=== PATIENT | male | born 1990 | race Caucasian/White ===

== ENCOUNTER 2021-11-02 11:14 | Emergency (ER) | payer OTHER, SELFPAY ==
[2021-11-02 11:35] VITALS: BP 130/80; PULSE 70; O2SAT 98; BMI 27.8
[2021-11-02 11:46] VITALS: BP 134/63; PULSE 75; RESP 16; TEMP 36.4; O2SAT 97
--- NOTE | 2021-11-02 12:32 | ED_ITS ---
HPI - General Adult General Chief complaint: ETOH/Substance Use Stated complaint: EXT NUMB/TINGLY ,NAUSEA/VOMITING X'S DAYS Time Seen by Provider: 11/02/21 11:48 Source: patient Mode of arrival: EMS Limitations: no limitations History of Present Illness HPI narrative: kicked out of program - was tapered off of 150mg methadone using heroin still supposed to be on doxycycline for R arm cellulitis here requesting methadone dose and detox placement, he is homeless complaint: withdrawal from opiates Onset (ago): day(s) (few) Severity: moderate Quality: other (feels tingly at times and has mild nausea and body aches) Pain Consistency: constant Relieving factors: none Exacerbating factors: none Associated symptoms: loss of appetite and malaise Treatments prior to arrival: none Related Data Home Medications Medication Instructions Recorded Confirmed methadone 10 mg/mL oral concentrate 20 mg PO DAILY 11/02/21 11/02/21 Previous Rx's Medication Instructions Recorded doxycycline hyclate 100 mg capsule 100 mg PO BID 7 Days #14 cap 11/02/21 Allergies Allergy/AdvReac Type Severity Reaction Status Date / Time risperidone Allergy Severe Angioedema Verified 11/02/21 11:59 Review of Systems Review of Systems: Constitutional : No Weight loss, No Fever, No Chills, pos Fatigue, No Malaise ENT/Mouth : No sore throat, No Rhinorrhea Eyes: No Eye Pain, No Swelling, No Redness Cardiovascular : No Chest Pain, No SOB, No Dyspnea on Exertion, No Orthopnea, No Edema, No Palpitations Respiratory : No Cough, No Sputum, No Wheezing Gastrointestinal : pos Nausea, No Vomiting, No Diarrhea, No Constipation, No abdominal Pain, No Hematochezia, No Melena Genitourinary : No Dysuria, No Urinary Frequency, No Hematuria, Musculoskeletal : No joint pain, pos Myalgias, No Joint Swelling Skin : No Skin Lesions, pos rash Neuro : No Weakness, No Numbness, No Dizziness, No Headache Psych : No Anxiety/Panic, No Depression Heme/Lymph: No Bruising, No Bleeding,No Lymphadenopathy Endocrine : No Polyuria, No Polydipsia All other systems reviewed and are negative PMFSH Past Medical History Attestation statement: The following information was validated with the patient. Medical History Active substance abuse Cellulitis Social History Social History (Updated 11/02/21 @ 12:36 by Neda Monahan DO) Patient Tobacco Use Status: Current everyday Tobacco user Substance Use Type: Crack/Cocaine, IV Drugs and Marijuana Advance Directives: No Advance Directives Information Provided: No Physical Exam ED Vital Signs: Vital Signs - 24 hr 11/02/21 11:46 Temperature 97.6 F Pulse Rate 75 Respiratory Rate 16 Blood Pressure 134/63 Pulse Oximetry 97 BMI result Body Mass Index 27.8 Appearance: Alert. Oriented X3. No acute distress. Eyes: Pupils equal, round and reactive to light. ENT: Pharynx normal. Neck: Normal inspection. Neck supple. CVS: Normal heart rate and rhythm. Pulses normal. Respiratory: No respiratory distress. Breath sounds normal. Abdomen: Soft and nontender. Skin: Skin warm and dry. Normal skin color. Normal skin turgor. R AC area mild cellulitis no fluctuance or abscess noted Extremities: No lower extremity edema. No calf ttp Neuro: Oriented X 3. No motor deficit. No sensory deficit. Course Course Course Narrative: mild elevation in LFTs - can follow up as outpatient Physician observation started at 315pm. Patient placed in physician observation because the patient needed more CARE team to aid in finding detox center. At the time observation was started the patient's vitals were stable, patient is alert and oriented , Neuro: nonfocal, CV RRR, Lungs clear Medical Decision Making MDM Narrative Medical decision making narrative: 31 yo male hx of substance abuse looking for detox in mild withdrawal will obtain basic labs and start back on his doxy as well as initial methadone dose - recovery coaches involved. anticipate DC to detox. Lab Data Result diagrams: 11/02/21 12:52 11/02/21 12:52 Labs: Lab Results 11/02/21 11/02/21 11/02/21 Range/Units 12:45 12:52 12:52 WBC 10.2 (4.8-10.8) X10*3/uL RBC 4.53 L (4.60-5.80) X10*6/uL Hgb 13.5 L (14.0-18.0) g/dl Hct 39.3 L (42.0-52.0) % MCV 86.8 (80.0-98.0) fL MCH 29.8 (27.0-33.0) pg MCHC 34.4 (31.0-36.0) g/dl RDW 13.0 (11.0-16.0) % Plt Count 291 (160-400) X10*3/uL MPV 10.0 (9.4-12.4) fL Immature Gran % (Auto) 0.2 (0.0-0.4) % Neut % (Auto) 81.5 H (45-73) % Lymph % (Auto) 11.7 L (20-40) % [place] % (Auto) 6.2 (2-11) % Eos % (Auto) 0.1 (0-4) % Baso % (Auto) 0.3 (0-2) % Lymph # (Auto) 1.2 (1.2-4.9) X10*3/uL [place] # (Auto) 0.6 (0.1-1.2) X10*3/uL Eos # (Auto) 0.0 (0.0-0.4) X10*3/uL Baso # (Auto) 0.0 (0.0-0.2) X10*3/uL Abs Immat Gran (auto) 0.02 (0.00-0.03) X10*3/uL Absolute Neuts (auto) 8.3 (2.0-8.3) x10*3/uL Absolute Nucleated RBC 0.000 (0.0-0.012) X10*3/uL Nucleated RBC % (auto) 0.0 (0.0-0.2) /100WBC Sodium 137 (135-145) mmol/L Potassium 3.7 (3.3-5.1) mmol/L Chloride 99 (96-108) mmol/L Carbon Dioxide 28 (22-29) mmol/L Anion Gap 14 (12-20) BUN 11 (9-16) mg/dL Creatinine 0.80 (0.5-1.4) mg/dL Estim Creat Clear Calc 127.3 Estimated GFR > 60 Random Glucose 142 H (60-115) mg/dL Calcium 10.1 (8.4-10.2) mg/dL Magnesium 2.2 (1.6-2.6) mg/dL Total Bilirubin 1.0 (0.0-1.0) mg/dL Direct Bilirubin 0.4 (0.0-0.5) mg/dL AST 148 H (5-37) U/L ALT 52 H (0-40) U/L Alkaline Phosphatase 86 (39-117) U/L Total Protein 7.5 (6.5-8.0) g/dL Albumin 4.4 (3.5-5.0) g/dL COVID-19 ([facility]ORITA) Negative (Negative) COVID-19 Clin Com See Note Discharge Plan Discharge Clinical Impression: Elevated liver enzymes, Active substance abuse, Cellulitis Patient Disposition: Still a Patient Instructions: Cellulitis (ED), Polysubstance Abuse (ED) Additional Instructions: return to ED for any worsening symptoms or concerns very mild elevation in liver enzymes should follow up for repeat testing and hepatitis screening COVID negative Prescriptions: New doxycycline hyclate 100 mg capsule 100 mg PO BID 7 Days Qty: 14 0RF No Action methadone 10 mg/mL Concentrate 20 mg PO DAILY 0RF
[2021-11-02] MEDS: Ondansetron ODT 4 MG TAB.RAPDIS TRANSLINGU (12:33)
[2021-11-02 12:58] LABS: MANUAL DIFF FLAG NO
[2021-11-02 13:00] LABS: Basophils Percent Auto 0.3 % (0-2); Eosinophils Percent Auto 0.1 % (0-4); Hematocrit 39.3 % (42.0-52.0); Hemoglobin 13.5 g/dl (14.0-18.0); Imm Gran Abs Auto 0.02 X10*3/uL (0.00-0.03); Imm Gran Pct Auto 0.2 % (0.0-0.4); Lymphocytes Absolute Auto 1.2 X10*3/uL (1.2-4.9); Lymphocytes Percent Auto 11.7 % (20-40); Mean Corpuscular HGB Conc 34.4 g/dl (31.0-36.0); Mean Corpuscular Hemoglobin 29.8 pg (27.0-33.0); Mean Corpuscular Volume 86.8 fL (80.0-98.0); Monocytes Absolute Auto 0.6 X10*3/uL (0.1-1.2); Monocytes Percent Auto 6.2 % (2-11); Neutrophils Absolute Auto 8.3 x10*3/uL (2.0-8.3); Neutrophils Percent Auto 81.5 % (45-73); Platelet Count 291 X10*3/uL (160-400); Red Blood Count 4.53 X10*6/uL (4.60-5.80); White Blood Count 10.2 X10*3/uL (4.8-10.8)
--- NOTE | 2021-11-02 13:15 | PC.NURSE ---
called [facility] to confirm pt methadone dose, pt [facility] clinic is [facility]. message left with [facility] d/t no answer on phone. will attempt to call and obtain last dose again
[2021-11-02 13:18] LABS: COVID-19 Test Negative (Negative)
[2021-11-02 13:20] LABS: Alanine Aminotransferase 52 U/L (0-40); Albumin Level 4.4 g/dL (3.5-5.0); Alkaline Phosphatase 86 U/L (39-117); Anion Gap 14 (12-20); Aspartate Amino Transferase 148 U/L (5-37); Bilirubin Direct 0.4 mg/dL (0.0-0.5); Blood Urea Nitrogen 11 mg/dL (9-16); Calcium 10.1 mg/dL (8.4-10.2); Carbon Dioxide 28 mmol/L (22-29); Chloride 99 mmol/L (96-108); Creatinine Clr Calc Pharmacy 127.3; Estimated Glomerular Filt Rate > 60; Glucose Random 142 mg/dL (60-115); Magnesium 2.2 mg/dL (1.6-2.6); Potassium 3.7 mmol/L (3.3-5.1); Sodium 137 mmol/L (135-145); Total Protein 7.5 g/dL (6.5-8.0)
--- NOTE | 2021-11-02 13:49 | PC.NURSE ---
pt information release filled out and signed, faxed to [facility] attn: devin
[2021-11-02] MEDS: methADONE HCl 20 MG/2 ML ORAL.CONC 30 MG PO (14:46)
[2021-11-02 15:31] VITALS: BP 128/65; PULSE 69; RESP 16; TEMP 36.9; O2SAT 98
== END 2021-11-02 18:05 | disposition other institution (70) ==
PROVIDERS: Emergency Provider Emergency Medicine
DX: F10.19 Alcohol abuse with unspecified alcohol-induced disorder (principal); R94.5 Abnormal results of liver function studies; Y90.9 Presence of alcohol in blood, level not specified; Z20.822 Contact with and (suspected) exposure to COVID-19; Z79.899 Other long term (current) drug therapy
CPT/HCPCS: 80048; 80076; 83735; 85025; 87635; 99282; 99285

== ENCOUNTER 2021-11-09 14:12 | Emergency (ER) | payer OTHER, SELFPAY ==
--- NOTE | 2021-11-09 15:09 | MHC.RECOVRN ---
T/w received a call from Sheryl Phillip regarding pt. Pt recently dc from [facility] and has not received methadone dose x 2 days. Pt is currently engaged with [facility] in [place], receiving 25 mg daily. Pt unable to get to [facility] due to bus schedules. Pt requesting dose at [facility]. Pt plans to present to [facility] tomorrow and/or return to inpatient [facility]. Pt plans to continue working with Sheryl Phillip and will follow up accordingly. Discussed with care technician as well as Sandra Quezada APRN.
[2021-11-09 15:22] VITALS: BP 127/84; PULSE 101; RESP 18; TEMP 36.3; O2SAT 96; BMI 29.1
--- NOTE | 2021-11-09 16:00 | ED_ITS ---
HPI - General Adult General Chief complaint: General Medical Stated complaint: needs methadone Time Seen by Provider: 11/09/21 15:37 Source: patient Mode of arrival: ambulatory Limitations: no limitations History of Present Illness HPI narrative: 31-year-old male with a longstanding history of opiate use disorder here with reports of seeking a medication dose of methadone. Patient tells me that he was discharged from [facility] on November 07 after being there for 5 days for detox. Due to transportation issues he was unable to get dose yesterday. He is here seeking his dose of 25 mg of methadone. He does have his letter with his last dose. He has no complaints. He is being followed by [facility]. Related Data Home Medications Medication Instructions Recorded Confirmed methadone 10 mg/mL oral concentrate 20 mg PO DAILY 11/02/21 11/02/21 Previous Rx's Medication Instructions Recorded doxycycline hyclate 100 mg capsule 100 mg PO BID 7 Days #14 cap 11/02/21 Allergies Allergy/AdvReac Type Severity Reaction Status Date / Time risperidone Allergy Severe Angioedema Verified 11/09/21 15:22 Review of Systems Review of Systems: Yes all other systems are reviewed and are negative Constitutional: Constitutional: Reports no additional constitutional complaints, Denies body ache(s), Denies chills, Denies fever(s), Denies headache(s) and Denies weakness Eyes: Eyes: Reports no additional eye complaints and Denies change in vision ENT: Reports system reviewed and no additional complaints, except as documented, Denies dizziness, Denies headache(s), Denies nasal congestion, Denies nasal discharge and Denies neck pain Cardiovascular: Cardiovascular: Reports no additional cardiovascular complaints, Denies chest pain, Denies leg edema and Denies dyspnea Respiratory: Respiratory: Reports no additional respiratory complaints, Denies cough and Denies dyspnea Gastrointestinal: Gastrointestinal: Reports no additional gastrointestinal complaints, Denies abdominal pain, Denies diarrhea, Denies nausea and Denies vomiting Genitourinary: Genitourinary: Denies urinary incontinence Musculoskeletal: Musculoskeletal: Reports no additional musculoskeletal complaints, Denies back pain, Denies arthralgias, Denies joint swelling, Denies neck pain, Denies numbness and Denies tingling Integumentary/Breasts: Skin/Breast: Reports system reviewed and no additional complaints, except as docu and Denies rash Neurologic: Reports system reviewed and no additional complaints, except as documented, Denies dizziness, Denies headache(s), Denies numbness, Denies tingling and Denies weakness PMFSH Past Medical History Attestation statement: The following information was validated with the patient. Source: old records reviewed and nursing notes reviewed Medical History Active substance abuse Cellulitis Social History Social History Patient Tobacco Use Status: Current everyday Tobacco user Substance Use Type: Crack/Cocaine, IV Drugs and Marijuana Advance Directives: No Advance Directives Information Provided: No Physical Exam ED Vital Signs: Vital Signs - 24 hr 11/09/21 15:22 Temperature 97.3 F Pulse Rate 101 H Respiratory Rate 18 Blood Pressure 127/84 Pulse Oximetry 96 BMI result Body Mass Index 29.1 Const General: cooperative and alert Orientation/consciousness: patient oriented x3 HENMT Head: Yes normal to inspection Eyes General: appearance normal, both eyes and all related structures Neck Neck: Yes normal visual inspection Chest Chest palpation & inspection: normal inspection of the chest Resp Effort & Inspection: normal respiratory effort Neuro General: patient oriented x3 and moves all extremities Course Course Course Narrative: Here seeking methadone dose. Has letter dose. Given dose 25mg PO. Liv recovery nurse involved. Medical Decision Making Medical Records Medical records reviewed: Yes I reviewed the patient's medical records. Lab Data Lab results reviewed: Yes I reviewed the patient's lab results. Discharge Plan Discharge Clinical Impression: Medication refill Patient Disposition: Home, Self-Care Instructions: Medicine Refill (ED) Additional Instructions: You received a 1 time dose of methadone 25 mg today Follow-up with [facility] Prescriptions: No Action doxycycline hyclate 100 mg capsule 100 mg PO BID 7 Days Qty: 14 0RF methadone 10 mg/mL Concentrate 20 mg PO DAILY 0RF Referrals: Physician,Unknown J [Primary Care Provider] - Interventions: ED Discharge Assessment Last Done: 11/09/21 16:09 Discharge Date/Time: 11/09/21 16:18
[2021-11-09] MEDS: methADONE HCl 20 MG/2 ML ORAL.CONC 25 MG PO (16:02)
== END 2021-11-09 16:18 | disposition home or self-care (01) ==
LOC: HO.ED 16:16
PROVIDERS: Emergency Provider Emergency Medicine
DX: F11.20 Opioid dependence, uncomplicated (principal); Z76.0 Encounter for issue of repeat prescription
CPT/HCPCS: 99283

== ENCOUNTER 2021-11-09 16:42 | Inpatient (IN) | payer OTHER, SELFPAY ==
--- NOTE | 2021-11-09 17:07 | ED.PSYCH ---
HPI - Psych General Chief Complaint: Psychiatric Symptoms Stated Complaint: crisis Time Seen by Provider: 11/09/21 16:51 Source: patient Mode of arrival: ambulatory Limitations: no limitations History of Present Illness HPI Narrative: 31-year-old male with a history of opiate use disorder who was just seen here 45 minutes ago and dose with his methadone returns for crisis. Patient tells me he has underlying history of bipolar and schizoaffective disorder. He has Seroquel p.r.n. which he takes. He tells me that he suffers from manic episodes and when he has manic episodes he feels like he is at risk of harm for himself. Patient denies any suicidal ideations. No homicidal ideations. Patient tells me if he doesnt sleep he gets visual hallucinations but normally not a problem if he sleeping well. Patient has been in dual diagnosis programs. He does not currently have any therapist or psychiatrist. He is using heroin multiple bags daily and injects it. He also uses cocaine sometimes. No additional substance use. Patient is on methadone 25 mg and received his dose 1 hour ago. Related Data Home Medications Medication Instructions Recorded Confirmed methadone 10 mg/mL oral concentrate 20 mg PO DAILY 11/02/21 11/02/21 gabapentin 300 mg capsule 1 cap PO TID 11/09/21 11/09/21 Allergies Allergy/AdvReac Type Severity Reaction Status Date / Time risperidone Allergy Severe Angioedema Verified 11/09/21 15:22 Review of Systems Review of Systems: Yes all other systems are reviewed and are negative Constitutional: Constitutional: Reports no additional constitutional complaints, Denies body ache(s), Denies chills, Denies fever(s), Denies headache(s) and Denies weakness Eyes: Eyes: Reports no additional eye complaints and Denies change in vision ENT: Reports system reviewed and no additional complaints, except as documented, Denies dizziness, Denies headache(s), Denies nasal congestion, Denies nasal discharge and Denies neck pain Cardiovascular: Cardiovascular: Reports no additional cardiovascular complaints, Denies chest pain, Denies leg edema and Denies dyspnea Respiratory: Respiratory: Reports no additional respiratory complaints, Denies cough and Denies dyspnea Gastrointestinal: Gastrointestinal: Reports no additional gastrointestinal complaints, Denies abdominal pain, Denies diarrhea, Denies nausea and Denies vomiting Genitourinary: Genitourinary: Denies urinary incontinence Musculoskeletal: Musculoskeletal: Reports no additional musculoskeletal complaints, Denies back pain, Denies arthralgias, Denies joint swelling, Denies neck pain, Denies numbness and Denies tingling Integumentary/Breasts: Skin/Breast: Reports system reviewed and no additional complaints, except as docu and Denies rash Neurologic: Reports system reviewed and no additional complaints, except as documented, Denies Abnormal speech present, Denies dizziness, Denies headache(s), Denies numbness, Denies tingling and Denies weakness Psychiatric: Psychiatric: Reports anxiety, Reports depression, Reports visual hallucinations, Denies homicidal ideation and Denies suicidal ideation Comments: +manic feeling PMFSH Past Medical History Attestation statement: The following information was validated with the patient. Source: old records reviewed and nursing notes reviewed Medical History Active substance abuse Cellulitis Social History Social History Patient Tobacco Use Status: Current everyday Tobacco user Substance Use Type: Crack/Cocaine, IV Drugs and Marijuana Advance Directives: No Advance Directives Information Provided: No Physical Exam Vital Signs: Vital Signs: Last Vital Signs Temp 99.1 F 11/09/21 17:52 Pulse 82 11/09/21 17:52 Resp 20 11/09/21 17:52 BP 132/78 11/09/21 17:52 Pulse Ox 97 11/09/21 17:52 BMI result Body Mass Index 29.3 Const: General: cooperative, healthy appearing, comfortable and no acute distress Orientation/consciousness: patient oriented x3 Limitations: no limitations HEENT: Head: Yes normal to inspection Ears: hearing grossly normal bilaterally General nose exam: Normal external nose present Face and sinus: Yes normal facial exam Mouth: Normal oral and palatal mucosa present Throat: Yes posterior oropharynx normal Eyes: General: appearance normal, both eyes and all related structures Pupils: Equal, round and reactive pupils present Neck: Neck: Yes normal visual inspection Chest: Chest palpation & inspection: normal inspection of the chest Resp: Effort & Inspection: normal respiratory effort Auscultation: clear to auscultation bilaterally Cardio: Rate: regular rate Rhythm: regular rhythm Peripheral pulses: Peripheral pulses 2+ throughout GI: Inspection: Yes normal to inspection Palpation (GI): Soft to palpation and nontender Auscultation: normal bowel sounds Back/Spine/Pelvis: Thoracic/Lumbar Spine: thoracic and lumbar spine normal to inspection Skin: General skin exam: no rashes or lesions noted Neuro: General: patient oriented x3, no focal motor deficits and normal sensation to monofilament Cranial nerves: Yes CN's II-XII intact bilaterally and Yes Equal, round and reactive pupils present Cognition (Neuro): normal cognition Speech: No Abnormal speech present Gait exam (Neuro): Normal gait present Motor exam (neuro): 5/5 motor strength present throughout Extrem: General: Yes normal to inspection Course Course Course Narrative: 31 yo male here with feeling manic with increasing episodes of ofelia. When he feels manic he feels like he might hurt himself. Will check [facility], covid screen. Reevaluation(s) Reevaluation #1: Sign out to night team pending above Time: 21:00 MDM - Psych Medical Records Attestation: I reviewed the patient's medical records. Lab Data Attestation: I reviewed the patient's lab results. Labs: Lab Results 11/09/21 11/09/21 Range/Units 18:48 18:51 Urine Opiates Screen POSITIVE H (Not Detect) Urine Fentanyl Screen POSITIVE H (Not Detect) Ur Barbiturates Screen Not Detected (Not Detect) Ur Phencyclidine Scrn Not Detected (Not Detect) Ur Amphetamines Screen Not Detected (Not Detect) U Benzodiazepines Scrn Not Detected (Not Detect) Urine Cocaine Screen POSITIVE H (Not Detect) U Marijuana (THC) Screen Not Detected (Not Detect) COVID-19 ([facility]) Negative (Negative) COVID-19 Clin Com See Note Discharge Plan Discharge Clinical Impression: Depression Patient Disposition: Still a Patient Prescriptions: No Action methadone 10 mg/mL Concentrate 20 mg PO DAILY 0RF gabapentin 300 mg capsule 1 cap PO TID 0RF
[2021-11-09 17:38] VITALS: RESP 16; BMI 29.3
[2021-11-09 17:52] VITALS: BP 132/78; PULSE 82; RESP 20; TEMP 37.3; O2SAT 97
[2021-11-09 19:16] LABS: COVID-19 Test Negative (Negative)
[2021-11-09 19:22] LABS: Amphetamine Screen Urine Not Detected (Not Detect); Barbiturates, Urine Not Detected (Not Detect); Benzodiazepines Screen Urine Not Detected (Not Detect); Cannabinoid Screen Urine Not Detected (Not Detect); Cocaine Screen Urine POSITIVE (Not Detect); Fentanyl, urine POSITIVE (Not Detect); Opiate Screen Urine POSITIVE (Not Detect); Phencyclidine Screen Urine Not Detected (Not Detect)
[2021-11-09] MEDS: Gabapentin 300 MG CAPSULE PO (21:17)
[2021-11-09 22:02] LABS: MANUAL DIFF FLAG NO
[2021-11-09 22:05] LABS: Basophils Absolute Auto 0.1 X10*3/uL (0.0-0.2); Basophils Percent Auto 0.6 % (0-2); Eosinophils Absolute Auto 0.2 X10*3/uL (0.0-0.4); Eosinophils Percent Auto 1.9 % (0-4); Hematocrit 41.4 % (42.0-52.0); Hemoglobin 13.8 g/dl (14.0-18.0); Imm Gran Abs Auto 0.05 X10*3/uL (0.00-0.03); Imm Gran Pct Auto 0.6 % (0.0-0.4); Lymphocytes Percent Auto 38.1 % (20-40); Mean Corpuscular HGB Conc 33.3 g/dl (31.0-36.0); Mean Corpuscular Hemoglobin 29.7 pg (27.0-33.0); Mean Corpuscular Volume 89.2 fL (80.0-98.0); Mean Platelet Volume 10.7 fL (9.4-12.4); Monocytes Absolute Auto 0.7 X10*3/uL (0.1-1.2); Monocytes Percent Auto 8.8 % (2-11); Neutrophils Absolute Auto 3.9 x10*3/uL (2.0-8.3); Platelet Count 330 X10*3/uL (160-400); Red Blood Count 4.64 X10*6/uL (4.60-5.80); Red Cell Distribution Width 12.7 % (11.0-16.0); White Blood Count 7.9 X10*3/uL (4.8-10.8)
[2021-11-09 22:38] LABS: Alanine Aminotransferase 29 U/L (0-40); Albumin Level 4.2 g/dL (3.5-5.0); Alkaline Phosphatase 75 U/L (39-117); Anion Gap 17 (12-20); Aspartate Amino Transferase 66 U/L (5-37); Bilirubin Direct 0.2 mg/dL (0.0-0.5); Bilirubin Total 0.4 mg/dL (0.0-1.0); Blood Urea Nitrogen 11 mg/dL (9-16); Calcium 9.7 mg/dL (8.4-10.2); Carbon Dioxide 22 mmol/L (22-29); Chloride 105 mmol/L (96-108); Creatinine Clr Calc Pharmacy 119.8; Estimated Glomerular Filt Rate > 60; Glucose Random 107 mg/dL (60-115); Potassium 5.1 mmol/L (3.3-5.1); Sodium 139 mmol/L (135-145); Total Protein 7.6 g/dL (6.5-8.0)
[2021-11-09] MEDS: traZODone HCL 50 MG TABLET PO (23:15)
[2021-11-09] MEDS: QUEtiapine Fumarate 50 MG TABLET PO (23:16)
--- NOTE | 2021-11-10 | ECG_ITS ---
Test Reason : psych Blood Pressure : / mmHG Vent. Rate : 060 BPM Atrial Rate : 060 BPM P-R Int : 148 ms QRS Dur : 090 ms QT Int : 430 ms P-R-T Axes : 043 -12 037 degrees QTc Int : 430 ms Normal sinus rhythm Normal ECG No previous ECGs available Referred By: Maria Isabel Richardson Electronically Signed By:Alberto Berry
[2021-11-10 02:06] VITALS: BP 133/83; PULSE 69; RESP 16; TEMP 37.1; O2SAT 99
--- NOTE | 2021-11-10 06:54 | PC.NURSE ---
Patient slept through the night, no distress observed/reported, medication compliant, behavior non concerning, disposition per [facility] is voluntary inpatient bed search, vss, will continue to monitor.
--- NOTE | 2021-11-10 07:35 | PC.NURSE ---
patient appears to remain asleep respirations are even and unlabored patient appears in no distress
[2021-11-10] MEDS: Multivitamin TABLET 1 TAB PO (09:56)
[2021-11-10] MEDS: Ferrous Sulfate 324 MG TABLET.DR PO (09:56)
[2021-11-10] MEDS: Gabapentin 300 MG CAPSULE PO ×2 (09:56→20:37)
[2021-11-10] MEDS: methADONE HCl 20 MG/2 ML ORAL.CONC 25 MG PO (09:56)
[2021-11-10 12:53] VITALS: BP 125/72; PULSE 61; TEMP 36.8; O2SAT 100
--- NOTE | 2021-11-10 13:06 | PC.NURSE ---
Dheeraj RN report on M3- plan for him to go upstairs at 1600
[2021-11-10 15:57] VITALS: BP 141/84; PULSE 64; RESP 16; TEMP 36.6; O2SAT 100
--- NOTE | 2021-11-10 17:19 | PC.ADMIT ---
Patient arrived at M3 from [facility] ED at 15:50. Patient signed a conditional voluntary. Patient is alert and oriented x4. Pleasant and cooperative upon admission. Patient presented to the ED with increased paranoia, Auditory hallucinations, and poor sleep/appetite. Per patient ?I was recently homeless, and then I relapsed. I had 4 months clean?. Patient reported that he was tapering off methadone when he relapsed. Patient reported that he ?Bought $1000 worth of cocaine and heroin. I did share some with friends but I used a few hundred dollars worth. I have been using 20/30 bags of heroin daily and like a couple of grams of coke?. Patient currently takes 25 mg of methadone daily. Patient reported that ?subconsciously I think I was hoping I did overdose?. Patient currently denies SI/HI/AH/VH. Patient reported that when he does experience AH the voices are ?mundane commentary?. Patient declined to elaborate further. Patient reported that he currently does not have a psychiatrist or therapist but is wanting to get set up with some. Reported that Haldol and Thorazine have not been helpful in the past for treatment. Reported that he utilizes seroquel prn at bedtime and that ?Ativan has been helpful?. Patient stated ?But I don?t want any of those antipsychotics type drugs?.? Patient contracts for safety. 15 minute safety checks initiated.?
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
[2021-11-10] MEDS: QUEtiapine Fumarate 50 MG TABLET PO (20:37)
[2021-11-11 08:17] LABS: Estimated Average Glucose 100 mg/dL; Hemoglobin A1c % 5.1 %
[2021-11-11 08:31] LABS: Alanine Aminotransferase 20 U/L (0-40); Albumin Level 3.6 g/dL (3.5-5.0); Alkaline Phosphatase 64 U/L (39-117); Anion Gap 10 (12-20); Aspartate Amino Transferase 23 U/L (5-37); Bilirubin Total 0.4 mg/dL (0.0-1.0); Blood Urea Nitrogen 8 mg/dL (9-16); Calcium 9.7 mg/dL (8.4-10.2); Carbon Dioxide 26 mmol/L (22-29); Chloride 107 mmol/L (96-108); Cholesterol 118 mg/dL; Estimated Glomerular Filt Rate > 60; Glucose Fasting 87 mg/dL (60-99); HDL Cholesterol 42 mg/dL; LDL Cholesterol Calculated 61 mg/dl; Potassium 4.1 mmol/L (3.3-5.1); Sodium 139 mmol/L (135-145); Total Protein 6.4 g/dL (6.5-8.0); Triglycerides 78 mg/dL
[2021-11-11 08:40] LABS: Thyroid Stimulating Hormone 0.31 uIU/mL (0.32-4.0)
[2021-11-11 09:00] VITALS: BP 125/62; PULSE 62; RESP 18; TEMP 36.6; O2SAT 99
[2021-11-11] MEDS: Gabapentin 300 MG CAPSULE PO ×3 (09:35→22:26)
[2021-11-11] MEDS: Multivitamin TABLET 1 TAB PO (09:35)
[2021-11-11] MEDS: methADONE HCl 20 MG/2 ML ORAL.CONC 25 MG PO (09:35)
[2021-11-11] MEDS: Ondansetron ODT 4 MG TAB.RAPDIS TRANSLINGU (10:26)
--- NOTE | 2021-11-11 11:21 | P.PNPSI_ITS ---
Subjective Subjective Date of Service: 11/11/21 Reason For Visit: SI Subjective Notes: Conditional Voluntary Interim History: The nursing staff reported that the patient was admitted yesterday for increased paranoia and auditory hallucinations in the context of a relapse after tapering of methadone. On interview, the patient reported that he is still having withdrawal symptoms of opioids, he needed some Zofran for nausea but now he is feeling slightly better. He reported chronic auditory hallucinations but he does not want to take any antipsychotics. He looks alert and oriented and able to recognize internal stimuli. We discussed the possibility of starting Suboxone but I recommended to wait a few days until his withdrawal symptoms are much better since now he is feeling very weak. Mental Status Exam Mental Status Exam Patient Appearance: Appropriate Patient Orientation: Person and Situation Level of Consciousness: Awake Patient Behavior: Cooperative Mood Description: Withdrawn Affect Description: Constricted Patient Cognition Impaired: No Ability to Follow Directions: Good Speech Pattern: Clear Hallucinations: Auditory Delusions: Not Present Thought Process: Linear Thought Content: positive for Circumstantial Judgement: Fair Diagnostics Vital Signs (24Hr): Vital Signs - 24 hr 11/10/21 12:53 11/10/21 15:57 Temperature 98.3 F 97.9 F Pulse Rate 61 64 Respiratory Rate 16 Blood Pressure 125/72 141/84 H Pulse Oximetry 100 100 BMI result Body Mass Index 29.3 Labs Results: 11/09/21 21:55 11/11/21 07:40 Labs: Laboratory Results - last 48 hr 11/09/21 11/09/21 11/09/21 18:48 18:51 21:55 WBC 7.9 RBC 4.64 Hgb 13.8 L Hct 41.4 L MCV 89.2 MCH 29.7 MCHC 33.3 RDW 12.7 Plt Count 330 MPV 10.7 Immature Gran % (Auto) 0.6 H Neut % (Auto) 50.0 Lymph % (Auto) 38.1 [place] % (Auto) 8.8 Eos % (Auto) 1.9 Baso % (Auto) 0.6 Lymph # (Auto) 3.0 [place] # (Auto) 0.7 Eos # (Auto) 0.2 Baso # (Auto) 0.1 Abs Immat Gran (auto) 0.05 H Absolute Neuts (auto) 3.9 Absolute Nucleated RBC 0.000 Nucleated RBC % (auto) 0.0 Sodium Potassium Chloride Carbon Dioxide Anion Gap BUN Creatinine Estim Creat Clear Calc Estimated GFR Random Glucose Fasting Glucose Estimat Average Glucose Hemoglobin A1c % Calcium Total Bilirubin Direct Bilirubin AST ALT Alkaline Phosphatase Total Protein Albumin Triglycerides Cholesterol LDL Cholesterol, Calc HDL Cholesterol TSH Urine Opiates Screen POSITIVE H Urine Fentanyl Screen POSITIVE H Ur Barbiturates Screen Not Detected Ur Phencyclidine Scrn Not Detected Ur Amphetamines Screen Not Detected U Benzodiazepines Scrn Not Detected Urine Cocaine Screen POSITIVE H U Marijuana (THC) Screen Not Detected COVID-19 (DORITA) Negative COVID-19 Clin Com See Note 11/09/21 11/11/21 11/11/21 21:55 07:40 07:40 WBC RBC Hgb Hct MCV MCH MCHC RDW Plt Count MPV Immature Gran % (Auto) Neut % (Auto) Lymph % (Auto) [place] % (Auto) Eos % (Auto) Baso % (Auto) Lymph # (Auto) [place] # (Auto) Eos # (Auto) Baso # (Auto) Abs Immat Gran (auto) Absolute Neuts (auto) Absolute Nucleated RBC Nucleated RBC % (auto) Sodium 139 139 Potassium 5.1 D 4.1 Chloride 105 107 Carbon Dioxide 22 26 Anion Gap 17 10 L BUN 11 8 L Creatinine 0.87 0.75 Estim Creat Clear Calc 119.8 139.0 Estimated GFR > 60 > 60 Random Glucose 107 Fasting Glucose 87 Estimat Average Glucose 100 Hemoglobin A1c % 5.1 Calcium 9.7 9.7 Total Bilirubin 0.4 0.4 Direct Bilirubin 0.2 AST 66 H 23 D ALT 29 20 Alkaline Phosphatase 75 64 Total Protein 7.6 6.4 L Albumin 4.2 3.6 Triglycerides 78 Cholesterol 118 LDL Cholesterol, Calc 61 HDL Cholesterol 42 TSH 0.31 L Urine Opiates Screen Urine Fentanyl Screen Ur Barbiturates Screen Ur Phencyclidine Scrn Ur Amphetamines Screen U Benzodiazepines Scrn Urine Cocaine Screen U Marijuana (THC) Screen COVID-19 ([facility]ORITA) COVID-19 Clin Com Medications Medications Current Medications Acetaminophen (Acetaminophen 325 Mg Tablet) 650 mg PO Q6H PRN PRN Reason: Headache/Pain Mild Scale (1-3) Al Hydroxide/Mg Hydroxide (Magnesium Hydrox/Alum Hydrox 30 Ml Oral.Susp) 30 ml PO Q6H PRN PRN Reason: Heartburn/Nausea Clonidine HCl (Clonidine Hcl 0.2 Mg Tablet) 0.2 mg PO TID PRN; Protocol PRN Reason: Anxiety Ferrous Sulfate (Ferrous Sulfate 324 Mg Tablet.) 324 mg PO MoWeFr [facility] Last Admin: 11/10/21 09:56 Dose: 324 mg Documented by: Gabapentin (Gabapentin 300 Mg Capsule) 300 mg PO TID [facility] Last Admin: 11/11/21 09:35 Dose: 300 mg Documented by: Hydroxyzine HCl (Hydroxyzine Hcl 25 Mg Tablet) 25 mg PO BID PRN PRN Reason: Anxiety Magnesium Hydroxide (Milk Of Magnesia 30 Ml Oral.Susp) 30 ml PO DAILY PRN PRN Reason: Constipation Methadone HCl (Methadone Hcl 20 Mg/2 Ml Oral.Conc) 25 mg PO DAILY [facility] Last Admin: 11/11/21 09:35 Dose: 25 mg Documented by: Multivitamins/Vitamin C (Multivitamin Tablet) 1 tab PO DAILY [facility] Last Admin: 11/11/21 09:35 Dose: 1 tab Documented by: Quetiapine Fumarate (Quetiapine Fumarate 25 Mg Tablet) 25 mg PO DAILY PRN PRN Reason: Anxiety Quetiapine Fumarate (Quetiapine Fumarate 50 Mg Tablet) 50 mg PO BEDTIME [facility] Last Admin: 11/10/21 20:37 Dose: 50 mg Documented by: Senna (Sennosides 8.6 Mg Tablet) 8.6 - 17.2 mg PO BEDTIME PRN PRN Reason: Constipation Trazodone HCl (Trazodone Hcl 50 Mg Tablet) 50 - 100 mg PO BEDTIME PRN PRN Reason: Insomnia Last Admin: 11/09/21 23:15 Dose: 100 mg Documented by: Allergies Allergies Allergy/AdvReac Type Severity Reaction Status Date / Time risperidone Allergy Severe Angioedema Verified 11/09/21 15:22 Assessment & Plan Assessment & Plan (1) Bipolar II disorder: Status: Acute Code(s): F31.81 - Bipolar II disorder (2) Opioid use disorder: Status: Acute Code(s): F11.90 - Opioid use, unspecified, uncomplicated (3) Cocaine use disorder: Status: Acute Code(s): F14.10 - Cocaine abuse, uncomplicated (4) Methamphetamine abuse in remission: Status: Acute Code(s): F15.11 - Other stimulant abuse, in remission Plan Mahin is a 31yo male diagnosed with bipolar disorder II DO, BRANDON (heroin, meth, cocaine). Hx of multiple IPLOC, mostly in his 20s; remote hx of SA; no current providers. Hx of presenting to crisis with depression. Hx of psychosis in the context of methamphetamine use. No imminent safety concerns. Plan: Place addiction consult. No med changes, pt's meds restarted in ED. Q15 min safety checks, CV Monitor response to medications. Monitor for safety in the milieu. Discharge on stabilization. Patient seen. Chart reviewed. Discussed with team. Obtain collateral contact info?as needed I spent ___20___ minutes with the patient and/or on the patient floor today, greater than?50% of which was spent counseling/coordinating care. Reason for contiued inpatient stay Substantial Risk for: inability to function, rapid decompensation and med/psych decompensation
[2021-11-11] MEDS: methADONE HCl 20 MG/2 ML ORAL.CONC 5 MG PO (14:17)
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
--- NOTE | 2021-11-11 16:18 | MHC.RECOVSUP ---
Recovery Support note: This lead technical writer met with patient to discuss medications for opioid use disorder and recovery supports. Patient reports he is still undecided but that he is leaning towards choosing Suboxone. Patient expresses interest in being referred to [facility]/ sober living arrangements. This lead technical writer explained that he will be able to work with a professor of social work on discharge planning and referrals to these facilities. Patient acknowledged. Patient reports withdrawal symptoms including sweats, chills and aches. Patient is open to meeting with a assistant women's tennis coach while inpatient. Discussed case with Jennie GILL.
[2021-11-11] MEDS: cloNIDine HCL 0.2 MG TABLET PO (19:14)
[2021-11-11] MEDS: hydrOXYzine HCL 25 MG TABLET PO (19:14)
[2021-11-11 19:26] VITALS: BP 149/82; PULSE 74; RESP 18; TEMP 36.3; O2SAT 99
[2021-11-11] MEDS: QUEtiapine Fumarate 50 MG TABLET PO (22:26)
[2021-11-12 06:00] VITALS: BP 122/60; PULSE 76; RESP 16; TEMP 36.4; O2SAT 100
[2021-11-12] MEDS: Gabapentin 300 MG CAPSULE PO ×3 (08:51→22:22)
[2021-11-12] MEDS: methADONE HCl 20 MG/2 ML ORAL.CONC 30 MG PO (08:51)
[2021-11-12] MEDS: Multivitamin TABLET 1 TAB PO (08:51)
[2021-11-12] MEDS: hydrOXYzine HCL 25 MG TABLET PO (09:05)
[2021-11-12] MEDS: Ondansetron ODT 4 MG TAB.RAPDIS TRANSLINGU (09:35)
--- NOTE | 2021-11-12 14:29 | P.PNPSI_ITS ---
Subjective Subjective Date of Service: 11/12/21 Reason For Visit: SI Subjective Notes: Conditional Voluntary Interim History: The nursing staff reported the patient has 4 so from the morning due to nausea. He slept poorly but apparently he was seen by the staff snoring at night. On interview the patient reports that he is still going to withdrawal. No exacerba tion of hallucinations. Mental Status Exam Mental Status Exam Patient Appearance: Well Grooomed Patient Orientation: Person and Situation Level of Consciousness: Awake Patient Behavior: Cooperative Mood Description: Withdrawn Affect Description: Constricted Patient Cognition Impaired: No Ability to Follow Directions: Good Speech Pattern: Clear Hallucinations: Auditory Delusions: Not Present Thought Process: Linear Thought Content: positive for [place] and positive for Poverty of Content Judgement: Fair Diagnostics Vital Signs (24Hr): Vital Signs - 24 hr 11/11/21 19:26 11/12/21 06:00 Temperature 97.4 F 97.6 F Pulse Rate 74 76 Respiratory Rate 18 16 Blood Pressure 149/82 H 122/60 Pulse Oximetry 99 100 BMI result Body Mass Index 29.3 Labs Results: 11/09/21 21:55 11/11/21 07:40 Labs: Laboratory Results - last 48 hr 11/11/21 11/11/21 07:40 07:40 Sodium 139 Potassium 4.1 Chloride 107 Carbon Dioxide 26 Anion Gap 10 L BUN 8 L Creatinine 0.75 Estim Creat Clear Calc 139.0 Estimated GFR > 60 Fasting Glucose 87 Estimat Average Glucose 100 Hemoglobin A1c % 5.1 Calcium 9.7 Total Bilirubin 0.4 AST 23 D ALT 20 Alkaline Phosphatase 64 Total Protein 6.4 L Albumin 3.6 Triglycerides 78 Cholesterol 118 LDL Cholesterol, Calc 61 HDL Cholesterol 42 TSH 0.31 L Medications Medications Current Medications Acetaminophen (Acetaminophen 325 Mg Tablet) 650 mg PO Q6H PRN PRN Reason: Headache/Pain Mild Scale (1-3) Al Hydroxide/Mg Hydroxide (Magnesium Hydrox/Alum Hydrox 30 Ml Oral.Susp) 30 ml PO Q6H PRN PRN Reason: Heartburn/Nausea Clonidine HCl (Clonidine Hcl 0.2 Mg Tablet) 0.2 mg PO TID PRN; Protocol PRN Reason: Anxiety Last Admin: 11/11/21 19:14 Dose: 0.2 mg Documented by: Ferrous Sulfate (Ferrous Sulfate 324 Mg Tablet.) [facility] Last Admin: 11/10/21 09:56 Dose: 324 mg Documented by: Gabapentin (Gabapentin 300 Mg Capsule) 300 mg PO TID [facility] Last Admin: 11/12/21 08:51 Dose: 300 mg Documented by: Hydroxyzine HCl (Hydroxyzine Hcl 25 Mg Tablet) 25 mg PO BID PRN PRN Reason: Anxiety Last Admin: 11/12/21 09:05 Dose: 25 mg Documented by: Magnesium Hydroxide (Milk Of Magnesia 30 Ml Oral.Susp) 30 ml PO DAILY PRN PRN Reason: Constipation Methadone HCl (Methadone Hcl 20 Mg/2 Ml Oral.Conc) 30 mg PO DAILY [facility] Last Admin: 11/12/21 08:51 Dose: 30 mg Documented by: Multivitamins/Vitamin C (Multivitamin Tablet) 1 tab PO DAILY [facility] Last Admin: 11/12/21 08:51 Dose: 1 tab Documented by: Quetiapine Fumarate (Quetiapine Fumarate 25 Mg Tablet) 25 mg PO DAILY PRN PRN Reason: Anxiety Quetiapine Fumarate (Quetiapine Fumarate 50 Mg Tablet) 50 mg PO BEDTIME [facility] Last Admin: 11/11/21 22:26 Dose: 50 mg Documented by: Senna (Sennosides 8.6 Mg Tablet) 8.6 - 17.2 mg PO BEDTIME PRN PRN Reason: Constipation Trazodone HCl (Trazodone Hcl 50 Mg Tablet) 50 - 100 mg PO BEDTIME PRN PRN Reason: Insomnia Last Admin: 11/09/21 23:15 Dose: 100 mg Documented by: Allergies Allergies Allergy/AdvReac Type Severity Reaction Status Date / Time risperidone Allergy Severe Angioedema Verified 11/09/21 15:22 Assessment & Plan Assessment & Plan (1) Opioid use disorder: Status: Acute Code(s): F11.90 - Opioid use, unspecified, uncomplicated Assessment and Plan: Discussed process of microinduction of suboxone with patient. Discussed risks/benefits of suboxone vs methadone, including adverse effects, both serious and common. Patient asked appropriate questions, which were answered to his satisfaction. He was mostly concerned regarding a chance of precipitated withdrawal, as well as adequate withdrawal and cravings management. Process was explained in detail. He reports he had been sober for 4 years at one time. He says he has struggled with substance use disorder, and has received methadone for a time. He was recently weaned down off of it, and experienced a relapse as a result. He says that this relapse was approximately 2 weeks, and he was using 2 bundles of heroin/fentanyl mixed with cocaine, daily. He has had suboxone in the past. He says he cannot tolerate the naloxone, as it causes him to experience headaches. He states that if he switches, he would need subutex (buprenorphine) rather than suboxone. Later in the conversation, he stated that he had abused the subutex in the past, and had injected it via IV route. He expressed concern for his own sobriety, and states that he thinks he should go to sober house when discharged. We discussed accountability of a methadone clinic, as it requires daily check-in with the clinic and staff. He says that this has helped him in the past. He said he would be open to a CSS referral if available. He is experiencing some continued opioid withdrawals today, after having received the 25mg. Agreeable to an additional 5mg methadone today, with 30mg daily start tomorrow am. He is agreeable to meeting with addiction clinician today. Plan Patient currently being treated inpatient for bipolar disorder with amisha SANDERS. He is also receiving methadone for opioid use disorder. He has met with myself, as well as addiction team clinician. He is asking specificially for buprenorphine, which he has abused in the past. He was indecisive during encounter, and also stated that he believes he needs [facility] treatment, possibly CSS/TSS. RECOMMENDATIONS: Would hold off on any switch to suboxone. Once is he mentally stabilized, and is no longer in withdrawals, could explore topic with him again. He is requesting referral to substance use residential treatment once discharged from unit. I spoke directly with provider Dr. Lorenzo Boston while on unit. I spent __20____ minutes with the patient and/or on the patient floor today, greater than?50% of which was spent counseling/coordinating care. Reason for contiued inpatient stay Substantial Risk for: inability to function, rapid decompensation and med/psych decompensation
[2021-11-12 18:00] VITALS: BP 147/80; PULSE 61; RESP 16; TEMP 36.7; O2SAT 100
[2021-11-12] MEDS: QUEtiapine Fumarate 50 MG TABLET PO (22:22)
[2021-11-12] MEDS: polyethylene glycoL 3350 17 GM POWD.PACK PO (22:41)
[2021-11-13 06:00] VITALS: BP 134/91; PULSE 56; RESP 16; TEMP 36.7; O2SAT 99
[2021-11-13] MEDS: Multivitamin TABLET 1 TAB PO (09:39)
[2021-11-13] MEDS: cloNIDine HCL 0.2 MG TABLET PO (09:39)
[2021-11-13] MEDS: Gabapentin 300 MG CAPSULE PO ×3 (09:40→22:11)
[2021-11-13] MEDS: methADONE HCl 20 MG/2 ML ORAL.CONC 30 MG PO (09:40)
[2021-11-13] MEDS: Ferrous Sulfate 324 MG TABLET.DR PO (10:07)
--- NOTE | 2021-11-13 11:54 | P.PNPSI_ITS ---
Subjective Subjective Date of Service: 11/13/21 Reason For Visit: SI Subjective Notes: Conditional Voluntary Interim History: Nursing staff reported the patient was in bed most of the time he took all his medications. It has been cleared the patient has been more nauseous in the morning. On interview the patient denies active hallucinations or suicidal ideation but he feels very nauseous. Mental Status Exam Mental Status Exam Patient Appearance: Well Grooomed Patient Orientation: Person and Situation Level of Consciousness: Awake Patient Behavior: Cooperative Mood Description: Withdrawn Affect Description: Constricted Patient Cognition Impaired: No Ability to Follow Directions: Good Speech Pattern: Clear Memory Description: Intact Hallucinations: Auditory Delusions: Not Present Thought Process: Linear Thought Content: positive for [place] Judgement: Fair Diagnostics Vital Signs (24Hr): Vital Signs - 24 hr 11/12/21 18:00 11/13/21 06:00 Temperature 98.1 F 98.1 F Pulse Rate 61 56 Respiratory Rate 16 16 Blood Pressure 147/80 H 134/91 H Pulse Oximetry 100 99 BMI result Body Mass Index 29.3 Labs Results: 11/09/21 21:55 11/11/21 07:40 Medications Medications Current Medications Acetaminophen (Acetaminophen 325 Mg Tablet) 650 mg PO Q6H PRN PRN Reason: Headache/Pain Mild Scale (1-3) Al Hydroxide/Mg Hydroxide (Magnesium Hydrox/Alum Hydrox 30 Ml Oral.Susp) 30 ml PO Q6H PRN PRN Reason: Heartburn/Nausea Clonidine HCl (Clonidine Hcl 0.2 Mg Tablet) 0.2 mg PO TID PRN; Protocol PRN Reason: Anxiety Last Admin: 11/13/21 09:39 Dose: 0.2 mg Documented by: Ferrous Sulfate (Ferrous Sulfate 324 Mg Tablet.) 324 mg PO MoWeFr [facility] Last Admin: 11/13/21 10:07 Dose: 324 mg Documented by: Gabapentin (Gabapentin 300 Mg Capsule) 300 mg PO TID [facility] Last Admin: 11/13/21 09:40 Dose: 300 mg Documented by: Hydroxyzine HCl (Hydroxyzine Hcl 25 Mg Tablet) 25 mg PO BID PRN PRN Reason: Anxiety Last Admin: 11/12/21 09:05 Dose: 25 mg Documented by: Magnesium Hydroxide (Milk Of Magnesia 30 Ml Oral.Susp) 30 ml PO DAILY PRN PRN Reason: Constipation Methadone HCl (Methadone Hcl 20 Mg/2 Ml Oral.Conc) 30 mg PO DAILY [facility] Last Admin: 11/13/21 09:40 Dose: 30 mg Documented by: Multivitamins/Vitamin C (Multivitamin Tablet) 1 tab PO DAILY [facility] Last Admin: 11/13/21 09:39 Dose: 1 tab Documented by: Polyethylene Glycol (Polyethylene Glycol 3350 17 Gm Powd.Pack) 17 gm PO DAILY PRN PRN Reason: Constipation Last Admin: 11/12/21 22:41 Dose: 17 gm Documented by: Quetiapine Fumarate (Quetiapine Fumarate 25 Mg Tablet) 25 mg PO DAILY PRN PRN Reason: Anxiety Quetiapine Fumarate (Quetiapine Fumarate 50 Mg Tablet) 50 mg PO BEDTIME [facility] Last Admin: 11/12/21 22:22 Dose: 50 mg Documented by: Senna (Sennosides 8.6 Mg Tablet) 8.6 - 17.2 mg PO BEDTIME PRN PRN Reason: Constipation Trazodone HCl (Trazodone Hcl 50 Mg Tablet) 50 - 100 mg PO BEDTIME PRN PRN Reason: Insomnia Last Admin: 11/09/21 23:15 Dose: 100 mg Documented by: Allergies Allergies Allergy/AdvReac Type Severity Reaction Status Date / Time risperidone Allergy Severe Angioedema Verified 11/09/21 15:22 Assessment & Plan Assessment & Plan (1) Opioid use disorder: Status: Acute Code(s): F11.90 - Opioid use, unspecified, uncomplicated Assessment and Plan: Discussed process of microinduction of suboxone with patient. Discussed risks/benefits of suboxone vs methadone, including adverse effects, both serious and common. Patient asked appropriate questions, which were answered to his satisfaction. He was mostly concerned regarding a chance of precipitated withdrawal, as well as adequate withdrawal and cravings management. Process was explained in detail. He reports he had been sober for 4 years at one time. He says he has struggled with substance use disorder, and has received methadone for a time. He was recently weaned down off of it, and experienced a relapse as a result. He says that this relapse was approximately 2 weeks, and he was using 2 bundles of heroin/fentanyl mixed with cocaine, daily. He has had suboxone in the past. He says he cannot tolerate the naloxone, as it causes him to experience headaches. He states that if he switches, he would need subutex (buprenorphine) rather than suboxone. Later in the conversation, he stated that he had abused the subutex in the past, and had injected it via IV route. He expressed concern for his own sobriety, and states that he thinks he should go to sober house when discharged. We discussed accountability of a methadone clinic, as it requires daily check-in with the clinic and staff. He says that this has helped him in the past. He said he would be open to a [facility] referral if available. He is experiencing some continued opioid withdrawals today, after having received the 25mg. Agreeable to an additional 5mg methadone today, with 30mg daily start tomorrow am. He is agreeable to meeting with addiction clinician today. Plan Patient currently being treated inpatient for bipolar disorder with amisha [facility]. He is also receiving methadone for opioid use disorder. He has met with myself, as well as addiction team clinician. He is asking specificially for buprenorphine, which he has abused in the past. He was indecisive during encounter, and also stated that he believes he needs [facility] treatment, possibly [facility]. RECOMMENDATIONS: Would hold off on any switch to suboxone. Once is he mentally stabilized, and is no longer in withdrawals, could explore topic with him again. He is requesting referral to substance use residential treatment once discharged from unit. I spoke directly with provider Dr. Lorenzo Boston while on unit. I spent __20____ minutes with the patient and/or on the patient floor today, greater than?50% of which was spent counseling/coordinating care. Reason for contiued inpatient stay Substantial Risk for: inability to function, rapid decompensation and med/psych decompensation
--- NOTE | 2021-11-13 15:39 | MHC.RECOVSUP ---
Recovery Support note: This inspector automatic typewriter followed up with patient to provide recovery support. Patient reports he is experiencing nausea related to withdrawal in the morning and that this is impacting his sleep. Patient continues to report interest in transitioning to Suboxone or Subutex. Education provided regarding this transition. Discussed substance use history with patient and current recovery supports. Recovery Support Team will follow up with patient tomorrow.
[2021-11-13] MEDS: polyethylene glycoL 3350 17 GM POWD.PACK PO (15:54)
[2021-11-13] MEDS: Ondansetron ODT 4 MG TAB.RAPDIS TRANSLINGU (18:24)
[2021-11-13] MEDS: hydrOXYzine HCL 25 MG TABLET PO (18:24)
[2021-11-13 20:04] VITALS: BP 116/71; PULSE 67; RESP 16; TEMP 36.7; O2SAT 95
[2021-11-13] MEDS: QUEtiapine Fumarate 50 MG TABLET PO (22:11)
[2021-11-14 08:47] VITALS: BP 125/60; PULSE 56; RESP 17; TEMP 36.4; O2SAT 100
[2021-11-14] MEDS: Gabapentin 300 MG CAPSULE PO ×3 (08:49→21:52)
[2021-11-14] MEDS: Ondansetron ODT 4 MG TAB.RAPDIS TRANSLINGU ×3 (08:49→20:35)
[2021-11-14] MEDS: methADONE HCl 20 MG/2 ML ORAL.CONC 30 MG PO (08:49)
[2021-11-14 09:18] LABS: Folate 11.2 ng/mL (> or = 4.0); Vitamin B12 922 pg/mL (200-900)
--- NOTE | 2021-11-14 12:39 | P.PNADD_ITS ---
Subjective Subjective Date of Service: 11/14/21 Reason For Visit: SI Interim History: Patient seen in follow up Would like to proceed with transition to buprenorphine. Prefers bupe mono pro duct due to headaches with ?naloxone. Discussed low dosing bupe while still taking methadone. Patient with some anxiety around this as he has experienced precipitated withdrawal once before and concerned this may occur. This engineering writer assured patient that transition would be monitored and with very s mall small doses and increases. Patient vrbalized understanding and agreeable to plan. Reports that he is still experiencing some withdrawal sx including nausea (zofran helpful), body aches and anxiety. Discussed using PRN medications to assist with these sx. reviewed plan for continuation of treatment following hospital discharge--patient hopes to be discharged to [facility] or other substance use [facility] facility. reporting he had a bed at a place [facility], however he has not spoken to facility in several weeks. Encouraged patient to call different facilities during this admission. Review of Systems Constitutional: Reports as per HPI Mental Status Exam Mental Status Exam Patient Appearance: Appropriate Patient Behavior: Appropriate and Cooperative Affect Description: Nervous Thought Process: Goal Oriented Thought Content: positive for Goal Oriented Judgement: Fair Diagnostics Vital Signs (24Hr): Vital Signs - 24 hr 11/13/21 20:04 11/14/21 08:47 Temperature 98.1 F 97.6 F Pulse Rate 67 56 Respiratory Rate 16 17 Blood Pressure 116/71 125/60 Pulse Oximetry 95 100 BMI result Body Mass Index 29.3 Labs Results: 11/09/21 21:55 11/11/21 07:40 Labs: Laboratory Results - last 48 hr 11/11/21 07:40 Vitamin B12 922 H Folate 11.2 Medications Medications Current Medications Acetaminophen (Acetaminophen 325 Mg Tablet) 650 mg PO Q6H PRN PRN Reason: Headache/Pain Mild Scale (1-3) Al Hydroxide/Mg Hydroxide (Magnesium Hydrox/Alum Hydrox 30 Ml Oral.Susp) 30 ml PO Q6H PRN PRN Reason: Heartburn/Nausea Buprenorphine/Naloxone (Buprenorphine/Naloxone 2/0.5mg Film) 0.25 film SUBLINGUAL BID@0800,1600 [facility] Stop: 11/15/21 16:01 Buprenorphine/Naloxone (Buprenorphine/Naloxone 2/0.5mg Film) 0.5 film SUBLINGUAL BID@0800,1600 [facility] Stop: 11/16/21 16:01 Buprenorphine/Naloxone (Buprenorphine/Naloxone 2/0.5mg Film) 1 film SUBLINGUAL BID@0800,1600 [facility] Stop: 11/17/21 16:01 Buprenorphine/Naloxone (Buprenorphine/Naloxone 4/1 Mg Film) 1 film SUBLINGUAL BID@0800,1600 [facility] Clonidine HCl (Clonidine Hcl 0.2 Mg Tablet) 0.2 mg PO TID PRN; Protocol PRN Reason: Anxiety Last Admin: 11/13/21 09:39 Dose: 0.2 mg Documented by: Ferrous Sulfate (Ferrous Sulfate 324 Mg Tablet.Dr) 324 mg PO MoWeFr [facility] Last Admin: 11/13/21 10:07 Dose: 324 mg Documented by: Gabapentin (Gabapentin 300 Mg Capsule) 300 mg PO TID [facility] Last Admin: 11/14/21 08:49 Dose: 300 mg Documented by: Hydroxyzine HCl (Hydroxyzine Hcl 25 Mg Tablet) 25 mg PO BID PRN PRN Reason: Anxiety Last Admin: 11/13/21 18:24 Dose: 25 mg Documented by: Magnesium Hydroxide (Milk Of Magnesia 30 Ml Oral.Susp) 30 ml PO DAILY PRN PRN Reason: Constipation Methadone HCl (Methadone Hcl 20 Mg/2 Ml Oral.Conc) 30 mg PO DAILY [facility] Last Admin: 11/14/21 08:49 Dose: 30 mg Documented by: Multivitamins/Vitamin C (Multivitamin Tablet) 1 tab PO DAILY [facility] Last Admin: 11/14/21 08:52 Dose: Not Given Documented by: Ondansetron HCl (Ondansetron Odt 4 Mg Tab.Rapdis) 4 mg TRANSLINGU Q6H PRN PRN Reason: Nausea Last Admin: 11/14/21 08:49 Dose: 4 mg Documented by: Polyethylene Glycol (Polyethylene Glycol 3350 17 Gm Powd.Pack) 17 gm PO DAILY PRN PRN Reason: Constipation Last Admin: 11/13/21 15:54 Dose: 17 gm Documented by: Quetiapine Fumarate (Quetiapine Fumarate 25 Mg Tablet) 25 mg PO DAILY PRN PRN Reason: Anxiety Quetiapine Fumarate (Quetiapine Fumarate 50 Mg Tablet) 50 mg PO BEDTIME [facility] Last Admin: 11/13/21 22:11 Dose: 50 mg Documented by: Senna (Sennosides 8.6 Mg Tablet) 8.6 - 17.2 mg PO BEDTIME PRN PRN Reason: Constipation Trazodone HCl (Trazodone Hcl 50 Mg Tablet) 50 - 100 mg PO BEDTIME PRN PRN Reason: Insomnia Last Admin: 11/09/21 23:15 Dose: 100 mg Documented by: Allergies Allergies Allergy/AdvReac Type Severity Reaction Status Date / Time risperidone Allergy Severe Angioedema Verified 11/09/21 15:22 Assessment & Plan Assessment & Plan (1) Opioid use disorder: Status: Acute Code(s): F11.90 - Opioid use, unspecified, uncomplicated Assessment and Plan: * start buprenorphine transition with the following plan: * 11/14: 0.5mg Suboxone X1 * 11/15: 0.5mg suxone X2 doses * 11/16: 1mg X2 doses * 11/17: 2mg X2 doses * 11/18: 4mg X2 doses ----LAST DOSE OF METHADONE * 11/19: 4mg X 3 doses Please give suboxone at 8am and methadone at least one hour later. Do not ad tour manager at the same time. I spent __25____ minutes with the patient and/or on the patient floor today, greater than?50% of which was spent counseling/coordinating care.
--- NOTE | 2021-11-14 13:43 | P.PNPSI_ITS ---
Subjective Subjective Date of Service: 11/14/21 Reason For Visit: SI Subjective Notes: Conditional Voluntary Interim History: Pt reports feeling better in terms of his mood. He reports feeling less anxious, less depressed. He denies SI/HI. No VH/AH. He reports part of the problem is that he did not sleep prior to coming to the hospital and this usually increases his paranoia and AH. He reports he was hearing multiple voices but not any more. He reports he has tried multiple antipsychotics, thinks seroquel is the best. He reports needing testosteron, prescribed by PCP. He reports hx of possible narcolepsy but has not followed up with neurology. Medication Compliance: Yes Side effects from medications: No Review of Systems Review of Systems Reports opioid withdrawal sx as listed below. Yes all other systems are reviewed and are negative Constitutional: Reports as per HPI, Reports no additional constitutional complaints, Reports body ache(s), Reports chills, Reports fatigue, Denies fever(s), Denies headache(s), Reports malaise and Denies weakness Eyes: Reports no additional eye complaints and Denies change in vision Reports system reviewed and no additional complaints, except as documented, Denies dizziness, Denies headache(s), Denies nasal congestion, Denies nasal discharge and Denies neck pain Cardiovascular: Reports no additional cardiovascular complaints, Denies chest pain, Denies leg edema and Denies dyspnea Respiratory: Reports no additional respiratory complaints, Denies cough and Denies dyspnea Gastrointestinal: Reports no additional gastrointestinal complaints, Denies abdominal pain, Denies diarrhea, Reports nausea and Denies vomiting Genitourinary: Denies urinary incontinence Musculoskeletal: Reports no additional musculoskeletal complaints, Denies back pain, Denies arthralgias, Denies joint swelling, Denies neck pain, Denies numbness and Denies tingling Skin/Breast: Reports system reviewed and no additional complaints, except as docu and Denies rash Reports system reviewed and no additional complaints, except as documented, Denies Abnormal speech present, Denies dizziness, Denies headache(s), Denies numbness, Denies tingling and Denies weakness Psychiatric: Reports anxiety, Reports depression, Reports visual hallucinations, Denies homicidal ideation and Denies suicidal ideation Endocrine: Reports fatigue Mental Status Exam Mental Status Exam Narrative: Appearance: casually groomed, fair hygiene in NAD Behavior: cooperative psychomotor: no agitation or retardation noted Speech: clear, normal rate/rhythm/volume, spontaneous Thought process: linear Thought content: no signs of psychosis, wanting help Mood: better Affect: congruent SI:none HI:none VH/AH:none Delusions:none Insight/judgment:fair x 2. Memory/cog: alert, oriented x 3. grossly intact to conversational testing. Diagnostics Vital Signs (24Hr): Vital Signs - 24 hr 11/13/21 20:04 11/14/21 08:47 Temperature 98.1 F 97.6 F Pulse Rate 67 56 Respiratory Rate 16 17 Blood Pressure 116/71 125/60 Pulse Oximetry 95 100 BMI result Body Mass Index 29.3 Labs Results: 11/09/21 21:55 11/11/21 07:40 Labs: Laboratory Results - last 48 hr 11/11/21 07:40 Vitamin B12 922 H Folate 11.2 Medications Medications Current Medications Acetaminophen (Acetaminophen 325 Mg Tablet) 650 mg PO Q6H PRN PRN Reason: Headache/Pain Mild Scale (1-3) Al Hydroxide/Mg Hydroxide (Magnesium Hydrox/Alum Hydrox 30 Ml Oral.Susp) 30 ml PO Q6H PRN PRN Reason: Heartburn/Nausea Buprenorphine/Naloxone (Buprenorphine/Naloxone 2/0.5mg Film) 0.25 film SUBLINGUAL BID@0800,1600 [facility] Stop: 11/15/21 16:01 Buprenorphine/Naloxone (Buprenorphine/Naloxone 2/0.5mg Film) 0.5 film SUBLINGUAL BID@0800,1600 [facility] Stop: 11/16/21 16:01 Buprenorphine/Naloxone (Buprenorphine/Naloxone 2/0.5mg Film) 1 film SUBLINGUAL BID@0800,1600 [facility] Stop: 11/17/21 16:01 Buprenorphine/Naloxone (Buprenorphine/Naloxone 4/1 Mg Film) 1 film SUBLINGUAL BID@0800,1600 [facility] Clonidine HCl (Clonidine Hcl 0.2 Mg Tablet) 0.2 mg PO TID PRN; Protocol PRN Reason: Anxiety Last Admin: 11/14/21 14:27 Dose: 0.2 mg Documented by: Ferrous Sulfate (Ferrous Sulfate 324 Mg Tablet.) 324 mg PO MoWeFr [facility] Last Admin: 11/13/21 10:07 Dose: 324 mg Documented by: Gabapentin (Gabapentin 300 Mg Capsule) 300 mg PO TID [facility] Last Admin: 11/14/21 14:27 Dose: 300 mg Documented by: Hydroxyzine HCl (Hydroxyzine Hcl 25 Mg Tablet) 25 mg PO BID PRN PRN Reason: Anxiety Last Admin: 11/14/21 14:27 Dose: 25 mg Documented by: Magnesium Hydroxide (Milk Of Magnesia 30 Ml Oral.Susp) 30 ml PO DAILY PRN PRN Reason: Constipation Methadone HCl (Methadone Hcl 20 Mg/2 Ml Oral.Conc) 30 mg PO DAILY [facility] Last Admin: 11/14/21 08:49 Dose: 30 mg Documented by: Multivitamins/Vitamin C (Multivitamin Tablet) 1 tab PO DAILY [facility] Last Admin: 11/14/21 08:52 Dose: Not Given Documented by: Ondansetron HCl (Ondansetron Odt 4 Mg Tab.Rapdis) 4 mg TRANSLINGU Q6H PRN PRN Reason: Nausea Last Admin: 11/14/21 15:09 Dose: 4 mg Documented by: Polyethylene Glycol (Polyethylene Glycol 3350 17 Gm Powd.Pack) 17 gm PO DAILY PRN PRN Reason: Constipation Last Admin: 11/13/21 15:54 Dose: 17 gm Documented by: Quetiapine Fumarate (Quetiapine Fumarate 25 Mg Tablet) 25 mg PO DAILY PRN PRN Reason: Anxiety Quetiapine Fumarate (Quetiapine Fumarate 50 Mg Tablet) 50 mg PO BEDTIME [facility] Last Admin: 11/13/21 22:11 Dose: 50 mg Documented by: Senna (Sennosides 8.6 Mg Tablet) 8.6 - 17.2 mg PO BEDTIME PRN PRN Reason: Constipation Trazodone HCl (Trazodone Hcl 50 Mg Tablet) 50 - 100 mg PO BEDTIME PRN PRN Reason: Insomnia Last Admin: 11/09/21 23:15 Dose: 100 mg Documented by: Allergies Allergies Allergy/AdvReac Type Severity Reaction Status Date / Time risperidone Allergy Severe Angioedema Verified 11/09/21 15:22 Assessment & Plan Assessment & Plan (1) Bipolar II disorder: Status: Acute Code(s): F31.81 - Bipolar II disorder (2) Opioid use disorder: Status: Acute Code(s): F11.90 - Opioid use, unspecified, uncomplicated Assessment and Plan: * start buprenorphine transition with the following plan: * 11/14: 0.5mg Suboxone X1 * 11/15: 0.5mg suxone X2 doses * 6/2: 1mg X2 doses * 6/3: 2mg X2 doses * 6/4: 4mg X2 doses ----LAST DOSE OF METHADONE * 6/5: 4mg X 3 doses Please give suboxone at 8am and methadone at least one hour later. Do not administer at the same time. (3) Cocaine use disorder: Status: Acute Code(s): F14.10 - Cocaine abuse, uncomplicated (4) Methamphetamine abuse in remission: Status: Acute Code(s): F15.11 - Other stimulant abuse, in remission Plan 1. continue current medications- seroquel and gabapentin. I spent __25____ minutes with the patient and/or on the patient floor today, greater than?50% of which was spent counseling/coordinating care. Reason for contiued inpatient stay Substantial Risk for: harm to self
[2021-11-14] MEDS: cloNIDine HCL 0.2 MG TABLET PO (14:27)
[2021-11-14] MEDS: Buprenorphine/Naloxone 2/0.5mg FILM 0.25 FILM SUBLINGUAL (14:27)
[2021-11-14] MEDS: hydrOXYzine HCL 25 MG TABLET PO (14:27)
--- NOTE | 2021-11-14 19:05 | MHC.RECOVSUP ---
? Reason for consult Recovery Support o Current location: 322_2 o Identified substance use concern: Heroin - Support ? Intervention: o Community resources provided o Harm reduction discussion ? Plan: <del>o</del> <del>Referral</del> <del>to</del> <del>[facility]</del> <del>o</del> <del>Bed</del> <del>search</del> <del>in</del> <del>progress</del> <del>to</del> <del>o</del> <del>Follow</del> <del>up</del> <del>tomorrow</del> <del>o</del> <del>Patient</del> <del>awaiting</del> <del>crisis</del> <del>evaluation</del> o Patient to follow up with [facility] after discharge ? Additional information: Met with Patient and we talked recovery & MAT.. we talk about Harm reduction and [facility] [place].. Patient stated that he wants to go away to a half-way Program.. I informed the care team of patients Request..
[2021-11-14] MEDS: Acetaminophen 325 MG TABLET 650 MG PO (20:35)
[2021-11-14] MEDS: polyethylene glycoL 3350 17 GM POWD.PACK PO (20:35)
[2021-11-14 20:39] VITALS: BP 124/65; PULSE 62; RESP 18; TEMP 36.3; O2SAT 99
[2021-11-14] MEDS: QUEtiapine Fumarate 50 MG TABLET PO (21:52)
[2021-11-15] MEDS: Buprenorphine/Naloxone 2/0.5mg FILM 0.25 FILM SUBLINGUAL ×2 (07:38→20:09)
[2021-11-15] MEDS: Ondansetron ODT 4 MG TAB.RAPDIS TRANSLINGU ×3 (08:07→19:22)
[2021-11-15 08:20] VITALS: BP 97/46; PULSE 50; RESP 16; TEMP 36.6; O2SAT 100
--- NOTE | 2021-11-15 09:13 | HO.PSYCHPN ---
Subjective Subjective Date of Service: 11/15/21 Reason For Visit: SI Subjective Notes: Conditional Voluntary and 3 Day Interim History: Pt reports feeling more nauseous today- after micro dosing. Pt denies SI/HI. He reports less depressed mood. He wants to continue switch from methadone and suboxone. BP low, given po fluids with good effect. No dizziness. Pt more visible later in the day. No behavioral concerns and wants to go tomorrow. Medication Compliance: Yes Side effects from medications: No Attending Groups: No Review of Systems Review of Systems Reports opioid withdrawal sx as listed below. Yes all other systems are reviewed and are negative Constitutional: Reports as per HPI, Reports no additional constitutional complaints, Reports body ache(s), Reports chills, Reports fatigue, Denies fever(s), Denies headache(s), Reports malaise and Denies weakness Eyes: Reports no additional eye complaints and Denies change in vision Reports system reviewed and no additional complaints, except as documented, Denies dizziness, Denies headache(s), Denies nasal congestion, Denies nasal discharge and Denies neck pain Cardiovascular: Reports no additional cardiovascular complaints, Denies chest pain, Denies leg edema and Denies dyspnea Respiratory: Reports no additional respiratory complaints, Denies cough and Denies dyspnea Gastrointestinal: Reports no additional gastrointestinal complaints, Denies abdominal pain, Denies diarrhea, Reports nausea and Denies vomiting Genitourinary: Denies urinary incontinence Musculoskeletal: Reports no additional musculoskeletal complaints, Denies back pain, Denies arthralgias, Denies joint swelling, Denies neck pain, Denies numbness and Denies tingling Skin/Breast: Reports system reviewed and no additional complaints, except as docu and Denies rash Reports system reviewed and no additional complaints, except as documented, Denies Abnormal speech present, Denies dizziness, Denies headache(s), Denies numbness, Denies tingling and Denies weakness Psychiatric: Reports anxiety, Reports depression, Reports visual hallucinations, Denies homicidal ideation and Denies suicidal ideation Endocrine: Reports fatigue Mental Status Exam Mental Status Exam Narrative: Appearance: casually groomed, fair hygiene in NAD Behavior: cooperative psychomotor: no agitation or retardation noted Speech: clear, normal rate/rhythm/volume, spontaneous Thought process: linear Thought content: no signs of psychosis, wanting help Mood: better Affect: congruent SI:none HI:none VH/AH:none Delusions:none Insight/judgment:fair x 2. Memory/cog: alert, oriented x 3. grossly intact to conversational testing. Diagnostics Vital Signs (24Hr): Vital Signs - 24 hr 11/15/21 10:15 11/15/21 11:30 11/15/21 19:24 Temperature Pulse Rate 56 62 63 Respiratory Rate 16 Blood Pressure 89/50 L 138/79 154/87 H Pulse Oximetry 99 99 99 11/15/21 20:22 11/16/21 08:15 Temperature 98.9 F 97.3 F Pulse Rate 70 64 Respiratory Rate 18 17 Blood Pressure 147/89 H 138/64 Pulse Oximetry 100 BMI result Body Mass Index 29.3 Labs Results: 11/09/21 21:55 11/11/21 07:40 Labs: Laboratory Results - last 48 hr 11/11/21 11/15/21 07:40 09:40 Iron 83 TIBC 314 % Saturation 26 Unsat Iron Binding 231 Vitamin B12 922 H Folate 11.2 TSH 1.33 Medications Medications Current Medications Acetaminophen (Acetaminophen 325 Mg Tablet) 650 mg PO Q6H PRN PRN Reason: Headache/Pain Mild Scale (1-3) Last Admin: 11/14/21 20:35 Dose: 650 mg Documented by: Al Hydroxide/Mg Hydroxide (Magnesium Hydrox/Alum Hydrox 30 Ml Oral.Susp) 30 ml PO Q6H PRN PRN Reason: Heartburn/Nausea Buprenorphine/Naloxone (Buprenorphine/Naloxone 2/0.5mg Film) 0.5 film SUBLINGUAL BID@0800,1600 [facility] Stop: 11/16/21 16:01 Last Admin: 11/16/21 08:18 Dose: 0.5 film Documented by: Buprenorphine/Naloxone (Buprenorphine/Naloxone 2/0.5mg Film) 1 film SUBLINGUAL BID@0800,1600 [facility] Stop: 11/17/21 16:01 Buprenorphine/Naloxone (Buprenorphine/Naloxone 4/1 Mg Film) 1 film SUBLINGUAL BID@0800,1600 [facility] Clonidine HCl (Clonidine Hcl 0.2 Mg Tablet) 0.2 mg PO TID PRN; Protocol PRN Reason: Anxiety Last Admin: 11/15/21 19:22 Dose: 0.2 mg Documented by: Ferrous Sulfate (Ferrous Sulfate 324 Mg Tablet.) 324 mg PO MoWeCounts include 234 beds at the [facility] Last Admin: 11/15/21 11:53 Dose: 324 mg Documented by: Gabapentin (Gabapentin 300 Mg Capsule) 300 mg PO TID [facility] Last Admin: 11/15/21 20:09 Dose: 300 mg Documented by: Hydroxyzine HCl (Hydroxyzine Hcl 25 Mg Tablet) 25 mg PO BID PRN PRN Reason: Anxiety Last Admin: 11/15/21 17:40 Dose: 25 mg Documented by: Magnesium Hydroxide (Milk Of Magnesia 30 Ml Oral.Susp) 30 ml PO DAILY PRN PRN Reason: Constipation Methadone HCl (Methadone Hcl 20 Mg/2 Ml Oral.Conc) 30 mg PO DAILY [facility] Last Admin: 11/15/21 11:47 Dose: 30 mg Documented by: Multivitamins/Vitamin C (Multivitamin Tablet) 1 tab PO DAILY [facility] Last Admin: 11/15/21 11:48 Dose: 1 tab Documented by: Ondansetron HCl (Ondansetron Odt 4 Mg Tab.Rapdis) 4 mg TRANSLINGU Q6H PRN PRN Reason: Nausea Last Admin: 11/16/21 08:19 Dose: 4 mg Documented by: Polyethylene Glycol (Polyethylene Glycol 3350 17 Gm Powd.Pack) 17 gm PO DAILY PRN PRN Reason: Constipation Last Admin: 11/14/21 20:35 Dose: 17 gm Documented by: Quetiapine Fumarate (Quetiapine Fumarate 25 Mg Tablet) 25 mg PO DAILY PRN PRN Reason: Anxiety Quetiapine Fumarate (Quetiapine Fumarate 50 Mg Tablet) 50 mg PO BEDTIME [facility] Last Admin: 11/15/21 20:09 Dose: 50 mg Documented by: Senna (Sennosides 8.6 Mg Tablet) 8.6 - 17.2 mg PO BEDTIME PRN PRN Reason: Constipation Trazodone HCl (Trazodone Hcl 50 Mg Tablet) 50 - 100 mg PO BEDTIME PRN PRN Reason: Insomnia Last Admin: 11/09/21 23:15 Dose: 100 mg Documented by: Allergies Allergies Allergy/AdvReac Type Severity Reaction Status Date / Time risperidone Allergy Severe Angioedema Verified 11/09/21 15:22 Assessment & Plan Assessment & Plan (1) Bipolar II disorder: Status: Acute Code(s): F31.81 - Bipolar II disorder (2) Opioid use disorder: Status: Acute Code(s): F11.90 - Opioid use, unspecified, uncomplicated Assessment and Plan: start buprenorphine transition with the following plan: 11/14: 0.5mg Suboxone X1 11/15: 0.5mg suxone X2 doses 11/16: 1mg X2 doses 11/17: 2mg X2 doses 11/18: 4mg X2 doses ----LAST DOSE OF METHADONE 11/19: 4mg X 3 doses Please give suboxone at 8am and methadone at least one hour later. Do not administer at the same time. (3) Cocaine use disorder: Status: Acute Code(s): F14.10 - Cocaine abuse, uncomplicated (4) Methamphetamine abuse in remission: Status: Acute Code(s): F15.11 - Other stimulant abuse, in remission Plan 1. continue current medications- seroquel and gabapentin. I spent minutes with the patient and/or on the patient floor today, greater than?50% of which was spent counseling/coordinating care. Reason for contiued inpatient stay Substantial Risk for: stable for discharge
[2021-11-15 10:15] VITALS: BP 89/50; PULSE 56; RESP 16; O2SAT 99
[2021-11-15 10:43] LABS: Iron 83 mcg/dL (45-160); Percent Iron Saturation 26 % (15-50); Total Iron Binding Capacity 314 mcg/dL (228-428); Unsaturated Iron Binding 231 ug/dL
[2021-11-15 11:10] LABS: TSH reflex Free T4 1.33 uIU/mL (0.32-4.0)
[2021-11-15 11:30] VITALS: BP 138/79; PULSE 62; O2SAT 99
[2021-11-15] MEDS: methADONE HCl 20 MG/2 ML ORAL.CONC 30 MG PO (11:47)
[2021-11-15] MEDS: Multivitamin TABLET 1 TAB PO (11:48)
[2021-11-15] MEDS: Gabapentin 300 MG CAPSULE PO ×3 (11:49→20:09)
[2021-11-15] MEDS: Ferrous Sulfate 324 MG TABLET.DR PO (11:53)
--- NOTE | 2021-11-15 14:28 | MHC.RECOVRN ---
Met with pt in 322 to follow up regarding Suboxone initiation/microdosing induction. Pt laying in bed, awake, alert, engaged in conversation. Pt reports overall the first two doses of Suboxone have been successful and states It's not as bad as I thought it was going to be. Pt does report nausea and hot flashes. Reports Zofran helps and is able to eat. Regarding aftercare planning, pt will reach out to [facility] today and continue to think about other options. Pt has a house in [place] that pt reports needs to be sold so is unsure if a program is ideal at this time. Pt encouraged to think about [facility] and put in referrals as the wait lists can be long, pt agrees this would be beneficial and will speak with SW. Discussed with Sandra Quezada APRN.
[2021-11-15] MEDS: hydrOXYzine HCL 25 MG TABLET PO (17:40)
[2021-11-15] MEDS: cloNIDine HCL 0.2 MG TABLET PO (19:22)
[2021-11-15 19:24] VITALS: BP 154/87; PULSE 63; O2SAT 99
[2021-11-15] MEDS: QUEtiapine Fumarate 50 MG TABLET PO (20:09)
[2021-11-15 20:22] VITALS: BP 147/89; PULSE 70; RESP 18; TEMP 37.2
[2021-11-16 08:15] VITALS: BP 138/64; PULSE 64; RESP 17; TEMP 36.3; O2SAT 100
[2021-11-16] MEDS: Buprenorphine/Naloxone 2/0.5mg FILM 0.5 FILM SUBLINGUAL (08:18)
[2021-11-16] MEDS: Ondansetron ODT 4 MG TAB.RAPDIS TRANSLINGU (08:19)
[2021-11-16] MEDS: Multivitamin TABLET 1 TAB PO (09:16)
[2021-11-16] MEDS: Gabapentin 300 MG CAPSULE PO (09:16)
[2021-11-16] MEDS: methADONE HCl 20 MG/2 ML ORAL.CONC 30 MG PO (09:16)
--- NOTE | 2021-11-16 09:48 | PM.PSYDC ---
DS: Providers Provider Date of Service: 11/16/21 Date of admission: 11/10/21 14:25 Primary care physician: Unknown Physician Consults: 11/10/21 20:32 Addiction Medicine Routine Consulting Provider: Popeye Welch Reason for consultation: wants to switch to Suboxone DS: Diagnosis Discharge Diagnosis (1) Bipolar II disorder: Status: Acute (2) Opioid use disorder: Status: Acute (3) Cocaine use disorder: Status: Acute (4) Methamphetamine abuse in remission: Status: Acute DS: Medications Discharge Medications Home Medications: Home Medications Medication Instructions Recorded Confirmed ferrous sulfate 325 mg (65 mg 325 mg PO MOWEFR 11/09/21 11/09/21 iron) tablet gabapentin 300 mg capsule 1 cap PO TID 11/09/21 11/09/21 multivitamin-ferrous 1 tab PO DAILY 11/09/21 11/09/21 fumarate-folic acid 18 mg-400 mcg tablet sennosides 8.6 mg tablet (senna) 17.2 - 34.4 mg PO BEDTIME PRN 11/09/21 11/09/21 Previous Rx's Medication Instructions Recorded methadone 10 mg/mL oral 30 mg (3 mL) PO DAILY #0 ml 11/16/21 concentrate (Methadose) ondansetron 4 mg disintegrating 4 mg TRANSLINGUAL Q6H PRN #30 tab 11/16/21 tablet quetiapine 25 mg tablet 25 mg PO DAILY PRN #30 tab 11/16/21 quetiapine 50 mg tablet 50 mg PO BEDTIME #30 tab 11/16/21 trazodone 50 mg tablet 50 - 100 mg PO BEDTIME PRN #30 tab 11/16/21 Mental Status Exam Mental Status Exam Narrative: Appearance: casually groomed, fair hygiene in NAD Behavior: cooperative psychomotor: no agitation or retardation noted Speech: clear, normal rate/rhythm/volume, spontaneous Thought process: linear Thought content: no signs of psychosis, wanting help Mood: better Affect: congruent SI:none HI:none VH/AH:none Delusions:none Insight/judgment:fair x 2. Memory/cog: alert, oriented x 3. grossly intact to conversational testing. Data Data Completed and Pending Completed studies during hospitalization [Text1]: 11/09/21 11/09/21 11/09/21 18:48 18:51 21:55 WBC 7.9 RBC 4.64 Hgb 13.8 L Hct 41.4 L MCV 89.2 MCH 29.7 MCHC 33.3 RDW 12.7 Plt Count 330 MPV 10.7 Immature Gran % (Auto) 0.6 H Neut % (Auto) 50.0 Lymph % (Auto) 38.1 [place] % (Auto) 8.8 Eos % (Auto) 1.9 Baso % (Auto) 0.6 Lymph # (Auto) 3.0 [place] # (Auto) 0.7 Eos # (Auto) 0.2 Baso # (Auto) 0.1 Abs Immat Gran (auto) 0.05 H Absolute Neuts (auto) 3.9 Absolute Nucleated RBC 0.000 Nucleated RBC % (auto) 0.0 Sodium Potassium Chloride Carbon Dioxide Anion Gap BUN Creatinine Estim Creat Clear Calc Estimated GFR Random Glucose Fasting Glucose Estimat Average Glucose Hemoglobin A1c % Calcium Iron TIBC % Saturation Unsat Iron Binding Total Bilirubin Direct Bilirubin AST ALT Alkaline Phosphatase Total Protein Albumin Triglycerides Cholesterol LDL Cholesterol, Calc HDL Cholesterol Vitamin B12 Methylmalonic Acid Folate TSH Urine Opiates Screen POSITIVE H Urine Fentanyl Screen POSITIVE H Ur Barbiturates Screen Not Detected Ur Phencyclidine Scrn Not Detected Ur Amphetamines Screen Not Detected U Benzodiazepines Scrn Not Detected Urine Cocaine Screen POSITIVE H U Marijuana (THC) Screen Not Detected COVID-19 ([facility]ORITA) Negative COVID-19 Clin Com See Note 11/09/21 11/11/21 11/11/21 21:55 07:40 07:40 WBC RBC Hgb Hct MCV MCH MCHC RDW Plt Count MPV Immature Gran % (Auto) Neut % (Auto) Lymph % (Auto) [place] % (Auto) Eos % (Auto) Baso % (Auto) Lymph # (Auto) [place] # (Auto) Eos # (Auto) Baso # (Auto) Abs Immat Gran (auto) Absolute Neuts (auto) Absolute Nucleated RBC Nucleated RBC % (auto) Sodium 139 139 Potassium 5.1 D 4.1 Chloride 105 107 Carbon Dioxide 22 26 Anion Gap 17 10 L BUN 11 8 L Creatinine 0.87 0.75 Estim Creat Clear Calc 119.8 139.0 Estimated GFR > 60 > 60 Random Glucose 107 Fasting Glucose 87 Estimat Average Glucose 100 Hemoglobin A1c % 5.1 Calcium 9.7 9.7 Iron TIBC % Saturation Unsat Iron Binding Total Bilirubin 0.4 0.4 Direct Bilirubin 0.2 AST 66 H 23 D ALT 29 20 Alkaline Phosphatase 75 64 Total Protein 7.6 6.4 L Albumin 4.2 3.6 Triglycerides 78 Cholesterol 118 LDL Cholesterol, Calc 61 HDL Cholesterol 42 Vitamin B12 Methylmalonic Acid Folate TSH 0.31 L Urine Opiates Screen Urine Fentanyl Screen Ur Barbiturates Screen Ur Phencyclidine Scrn Ur Amphetamines Screen U Benzodiazepines Scrn Urine Cocaine Screen U Marijuana (THC) Screen COVID-19 ([facility]) COVID-19 Clin Com 11/11/21 11/15/21 11/15/21 07:40 09:40 09:40 WBC RBC Hgb Hct MCV MCH MCHC RDW Plt Count MPV Immature Gran % (Auto) Neut % (Auto) Lymph % (Auto) [place] % (Auto) Eos % (Auto) Baso % (Auto) Lymph # (Auto) [place] # (Auto) Eos # (Auto) Baso # (Auto) Abs Immat Gran (auto) Absolute Neuts (auto) Absolute Nucleated RBC Nucleated RBC % (auto) Sodium Potassium Chloride Carbon Dioxide Anion Gap BUN Creatinine Estim Creat Clear Calc Estimated GFR Random Glucose Fasting Glucose Estimat Average Glucose Hemoglobin A1c % Calcium Iron 83 TIBC 314 % Saturation 26 Unsat Iron Binding 231 Total Bilirubin Direct Bilirubin AST ALT Alkaline Phosphatase Total Protein Albumin Triglycerides Cholesterol LDL Cholesterol, Calc HDL Cholesterol Vitamin B12 922 H Methylmalonic Acid Pending Folate 11.2 TSH 1.33 Urine Opiates Screen Urine Fentanyl Screen Ur Barbiturates Screen Ur Phencyclidine Scrn Ur Amphetamines Screen U Benzodiazepines Scrn Urine Cocaine Screen U Marijuana (THC) Screen COVID-19 ([facility]) COVID-19 Clin Com DS: Summary Hospital Course Hospital Course: Mahin is a 31 y.o. Male who carries a dx of Bipolar II DO and moderate opioid use disorder. Pt is on methadone, clinic is in [place]. Recently discharged from [facility] for detox, was at [facility] in 07/2021. He presented to [facility] on 11/09/21 requesting methadone dose and reporting thoughts of self harm but denies SI. He requested inpatient level of care, stating he feels manic, anxious, AH, and paranoid. Per EBONY stevens, He is reported to be going in and out of treatment with no real discharge support.? I evaluated the pt this evening and upon interview he is found in bed, ready to fall asleep, did not want to engage in prolonged interview. Pt reports he doesnt want med changes. He does want to speak with insurance account specialist about possibly switching to suboxone. Denies SI/SIB/HI. Feels safe. Denies voices. Mood is ?okay,? just tired.? Past Psychiatric History: -Pt does not currently have any therapist or psychiatrist. ? -Reports multiple inpatient admissions. Pt reports admissions at [facility], [facility], and [facility].? -Typically presents to crisis with depression, paranoia and AH's. -Past meds: [place] spaced out with all antipsychotics. Has been on Olanzapine, Seroquel caused increased appetite, Geodon, Vraylar), Lamictal (breathing issues, worsening asthma), Cayce (ineffective), Trileptal, Luvox for skin-picking and OCD (helpful), Prazosin (heart palpitations and hypotension at 2mg), Gabapentin (helpful), Vyvanse (agitated), Modafinil (effective for sleep issues), Risperidone (tongue swelled) Medical Evaluation Reviewed: Yes HOSPITAL COURSE On the unit, Mr. Constantino was admitted on a CV and placed on 15 minutes checks for safety. Pt reported multiple medications trials in past and did not want any further medication changes. He agreed to take gabapentin and seroquel. He asked to be switched from methadone to suboxone. He agreed to continue this switch outpatient through [facility] clinic. He declined referrals for residential substance use treatment programs. He denied suicidal or homicidal ideation. He was given narcan on discharge. There were no incidences of disruptive behaviors nor use of restraints. He signed a 3 day notice and discharge day it as there were no evidence of imminent safety concerns in terms of suicidal or homicidal ideation nor pt appeared gravely disable. Status at Discharge Cognitive/behavioral status at discharge: Pt with bright, non labile affect. No SI/HI. No signs of psychosis. No aggression towards self or others. Harm reduction discused and given narcan at time of discharge. Functional status at discharge: independent ambulation Overall status at discharge: patient is progressing back to baseline Time Spent with Patient Time attestation: Total time spent providing and/or coordinating discharge services: Time spent: Greater than 30 minutes Discharge Plan Discharge Patient Disposition: Home, Self-Care Discharge Diagnosis: Bipolar 2 Disorder Opioid USe Disorder Referrals: POPEYE WELCH APRN [Other] - 11/16/21 1:15 pm Chad Saldivar [Other] - 1 Week (Pt needs to call them to schedule follow up appt ) Discharge Medications: Discontinued methadone 10 mg/mL Concentrate 25 mg PO DAILY trazodone 50 mg Tablet 50 - 100 mg PO BEDTIME PRN (Reason: Insomnia) clonidine HCl 0.2 mg Tablet 0.2 mg PO TID PRN (Reason: Anxiety) quetiapine 50 mg Tablet 50 mg PO BEDTIME quetiapine 25 mg Tablet 25 mg PO DAILY PRN (Reason: Anxiety) hydroxyzine pamoate 25 mg capsule 1 cap PO BID PRN (Reason: anxiety) No Action gabapentin 300 mg capsule 1 cap PO TID testosterone cypionate [Depo-Testosterone] 200 mg/mL oil 200 mg IM QMONTH Qty: 1 0RF clonidine HCl 0.1 mg Tablet 0.1 mg PO TID PRN (Reason: agit/anx) Qty: 14 0RF Protocol: Hold for SBP< HOLD for SBP < : 90 trazodone 50 mg Tablet 50 mg PO BEDTIME PRN (Reason: Insomnia) Qty: 30 0RF polyethylene glycol 3350 17 gram Powder In Packet 17 g PO BID PRN (Reason: constipation) Qty: 14 0RF hydroxyzine HCl 50 mg Tablet 50 mg PO TID PRN (Reason: Anxiety/Restlessness) Qty: 60 0RF baclofen 10 mg Tablet 10 mg PO TID PRN (Reason: muscle aches) Qty: 14 0RF omeprazole 20 mg Capsule,Delayed Release(Dr/Ec) 20 mg PO DAILY@0630 Qty: 30 0RF methadone [Methadose] 10 mg/mL Concentrate 45 mg PO DAILY Qty: 0 0RF Rx Instructions: Partial Fill upon patient request. albuterol sulfate [Ventolin HFA] 90 mcg/actuation Hfa Aerosol Inhaler 2 puff inhalation Q4H PRN (Reason: SOB/wheezing) Qty: 6.7 0RF Discharge Orders: Discharge Order (Routine); Ordered 11/16/21 Ordered By: Yulia Wakefield Diet: regular diet Activity on Discharge: As tolerated Stand Alone Forms: Patient Portal Discharge page, Community Support Care Plan Goals: 1. Maintain mood 2. No SI/HI. 3. Harm reduction- narcan given on discharge Health Concerns: Follow up with PCP Plan of Treatment: 1. Take medications as prescribed 2. Go to nearest ED or call 911 in event of emergency Assessment: Pt with brighter, non labile mood. No SI/HI. No VH/AH. No signs of aggression towards self or others. Discharge Date/Time: 11/16/21 13:39
[2021-11-16] MEDS: Naloxone HCl Nasal TAKE HOME 4 MG SPRAY NOSTRILALT (12:14)
[2021-11-16] MEDS: polyethylene glycoL 3350 17 GM POWD.PACK PO (12:24)
[2021-11-20 17:42] LABS: Methylmalonic Acid 100 nmol/L (87-318)
--- NOTE | 2021-12-04 10:34 | PM.PSYDC ---
DS: Providers Provider Date of Service: 12/04/21 Date of admission: 11/10/21 14:25 Primary care physician: Unknown Physician Consults: 11/10/21 20:32 Addiction Medicine Routine Consulting Provider: Popeye Welch Reason for consultation: wants to switch to Suboxone DS: Diagnosis Discharge Diagnosis (1) Bipolar II disorder: Status: Acute (2) Opioid use disorder: Status: Acute (3) Cocaine use disorder: Status: Acute (4) Methamphetamine abuse in remission: Status: Acute DS: Medications Discharge Medications Home Medications: Home Medications Medication Instructions Recorded Confirmed gabapentin 300 mg capsule 1 cap PO TID 11/21/21 11/21/21 Previous Rx's Medication Instructions Recorded testosterone cypionate 200 mg/mL 200 mg IM QMONTH #1 mL 11/28/21 intramuscular oil (Depo-Testosterone) albuterol sulfate 90 mcg/actuation 2 puff inhalation Q4H PRN 12/04/21 aerosol inhaler (Ventolin HFA) SOB/wheezing #6.7 grams baclofen 10 mg tablet 10 mg PO TID PRN muscle aches #14 12/04/21 tabs clonidine HCl 0.1 mg tablet 0.1 mg PO TID PRN agit/anx #14 tabs 12/04/21 hydroxyzine HCl 50 mg tablet 50 mg PO TID PRN 12/04/21 Anxiety/Restlessness #60 tabs methadone 10 mg/mL oral 45 mg (4.5 mL) PO DAILY #0 mL 12/04/21 concentrate (Methadose) omeprazole 20 mg capsule,delayed 20 mg PO DAILY@0630 #30 caps 12/04/21 release polyethylene glycol 3350 17 gram 17 g PO BID PRN constipation #14 ea 12/04/21 oral powder packet trazodone 50 mg tablet 50 mg PO BEDTIME PRN Insomnia #30 12/04/21 tabs Mental Status Exam Mental Status Exam Narrative: Appearance: casually groomed, fair hygiene in NAD Behavior: cooperative psychomotor: no agitation or retardation noted Speech: clear, normal rate/rhythm/volume, spontaneous Thought process: linear Thought content: no signs of psychosis, wanting help Mood: better Affect: brighter, non labile SI:none HI:none VH/AH:none Delusions:none Insight/judgment:fair x 2. Memory/cog: alert, oriented x 3. grossly intact to conversational testing. DS: Summary Hospital Course Hospital Course: Subjective Notes: [place] Warning and Conditional Voluntary Narrative: Mr. Constantino is a 31 year-old male with hx of opioid use disorder, MDD with psychosis who was recently discharged from on 11/17/2021 after evaluation and treatment of depression, SI in context of ongoing substance use. In the ED, his utox was positive for fentanyl, opioids and cocaine. On the unit, pt reports after being discharge from , he went to [facility] appointment to continue switch from methadone to suboxone. He reports right after he received SSI money and relapsed. He reports buying heroin, fentanyl and cocaine. He endorses feeling tired, depressed, hopeless. He reports hearing voices- this is constant according to pt who describes hearing female and male voices. He denies CAH, states is like a running commentary. He reports he is used to the voices at this point. He currently denies suicidal ideation but reports he feels hopeless about his recovery. He states he is interested in going to [facility] this time. Past Psychiatric History: -Pt does not currently have any therapist or psychiatrist. ? -Reports multiple inpatient admissions. Pt reports admissions at [facility], and [facility].? -Typically presents to crisis with depression, paranoia and AH's. -Past meds: [place] spaced out with all antipsychotics. Has been on Olanzapine, Seroquel caused increased appetite, Geodon, Vraylar), Lamictal (breathing issues, worsening asthma), [place] (ineffective), Trileptal, Luvox for skin-picking and OCD (helpful), Prazosin (heart palpitations and hypotension at 2mg), Gabapentin (helpful), Vyvanse (agitated), Modafinil (effective for sleep issues), Risperidone (tongue swelled) Medical Evaluation Reviewed: Yes Past Psychiatric History: -Pt does not currently have any therapist or psychiatrist. ? -Reports multiple inpatient admissions. Pt reports admissions at [facility], and [facility].? -Typically presents to crisis with depression, paranoia and AH's. -Past meds: [place] spaced out with all antipsychotics. Has been on Olanzapine, Seroquel caused increased appetite, Geodon, Vraylar), Lamictal (breathing issues, worsening asthma), [place] (ineffective), Trileptal, Luvox for skin-picking and OCD (helpful), Prazosin (heart palpitations and hypotension at 2mg), Gabapentin (helpful), Vyvanse (agitated), Modafinil (effective for sleep issues), Risperidone (tongue swelled) Medical Evaluation Reviewed: Yes HOSPITAL COURSE On the unit, Mr. Constantino was admitted on a CV and placed on 15 minutes checks for safety. Pt reported after discharge from this unit, he quickly relapsed on heroin, fentanyl and cocaine. He admits it was the first of the month and he received his SSI check. He endorsed depressed mood. He denied SI/HI. He reported wanting to go to [facility] program. After discussing risks, benefits and alternative treatment options, pt reports he wanted to try fluvox for depression but this medication in combination with methadone was very sedating for him. He finally reported that he would just stay on seroquel and gabapentin. He was increasingly more visible on the unit and attended some groups. There were no incidences of disruptive behaviors nor use of restraints. Pt discharge to [facility]. He was given narcan on discharge. Status at Discharge Cognitive/behavioral status at discharge: Pt with bright, non labile affect. No SI/HI. No overt signs of psychosis. Future oriented in that he is looking forward to continue recovery and psychiatric treatment. No aggression towards self or others. Narcan given on discharge. Functional status at discharge: independent ambulation Overall status at discharge: patient is progressing back to baseline Time Spent with Patient Time attestation: Total time spent providing and/or coordinating discharge services: Time spent: Greater than 30 minutes Discharge Plan Discharge Patient Disposition: Home, Self-Care Discharge Diagnosis: Bipolar 2 Disorder Opioid USe Disorder Referrals: POPEYE WELCH APRN [Other] - 11/16/21 1:15 pm Chad Saldivar [Other] - 1 Week (Pt needs to call them to schedule follow up appt ) Discharge Medications: Discontinued methadone 10 mg/mL Concentrate 25 mg PO DAILY trazodone 50 mg Tablet 50 - 100 mg PO BEDTIME PRN (Reason: Insomnia) clonidine HCl 0.2 mg Tablet 0.2 mg PO TID PRN (Reason: Anxiety) quetiapine 50 mg Tablet 50 mg PO BEDTIME quetiapine 25 mg Tablet 25 mg PO DAILY PRN (Reason: Anxiety) hydroxyzine pamoate 25 mg capsule 1 cap PO BID PRN (Reason: anxiety) No Action gabapentin 300 mg capsule 1 cap PO TID testosterone cypionate [Depo-Testosterone] 200 mg/mL oil 200 mg IM QMONTH Qty: 1 0RF clonidine HCl 0.1 mg Tablet 0.1 mg PO TID PRN (Reason: agit/anx) Qty: 14 0RF Protocol: Hold for SBP< HOLD for SBP < : 90 trazodone 50 mg Tablet 50 mg PO BEDTIME PRN (Reason: Insomnia) Qty: 30 0RF polyethylene glycol 3350 17 gram Powder In Packet 17 g PO BID PRN (Reason: constipation) Qty: 14 0RF hydroxyzine HCl 50 mg Tablet 50 mg PO TID PRN (Reason: Anxiety/Restlessness) Qty: 60 0RF baclofen 10 mg Tablet 10 mg PO TID PRN (Reason: muscle aches) Qty: 14 0RF omeprazole 20 mg Capsule,Delayed Release(Dr/Ec) 20 mg PO DAILY@0630 Qty: 30 0RF methadone [Methadose] 10 mg/mL Concentrate 45 mg PO DAILY Qty: 0 0RF Rx Instructions: Partial Fill upon patient request. albuterol sulfate [Ventolin HFA] 90 mcg/actuation Hfa Aerosol Inhaler 2 puff inhalation Q4H PRN (Reason: SOB/wheezing) Qty: 6.7 0RF Discharge Orders: Discharge Order (Routine); Ordered 11/16/21 Ordered By: Yulia Wakefield Diet: regular diet Activity on Discharge: As tolerated Stand Alone Forms: Patient Portal Discharge page, Community Support Care Plan Goals: 1. Maintain mood 2. No SI/HI. 3. Harm reduction- narcan given on discharge Health Concerns: Follow up with PCP Plan of Treatment: 1. Take medications as prescribed 2. Go to nearest ED or call 911 in event of emergency Assessment: Pt with brighter, non labile mood. No SI/HI. No VH/AH. No signs of aggression towards self or others. Discharge Date/Time: 11/16/21 13:39
== END 2021-11-16 13:39 | disposition home or self-care (01) | DRG 885 ==
LOC: HO.ED 11-10 13:41 → HO.PADLT16 11-10 14:45
PROVIDERS: Nurse Practitioner Family; Physician Assistant Medical; Admitting Provider Psychiatry & Neurology Psychiatry; Emergency Provider Emergency Medicine; Visit Provider Social Worker
DX: F31.81 Bipolar II disorder (principal); F11.20 Opioid dependence, uncomplicated; Z59.02 Unsheltered homelessness; Z20.822 Contact with and (suspected) exposure to COVID-19; F14.10 Cocaine abuse, uncomplicated; Z88.8 Allergy status to other drugs, medicaments and biological substances; Z79.899 Other long term (current) drug therapy
CPT/HCPCS: 36415; 80048; 80053; 80061; 80076; 80307; 82607; 82746; 83036; 83540; 83921; 84443; 85025; 87635; 93005; 99285

== ENCOUNTER → 2021-11-16 13:27 | Outpatient (BNVA) | payer OTHER, SELFPAY | PROVIDERS: Visit Provider Nurse Practitioner Psychiatric/Mental Health | DX: F11.20 Opioid dependence, uncomplicated (principal) | CPT/HCPCS: 99212 ==

== ENCOUNTER 2021-11-20 19:18 | Inpatient (IN) | payer OTHER, MEDICAID, SELFPAY ==
--- NOTE | ~2021-11-20 | CT_ITS ---
EXAMINATION: CT CHEST WITHOUT CONTRAST CLINICAL INFORMATION: Aspiration. COMPARISON: None TECHNIQUE: Multidetector volumetric CT imaging of the chest was done. Axial MIP volume rendering provided. Sagittal and coronal reformatted images were obtained. This CT examination was performed using dose optimization techniques as appropriate, variously including the following: *Automated exposure control *Adjustment of mA and/or kV according to patient size (this includes techniques or standardized protocols for targeted exams where dose is matched to indication/reason for exam; i.e. extremities or head) *Use of iterative reconstruction technique DLP: 168 mGy-cm FINDINGS: SQUARE DANCE CALLER: Unremarkable. LUNGS: There is minimal scarring or subsegmental atelectasis in the posterior left upper lobe adjacent to the pleural fissure (axial image 161, series 7). There is minimal scarring or subsegmental atelectasis in the right lower lobe and the lateral costophrenic sulcus. The lungs are otherwise clear. No evidence of aspiration pneumonia is seen. No endobronchial or endotracheal lesion. MEDIASTINUM: The mediastinum is normal. PLEURA: There is no pleural effusion. No pleural mass or thickening. AXILLAE: No lymphadenopathy. UPPER ABDOMEN: Unremarkable. OSSEOUS STRUCTURES: Unremarkable. CT/CT chest wo con IMPRESSION: No evidence of aspiration pneumonia. Mild scarring or subsegmental atelectasis in the left upper and right lower lobes. Fleischner guidelines were followed.
--- NOTE | 2021-11-20 19:31 | PC.NURSE ---
Patient called 3 times with no response
[2021-11-20 19:39] VITALS: BP 112/82; PULSE 92; RESP 15; TEMP 36.3; O2SAT 97
[2021-11-20 19:56] LABS: MANUAL DIFF FLAG NO
[2021-11-20 20:00] LABS: Basophils Percent Auto 0.4 % (0-2); Eosinophils Absolute Auto 0.1 X10*3/uL (0.0-0.4); Hematocrit 39.5 % (42.0-52.0); Hemoglobin 12.9 g/dl (14.0-18.0); Imm Gran Abs Auto 0.02 X10*3/uL (0.00-0.03); Imm Gran Pct Auto 0.3 % (0.0-0.4); Lymphocytes Absolute Auto 1.7 X10*3/uL (1.2-4.9); Lymphocytes Percent Auto 21.6 % (20-40); Mean Corpuscular HGB Conc 32.7 g/dl (31.0-36.0); Mean Corpuscular Volume 88.8 fL (80.0-98.0); Mean Platelet Volume 10.4 fL (9.4-12.4); Monocytes Absolute Auto 0.7 X10*3/uL (0.1-1.2); Monocytes Percent Auto 8.6 % (2-11); Neutrophils Absolute Auto 5.4 x10*3/uL (2.0-8.3); Neutrophils Percent Auto 68.1 % (45-73); Platelet Count 231 X10*3/uL (160-400); Red Blood Count 4.45 X10*6/uL (4.60-5.80); Red Cell Distribution Width 12.1 % (11.0-16.0)
[2021-11-20 20:12] LABS: Ethanol < 10 mg/dL
[2021-11-20 20:19] LABS: Alanine Aminotransferase 74 U/L (0-40); Albumin Level 4.4 g/dL (3.5-5.0); Alkaline Phosphatase 77 U/L (39-117); Anion Gap 15 (12-20); Aspartate Amino Transferase 177 U/L (5-37); Bilirubin Total 0.7 mg/dL (0.0-1.0); Blood Urea Nitrogen 7 mg/dL (9-16); Calcium 9.4 mg/dL (8.4-10.2); Carbon Dioxide 29 mmol/L (22-29); Chloride 101 mmol/L (96-108); Creatinine Clr Calc Pharmacy 128.9; Estimated Glomerular Filt Rate > 60; Glucose Random 105 mg/dL (60-115); Potassium 3.7 mmol/L (3.3-5.1); Sodium 141 mmol/L (135-145); Total Protein 7.4 g/dL (6.5-8.0)
[2021-11-20 21:23] LABS: COVID-19 Test Negative (Negative); IDNOW Serial# 9DB6401D
--- NOTE | 2021-11-20 21:53 | ED_ITS ---
HPI - Psych General Chief Complaint: Psychiatric Symptoms <JAG Nichols Last Filed: 11/21/21 01:39> Stated Complaint: Crisis <JAG Nichols Last Filed: 11/21/21 01:39> Time Seen by Provider: 11/21/21 08:58 <JAG Nichols Last Filed: 11/21/21 01:39> Source: patient <JAG Nichols Last Filed: 11/21/21 01:39> Mode of arrival: ambulatory <JAG Nichols Last Filed: 11/21/21 01:39> Limitations: no limitations <JAG Nichols Last Filed: 11/21/21 01:39> History of Present Illness HPI Narrative: 31 yold male presents to the ED for suicidal iddeaations. Patient has pmh of schizophrenia and not complaint with his meds. patient plan is to commit suicidal by overdose. patient has no physical complaints. <JAG Nichols Last Filed: 11/21/21 01:39> Related Data Home Medications: Home Medications Medication Instructions Recorded Confirmed gabapentin 300 mg capsule 1 cap PO TID 11/21/21 11/21/21 Previous Rx's Medication Instructions Recorded buprenorphine 4 mg-naloxone 1 mg 1 film SUBLINGUAL BID #16 ea 11/16/21 sublingual film (Suboxone) methadone 10 mg/mL oral 30 mg (3 mL) PO DAILY #0 ml 11/16/21 concentrate (Methadose) <JAG Nichols Last Filed: 11/21/21 01:39> Allergies/Adverse Reactions: Allergies Allergy/AdvReac Type Severity Reaction Status Date / Time risperidone Allergy Severe Angioedema Verified 11/09/21 15:22 <JAG Nihcols Last Filed: 11/21/21 01:39> Review of Systems Review of Systems: suicide <JAG Nichols Last Filed: 11/21/21 01:39> Yes all other systems are reviewed and are negative <JAG Nichols Last Filed: 11/21/21 01:39> PMFSH Past Medical History Medical History: Medical History Active substance abuse Cellulitis <JAG Nichols Last Filed: 11/21/21 01:39> Social History Social History: Social History Household Members: None Housing: Homeless Do you presently have visiting nurse or other home services: No Patient Tobacco Use Status: Never used Tobacco Substance Use Type: Crack/Cocaine, Heroin, IV Drugs, Marijuana and Opiates Advance Directives: No service: No Sexual orientation: Straight/Heterosexual <JAG Nichols Last Filed: 11/21/21 01:39> Physical Exam Vital Signs: Vital Signs: Last Vital Signs Temp 97.9 F 11/21/21 08:13 Pulse 79 11/21/21 08:13 Resp 15 11/21/21 08:13 BP 134/67 11/21/21 08:13 Pulse Ox 100 11/21/21 08:13 BMI result Body Mass Index 30.0 <JAG Nichols Last Filed: 11/21/21 01:39> Vital Signs: Last Vital Signs Temp 97.9 F 11/21/21 08:13 Pulse 79 11/21/21 08:13 Resp 15 11/21/21 08:13 BP 134/67 11/21/21 08:13 Pulse Ox 100 11/21/21 08:13 BMI result Body Mass Index 30.0 <JAG Humphries Last Filed: 11/21/21 09:22> Const: General: cooperative, healthy appearing, comfortable, no acute distress, well developed, alert, awake and Physically active <JAG Nichols Last Filed: 11/21/21 01:39> Orientation/consciousness: patient oriented x3 <JAG Nichols Last Filed: 11/21/21 01:39> HEENT: Head: Yes normal to inspection, Yes No palpable skull fracture present, Yes normocephalic, Yes atraumatic and No abrasion <JAG Nichols Last Filed: 11/21/21 01:39> Eyes: General: appearance normal, both eyes and all related structures <JAG Nichols Last Filed: 11/21/21 01:39> Neck: Neck: Yes normal visual inspection, Yes full ROM, Yes no lymphadenopathy, Yes no meningeal signs, Yes trachea midline, Yes supple, No anterior neck swelling and No tender <JAG Nichols Ganesh Last Filed: 11/21/21 01:39> Chest: Chest palpation & inspection: normal inspection of the chest and normal palpation of entire chest wall <JAG Nichols Ganesh Last Filed: 11/21/21 01:39> Resp: Effort & Inspection: normal respiratory effort and able to speak in complete sentences <JAG Nichols Ganesh Last Filed: 11/21/21 01:39> Auscultation: clear to auscultation bilaterally <JAG Nichols Last Filed: 11/21/21 01:39> Cardio: Jugular venous distension: no JVD <JAG Nichols Last Filed: 11/21/21 01:39> Heart sounds: S1 normal heart sound present and S2 normal heart sound present <JAG Nichols Ganesh Filed: 11/21/21 01:39> GI: Inspection: Yes normal to inspection and No abdominal wall ecchymosis <JAG Nichols Last Filed: 11/21/21 01:39> Palpation (GI): Soft to palpation, not firm, nontender, no guarding and not rigid <Arturo Dex, PA Last Filed: 11/21/21 01:39> : General: No CVA tenderness and Yes no CVA tenderness <Arturo Dex, PA Filed: 11/21/21 01:39> Back/Spine/Pelvis: Back: no CVA tenderness, No CVA tenderness and No back tenderness <JAG Nichols Last Filed: 11/21/21 01:39> Skin: General skin exam: no rashes or lesions noted and elasticity normal <Arturo Dex, PA Ganesh Last Filed: 11/21/21 01:39> Neuro: General: patient oriented x3, gait normal, no meningeal signs and CN's II-XI intact bilaterally <JAG Nichols Ganesh Last Filed: 11/21/21 01:39> Cranial nerves: Yes CN's II-XII intact bilaterally <JAG Nichols Last Filed: 11/21/21 01:39> Extrem: General: Yes normal to inspection and Yes full ROM <JAG Nichols Ganesh Last Filed: 11/21/21 01:39> Psych: Appearance: grossly normal, well kempt and not disheveled <JAG Nichols Last Filed: 11/21/21 01:39> Course Course Course Narrative: Labs ordered a crisis consult placed for <JAG Nichols Last Filed: 11/21/21 01:39> Reevaluation(s) Reevaluation #1: Labs are at baseline. Patient waiting for crisis in the morning. <JAG Nichols Last Filed: 11/21/21 01:39> Time: 01:37 <JAG Nichols Last Filed: 11/21/21 01:39> Reevaluation #2: Addendum: 11/21/21 09:22---physician observation continued. Vital signs stable, labs reviewed, patient currently sleeping with unlabored respirations. Pending evaluation by N <JAG Humphries Last Filed: 11/21/21 09:22> Time: 09:21 <JAG Humphries Last Filed: 11/21/21 09:22> MDM - Psych MDM Narrative Medical decision making narrative: Depression <JAG Nichols Last Filed: 11/21/21 01:39> Lab Data Result diagrams: : 11/20/21 19:49 11/20/21 19:49 <JAG Nichols Last Filed: 11/21/21 01:39> Labs: Lab Results 11/20/21 11/20/21 11/20/21 Range/Units 19:49 19:49 19:49 WBC 8.0 (4.8-10.8) X10*3/uL RBC 4.45 L (4.60-5.80) X10*6/uL Hgb 12.9 L (14.0-18.0) g/dl Hct 39.5 L (42.0-52.0) % MCV 88.8 (80.0-98.0) fL MCH 29.0 (27.0-33.0) pg MCHC 32.7 (31.0-36.0) g/dl RDW 12.1 (11.0-16.0) % Plt Count 231 D (160-400) X10*3/uL MPV 10.4 (9.4-12.4) fL Immature Gran % (Auto) 0.3 (0.0-0.4) % Neut % (Auto) 68.1 (45-73) % Lymph % (Auto) 21.6 (20-40) % [place] % (Auto) 8.6 (2-11) % Eos % (Auto) 1.0 (0-4) % Baso % (Auto) 0.4 (0-2) % Lymph # (Auto) 1.7 (1.2-4.9) X10*3/uL [place] # (Auto) 0.7 (0.1-1.2) X10*3/uL Eos # (Auto) 0.1 (0.0-0.4) X10*3/uL Baso # (Auto) 0.0 (0.0-0.2) X10*3/uL Abs Immat Gran (auto) 0.02 (0.00-0.03) X10*3/uL Absolute Neuts (auto) 5.4 (2.0-8.3) x10*3/uL Absolute Nucleated RBC 0.000 (0.0-0.012) X10*3/uL Nucleated RBC % (auto) 0.0 (0.0-0.2) /100WBC Sodium 141 (135-145) mmol/L Potassium 3.7 (3.3-5.1) mmol/L Chloride 101 (96-108) mmol/L Carbon Dioxide 29 (22-29) mmol/L Anion Gap 15 (12-20) BUN 7 L (9-16) mg/dL Creatinine 0.79 (0.5-1.4) mg/dL Estim Creat Clear Calc 128.9 Estimated GFR > 60 Random Glucose 105 (60-115) mg/dL Calcium 9.4 (8.4-10.2) mg/dL Total Bilirubin 0.7 (0.0-1.0) mg/dL AST 177 H (5-37) U/L ALT 74 H (0-40) U/L Alkaline Phosphatase 77 D (39-117) U/L Total Protein 7.4 (6.5-8.0) g/dL Albumin 4.4 D (3.5-5.0) g/dL Urine Color Urine Appearance Urine pH (5.0-8.0) Ur Specific [place] (1.005-1.025) Urine Protein (NEG-TRACE) MG/DL Urine Glucose (UA) (NEG) MG/DL Urine Ketones (NEG) MG/DL Urine Blood (NEG) Urine Nitrite (NEG) Ur Leukocyte Esterase (NEG) Urine Opiates Screen (Not Detect) Urine Fentanyl Screen (Not Detect) Ur Barbiturates Screen (Not Detect) Ur Phencyclidine Scrn (Not Detect) Ur Amphetamines Screen (Not Detect) U Benzodiazepines Scrn (Not Detect) Urine Cocaine Screen (Not Detect) U Marijuana (THC) Screen (Not Detect) Ethyl Alcohol < 10 mg/dL COVID-19 (DORITA) (Negative) COVID-19 Clin Com 11/20/21 11/21/21 11/21/21 Range/Units 20:57 06:35 06:35 WBC (4.8-10.8) X10*3/uL RBC (4.60-5.80) X10*6/uL Hgb (14.0-18.0) g/dl Hct (42.0-52.0) % MCV (80.0-98.0) fL MCH (27.0-33.0) pg MCHC (31.0-36.0) g/dl RDW (11.0-16.0) % Plt Count (160-400) X10*3/uL MPV (9.4-12.4) fL Immature Gran % (Auto) (0.0-0.4) % Neut % (Auto) (45-73) % Lymph % (Auto) (20-40) % [place] % (Auto) (2-11) % Eos % (Auto) (0-4) % Baso % (Auto) (0-2) % Lymph # (Auto) (1.2-4.9) X10*3/uL [place] # (Auto) (0.1-1.2) X10*3/uL Eos # (Auto) (0.0-0.4) X10*3/uL Baso # (Auto) (0.0-0.2) X10*3/uL Abs Immat Gran (auto) (0.00-0.03) X10*3/uL Absolute Neuts (auto) (2.0-8.3) x10*3/uL Absolute Nucleated RBC (0.0-0.012) X10*3/uL Nucleated RBC % (auto) (0.0-0.2) /100WBC Sodium (135-145) mmol/L Potassium (3.3-5.1) mmol/L Chloride (96-108) mmol/L Carbon Dioxide (22-29) mmol/L Anion Gap (12-20) BUN (9-16) mg/dL Creatinine (0.5-1.4) mg/dL Estim Creat Clear Calc Estimated GFR Random Glucose (60-115) mg/dL Calcium (8.4-10.2) mg/dL Total Bilirubin (0.0-1.0) mg/dL AST (5-37) U/L ALT (0-40) U/L Alkaline Phosphatase (39-117) U/L Total Protein (6.5-8.0) g/dL Albumin (3.5-5.0) g/dL Urine Color YELLOW Urine Appearance HAZY Urine pH 6.0 (5.0-8.0) Ur Specific [place] 1.025 (1.005-1.025) Urine Protein TRACE (NEG-TRACE) MG/DL Urine Glucose (UA) NEG (NEG) MG/DL Urine Ketones NEG (NEG) MG/DL Urine Blood NEG (NEG) Urine Nitrite NEG (NEG) Ur Leukocyte Esterase NEG (NEG) Urine Opiates Screen POSITIVE H (Not Detect) Urine Fentanyl Screen POSITIVE H (Not Detect) Ur Barbiturates Screen Not Detected (Not Detect) Ur Phencyclidine Scrn Not Detected (Not Detect) Ur Amphetamines Screen Not Detected (Not Detect) U Benzodiazepines Scrn Not Detected (Not Detect) Urine Cocaine Screen POSITIVE H (Not Detect) U Marijuana (THC) Screen Not Detected (Not Detect) Ethyl Alcohol mg/dL COVID-19 (DORITA) Negative (Negative) COVID-19 Clin Com See Note <JAG Nichols - Last Filed: 11/21/21 01:39> Lab Results 11/20/21 11/20/21 11/20/21 Range/Units 19:49 19:49 19:49 WBC 8.0 (4.8-10.8) X10*3/uL RBC 4.45 L (4.60-5.80) X10*6/uL Hgb 12.9 L (14.0-18.0) g/dl Hct 39.5 L (42.0-52.0) % MCV 88.8 (80.0-98.0) fL MCH 29.0 (27.0-33.0) pg MCHC 32.7 (31.0-36.0) g/dl RDW 12.1 (11.0-16.0) % Plt Count 231 D (160-400) X10*3/uL MPV 10.4 (9.4-12.4) fL Immature Gran % (Auto) 0.3 (0.0-0.4) % Neut % (Auto) 68.1 (45-73) % Lymph % (Auto) 21.6 (20-40) % [place] % (Auto) 8.6 (2-11) % Eos % (Auto) 1.0 (0-4) % Baso % (Auto) 0.4 (0-2) % Lymph # (Auto) 1.7 (1.2-4.9) X10*3/uL [place] # (Auto) 0.7 (0.1-1.2) X10*3/uL Eos # (Auto) 0.1 (0.0-0.4) X10*3/uL Baso # (Auto) 0.0 (0.0-0.2) X10*3/uL Abs Immat Gran (auto) 0.02 (0.00-0.03) X10*3/uL Absolute Neuts (auto) 5.4 (2.0-8.3) x10*3/uL Absolute Nucleated RBC 0.000 (0.0-0.012) X10*3/uL Nucleated RBC % (auto) 0.0 (0.0-0.2) /100WBC Sodium 141 (135-145) mmol/L Potassium 3.7 (3.3-5.1) mmol/L Chloride 101 (96-108) mmol/L Carbon Dioxide 29 (22-29) mmol/L Anion Gap 15 (12-20) BUN 7 L (9-16) mg/dL Creatinine 0.79 (0.5-1.4) mg/dL Estim Creat Clear Calc 128.9 Estimated GFR > 60 Random Glucose 105 (60-115) mg/dL Calcium 9.4 (8.4-10.2) mg/dL Total Bilirubin 0.7 (0.0-1.0) mg/dL AST 177 H (5-37) U/L ALT 74 H (0-40) U/L Alkaline Phosphatase 77 D (39-117) U/L Total Protein 7.4 (6.5-8.0) g/dL Albumin 4.4 D (3.5-5.0) g/dL Urine Color Urine Appearance Urine pH (5.0-8.0) Ur Specific [place] (1.005-1.025) Urine Protein (NEG-TRACE) MG/DL Urine Glucose (UA) (NEG) MG/DL Urine Ketones (NEG) MG/DL Urine Blood (NEG) Urine Nitrite (NEG) Ur Leukocyte Esterase (NEG) Urine Opiates Screen (Not Detect) Urine Fentanyl Screen (Not Detect) Ur Barbiturates Screen (Not Detect) Ur Phencyclidine Scrn (Not Detect) Ur Amphetamines Screen (Not Detect) U Benzodiazepines Scrn (Not Detect) Urine Cocaine Screen (Not Detect) U Marijuana (THC) Screen (Not Detect) Ethyl Alcohol < 10 mg/dL COVID-19 (DORITA) (Negative) COVID-19 Clin Com 11/20/21 11/21/21 11/21/21 Range/Units 20:57 06:35 06:35 WBC (4.8-10.8) X10*3/uL RBC (4.60-5.80) X10*6/uL Hgb (14.0-18.0) g/dl Hct (42.0-52.0) % MCV (80.0-98.0) fL MCH (27.0-33.0) pg MCHC (31.0-36.0) g/dl RDW (11.0-16.0) % Plt Count (160-400) X10*3/uL MPV (9.4-12.4) fL Immature Gran % (Auto) (0.0-0.4) % Neut % (Auto) (45-73) % Lymph % (Auto) (20-40) % [place] % (Auto) (2-11) % Eos % (Auto) (0-4) % Baso % (Auto) (0-2) % Lymph # (Auto) (1.2-4.9) X10*3/uL [place] # (Auto) (0.1-1.2) X10*3/uL Eos # (Auto) (0.0-0.4) X10*3/uL Baso # (Auto) (0.0-0.2) X10*3/uL Abs Immat Gran (auto) (0.00-0.03) X10*3/uL Absolute Neuts (auto) (2.0-8.3) x10*3/uL Absolute Nucleated RBC (0.0-0.012) X10*3/uL Nucleated RBC % (auto) (0.0-0.2) /100WBC Sodium (135-145) mmol/L Potassium (3.3-5.1) mmol/L Chloride (96-108) mmol/L Carbon Dioxide (22-29) mmol/L Anion Gap (12-20) BUN (9-16) mg/dL Creatinine (0.5-1.4) mg/dL Estim Creat Clear Calc Estimated GFR Random Glucose (60-115) mg/dL Calcium (8.4-10.2) mg/dL Total Bilirubin (0.0-1.0) mg/dL AST (5-37) U/L ALT (0-40) U/L Alkaline Phosphatase (39-117) U/L Total Protein (6.5-8.0) g/dL Albumin (3.5-5.0) g/dL Urine Color YELLOW Urine Appearance HAZY Urine pH 6.0 (5.0-8.0) Ur Specific [place] 1.025 (1.005-1.025) Urine Protein TRACE (NEG-TRACE) MG/DL Urine Glucose (UA) NEG (NEG) MG/DL Urine Ketones NEG (NEG) MG/DL Urine Blood NEG (NEG) Urine Nitrite NEG (NEG) Ur Leukocyte Esterase NEG (NEG) Urine Opiates Screen POSITIVE H (Not Detect) Urine Fentanyl Screen POSITIVE H (Not Detect) Ur Barbiturates Screen Not Detected (Not Detect) Ur Phencyclidine Scrn Not Detected (Not Detect) Ur Amphetamines Screen Not Detected (Not Detect) U Benzodiazepines Scrn Not Detected (Not Detect) Urine Cocaine Screen POSITIVE H (Not Detect) U Marijuana (THC) Screen Not Detected (Not Detect) Ethyl Alcohol mg/dL COVID-19 (DORITA) Negative (Negative) COVID-19 Clin Com See Note <JAG Humphries - Last Filed: 11/21/21 09:22> Discharge Plan Discharge Clinical Impression: Depression <JAG Nichols - Last Filed: 11/21/21 01:39> Patient Disposition: Still a Patient <JAG Nichols - Last Filed: 11/21/21 01:39> Instructions: Depression (DC) <JAG Nichols - Last Filed: 11/21/21 01:39> Prescriptions: No Action methadone [Methadose] 10 mg/mL Concentrate 30 mg PO DAILY Qty: 0 0RF gabapentin 300 mg capsule 1 cap PO TID 0RF buprenorphine-naloxone [Suboxone] 4-1 mg film 1 film sublingual BID Qty: 16 0RF <JAG Nichols - Last Filed: 11/21/21 01:39>
--- NOTE | 2021-11-21 | ECG_ITS ---
Test Reason : medical clearance Blood Pressure : / mmHG Vent. Rate : 059 BPM Atrial Rate : 059 BPM P-R Int : 160 ms QRS Dur : 092 ms QT Int : 462 ms P-R-T Axes : 070 018 028 degrees QTc Int : 457 ms Sinus bradycardia with sinus arrhythmia Otherwise normal ECG When compared with ECG of 10-NOV-2021 13:09, No significant change was found Referred By: Constanza Robledo Electronically Signed By:CANDY JAFFE
[2021-11-21 06:43] LABS: Appearance Urine HAZY; Color Urine YELLOW; Glucose Urine UA NEG (NEG); Leukocyte Esterase Urine NEG (NEG); Nitrite Urine NEG (NEG); Specific Gravity - Urine 1.025 (1.005-1.025); Urine Blood NEG (NEG); Urine Ketones NEG (NEG); Urine Protein TRACE MG/DL (NEG-TRACE)
--- NOTE | 2021-11-21 06:50 | PC.NURSE ---
Patient slept through the night, no distress observed/reported, [facility] referral completed/confirmed/pending ETA, care team consult ordered to follow-up on methadone dose, vss, behavior appropriate and non concerning, VSS, will continue to monitor.
[2021-11-21 06:55] LABS: Amphetamine Screen Urine Not Detected (Not Detect); Barbiturates, Urine Not Detected (Not Detect); Benzodiazepines Screen Urine Not Detected (Not Detect); Cannabinoid Screen Urine Not Detected (Not Detect); Cocaine Screen Urine POSITIVE (Not Detect); Fentanyl, urine POSITIVE (Not Detect); Opiate Screen Urine POSITIVE (Not Detect); Phencyclidine Screen Urine Not Detected (Not Detect)
--- NOTE | 2021-11-21 08:07 | PC.NURSE ---
patient appears to remain asleep at present respirations are even and unlabored patient appears in no distress
[2021-11-21 08:13] VITALS: BP 134/67; PULSE 79; RESP 15; TEMP 36.6; O2SAT 100
--- NOTE | 2021-11-21 10:51 | MHC.RECOVRN ---
Met with pt in [facility] after consult placed to CARE Team regarding MOUD. Pt familiar with t/w from previous admission. Pt had recently been transitioning from methadone to Suboxone, however, pt reports desire to stabilize on methadone at this time. Pt is currently experiencing withdrawal symptoms including body aches and nausea. Discussed with pts RN as well as provider. Plan for 20 mg methadone to be ordered.
[2021-11-21] MEDS: Gabapentin 300 MG CAPSULE PO ×2 (11:03→14:01)
[2021-11-21] MEDS: methADONE HCl 20 MG/2 ML ORAL.CONC PO (11:41)
[2021-11-21] MEDS: hydrOXYzine HCL 25 MG TABLET PO (16:24)
--- NOTE | 2021-11-21 21:45 | MHC.CARE ---
Pt has been preaccepted to [facility] adult psychiatric unit for admission on 11/22. Case number for insurance is [id number]. Please reach out to Leila from [facility] on the last covered day for review [phone].
[2021-11-22 02:06] VITALS: BP 140/99; PULSE 63; RESP 16; TEMP 36.4; O2SAT 100
[2021-11-22] MEDS: cloNIDine HCL 0.1 MG TABLET PO ×2 (03:28→16:04)
--- NOTE | 2021-11-22 03:29 | PC.NURSE ---
Patient reported withdrawing from opiates not consistent with clinical presentation/provider notified/ordered Clonidine 0.1 mg/administered/pending effect, will continue to monitor.
--- NOTE | 2021-11-22 06:53 | PC.NURSE ---
Patient slept through the night, no distress observed/reported, medication compliant, disposition per Care Team is section 12 inpatient bed search, VSS, behavior appropriate and non concerning, contracted for the safety, exhibited med seeking behavior, pre-accepted to [facility]. will continue to monitor.
--- NOTE | 2021-11-22 07:32 | PC.NURSE ---
patient appears to remain asleep at present respirations are even and unlabored patient appears in no distress
--- NOTE | 2021-11-22 09:03 | PC.NURSE ---
client expresses displeasure because todays dose is not present explained to client because hes not a regular clinic participant, dose isnt currently ordered.
--- NOTE | 2021-11-22 09:33 | MHC.RECOVRN ---
Met with pt in [facility] to follow up regarding methadone titration and withdrawal symptoms. Pt would like to continue with methadone titration, reports nausea, anxiety, body aches. As far as aftercare, pt states I'm going to go wherever they tell me. Pt plans to continue with treatment and to be connected to OTP. Pt has been to [facility] in [place] in the past, they have a copy of ID. Pt does not have ID with him. Discussed with ED provider, RN, as well as Sandra Quezada APRN. T/w available if needed.
[2021-11-22] MEDS: Ondansetron ODT 4 MG TAB.RAPDIS TRANSLINGU ×2 (09:40→16:04)
[2021-11-22] MEDS: methADONE HCl 20 MG/2 ML ORAL.CONC 30 MG PO (09:40)
[2021-11-22] MEDS: Gabapentin 300 MG CAPSULE PO ×3 (09:40→21:46)
[2021-11-22] MEDS: hydrOXYzine HCL 50 MG TABLET PO ×2 (09:40→16:04)
[2021-11-22 10:26] LABS: COVID-19 Test Negative (Negative)
[2021-11-22 15:46] VITALS: BP 134/63; PULSE 66; RESP 17; TEMP 36.4; O2SAT 95
--- NOTE | 2021-11-22 16:42 | PC.ADMIT ---
Patient arrived to [facility] from [facility] ED POD at 15:35. Patient has a legal status of a CV. 15 minute safety checks were initiated. Patient is alert and oriented x4. Toxicology was positive for opiates, fentanyl, and cocaine. Patient comes to the unit after an attempted suicide. ?I left here when I shouldn't have. I should have continued on to further treatment. Within one day of leaving here I started using again. Someone walked up to me on the street and gave me 3 free bags of heroin. From there I was just using Heroin and cocaine. I was experiencing periods of dissociation. People told me I was talking and holding full conversations but nobody was there?. Patient reported using 60 bags of heroin to complete suicide. Reported ?I don't feel great about living, but I am trying to get a hold of my situation?. Last use was on Saturday11/19/2021. Currently patient reports that he has been experiencing intermittent dry heaving and nausea. MD spencer was notified of this. Patient reported that goal for discharge is to get Stabilized on methadone and psych meds. Then I want to go to like [facility] . Superficial scratches to BUE. No signs or symptoms of infection. Patient reports It is from scratching like an OCD thing .?Patient reported I have asthma and use a red pro air inhaler. I use it a few times a week . .VSS upon admission. Patient reports I had sepsis once and they said it caused damage to my heart and a murmur . Patient denies any acute complaints, and no acute deficits were noted or reported. Appetite and sleep have been disrupted because I have been using . Reported that Clonidine and Seroquel have been helpful in the past. Reported a history of AH to which Seroquel helps with. Patient currently denies SI/HI/AH/VH. Patient contracts for safety.
[2021-11-22 20:00] VITALS: BP 118/56; PULSE 54; TEMP 36.3; O2SAT 98
[2021-11-22] MEDS: QUEtiapine Fumarate 50 MG TABLET PO (21:47)
[2021-11-23 08:15] VITALS: BP 116/72; PULSE 67; RESP 17; TEMP 36.6; O2SAT 98
[2021-11-23] MEDS: Gabapentin 300 MG CAPSULE PO ×3 (08:18→20:50)
[2021-11-23] MEDS: Ondansetron ODT 4 MG TAB.RAPDIS TRANSLINGU ×2 (08:18→20:50)
[2021-11-23] MEDS: methADONE HCl 20 MG/2 ML ORAL.CONC 30 MG PO (08:18)
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
[2021-11-23] MEDS: methADONE HCl 20 MG/2 ML ORAL.CONC 5 MG PO (14:10)
[2021-11-23 18:45] VITALS: BMI 29.6
[2021-11-23 20:36] VITALS: BP 128/70; PULSE 63; RESP 14; TEMP 36.2; O2SAT 99
[2021-11-23] MEDS: cloNIDine HCL 0.1 MG TABLET PO (20:50)
[2021-11-23] MEDS: QUEtiapine Fumarate 50 MG TABLET PO (20:51)
[2021-11-23] MEDS: traZODone HCL 50 MG TABLET PO (23:28)
[2021-11-24 08:05] LABS: HBS Num1 17.76 mIU/mL (0-7.99); HBc Num1 0.08 S/CO (0.00-0.79); HBsAGNum1 0.19 S/CO (0.00-0.99); Hepatitis A Antibody IgM 0.17 Index (0-0.79); Hepatitis B Core Antibody Nonreactive (Nonreactive); Hepatitis B Surface Antigen Negative (Negative); ~Hepatitis A Antibody IgM Nonreactive (Nonreactive); ~Hepatitis B Surface Antibody REACTIVE (Nonreactive); ~Hepatitis C Antibody Nonreactive (Nonreactive)
[2021-11-24] MEDS: Gabapentin 300 MG CAPSULE PO ×3 (08:13→22:00)
[2021-11-24] MEDS: methADONE HCl 20 MG/2 ML ORAL.CONC 40 MG PO (08:13)
[2021-11-24 08:16] VITALS: BP 115/56; PULSE 60; RESP 16; TEMP 36.6; O2SAT 98
--- NOTE | 2021-11-24 08:27 | P.PNPSI_ITS ---
Subjective Subjective Date of Service: 11/24/21 Reason For Visit: SI/Substance use Subjective Notes: Conditional Voluntary Interim History: Pt endorses feeling depressed, hopeless, tired of relapsing. He reports passive SI but denies any plan or intent to hurt himself. He wants to continue methadone. He also expressed motivation to go to [facility]. Pt reports opioid withdrawal symptoms including muscle aches and GI- cramps. Mostly in bed, more visible later during the day. Medication Compliance: Yes Side effects from medications: No Attending Groups: No Review of Systems Acute medical concerns: No Review of Systems Review of Systems suicide Yes all other systems are reviewed and are negative Constitutional: Reports as per HPI Mental Status Exam Mental Status Exam Narrative: Appearance: casually groomed, fair hygiene in NAD Behavior: cooperative psychomotor: no agitation or retardation noted Speech: clear, normal rate/rhythm/volume, spontaneous Thought process: linear Thought content: no signs of psychosis, wanting help Mood: depressed Affect: blunted SI:passive HI:none VH/AH:none Delusions:none Insight/judgment:fair x 2. Memory/cog: alert, oriented x 3. grossly intact to conversational testing. Diagnostics Vital Signs (24Hr): Vital Signs - 24 hr 11/24/21 21:30 Temperature 98.5 F Pulse Rate 69 Respiratory Rate 16 Blood Pressure 135/77 Pulse Oximetry 99 Oxygen Delivery Method Room Air BMI result Body Mass Index 29.6 Labs Results: 11/20/21 19:49 11/20/21 19:49 Labs: Laboratory Results - last 48 hr 11/23/21 13:51 Hepatitis A IgM Ab Nonreactive Hep Bs Antigen Negative Hep Bs Antibody REACTIVE Hep B Core Total Ab Nonreactive Hepatitis C Ab (EIA) Nonreactive Medications Medications Current Medications Acetaminophen (Acetaminophen 325 Mg Tablet) 650 mg PO Q6H PRN PRN Reason: Headache/Pain Mild Scale (1-3) Al Hydroxide/Mg Hydroxide (Magnesium Hydrox/Alum Hydrox 30 Ml Oral.Susp) 30 ml PO Q6H PRN PRN Reason: Heartburn/Nausea Clonidine HCl (Clonidine Hcl 0.1 Mg Tablet) 0.1 mg PO TID PRN; Protocol PRN Reason: agit/anx Last Admin: 11/24/21 19:24 Dose: 0.1 mg Fluvoxamine Maleate (Fluvoxamine Maleate 50 Mg Tablet) 50 mg PO BEDTIME [facility] Last Admin: 11/24/21 22:16 Dose: 50 mg Gabapentin (Gabapentin 300 Mg Capsule) 300 mg PO TID [place] Last Admin: 11/24/21 22:00 Dose: 300 mg Hydroxyzine HCl (Hydroxyzine Hcl 50 Mg Tablet) 50 mg PO TID PRN PRN Reason: anxiety/restlessness Last Admin: 11/22/21 16:04 Dose: 50 mg Hydroxyzine HCl (Hydroxyzine Hcl 25 Mg Tablet) 25 mg PO BEDTIME PRN PRN Reason: Anxiety Magnesium Hydroxide (Milk Of Magnesia 30 Ml Oral.Susp) 30 ml PO DAILY PRN PRN Reason: Constipation Methadone HCl (Methadone Hcl 20 Mg/2 Ml Oral.Conc) 45 mg PO DAILY [place] Nicotine Polacrilex (Nicotine Polacrilex 2 Mg Gum) 4 mg BUCCAL Q2H PRN PRN Reason: Nicotine Cravings Ondansetron HCl (Ondansetron Odt 4 Mg Tab.Rapdis) 4 mg TRANSLINGU Q6H PRN PRN Reason: Nausea Last Admin: 11/24/21 19:24 Dose: 4 mg Quetiapine Fumarate (Quetiapine Fumarate 50 Mg Tablet) 50 mg PO Q4H PRN PRN Reason: AH Last Admin: 11/22/21 21:47 Dose: 50 mg Quetiapine Fumarate (Quetiapine Fumarate 50 Mg Tablet) 50 mg PO BEDTIME [place] Last Admin: 11/24/21 22:00 Dose: 50 mg Trazodone HCl (Trazodone Hcl 50 Mg Tablet) 50 mg PO BEDTIME PRN PRN Reason: Insomnia Last Admin: 11/23/21 23:28 Dose: 50 mg Allergies Allergies Allergy/AdvReac Type Severity Reaction Status Date / Time risperidone Allergy Severe Angioedema Verified 11/09/21 15:22 Assessment & Plan Assessment & Plan (1) Bipolar II disorder: Status: Acute Code(s): F31.81 - Bipolar II disorder (2) Opioid use disorder: Status: Acute Code(s): F11.90 - Opioid use, unspecified, uncomplicated Assessment and Plan: * one time 5mg dose methadone with dose increase to 40mg daily on Saturday (11/24) * reassess and continue to increase dose as tolerated by patient * discussed case with RSRN (3) Cocaine use disorder: Status: Acute Code(s): F14.10 - Cocaine abuse, uncomplicated (4) Methamphetamine abuse in remission: Status: Acute Code(s): F15.11 - Other stimulant abuse, in remission Plan Ms. Constantino is a 31 year-old male hx of opioid, cocaine, methamphetamine. Recently d/c from [facility], relapsed same day. Admitted for depression, SI, wanting substance use treatment. PLAN 1. Admit M3, CV, 15 minutes checks. 2. Continue current medications- started luvox as pt reported helpful in past for depression/anxiety. 3. obtain collateral information 4. aftercare planning. I spent __25____ minutes with the patient and/or on the patient floor today, greater than?50% of which was spent counseling/coordinating care. Reason for contiued inpatient stay Substantial Risk for: harm to self
--- NOTE | 2021-11-24 13:33 | MHC.RECOVRN ---
Met with pt in 306 to follow up regarding methadone titration. Pt laying in bed, awake, alert, does not appear in any distress. Pt has empty food tray, trash, and wrappers scattered over entire area. Pt states I sleep during the day because I'm up all night withdrawing. Pt reports inability to sleep, nausea, and restlessness are main symptoms. Pt appears mildly diaphoretic. Pt would like to continue increasing methadone dose. Discussed with Sandra Quezada APRN.
--- NOTE | 2021-11-24 15:33 | HO.ADDICTPRO ---
Subjective Subjective Date of Service: 11/23/21 Reason For Visit: SI/Substance use Interim History: Consult requested as patient expressing desire to stay on methadone and have dose titrated. Patient known to this adjusto writer operator via addiction consult about a week ago. At that time had been in the middle of transitioning from methadone to buprenorphine. Per patient he had a recurrence day of discharge from hospital and now wishes to remain on methadone and titrate to therapeutic dose. When seen by this adjusto writer operator patient was laying in bed, reporting nausea, restlessness, body aches. He had received 20mg day one in ED and 30mg day in interview with minimal effect. Review of Systems Constitutional: Reports as per HPI Mental Status Exam Mental Status Exam Patient Appearance: Perspiring Patient Orientation: Person, Place, Time and Situation Level of Consciousness: Awake and Appropriate Judgement: Fair Diagnostics Vital Signs (24Hr): Vital Signs - 24 hr 11/23/21 20:36 11/24/21 08:16 Temperature 97.1 F 98 F Pulse Rate 63 60 Respiratory Rate 14 16 Blood Pressure 128/70 115/56 L Pulse Oximetry 99 98 Oxygen Delivery Method Room Air Room Air BMI result Body Mass Index 29.6 Labs Results: 11/20/21 19:49 11/20/21 19:49 Labs: Laboratory Results - last 48 hr 11/23/21 13:51 Hepatitis A IgM Ab Nonreactive Hep Bs Antigen Negative Hep Bs Antibody REACTIVE Hep B Core Total Ab Nonreactive Hepatitis C Ab (EIA) Nonreactive Medications Medications Current Medications Acetaminophen (Acetaminophen 325 Mg Tablet) 650 mg PO Q6H PRN PRN Reason: Headache/Pain Mild Scale (1-3) Al Hydroxide/Mg Hydroxide (Magnesium Hydrox/Alum Hydrox 30 Ml Oral.Susp) 30 ml PO Q6H PRN PRN Reason: Heartburn/Nausea Clonidine HCl (Clonidine Hcl 0.1 Mg Tablet) 0.1 mg PO TID PRN; Protocol PRN Reason: agit/anx Last Admin: 11/23/21 20:50 Dose: 0.1 mg Fluvoxamine Maleate (Fluvoxamine Maleate 50 Mg Tablet) 50 mg PO BEDTIME [place] Last Admin: 11/23/21 22:03 Dose: Not Given Gabapentin (Gabapentin 300 Mg Capsule) 300 mg PO TID [place] Last Admin: 11/24/21 14:30 Dose: 300 mg Hydroxyzine HCl (Hydroxyzine Hcl 50 Mg Tablet) 50 mg PO TID PRN PRN Reason: anxiety/restlessness Last Admin: 11/22/21 16:04 Dose: 50 mg Hydroxyzine HCl (Hydroxyzine Hcl 25 Mg Tablet) 25 mg PO BEDTIME PRN PRN Reason: Anxiety Magnesium Hydroxide (Milk Of Magnesia 30 Ml Oral.Susp) 30 ml PO DAILY PRN PRN Reason: Constipation Methadone HCl (Methadone Hcl 20 Mg/2 Ml Oral.Conc) 45 mg PO DAILY [place] Nicotine Polacrilex (Nicotine Polacrilex 2 Mg Gum) 4 mg BUCCAL Q2H PRN PRN Reason: Nicotine Cravings Ondansetron HCl (Ondansetron Odt 4 Mg Tab.Rapdis) 4 mg TRANSLINGU Q6H PRN PRN Reason: Nausea Last Admin: 11/23/21 20:50 Dose: 4 mg Quetiapine Fumarate (Quetiapine Fumarate 50 Mg Tablet) 50 mg PO Q4H PRN PRN Reason: AH Last Admin: 11/22/21 21:47 Dose: 50 mg Quetiapine Fumarate (Quetiapine Fumarate 50 Mg Tablet) 50 mg PO BEDTIME [place] Last Admin: 11/23/21 20:51 Dose: 50 mg Trazodone HCl (Trazodone Hcl 50 Mg Tablet) 50 mg PO BEDTIME PRN PRN Reason: Insomnia Last Admin: 11/23/21 23:28 Dose: 50 mg Allergies Allergies Allergy/AdvReac Type Severity Reaction Status Date / Time risperidone Allergy Severe Angioedema Verified 11/09/21 15:22 Assessment & Plan Assessment & Plan (1) Opioid use disorder: Status: Acute Code(s): F11.90 - Opioid use, unspecified, uncomplicated Assessment and Plan: one time 5mg dose methadone with dose increase to 40mg daily on Saturday (11/24) reassess and continue to increase dose as tolerated by patient discussed case with RSRN I spent __25____ minutes with the patient and/or on the patient floor today, greater than?50% of which was spent counseling/coordinating care.
[2021-11-24] MEDS: Ondansetron ODT 4 MG TAB.RAPDIS TRANSLINGU (19:24)
[2021-11-24] MEDS: cloNIDine HCL 0.1 MG TABLET PO (19:24)
[2021-11-24 21:30] VITALS: BP 135/77; PULSE 69; RESP 16; TEMP 36.9; O2SAT 99
[2021-11-24] MEDS: QUEtiapine Fumarate 50 MG TABLET PO (22:00)
[2021-11-24] MEDS: fluvoxaMINE Maleate 50 MG TABLET PO (22:16)
--- NOTE | 2021-11-25 08:29 | HO.PSYCHPN ---
Subjective Subjective Date of Service: 11/25/21 Reason For Visit: SI/Substance use Subjective Notes: Conditional Voluntary Interim History: Pt continues to endorse depressed mood. He denies SI/HI. He reports feeling physically tired, less withdrawal symptoms but complaint of muscleaches. He reports sleep is fair due to residual withdrawal symptoms. He reports chronic AH of running commentary. He continues to report motivation to go to [facility] program. Medication Compliance: Yes Side effects from medications: No Review of Systems Review of Systems suicide Yes all other systems are reviewed and are negative Constitutional: Reports as per HPI Mental Status Exam Mental Status Exam Narrative: Appearance: casually groomed, fair hygiene in NAD Behavior: cooperative psychomotor: no agitation or retardation noted Speech: clear, normal rate/rhythm/volume, spontaneous Thought process: linear Thought content: no signs of psychosis, wanting help Mood: depressed Affect: blunted SI:passive HI:none VH/AH:none Delusions:none Insight/judgment:fair x 2. Memory/cog: alert, oriented x 3. grossly intact to conversational testing. Diagnostics Vital Signs (24Hr): Vital Signs - 24 hr 11/25/21 08:45 11/25/21 16:50 11/25/21 21:58 Temperature 97.6 F 97.3 F Pulse Rate 60 61 63 Respiratory Rate 18 20 18 Blood Pressure 126/77 129/66 129/82 Pulse Oximetry 100 98 98 Oxygen Delivery Method Room Air Room Air Room Air BMI result Body Mass Index 29.6 Labs Results: 11/20/21 19:49 11/20/21 19:49 Medications Medications Current Medications Acetaminophen (Acetaminophen 325 Mg Tablet) 650 mg PO Q6H PRN PRN Reason: Headache/Pain Mild Scale (1-3) Al Hydroxide/Mg Hydroxide (Magnesium Hydrox/Alum Hydrox 30 Ml Oral.Susp) 30 ml PO Q6H PRN PRN Reason: Heartburn/Nausea Clonidine HCl (Clonidine Hcl 0.1 Mg Tablet) 0.1 mg PO TID PRN; Protocol PRN Reason: agit/anx Last Admin: 11/25/21 22:49 Dose: 0.1 mg Fluvoxamine Maleate (Fluvoxamine Maleate 50 Mg Tablet) 50 mg PO BEDTIME [facility] Last Admin: 11/25/21 22:05 Dose: 50 mg Gabapentin (Gabapentin 300 Mg Capsule) 300 mg PO TID [facility] Last Admin: 11/25/21 22:05 Dose: 300 mg Hydroxyzine HCl (Hydroxyzine Hcl 50 Mg Tablet) 50 mg PO TID PRN PRN Reason: anxiety/restlessness Last Admin: 11/22/21 16:04 Dose: 50 mg Hydroxyzine HCl (Hydroxyzine Hcl 25 Mg Tablet) 25 mg PO BEDTIME PRN PRN Reason: Anxiety Magnesium Hydroxide (Milk Of Magnesia 30 Ml Oral.Susp) 30 ml PO DAILY PRN PRN Reason: Constipation Methadone HCl (Methadone Hcl 20 Mg/2 Ml Oral.Conc) 45 mg PO DAILY [place] Last Admin: 11/25/21 08:52 Dose: 45 mg Nicotine Polacrilex (Nicotine Polacrilex 2 Mg Gum) 4 mg BUCCAL Q2H PRN PRN Reason: Nicotine Cravings Ondansetron HCl (Ondansetron Odt 4 Mg Tab.Rapdis) 4 mg TRANSLINGU Q6H PRN PRN Reason: Nausea Last Admin: 11/25/21 16:53 Dose: 4 mg Quetiapine Fumarate (Quetiapine Fumarate 50 Mg Tablet) 50 mg PO Q4H PRN PRN Reason: AH Last Admin: 11/22/21 21:47 Dose: 50 mg Quetiapine Fumarate (Quetiapine Fumarate 25 Mg Tablet) 25 mg PO BEDTIME [place] Last Admin: 11/25/21 22:49 Dose: 25 mg Trazodone HCl (Trazodone Hcl 50 Mg Tablet) 50 mg PO BEDTIME PRN PRN Reason: Insomnia Last Admin: 11/23/21 23:28 Dose: 50 mg Allergies Allergies Allergy/AdvReac Type Severity Reaction Status Date / Time risperidone Allergy Severe Angioedema Verified 11/09/21 15:22 Assessment & Plan Assessment & Plan (1) Bipolar II disorder: Status: Acute Code(s): F31.81 - Bipolar II disorder (2) Opioid use disorder: Status: Acute Code(s): F11.90 - Opioid use, unspecified, uncomplicated Assessment and Plan: one time 5mg dose methadone with dose increase to 40mg daily on Saturday (11/24) reassess and continue to increase dose as tolerated by patient discussed case with RSRN (3) Cocaine use disorder: Status: Acute Code(s): F14.10 - Cocaine abuse, uncomplicated (4) Methamphetamine abuse in remission: Status: Acute Code(s): F15.11 - Other stimulant abuse, in remission Plan Ms. Constantino is a 31 year-old male hx of opioid, cocaine, methamphetamine. Recently d/c from [facility], relapsed same day. Admitted for depression, SI, wanting substance use treatment. PLAN 1. Admit [facility], CV, 15 minutes checks. 2. Continue current medications- started luvox as pt reported helpful in past for depression/anxiety. 3. obtain collateral information 4. aftercare planning. 11/25 continue current medications. I spent minutes with the patient and/or on the patient floor today, greater than?50% of which was spent counseling/coordinating care. Reason for contiued inpatient stay Substantial Risk for: harm to self
[2021-11-25 08:45] VITALS: BP 126/77; PULSE 60; RESP 18; TEMP 36.4; O2SAT 100
[2021-11-25] MEDS: methADONE HCl 20 MG/2 ML ORAL.CONC 45 MG PO (08:52)
[2021-11-25] MEDS: Gabapentin 300 MG CAPSULE PO ×3 (08:54→22:05)
[2021-11-25] MEDS: Ondansetron ODT 4 MG TAB.RAPDIS TRANSLINGU ×2 (08:56→16:53)
[2021-11-25 16:50] VITALS: BP 129/66; PULSE 61; RESP 20; O2SAT 98
[2021-11-25] MEDS: cloNIDine HCL 0.1 MG TABLET PO ×2 (16:53→22:49)
[2021-11-25 21:58] VITALS: BP 129/82; PULSE 63; RESP 18; TEMP 36.3; O2SAT 98
[2021-11-25] MEDS: fluvoxaMINE Maleate 50 MG TABLET PO (22:05)
[2021-11-25] MEDS: Baclofen 10 MG TABLET PO (22:49)
[2021-11-25] MEDS: QUEtiapine Fumarate 25 MG TABLET PO (22:49)
[2021-11-26 09:15] VITALS: BP 122/78; PULSE 66; RESP 18; TEMP 36.7; O2SAT 98
[2021-11-26] MEDS: Ondansetron ODT 4 MG TAB.RAPDIS TRANSLINGU ×2 (09:25→21:41)
[2021-11-26] MEDS: methADONE HCl 20 MG/2 ML ORAL.CONC 45 MG PO (09:26)
[2021-11-26] MEDS: Gabapentin 300 MG CAPSULE PO ×3 (09:26→21:23)
--- NOTE | 2021-11-26 10:32 | HO.PSYCHPN ---
Subjective Subjective Date of Service: 11/26/21 Reason For Visit: SI/Substance use Subjective Notes: Conditional Voluntary Interim History: Pt reports difficulty sleeping due to withdrawal symptoms. He denies SI/HI. He reports feeling slightly more optimisitc less depressed. Mostly in bed. encouraged to go to groups. No behavioral concerns. Medication Compliance: Yes Side effects from medications: No Attending Groups: No Review of Systems Review of Systems suicide Yes all other systems are reviewed and are negative Constitutional: Reports as per HPI and Reports no additional constitutional complaints Mental Status Exam Mental Status Exam Narrative: Appearance: casually groomed, fair hygiene in NAD Behavior: cooperative psychomotor: no agitation or retardation noted Speech: clear, normal rate/rhythm/volume, spontaneous Thought process: linear Thought content: no signs of psychosis, wanting help Mood: depressed Affect: blunted SI:passive HI:none VH/AH:none Delusions:none Insight/judgment:fair x 2. Memory/cog: alert, oriented x 3. grossly intact to conversational testing. Patient Appearance: Appropriate Patient Orientation: Person, Place, Time and Situation Level of Consciousness: Awake and Alert Patient Behavior: Appropriate and Talkative Diagnostics Vital Signs (24Hr): Vital Signs - 24 hr 11/26/21 09:15 11/26/21 15:15 11/26/21 20:15 Temperature 98.1 F 97.8 F Pulse Rate 66 72 69 Respiratory Rate 18 18 18 Blood Pressure 122/78 132/72 134/69 Pulse Oximetry 98 97 97 Oxygen Delivery Method Room Air Room Air Room Air BMI result Body Mass Index 29.6 Labs Results: 11/20/21 19:49 11/20/21 19:49 Medications Medications Current Medications Acetaminophen (Acetaminophen 325 Mg Tablet) 650 mg PO Q6H PRN PRN Reason: Headache/Pain Mild Scale (1-3) Al Hydroxide/Mg Hydroxide (Magnesium Hydrox/Alum Hydrox 30 Ml Oral.Susp) 30 ml PO Q6H PRN PRN Reason: Heartburn/Nausea Albuterol Sulfate (Albuterol Sulfate 90 Mcg 8 Gm Inhaler) 2 puff INHALE Q4H PRN PRN Reason: SOB/wheezing Last Admin: 11/26/21 15:27 Dose: 2 puff Baclofen (Baclofen 10 Mg Tablet) 10 mg PO TID PRN PRN Reason: muscle aches Last Admin: 11/26/21 15:28 Dose: 10 mg Clonidine HCl (Clonidine Hcl 0.1 Mg Tablet) 0.1 mg PO TID PRN; Protocol PRN Reason: agit/anx Last Admin: 11/26/21 21:22 Dose: 0.1 mg Fluvoxamine Maleate (Fluvoxamine Maleate 50 Mg Tablet) 50 mg PO BEDTIME [facility] Last Admin: 11/26/21 21:22 Dose: 50 mg Gabapentin (Gabapentin 300 Mg Capsule) 300 mg PO TID [facility] Last Admin: 11/26/21 21:23 Dose: 300 mg Hydroxyzine HCl (Hydroxyzine Hcl 50 Mg Tablet) 50 mg PO TID PRN PRN Reason: anxiety/restlessness Last Admin: 11/26/21 20:22 Dose: 50 mg Hydroxyzine HCl (Hydroxyzine Hcl 25 Mg Tablet) 25 mg PO BEDTIME PRN PRN Reason: Anxiety Magnesium Hydroxide (Milk Of Magnesia 30 Ml Oral.Susp) 30 ml PO DAILY PRN PRN Reason: Constipation Methadone HCl (Methadone Hcl 20 Mg/2 Ml Oral.Conc) 50 mg PO DAILY [facility] Nicotine Polacrilex (Nicotine Polacrilex 2 Mg Gum) 4 mg BUCCAL Q2H PRN PRN Reason: Nicotine Cravings Ondansetron HCl (Ondansetron Odt 4 Mg Tab.Rapdis) 4 mg TRANSLINGU Q6H PRN PRN Reason: Nausea Last Admin: 11/26/21 21:41 Dose: 4 mg Polyethylene Glycol (Polyethylene Glycol 3350 17 Gm Powd.Pack) 17 gm PO BID [facility] Last Admin: 11/26/21 21:37 Dose: 17 gm Quetiapine Fumarate (Quetiapine Fumarate 50 Mg Tablet) 50 mg PO Q4H PRN PRN Reason: AH Last Admin: 11/22/21 21:47 Dose: 50 mg Quetiapine Fumarate (Quetiapine Fumarate 25 Mg Tablet) 25 mg PO BEDTIME [facility] Last Admin: 11/26/21 21:22 Dose: 25 mg Trazodone HCl (Trazodone Hcl 50 Mg Tablet) 50 mg PO BEDTIME PRN PRN Reason: Insomnia Last Admin: 11/23/21 23:28 Dose: 50 mg Allergies Allergies Allergy/AdvReac Type Severity Reaction Status Date / Time risperidone Allergy Severe Angioedema Verified 11/09/21 15:22 Assessment & Plan Assessment & Plan (1) Bipolar II disorder: Status: Acute Code(s): F31.81 - Bipolar II disorder (2) Opioid use disorder: Status: Acute Code(s): F11.90 - Opioid use, unspecified, uncomplicated Assessment and Plan: increase methadone to 50mg QD 11/27 Plan 11/26 continue current medications, he asks for lower dose of seroquel 25mg po qhs. I spent ___25___ minutes with the patient and/or on the patient floor today, greater than?50% of which was spent counseling/coordinating care. Reason for contiued inpatient stay Substantial Risk for: harm to self
[2021-11-26] MEDS: hydrOXYzine HCL 50 MG TABLET PO ×2 (12:04→20:22)
[2021-11-26 15:15] VITALS: BP 132/72; PULSE 72; RESP 18; O2SAT 97
[2021-11-26] MEDS: Albuterol Sulfate 90 MCG 8 GM INHALER 2 PUFF INHALE (15:27)
[2021-11-26] MEDS: cloNIDine HCL 0.1 MG TABLET PO ×2 (15:28→21:22)
[2021-11-26] MEDS: Baclofen 10 MG TABLET PO (15:28)
--- NOTE | 2021-11-26 17:29 | P.PNADD_ITS ---
Subjective Subjective Date of Service: 11/26/21 Reason For Visit: SI/Substance use Interim History: Patient seen in follow up Laying in bed, reporting that he is having difficultly sleeping at night (due to chill, restlessness) and sleeping during the day following methadone dosing. Encouraged patient to get out of bed during the day as tolerated to normalize sleep schedule. Requesting one more dose increase (currently at 45mg QD) Review of Systems Constitutional: Reports as per HPI and Reports no additional constitutional complaints Mental Status Exam Mental Status Exam Patient Appearance: Appropriate Level of Consciousness: Awake and Alert Patient Behavior: Appropriate and Talkative Diagnostics Vital Signs (24Hr): Vital Signs - 24 hr 11/25/21 21:58 11/26/21 09:15 11/26/21 15:15 Temperature 97.3 F 98.1 F Pulse Rate 63 66 72 Respiratory Rate 18 18 18 Blood Pressure 129/82 122/78 132/72 Pulse Oximetry 98 98 97 Oxygen Delivery Method Room Air Room Air Room Air BMI result Body Mass Index 29.6 Labs Results: 11/20/21 19:49 11/20/21 19:49 Medications Medications Current Medications Acetaminophen (Acetaminophen 325 Mg Tablet) 650 mg PO Q6H PRN PRN Reason: Headache/Pain Mild Scale (1-3) Al Hydroxide/Mg Hydroxide (Magnesium Hydrox/Alum Hydrox 30 Ml Oral.Susp) 30 ml PO Q6H PRN PRN Reason: Heartburn/Nausea Albuterol Sulfate (Albuterol Sulfate 90 Mcg 8 Gm Inhaler) 2 puff INHALE Q4H PRN PRN Reason: SOB/wheezing Last Admin: 11/26/21 15:27 Dose: 2 puff Baclofen (Baclofen 10 Mg Tablet) 10 mg PO TID PRN PRN Reason: muscle aches Last Admin: 11/26/21 15:28 Dose: 10 mg Clonidine HCl (Clonidine Hcl 0.1 Mg Tablet) 0.1 mg PO TID PRN; Protocol PRN Reason: agit/anx Last Admin: 11/26/21 15:28 Dose: 0.1 mg Fluvoxamine Maleate (Fluvoxamine Maleate 50 Mg Tablet) 50 mg PO BEDTIME [facility] Last Admin: 11/25/21 22:05 Dose: 50 mg Gabapentin (Gabapentin 300 Mg Capsule) 300 mg PO TID [facility] Last Admin: 11/26/21 15:27 Dose: 300 mg Hydroxyzine HCl (Hydroxyzine Hcl 50 Mg Tablet) 50 mg PO TID PRN PRN Reason: anxiety/restlessness Last Admin: 11/26/21 12:04 Dose: 50 mg Hydroxyzine HCl (Hydroxyzine Hcl 25 Mg Tablet) 25 mg PO BEDTIME PRN PRN Reason: Anxiety Magnesium Hydroxide (Milk Of Magnesia 30 Ml Oral.Susp) 30 ml PO DAILY PRN PRN Reason: Constipation Methadone HCl (Methadone Hcl 20 Mg/2 Ml Oral.Conc) 50 mg PO DAILY [facility] Nicotine Polacrilex (Nicotine Polacrilex 2 Mg Gum) 4 mg BUCCAL Q2H PRN PRN Reason: Nicotine Cravings Ondansetron HCl (Ondansetron Odt 4 Mg Tab.Rapdis) 4 mg TRANSLINGU Q6H PRN PRN Reason: Nausea Last Admin: 11/26/21 09:25 Dose: 4 mg Quetiapine Fumarate (Quetiapine Fumarate 50 Mg Tablet) 50 mg PO Q4H PRN PRN Reason: AH Last Admin: 11/22/21 21:47 Dose: 50 mg Quetiapine Fumarate (Quetiapine Fumarate 25 Mg Tablet) 25 mg PO BEDTIME [facility] Last Admin: 11/25/21 22:49 Dose: 25 mg Trazodone HCl (Trazodone Hcl 50 Mg Tablet) 50 mg PO BEDTIME PRN PRN Reason: Insomnia Last Admin: 11/23/21 23:28 Dose: 50 mg Allergies Allergies Allergy/AdvReac Type Severity Reaction Status Date / Time risperidone Allergy Severe Angioedema Verified 11/09/21 15:22 Assessment & Plan Assessment & Plan (1) Opioid use disorder: Status: Acute Code(s): F11.90 - Opioid use, unspecified, uncomplicated Assessment and Plan: * increase methadone to 50mg QD 11/27 I spent ___15___ minutes with the patient and/or on the patient floor today, greater than?50% of which was spent counseling/coordinating care.
[2021-11-26 20:15] VITALS: BP 134/69; PULSE 69; RESP 18; TEMP 36.6; O2SAT 97
[2021-11-26] MEDS: fluvoxaMINE Maleate 50 MG TABLET PO (21:22)
[2021-11-26] MEDS: QUEtiapine Fumarate 25 MG TABLET PO (21:22)
[2021-11-26] MEDS: polyethylene glycoL 3350 17 GM POWD.PACK PO (21:37)
[2021-11-27] MEDS: Ondansetron ODT 4 MG TAB.RAPDIS TRANSLINGU ×2 (06:40→21:43)
[2021-11-27] MEDS: polyethylene glycoL 3350 17 GM POWD.PACK PO ×2 (08:35→21:55)
[2021-11-27] MEDS: Gabapentin 300 MG CAPSULE PO ×3 (08:38→21:43)
[2021-11-27] MEDS: Albuterol Sulfate 90 MCG 8 GM INHALER 2 PUFF INHALE (08:38)
[2021-11-27] MEDS: methADONE HCl 20 MG/2 ML ORAL.CONC 50 MG PO (08:39)
[2021-11-27 08:42] VITALS: BP 110/68; PULSE 65; RESP 17; TEMP 36.6; O2SAT 98
--- NOTE | 2021-11-27 11:39 | MHC.RECOVRN ---
Met with pt in 306 to check in regarding methadone dose, along with RSRN Em. Pt in bed, awake and alert. Pt sits up upon approach. Pt received 50 mg this morning. Pt states I think I'm going to be good at this dose. Pt does not appear to be in withdrawal at this time. Pts room is much more clean, trash and food has been removed. Em educated pt regarding other recovery supports including [facility], pt interested. Em to f/u with written material. Pt denies questions or concerns for Recovery Team at this time.
--- NOTE | 2021-11-27 14:21 | P.PNPSI_ITS ---
Subjective Subjective Date of Service: 11/27/21 Reason For Visit: SI/Substance use Subjective Notes: Conditional Voluntary Interim History: Pt reports feeling more hopeful, but worried that if he does not go to [facility] he will quickly relapsed. He reports fair sleep. He reports feeling groggy, started new dose of methadone 50mg po daily. He reports less opioid withdrawal symptoms. chronic AH. No SI/HI. Medication Compliance: Yes Side effects from medications: No Review of Systems Review of Systems suicide Yes all other systems are reviewed and are negative Constitutional: Reports as per HPI and Reports no additional constitutional complaints Mental Status Exam Mental Status Exam Narrative: Appearance: casually groomed, fair hygiene in NAD Behavior: cooperative psychomotor: no agitation or retardation noted Speech: clear, normal rate/rhythm/volume, spontaneous Thought process: linear Thought content: no signs of psychosis, wanting help Mood: depressed Affect: blunted SI:passive HI:none VH/AH:none Delusions:none Insight/judgment:fair x 2. Memory/cog: alert, oriented x 3. grossly intact to conversational testing. Patient Appearance: Appropriate Patient Orientation: Person, Place, Time and Situation Level of Consciousness: Awake and Alert Patient Behavior: Appropriate and Talkative Diagnostics Vital Signs (24Hr): Vital Signs - 24 hr 11/26/21 20:15 11/27/21 08:42 Temperature 97.8 F 97.8 F Pulse Rate 69 65 Respiratory Rate 18 17 Blood Pressure 134/69 110/68 Pulse Oximetry 97 98 Oxygen Delivery Method Room Air Room Air BMI result Body Mass Index 29.6 Labs Results: 11/20/21 19:49 11/20/21 19:49 Medications Medications Current Medications Acetaminophen (Acetaminophen 325 Mg Tablet) 650 mg PO Q6H PRN PRN Reason: Headache/Pain Mild Scale (1-3) Al Hydroxide/Mg Hydroxide (Magnesium Hydrox/Alum Hydrox 30 Ml Oral.Susp) 30 ml PO Q6H PRN PRN Reason: Heartburn/Nausea Albuterol Sulfate (Albuterol Sulfate 90 Mcg 8 Gm Inhaler) 2 puff INHALE Q4H PRN PRN Reason: SOB/wheezing Last Admin: 11/27/21 08:38 Dose: 2 puff Baclofen (Baclofen 10 Mg Tablet) 10 mg PO TID PRN PRN Reason: muscle aches Last Admin: 11/27/21 14:25 Dose: 10 mg Clonidine HCl (Clonidine Hcl 0.1 Mg Tablet) 0.1 mg PO TID PRN; Protocol PRN Reason: agit/anx Last Admin: 11/26/21 21:22 Dose: 0.1 mg Fluvoxamine Maleate (Fluvoxamine Maleate 50 Mg Tablet) 50 mg PO BEDTIME [facility] Last Admin: 11/26/21 21:22 Dose: 50 mg Gabapentin (Gabapentin 300 Mg Capsule) 300 mg PO TID [facility] Last Admin: 11/27/21 14:25 Dose: 300 mg Hydroxyzine HCl (Hydroxyzine Hcl 50 Mg Tablet) 50 mg PO TID PRN PRN Reason: anxiety/restlessness Last Admin: 11/27/21 14:25 Dose: 50 mg Hydroxyzine HCl (Hydroxyzine Hcl 25 Mg Tablet) 25 mg PO BEDTIME PRN PRN Reason: Anxiety Magnesium Hydroxide (Milk Of Magnesia 30 Ml Oral.Susp) 30 ml PO DAILY PRN PRN Reason: Constipation Methadone HCl (Methadone Hcl 20 Mg/2 Ml Oral.Conc) 50 mg PO DAILY [facility] Last Admin: 11/27/21 08:39 Dose: 50 mg Nicotine Polacrilex (Nicotine Polacrilex 2 Mg Gum) 4 mg BUCCAL Q2H PRN PRN Reason: Nicotine Cravings Ondansetron HCl (Ondansetron Odt 4 Mg Tab.Rapdis) 4 mg TRANSLINGU Q6H PRN PRN Reason: Nausea Last Admin: 11/27/21 06:40 Dose: 4 mg Polyethylene Glycol (Polyethylene Glycol 3350 17 Gm Powd.Pack) 17 gm PO BID [facility] Last Admin: 11/27/21 08:35 Dose: 17 gm Quetiapine Fumarate (Quetiapine Fumarate 50 Mg Tablet) 50 mg PO Q4H PRN PRN Reason: AH Last Admin: 11/22/21 21:47 Dose: 50 mg Quetiapine Fumarate (Quetiapine Fumarate 25 Mg Tablet) 25 mg PO BEDTIME [facility] Last Admin: 11/26/21 21:22 Dose: 25 mg Trazodone HCl (Trazodone Hcl 50 Mg Tablet) 50 mg PO BEDTIME PRN PRN Reason: Insomnia Last Admin: 11/23/21 23:28 Dose: 50 mg Allergies Allergies Allergy/AdvReac Type Severity Reaction Status Date / Time risperidone Allergy Severe Angioedema Verified 11/09/21 15:22 Assessment & Plan Assessment & Plan (1) Bipolar II disorder: Status: Acute Code(s): F31.81 - Bipolar II disorder (2) Opioid use disorder: Status: Acute Code(s): F11.90 - Opioid use, unspecified, uncomplicated Assessment and Plan: * increase methadone to 50mg QD 11/27 Plan 11/26 continue current medications, he asks for lower dose of seroquel 25mg po qhs. I spent _25 minutes with the patient and/or on the patient floor today, greater than?50% of which was spent counseling/coordinating care. Reason for contiued inpatient stay Substantial Risk for: harm to self
[2021-11-27] MEDS: Baclofen 10 MG TABLET PO ×2 (14:25→22:32)
[2021-11-27] MEDS: hydrOXYzine HCL 50 MG TABLET PO ×2 (14:25→21:44)
[2021-11-27 21:30] VITALS: BP 142/91; PULSE 70; RESP 18; TEMP 36.4; O2SAT 98
[2021-11-27] MEDS: QUEtiapine Fumarate 25 MG TABLET PO (21:43)
[2021-11-27] MEDS: fluvoxaMINE Maleate 50 MG TABLET 75 MG PO (21:44)
[2021-11-27] MEDS: Magnesium Hydrox/Alum Hydrox 30 ML ORAL.SUSP PO (21:55)
[2021-11-27] MEDS: cloNIDine HCL 0.1 MG TABLET PO (23:11)
[2021-11-28 09:00] VITALS: BP 117/56; PULSE 60; RESP 18; TEMP 36.3; O2SAT 96
[2021-11-28] MEDS: methADONE HCl 20 MG/2 ML ORAL.CONC 50 MG PO (09:44)
[2021-11-28] MEDS: Gabapentin 300 MG CAPSULE PO ×3 (09:44→22:46)
[2021-11-28] MEDS: Baclofen 10 MG TABLET PO ×2 (09:47→22:46)
[2021-11-28] MEDS: Ondansetron ODT 4 MG TAB.RAPDIS TRANSLINGU ×2 (09:47→17:18)
--- NOTE | 2021-11-28 15:50 | HO.PSYCHPN ---
Subjective Subjective Date of Service: 11/28/21 Reason For Visit: SI/Substance use Subjective Notes: Conditional Voluntary Interim History: Pt reports feeling very tired, denies withdrawal symptoms but wondering if fluvox making him more sedated. It is possible that fluvox is increasing levels of methadone- explained this to pt. We can decide tomorrow to lower fluvox or switch to different antidepressant. He denies SI/HI. chronic AH- he does not want to take higher doses of seroquel or switch antipsychotics. mostly in bed today. Medication Compliance: Yes Side effects from medications: No Attending Groups: No Review of Systems Review of Systems suicide Yes all other systems are reviewed and are negative Constitutional: Reports as per HPI and Reports no additional constitutional complaints Mental Status Exam Mental Status Exam Narrative: Appearance: casually groomed, fair hygiene in NAD Behavior: cooperative psychomotor: no agitation or retardation noted Speech: clear, normal rate/rhythm/volume, spontaneous Thought process: linear Thought content: no signs of psychosis, wanting help Mood: depressed Affect: blunted SI:passive HI:none VH/AH:none Delusions:none Insight/judgment:fair x 2. Memory/cog: alert, oriented x 3. grossly intact to conversational testing. Patient Appearance: Appropriate Patient Orientation: Person, Place, Time and Situation Level of Consciousness: Awake and Alert Patient Behavior: Appropriate and Talkative Diagnostics Vital Signs (24Hr): Vital Signs - 24 hr 11/27/21 21:30 11/28/21 09:00 Temperature 97.6 F 97.4 F Pulse Rate 70 60 Respiratory Rate 18 18 Blood Pressure 142/91 H 117/56 L Pulse Oximetry 98 96 Oxygen Delivery Method Room Air Room Air BMI result Body Mass Index 29.6 Labs Results: 11/20/21 19:49 11/20/21 19:49 Medications Medications Current Medications Acetaminophen (Acetaminophen 325 Mg Tablet) 650 mg PO Q6H PRN PRN Reason: Headache/Pain Mild Scale (1-3) Al Hydroxide/Mg Hydroxide (Magnesium Hydrox/Alum Hydrox 30 Ml Oral.Susp) 30 ml PO Q6H PRN PRN Reason: Heartburn/Nausea Last Admin: 11/27/21 21:55 Dose: 30 ml Albuterol Sulfate (Albuterol Sulfate 90 Mcg 8 Gm Inhaler) 2 puff INHALE Q4H PRN PRN Reason: SOB/wheezing Last Admin: 11/27/21 08:38 Dose: 2 puff Baclofen (Baclofen 10 Mg Tablet) 10 mg PO TID PRN PRN Reason: muscle aches Last Admin: 11/28/21 09:47 Dose: 10 mg Clonidine HCl (Clonidine Hcl 0.1 Mg Tablet) 0.1 mg PO TID PRN; Protocol PRN Reason: agit/anx Last Admin: 11/27/21 23:11 Dose: 0.1 mg Fluvoxamine Maleate (Fluvoxamine Maleate 50 Mg Tablet) 75 mg PO BEDTIME [facility] Last Admin: 11/27/21 21:44 Dose: 75 mg Gabapentin (Gabapentin 300 Mg Capsule) 300 mg PO TID [facility] Last Admin: 11/28/21 15:23 Dose: 300 mg Hydroxyzine HCl (Hydroxyzine Hcl 50 Mg Tablet) 50 mg PO TID PRN PRN Reason: anxiety/restlessness Last Admin: 11/27/21 21:44 Dose: 50 mg Hydroxyzine HCl (Hydroxyzine Hcl 25 Mg Tablet) 25 mg PO BEDTIME PRN PRN Reason: Anxiety Magnesium Hydroxide (Milk Of Magnesia 30 Ml Oral.Susp) 30 ml PO DAILY PRN PRN Reason: Constipation Methadone HCl (Methadone Hcl 20 Mg/2 Ml Oral.Conc) 50 mg PO DAILY [facility] Last Admin: 11/28/21 09:44 Dose: 50 mg Nicotine Polacrilex (Nicotine Polacrilex 2 Mg Gum) 4 mg BUCCAL Q2H PRN PRN Reason: Nicotine Cravings Ondansetron HCl (Ondansetron Odt 4 Mg Tab.Rapdis) 4 mg TRANSLINGU Q6H PRN PRN Reason: Nausea Last Admin: 11/28/21 09:47 Dose: 4 mg Polyethylene Glycol (Polyethylene Glycol 3350 17 Gm Powd.Pack) 17 gm PO BID [facility] Last Admin: 11/28/21 09:46 Dose: Not Given Quetiapine Fumarate (Quetiapine Fumarate 50 Mg Tablet) 50 mg PO Q4H PRN PRN Reason: AH Last Admin: 11/22/21 21:47 Dose: 50 mg Quetiapine Fumarate (Quetiapine Fumarate 25 Mg Tablet) 25 mg PO BEDTIME [facility] Last Admin: 11/27/21 21:43 Dose: 25 mg Trazodone HCl (Trazodone Hcl 50 Mg Tablet) 50 mg PO BEDTIME PRN PRN Reason: Insomnia Last Admin: 11/23/21 23:28 Dose: 50 mg Allergies Allergies Allergy/AdvReac Type Severity Reaction Status Date / Time risperidone Allergy Severe Angioedema Verified 11/09/21 15:22 Assessment & Plan Assessment & Plan (1) Bipolar II disorder: Status: Acute Code(s): F31.81 - Bipolar II disorder (2) Opioid use disorder: Status: Acute Code(s): F11.90 - Opioid use, unspecified, uncomplicated Assessment and Plan: increase methadone to 50mg QD 11/27 Plan 11/26 continue current medications, he asks for lower dose of seroquel 25mg po qhs. 11/27 increase fluvos to 75mg po qhs. 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 Reason for contiued inpatient stay Substantial Risk for: harm to self
[2021-11-28] MEDS: cloNIDine HCL 0.1 MG TABLET PO (17:18)
[2021-11-28] MEDS: hydrOXYzine HCL 50 MG TABLET PO (22:46)
[2021-11-28] MEDS: QUEtiapine Fumarate 25 MG TABLET PO (22:46)
[2021-11-28] MEDS: polyethylene glycoL 3350 17 GM POWD.PACK PO (22:48)
--- NOTE | 2021-11-29 | ECG_ITS ---
Test Reason : pt reporting chest pain Blood Pressure : / mmHG Vent. Rate : 061 BPM Atrial Rate : 061 BPM P-R Int : 170 ms QRS Dur : 098 ms QT Int : 428 ms P-R-T Axes : 063 041 038 degrees QTc Int : 430 ms Normal sinus rhythm Normal ECG When compared with ECG of 21-NOV-2021 13:06, No significant change was found Referred By: Marisela Cortés Electronically Signed By:Alberto Berry
[2021-11-29 08:30] VITALS: BP 114/58; PULSE 58; RESP 16; TEMP 36.1; O2SAT 97
[2021-11-29] MEDS: Gabapentin 300 MG CAPSULE PO ×3 (08:53→22:15)
[2021-11-29] MEDS: methADONE HCl 20 MG/2 ML ORAL.CONC 50 MG PO (08:53)
[2021-11-29] MEDS: Baclofen 10 MG TABLET PO (08:58)
[2021-11-29] MEDS: Ondansetron ODT 4 MG TAB.RAPDIS TRANSLINGU (08:58)
--- NOTE | 2021-11-29 13:19 | P.PNPSI_ITS ---
Subjective Subjective Date of Service: 11/29/21 Reason For Visit: SI/Substance use Subjective Notes: Conditional Voluntary Interim History: Pt reports sleeping better last night. He continues to endorse feeling tired. We discussed holding fluvox for now due to excessive sedation. He reports mood is fair, more hopeful, not suicidal but still depressed. Pt mostly in bed. Encouraged to attend groups. No behavioral concerns. Medication Compliance: Yes Side effects from medications: No Review of Systems Review of Systems suicide Yes all other systems are reviewed and are negative Constitutional: Reports as per HPI and Reports no additional constitutional complaints Mental Status Exam Mental Status Exam Narrative: Appearance: casually groomed, fair hygiene in NAD Behavior: cooperative psychomotor: no agitation or retardation noted Speech: clear, normal rate/rhythm/volume, spontaneous Thought process: linear Thought content: no signs of psychosis, wanting help Mood: tired Affect: blunted SI:none HI:none VH/AH:none Delusions:none Insight/judgment:fair x 2. Memory/cog: alert, oriented x 3. grossly intact to conversational testing. Patient Appearance: Appropriate Patient Orientation: Person, Place, Time and Situation Level of Consciousness: Awake and Alert Patient Behavior: Appropriate and Talkative Diagnostics Vital Signs (24Hr): Vital Signs - 24 hr 11/29/21 08:30 Temperature 97.0 F Pulse Rate 58 Respiratory Rate 16 Blood Pressure 114/58 L Pulse Oximetry 97 Oxygen Delivery Method Room Air BMI result Body Mass Index 29.6 Labs Results: 11/20/21 19:49 11/20/21 19:49 Medications Medications Current Medications Acetaminophen (Acetaminophen 325 Mg Tablet) 650 mg PO Q6H PRN PRN Reason: Headache/Pain Mild Scale (1-3) Al Hydroxide/Mg Hydroxide (Magnesium Hydrox/Alum Hydrox 30 Ml Oral.Susp) 30 ml PO Q6H PRN PRN Reason: Heartburn/Nausea Last Admin: 11/27/21 21:55 Dose: 30 ml Albuterol Sulfate (Albuterol Sulfate 90 Mcg 8 Gm Inhaler) 2 puff INHALE Q4H PRN PRN Reason: SOB/wheezing Last Admin: 11/27/21 08:38 Dose: 2 puff Baclofen (Baclofen 10 Mg Tablet) 10 mg PO TID PRN PRN Reason: muscle aches Last Admin: 11/29/21 08:58 Dose: 10 mg Clonidine HCl (Clonidine Hcl 0.1 Mg Tablet) 0.1 mg PO TID PRN; Protocol PRN Reason: agit/anx Last Admin: 11/28/21 17:18 Dose: 0.1 mg Gabapentin (Gabapentin 300 Mg Capsule) 300 mg PO TID [facility] Last Admin: 11/29/21 08:53 Dose: 300 mg Hydroxyzine HCl (Hydroxyzine Hcl 50 Mg Tablet) 50 mg PO TID PRN PRN Reason: anxiety/restlessness Last Admin: 11/28/21 22:46 Dose: 50 mg Hydroxyzine HCl (Hydroxyzine Hcl 25 Mg Tablet) 25 mg PO BEDTIME PRN PRN Reason: Anxiety Magnesium Hydroxide (Milk Of Magnesia 30 Ml Oral.Susp) 30 ml PO DAILY PRN PRN Reason: Constipation Methadone HCl (Methadone Hcl 20 Mg/2 Ml Oral.Conc) 50 mg PO DAILY [facility] Last Admin: 11/29/21 08:53 Dose: 50 mg Nicotine Polacrilex (Nicotine Polacrilex 2 Mg Gum) 4 mg BUCCAL Q2H PRN PRN Reason: Nicotine Cravings Non-Formulary Medication (Patient Own Medication) 200 each IM DAILY ONE Stop: 11/29/21 13:11 Ondansetron HCl (Ondansetron Odt 4 Mg Tab.Rapdis) 4 mg TRANSLINGU Q6H PRN PRN Reason: Nausea Last Admin: 11/29/21 08:58 Dose: 4 mg Polyethylene Glycol (Polyethylene Glycol 3350 17 Gm Powd.Pack) 17 gm PO BID [facility] Last Admin: 11/29/21 08:53 Dose: Not Given Quetiapine Fumarate (Quetiapine Fumarate 50 Mg Tablet) 50 mg PO Q4H PRN PRN Reason: AH Last Admin: 11/22/21 21:47 Dose: 50 mg Quetiapine Fumarate (Quetiapine Fumarate 25 Mg Tablet) 25 mg PO BEDTIME [facility] Last Admin: 11/28/21 22:46 Dose: 25 mg Trazodone HCl (Trazodone Hcl 50 Mg Tablet) 50 mg PO BEDTIME PRN PRN Reason: Insomnia Last Admin: 11/23/21 23:28 Dose: 50 mg Allergies Allergies Allergy/AdvReac Type Severity Reaction Status Date / Time risperidone Allergy Severe Angioedema Verified 11/09/21 15:22 Assessment & Plan Assessment & Plan (1) Bipolar II disorder: Status: Acute Code(s): F31.81 - Bipolar II disorder (2) Opioid use disorder: Status: Acute Code(s): F11.90 - Opioid use, unspecified, uncomplicated Assessment and Plan: * increase methadone to 50mg QD 11/27 Plan 11/26 continue current medications, he asks for lower dose of seroquel 25mg po qhs. 11/27 increase fluvos to 75mg po qhs. 11/28 continue current plan- held fluvox due to excessive sedation 11/29- continue current plan I spent ___25___ minutes with the patient and/or on the patient floor today, greater than?50% of which was spent counseling/coordinating care. Reason for contiued inpatient stay Substantial Risk for: harm to self
[2021-11-29] MEDS: hydrOXYzine HCL 50 MG TABLET PO (15:29)
[2021-11-29] MEDS: diphenhydrAMINE HCL 25 MG TABLET 50 MG PO (17:05)
[2021-11-29 18:00] VITALS: BP 117/66; PULSE 66; RESP 16; TEMP 36.3; O2SAT 95
--- NOTE | 2021-11-29 18:38 | PC.NURSE ---
Patient c/o CP, reports number 6-8. VSS 127/68, 65, 97RA. No reported radiation, no diaphoresis. Following VS stated it must be a pulled muscle, requested and rcvd clonidine for c/o anxiety. Raul Gupta APRN notified.
[2021-11-29] MEDS: cloNIDine HCL 0.1 MG TABLET PO (18:40)
[2021-11-29] MEDS: Albuterol Sulfate 90 MCG 8 GM INHALER 2 PUFF INHALE (22:14)
[2021-11-29] MEDS: polyethylene glycoL 3350 17 GM POWD.PACK PO (22:14)
[2021-11-29] MEDS: QUEtiapine Fumarate 25 MG TABLET PO (22:15)
[2021-11-30] MEDS: Ondansetron ODT 4 MG TAB.RAPDIS TRANSLINGU ×3 (00:35→23:22)
[2021-11-30] MEDS: Magnesium Hydrox/Alum Hydrox 30 ML ORAL.SUSP PO ×2 (00:45→08:57)
[2021-11-30 08:30] VITALS: BP 136/63; PULSE 72; RESP 16; TEMP 36.6; O2SAT 96
[2021-11-30] MEDS: Gabapentin 300 MG CAPSULE PO ×3 (08:46→23:22)
[2021-11-30] MEDS: methADONE HCl 20 MG/2 ML ORAL.CONC 50 MG PO (08:49)
--- NOTE | 2021-11-30 15:58 | P.PNPSI_ITS ---
Subjective Subjective Date of Service: 11/30/21 Reason For Visit: SI/Substance use Subjective Notes: Conditional Voluntary Interim History: Pt reports feeling tired, still, not withdrawing, physically not well. He reports last night almost choking with acid reflux. Abefrile, o2sat >97. Pt reports fair apetite. He denies SI/HI. Hoping to feel better physically, but continues to report motivation to continue substance use treatment at residential facility. Medication Compliance: Yes Side effects from medications: No Attending Groups: Intermittent Review of Systems Review of Systems suicide Yes all other systems are reviewed and are negative Constitutional: Reports as per HPI and Reports no additional constitutional complaints Mental Status Exam Mental Status Exam Narrative: Appearance: casually groomed, fair hygiene in NAD Behavior: cooperative psychomotor: no agitation or retardation noted Speech: clear, normal rate/rhythm/volume, spontaneous Thought process: linear Thought content: no signs of psychosis, wanting help Mood: tired Affect: blunted SI:none HI:none VH/AH:none Delusions:none Insight/judgment:fair x 2. Memory/cog: alert, oriented x 3. grossly intact to conversational testing. Patient Appearance: Appropriate Patient Orientation: Person, Place, Time and Situation Level of Consciousness: Awake and Alert Patient Behavior: Appropriate and Talkative Diagnostics Vital Signs (24Hr): Vital Signs - 24 hr 11/29/21 18:00 11/30/21 08:30 Temperature 97.3 F 97.9 F Pulse Rate 66 72 Respiratory Rate 16 16 Blood Pressure 117/66 136/63 Pulse Oximetry 95 96 Oxygen Delivery Method Room Air Room Air BMI result Body Mass Index 29.6 Labs Results: 11/20/21 19:49 11/20/21 19:49 Labs: Laboratory Results - last 48 hr 11/29/21 19:12 Total Creatine Kinase 106 Medications Medications Current Medications Acetaminophen (Acetaminophen 325 Mg Tablet) 650 mg PO Q6H PRN PRN Reason: Headache/Pain Mild Scale (1-3) Al Hydroxide/Mg Hydroxide (Magnesium Hydrox/Alum Hydrox 30 Ml Oral.Susp) 30 ml PO Q6H PRN PRN Reason: Heartburn/Nausea Last Admin: 11/30/21 08:57 Dose: 30 ml Albuterol Sulfate (Albuterol Sulfate 90 Mcg 8 Gm Inhaler) 2 puff INHALE Q4H PRN PRN Reason: SOB/wheezing Last Admin: 11/29/21 22:14 Dose: 2 puff Baclofen (Baclofen 10 Mg Tablet) 10 mg PO TID PRN PRN Reason: muscle aches Last Admin: 11/29/21 08:58 Dose: 10 mg Clonidine HCl (Clonidine Hcl 0.1 Mg Tablet) 0.1 mg PO TID PRN; Protocol PRN Reason: agit/anx Last Admin: 11/29/21 18:40 Dose: 0.1 mg Gabapentin (Gabapentin 300 Mg Capsule) 300 mg PO TID [facility] Last Admin: 11/30/21 14:57 Dose: 300 mg Hydroxyzine HCl (Hydroxyzine Hcl 50 Mg Tablet) 50 mg PO TID PRN PRN Reason: anxiety/restlessness Last Admin: 11/29/21 15:29 Dose: 50 mg Hydroxyzine HCl (Hydroxyzine Hcl 25 Mg Tablet) 25 mg PO BEDTIME PRN PRN Reason: Anxiety Magnesium Hydroxide (Milk Of Magnesia 30 Ml Oral.Susp) 30 ml PO DAILY PRN PRN Reason: Constipation Methadone HCl (Methadone Hcl 20 Mg/2 Ml Oral.Conc) 50 mg PO DAILY [facility] Last Admin: 11/30/21 08:49 Dose: 50 mg Nicotine Polacrilex (Nicotine Polacrilex 2 Mg Gum) 4 mg BUCCAL Q2H PRN PRN Reason: Nicotine Cravings Ondansetron HCl (Ondansetron Odt 4 Mg Tab.Rapdis) 4 mg TRANSLINGU Q6H PRN PRN Reason: Nausea Last Admin: 11/30/21 08:57 Dose: 4 mg Polyethylene Glycol (Polyethylene Glycol 3350 17 Gm Powd.Pack) 17 gm PO BID [facility] Last Admin: 11/30/21 08:50 Dose: Not Given Quetiapine Fumarate (Quetiapine Fumarate 50 Mg Tablet) 50 mg PO Q4H PRN PRN Reason: AH Last Admin: 11/22/21 21:47 Dose: 50 mg Quetiapine Fumarate (Quetiapine Fumarate 25 Mg Tablet) 25 mg PO BEDTIME [facility] Last Admin: 11/29/21 22:15 Dose: 25 mg Trazodone HCl (Trazodone Hcl 50 Mg Tablet) 50 mg PO BEDTIME PRN PRN Reason: Insomnia Last Admin: 11/23/21 23:28 Dose: 50 mg Allergies Allergies Allergy/AdvReac Type Severity Reaction Status Date / Time risperidone Allergy Severe Angioedema Verified 11/09/21 15:22 Assessment & Plan Assessment & Plan (1) Bipolar II disorder: Status: Acute Code(s): F31.81 - Bipolar II disorder (2) Opioid use disorder: Status: Acute Code(s): F11.90 - Opioid use, unspecified, uncomplicated Assessment and Plan: * increase methadone to 50mg QD 11/27 Plan 11/26 continue current medications, he asks for lower dose of seroquel 25mg po qhs. 11/27 increase fluvos to 75mg po qhs. 11/28 continue current plan- held fluvox due to excessive sedation 11/29- continue current plan 11/30 continue current plan I spent __25____ minutes with the patient and/or on the patient floor today, greater than?50% of which was spent counseling/coordinating care. Reason for contiued inpatient stay Substantial Risk for: harm to self
[2021-11-30 16:16] LABS: MANUAL DIFF FLAG NO
[2021-11-30 16:19] LABS: Basophils Percent Auto 0.5 % (0-2); Eosinophils Absolute Auto 0.2 X10*3/uL (0.0-0.4); Eosinophils Percent Auto 3.3 % (0-4); Hematocrit 39.8 % (42.0-52.0); Hemoglobin 12.7 g/dl (14.0-18.0); Imm Gran Abs Auto 0.11 X10*3/uL (0.00-0.03); Imm Gran Pct Auto 1.8 % (0.0-0.4); Lymphocytes Percent Auto 32.8 % (20-40); Mean Corpuscular HGB Conc 31.9 g/dl (31.0-36.0); Mean Corpuscular Hemoglobin 28.9 pg (27.0-33.0); Mean Corpuscular Volume 90.5 fL (80.0-98.0); Mean Platelet Volume 9.8 fL (9.4-12.4); Monocytes Absolute Auto 0.6 X10*3/uL (0.1-1.2); Monocytes Percent Auto 10.1 % (2-11); Neutrophils Absolute Auto 3.1 x10*3/uL (2.0-8.3); Neutrophils Percent Auto 51.5 % (45-73); Platelet Count 237 X10*3/uL (160-400); Red Cell Distribution Width 12.5 % (11.0-16.0)
[2021-11-30 16:38] LABS: Alanine Aminotransferase 86 U/L (0-40); Albumin Level 3.8 g/dL (3.5-5.0); Alkaline Phosphatase 75 U/L (39-117); Anion Gap 11 (12-20); Aspartate Amino Transferase 47 U/L (5-37); Bilirubin Total 0.2 mg/dL (0.0-1.0); Blood Urea Nitrogen 8 mg/dL (9-16); Calcium 9.7 mg/dL (8.4-10.2); Carbon Dioxide 29 mmol/L (22-29); Chloride 101 mmol/L (96-108); Creatinine Clr Calc Pharmacy 126.4; Estimated Glomerular Filt Rate > 60; Glucose Random 103 mg/dL (60-115); Potassium 4.3 mmol/L (3.3-5.1); Sodium 137 mmol/L (135-145); Total Protein 6.7 g/dL (6.5-8.0)
[2021-11-30] MEDS: Acetaminophen 325 MG TABLET 650 MG PO (23:22)
[2021-11-30] MEDS: polyethylene glycoL 3350 17 GM POWD.PACK PO (23:24)
[2021-12-01 09:25] VITALS: BP 137/88; PULSE 73; RESP 17; TEMP 36.6; O2SAT 98
[2021-12-01] MEDS: Magnesium Hydrox/Alum Hydrox 30 ML ORAL.SUSP PO (09:26)
[2021-12-01] MEDS: Gabapentin 300 MG CAPSULE PO ×3 (09:26→21:38)
[2021-12-01] MEDS: Ondansetron ODT 4 MG TAB.RAPDIS TRANSLINGU ×2 (09:26→17:04)
[2021-12-01] MEDS: methADONE HCl 20 MG/2 ML ORAL.CONC 50 MG PO (09:27)
[2021-12-01] MEDS: cloNIDine HCL 0.1 MG TABLET PO (09:32)
[2021-12-01] MEDS: diphenhydrAMINE HCL 25 MG TABLET PO (14:24)
--- NOTE | 2021-12-01 17:24 | HO.PSYCHPN ---
Subjective Subjective Date of Service: 12/01/21 Reason For Visit: SI/Substance use Interim History: Patient seen and discussed with team. Pt refused seroquel, says it made him sedated. Asked for Benadryl due to itching and is requesting Doxycycline, due to skin picking as prophylaxsis due to hx of cellulitis. C/o of Reflux. Pt complaining of nausea. Patient evaluated today and upon interview he requests for his methadone dose to be decreased by 5 mg. Discussed results of chest CT, need for PCP, hx of asthma. Has albuterol ordered. Denies cough, sometimes has chest pain in L side, denies SOB. Has hx of sleep study but not diagnosed with sleep apnea. Feels better off luvox. Wants seroquel as a PRN due to sedation and increased appetite. In the milieu, patient is safe, has multiple somatic bx. Denies SI/SIB/HI upon inquiry. Denies irritability or assaultive ideation. Says he feels safe. Medication Compliance: Yes Side effects from medications: No Attending Groups: Yes Review of Systems Acute medical concerns: No Medical Review of Systems: unchanged Mental Status Exam Mental Status Exam Narrative: A&O. Overweight, has skin excoriation on face. Good eye contact, attentive. No Tics or Tremors. No abnormal involuntary movements. Calm, cooperative, engaged. Non-pressured speech, spontaneous with regular rate and rhythm, normal volume and prosody. No prolonged speech latency or dysarthria. Mood is ?better,? affect is blunted. Denies SI/SIB/HI upon inquiry. Denies A/VH or delusional thought content. Thoughts are coherent, organized. No known cognitive or memory impairment. Insight/ Judgment fair and adequate. Diagnostics Vital Signs (24Hr): Vital Signs - 24 hr 12/01/21 09:25 Temperature 97.9 F Pulse Rate 73 Respiratory Rate 17 Blood Pressure 137/88 Pulse Oximetry 98 Oxygen Delivery Method Room Air BMI result Body Mass Index 29.6 Labs Results: 11/30/21 16:10 11/30/21 16:10 Labs: Laboratory Results - last 48 hr 11/29/21 11/30/21 11/30/21 19:12 16:10 16:10 WBC 6.0 RBC 4.40 L Hgb 12.7 L Hct 39.8 L MCV 90.5 MCH 28.9 MCHC 31.9 RDW 12.5 Plt Count 237 MPV 9.8 Immature Gran % (Auto) 1.8 H Neut % (Auto) 51.5 Lymph % (Auto) 32.8 [place] % (Auto) 10.1 Eos % (Auto) 3.3 Baso % (Auto) 0.5 Lymph # (Auto) 2.0 [place] # (Auto) 0.6 Eos # (Auto) 0.2 Baso # (Auto) 0.0 Abs Immat Gran (auto) 0.11 H Absolute Neuts (auto) 3.1 Absolute Nucleated RBC 0.000 Nucleated RBC % (auto) 0.0 Sodium 137 Potassium 4.3 Chloride 101 Carbon Dioxide 29 Anion Gap 11 L BUN 8 L Creatinine 0.80 Estim Creat Clear Calc 126.4 Estimated GFR > 60 Random Glucose 103 Calcium 9.7 Total Bilirubin 0.2 AST 47 H D ALT 86 H Alkaline Phosphatase 75 Total Creatine Kinase 106 Total Protein 6.7 Albumin 3.8 Medications Medications Current Medications Acetaminophen (Acetaminophen 325 Mg Tablet) 650 mg PO Q6H PRN PRN Reason: Headache/Pain Mild Scale (1-3) Last Admin: 11/30/21 23:22 Dose: 650 mg Al Hydroxide/Mg Hydroxide (Magnesium Hydrox/Alum Hydrox 30 Ml Oral.Susp) 30 ml PO Q6H PRN PRN Reason: Heartburn/Nausea Last Admin: 12/01/21 09:26 Dose: 30 ml Albuterol Sulfate (Albuterol Sulfate 90 Mcg 8 Gm Inhaler) 2 puff INHALE Q4H PRN PRN Reason: SOB/wheezing Last Admin: 11/29/21 22:14 Dose: 2 puff Baclofen (Baclofen 10 Mg Tablet) 10 mg PO TID PRN PRN Reason: muscle aches Last Admin: 11/29/21 08:58 Dose: 10 mg Clonidine HCl (Clonidine Hcl 0.1 Mg Tablet) 0.1 mg PO TID PRN; Protocol PRN Reason: agit/anx Last Admin: 12/01/21 09:32 Dose: 0.1 mg Diphenhydramine HCl (Diphenhydramine Hcl 25 Mg Tablet) 25 mg PO Q4H PRN PRN Reason: Itching Last Admin: 12/01/21 14:24 Dose: 25 mg Gabapentin (Gabapentin 300 Mg Capsule) 300 mg PO TID [place] Last Admin: 12/01/21 14:24 Dose: 300 mg Hydroxyzine HCl (Hydroxyzine Hcl 50 Mg Tablet) 50 mg PO TID PRN PRN Reason: anxiety/restlessness Last Admin: 11/29/21 15:29 Dose: 50 mg Hydroxyzine HCl (Hydroxyzine Hcl 25 Mg Tablet) 25 mg PO BEDTIME PRN PRN Reason: Anxiety Magnesium Hydroxide (Milk Of Magnesia 30 Ml Oral.Susp) 30 ml PO DAILY PRN PRN Reason: Constipation Methadone HCl (Methadone Hcl 20 Mg/2 Ml Oral.Conc) 50 mg PO DAILY [facility] Last Admin: 12/01/21 09:27 Dose: 50 mg Nicotine Polacrilex (Nicotine Polacrilex 2 Mg Gum) 4 mg BUCCAL Q2H PRN PRN Reason: Nicotine Cravings Ondansetron HCl (Ondansetron Odt 4 Mg Tab.Rapdis) 4 mg TRANSLINGU Q6H PRN PRN Reason: Nausea Last Admin: 12/01/21 17:04 Dose: 4 mg Polyethylene Glycol (Polyethylene Glycol 3350 17 Gm Powd.Pack) 17 gm PO BID [facility] Last Admin: 12/01/21 09:20 Dose: Not Given Quetiapine Fumarate (Quetiapine Fumarate 50 Mg Tablet) 50 mg PO Q4H PRN PRN Reason: AH Last Admin: 11/22/21 21:47 Dose: 50 mg Quetiapine Fumarate (Quetiapine Fumarate 25 Mg Tablet) 25 mg PO BEDTIME [facility] Last Admin: 11/30/21 23:25 Dose: Not Given Trazodone HCl (Trazodone Hcl 50 Mg Tablet) 50 mg PO BEDTIME PRN PRN Reason: Insomnia Last Admin: 11/23/21 23:28 Dose: 50 mg Allergies Allergies Allergy/AdvReac Type Severity Reaction Status Date / Time risperidone Allergy Severe Angioedema Verified 11/09/21 15:22 Assessment & Plan Assessment & Plan (1) Bipolar II disorder: Status: Acute Code(s): F31.81 - Bipolar II disorder (2) Opioid use disorder: Status: Acute Code(s): F11.90 - Opioid use, unspecified, uncomplicated Assessment and Plan: increase methadone to 50mg QD 11/27 Plan 11/26 continue current medications, he asks for lower dose of seroquel 25mg po qhs. 11/27 increase fluvos to 75mg po qhs. 11/28 continue current plan- held fluvox due to excessive sedation 11/29- continue current plan 11/30 continue current plan 12/01 pt requests seroquel to be PRN, methadone to decrease to 45 mg, doxycyline, omeprazole. I spent minutes with the patient and/or on the patient floor today, greater than?50% of which was spent counseling/coordinating care. Patient educated on: medication risk/benefits Reason for contiued inpatient stay Substantial Risk for: med/psych decompensation
[2021-12-01] MEDS: Albuterol Sulfate 90 MCG 8 GM INHALER 2 PUFF INHALE (18:23)
[2021-12-01] MEDS: Acetaminophen 325 MG TABLET 650 MG PO (19:36)
[2021-12-01 21:03] VITALS: BP 123/64; PULSE 78; TEMP 36.4; O2SAT 97
[2021-12-01] MEDS: polyethylene glycoL 3350 17 GM POWD.PACK PO (21:38)
[2021-12-01] MEDS: Baclofen 10 MG TABLET PO (21:38)
[2021-12-02 06:00] VITALS: BP 133/63; PULSE 66; RESP 18; TEMP 36.2; O2SAT 98
[2021-12-02] MEDS: Omeprazole 20 MG CAPSULE.DR PO (06:04)
[2021-12-02] MEDS: cloNIDine HCL 0.1 MG TABLET PO ×2 (08:30→21:04)
[2021-12-02] MEDS: Ondansetron ODT 4 MG TAB.RAPDIS TRANSLINGU ×2 (08:30→18:10)
[2021-12-02] MEDS: Gabapentin 300 MG CAPSULE PO ×3 (08:30→21:04)
[2021-12-02] MEDS: methADONE HCl 20 MG/2 ML ORAL.CONC 45 MG PO (08:30)
[2021-12-02] MEDS: Albuterol Sulfate 90 MCG 8 GM INHALER 2 PUFF INHALE (10:13)
--- NOTE | 2021-12-02 16:24 | HO.PSYCHPN ---
Subjective Subjective Date of Service: 12/02/21 Reason For Visit: SI/Substance use Subjective Notes: Conditional Voluntary Interim History: Reports things are going well today. [place] positive that he has been accepted to [facility]. Reports that 1st 2 weeks he will not have to pay any rent and feels blessed by this. Will also have his own space in single room. Really hopeful that this will help him maintain sobriety and eventual long-term goal of transitioning from methadone to Suboxone and then some okay monthly injection. Also has a job through [employer] that he was due to start and will reach out to them and perhaps change locations as current location may not be the best for his sobriety. Reports mood stable. Sleep Broken last night in the context of roommate snoring, otherwise energy and appetite okay. No SI. No psychosis. also mentions needing to change his methadone clinic to be [facility] as closer to sober living Medication Compliance: Yes Side effects from medications: No Attending Groups: Yes Review of Systems Acute medical concerns: No Review of Systems Review of Systems unremarkable Mental Status Exam Mental Status Exam Narrative: pleasant and engaged. Organized. Euthymic. No SI. No HI. No agitation. No psychosis. Insight and judgment fair Diagnostics Vital Signs (24Hr): Vital Signs - 24 hr 12/01/21 21:03 12/02/21 06:00 Temperature 97.6 F 97.2 F Pulse Rate 78 66 Respiratory Rate 18 Blood Pressure 123/64 133/63 Pulse Oximetry 97 98 Oxygen Delivery Method Room Air Room Air BMI result Body Mass Index 29.6 Labs Results: 11/30/21 16:10 11/30/21 16:10 Labs: Laboratory Results - last 48 hr 11/30/21 16:10 Sodium 137 Potassium 4.3 Chloride 101 Carbon Dioxide 29 Anion Gap 11 L BUN 8 L Creatinine 0.80 Estim Creat Clear Calc 126.4 Estimated GFR > 60 Random Glucose 103 Calcium 9.7 Total Bilirubin 0.2 AST 47 H D ALT 86 H Alkaline Phosphatase 75 Total Protein 6.7 Albumin 3.8 Imaging Radiology Impressions: ITS Impressions Chest CT 11/30/21 17:08 IMPRESSION: No evidence of aspiration pneumonia. Mild scarring or subsegmental atelectasis in the left upper and right lower lobes. Fleischner guidelines were followed. Medications Medications Current Medications Acetaminophen (Acetaminophen 325 Mg Tablet) 650 mg PO Q6H PRN PRN Reason: Headache/Pain Mild Scale (1-3) Last Admin: 12/01/21 19:36 Dose: 650 mg Al Hydroxide/Mg Hydroxide (Magnesium Hydrox/Alum Hydrox 30 Ml Oral.Susp) 30 ml PO Q6H PRN PRN Reason: Heartburn/Nausea Last Admin: 12/01/21 09:26 Dose: 30 ml Albuterol Sulfate (Albuterol Sulfate 90 Mcg 8 Gm Inhaler) 2 puff INHALE Q4H PRN PRN Reason: SOB/wheezing Last Admin: 12/02/21 10:13 Dose: 2 puff Baclofen (Baclofen 10 Mg Tablet) 10 mg PO TID PRN PRN Reason: muscle aches Last Admin: 12/01/21 21:38 Dose: 10 mg Clonidine HCl (Clonidine Hcl 0.1 Mg Tablet) 0.1 mg PO TID PRN; Protocol PRN Reason: agit/anx Last Admin: 12/02/21 08:30 Dose: 0.1 mg Diphenhydramine HCl (Diphenhydramine Hcl 25 Mg Tablet) 25 mg PO Q4H PRN PRN Reason: Itching Last Admin: 12/01/21 14:24 Dose: 25 mg Doxycycline Hyclate (Doxycycline Hyclate 100 Mg Tablet) 100 mg PO Q12H [facility] Stop: 12/05/21 19:59 Last Admin: 12/02/21 08:30 Dose: 100 mg Gabapentin (Gabapentin 300 Mg Capsule) 300 mg PO TID [place] Last Admin: 12/02/21 15:57 Dose: 300 mg Hydroxyzine HCl (Hydroxyzine Hcl 50 Mg Tablet) 50 mg PO TID PRN PRN Reason: anxiety/restlessness Last Admin: 11/29/21 15:29 Dose: 50 mg Hydroxyzine HCl (Hydroxyzine Hcl 25 Mg Tablet) 25 mg PO BEDTIME PRN PRN Reason: Anxiety Magnesium Hydroxide (Milk Of Magnesia 30 Ml Oral.Susp) 30 ml PO DAILY PRN PRN Reason: Constipation Methadone HCl (Methadone Hcl 20 Mg/2 Ml Oral.Conc) 45 mg PO DAILY [place] Last Admin: 12/02/21 08:30 Dose: 45 mg Nicotine Polacrilex (Nicotine Polacrilex 2 Mg Gum) 4 mg BUCCAL Q2H PRN PRN Reason: Nicotine Cravings Omeprazole (Omeprazole 20 Mg Capsule.Dr) 20 mg PO DAILY@0630 [facility] Last Admin: 12/02/21 06:04 Dose: 20 mg Ondansetron HCl (Ondansetron Odt 4 Mg Tab.Rapdis) 4 mg TRANSLINGU Q6H PRN PRN Reason: Nausea Last Admin: 12/02/21 08:30 Dose: 4 mg Polyethylene Glycol (Polyethylene Glycol 3350 17 Gm Powd.Pack) 17 gm PO BID [facility] Last Admin: 12/02/21 10:07 Dose: Not Given Quetiapine Fumarate (Quetiapine Fumarate 50 Mg Tablet) 50 mg PO Q4H PRN PRN Reason: AH Last Admin: 11/22/21 21:47 Dose: 50 mg Quetiapine Fumarate (Quetiapine Fumarate 25 Mg Tablet) 25 mg PO BEDTIME PRN PRN Reason: sleep, anxiety Trazodone HCl (Trazodone Hcl 50 Mg Tablet) 50 mg PO BEDTIME PRN PRN Reason: Insomnia Last Admin: 11/23/21 23:28 Dose: 50 mg Allergies Allergies Allergy/AdvReac Type Severity Reaction Status Date / Time risperidone Allergy Severe Angioedema Verified 11/09/21 15:22 Assessment & Plan Assessment & Plan (1) Bipolar II disorder: Status: Acute Code(s): F31.81 - Bipolar II disorder (2) Opioid use disorder: Status: Acute Code(s): F11.90 - Opioid use, unspecified, uncomplicated Assessment and Plan: increase methadone to 50mg QD 11/27 Plan 11/26 continue current medications, he asks for lower dose of seroquel 25mg po qhs. 11/27 increase fluvos to 75mg po qhs. 11/28 continue current plan- held fluvox due to excessive sedation 11/29- continue current plan 11/30 continue current plan 12/01 pt requests seroquel to be PRN, methadone to decrease to 45 mg, doxycyline, omeprazole. 12/02/2021: No changes to current regimen. Hopeful for discharge on Saturday. Will need assistance changing methadone clinic given location of sober living I spent minutes with the patient and/or on the patient floor today, greater than?50% of which was spent counseling/coordinating care. Reason for contiued inpatient stay Substantial Risk for: rapid decompensation
[2021-12-02 20:57] VITALS: BP 134/67; PULSE 80; TEMP 36.7; O2SAT 98
[2021-12-02] MEDS: polyethylene glycoL 3350 17 GM POWD.PACK PO (21:03)
[2021-12-02] MEDS: hydrOXYzine HCL 25 MG TABLET PO (21:04)
[2021-12-02] MEDS: Baclofen 10 MG TABLET PO (21:04)
[2021-12-02] MEDS: traZODone HCL 50 MG TABLET PO (22:21)
[2021-12-03] MEDS: Omeprazole 20 MG CAPSULE.DR PO (06:10)
[2021-12-03 09:15] VITALS: BP 129/66; PULSE 75; RESP 18; TEMP 36.6; O2SAT 97
[2021-12-03] MEDS: Gabapentin 300 MG CAPSULE PO ×3 (09:15→22:07)
[2021-12-03] MEDS: methADONE HCl 20 MG/2 ML ORAL.CONC 45 MG PO (09:22)
[2021-12-03] MEDS: Ondansetron ODT 4 MG TAB.RAPDIS TRANSLINGU ×2 (09:34→17:55)
[2021-12-03] MEDS: cloNIDine HCL 0.1 MG TABLET PO ×2 (09:34→22:10)
[2021-12-03] MEDS: Acetaminophen 325 MG TABLET 650 MG PO (10:10)
[2021-12-03] MEDS: Baclofen 10 MG TABLET PO ×2 (10:11→22:06)
--- NOTE | 2021-12-03 11:11 | HO.PSYCHPN ---
Subjective Subjective Date of Service: 12/03/21 Reason For Visit: SI/Substance use Interim History: Patient seen and discussed with team. Plan for discharging to [facility] in [place] on Saturday. Patient evaluated today and upon interview and upon inquiry he reports he has noticed less nausea on omperazole. Feels really excited about [facility]. Says his sleep has been poor due to roommates but overall trazodone helps him sleep for a few hours, groggy in the morning. Says he feels better about his meds. No questions or concerns. In the milieu, patient is safe and appropriate in behavior. Denies SI/SIB/HI upon inquiry. Denies irritability or assaultive ideation. Says he feels safe. Medication Compliance: Yes Side effects from medications: No Attending Groups: Yes Review of Systems Acute medical concerns: No Medical Review of Systems: unchanged Mental Status Exam Mental Status Exam Narrative: A&O. Overweight, has skin excoriation, casual attire, okay hygiene. Good eye contact, attentive. No Tics or Tremors. No abnormal involuntary movements. Calm, cooperative, engaged. Non-pressured speech, spontaneous with regular rate and rhythm, normal volume and prosody. No prolonged speech latency or dysarthria. Mood is ?better,? affect is euthymic. Denies SI/SIB/HI upon inquiry. Denies A/VH or delusional thought content. Thoughts are coherent, organized. No known cognitive or memory impairment. Insight/ Judgment fair and adequate. Diagnostics Vital Signs (24Hr): Vital Signs - 24 hr 12/02/21 20:57 Temperature 98.1 F Pulse Rate 80 Blood Pressure 134/67 Pulse Oximetry 98 Oxygen Delivery Method Room Air BMI result Body Mass Index 29.6 Labs Results: 11/30/21 16:10 11/30/21 16:10 Imaging Radiology Impressions: ITS Impressions Chest CT 11/30/21 17:08 IMPRESSION: No evidence of aspiration pneumonia. Mild scarring or subsegmental atelectasis in the left upper and right lower lobes. Fleischner guidelines were followed. Medications Medications Current Medications Acetaminophen (Acetaminophen 325 Mg Tablet) 650 mg PO Q6H PRN PRN Reason: Headache/Pain Mild Scale (1-3) Last Admin: 12/03/21 10:10 Dose: 650 mg Al Hydroxide/Mg Hydroxide (Magnesium Hydrox/Alum Hydrox 30 Ml Oral.Susp) 30 ml PO Q6H PRN PRN Reason: Heartburn/Nausea Last Admin: 12/01/21 09:26 Dose: 30 ml Albuterol Sulfate (Albuterol Sulfate 90 Mcg 8 Gm Inhaler) 2 puff INHALE Q4H PRN PRN Reason: SOB/wheezing Last Admin: 12/02/21 10:13 Dose: 2 puff Baclofen (Baclofen 10 Mg Tablet) 10 mg PO TID PRN PRN Reason: muscle aches Last Admin: 12/03/21 10:11 Dose: 10 mg Clonidine HCl (Clonidine Hcl 0.1 Mg Tablet) 0.1 mg PO TID PRN; Protocol PRN Reason: agit/anx Last Admin: 12/03/21 09:34 Dose: 0.1 mg Diphenhydramine HCl (Diphenhydramine Hcl 25 Mg Tablet) 25 mg PO Q4H PRN PRN Reason: Itching Last Admin: 12/01/21 14:24 Dose: 25 mg Doxycycline Hyclate (Doxycycline Hyclate 100 Mg Tablet) 100 mg PO Q12H COUNTS INCLUDE 234 BEDS AT THE [facility] Stop: 12/05/21 19:59 Last Admin: 12/03/21 09:15 Dose: 100 mg Gabapentin (Gabapentin 300 Mg Capsule) 300 mg PO TID COUNTS INCLUDE 234 BEDS AT THE [facility] Last Admin: 12/03/21 09:15 Dose: 300 mg Hydroxyzine HCl (Hydroxyzine Hcl 50 Mg Tablet) 50 mg PO TID PRN PRN Reason: anxiety/restlessness Last Admin: 11/29/21 15:29 Dose: 50 mg Hydroxyzine HCl (Hydroxyzine Hcl 25 Mg Tablet) 25 mg PO BEDTIME PRN PRN Reason: Anxiety Last Admin: 12/02/21 21:04 Dose: 25 mg Magnesium Hydroxide (Milk Of Magnesia 30 Ml Oral.Susp) 30 ml PO DAILY PRN PRN Reason: Constipation Methadone HCl (Methadone Hcl 20 Mg/2 Ml Oral.Conc) 45 mg PO DAILY COUNTS INCLUDE 234 BEDS AT [facility] Last Admin: 12/03/21 09:22 Dose: 45 mg Nicotine Polacrilex (Nicotine Polacrilex 2 Mg Gum) 4 mg BUCCAL Q2H PRN PRN Reason: Nicotine Cravings Omeprazole (Omeprazole 20 Mg Capsule.Dr) 20 mg PO DAILY@0630 COUNTS INCLUDE 234 BEDS AT THE [facility] Last Admin: 12/03/21 06:10 Dose: 20 mg Ondansetron HCl (Ondansetron Odt 4 Mg Tab.Rapdis) 4 mg TRANSLINGU Q6H PRN PRN Reason: Nausea Last Admin: 12/03/21 09:34 Dose: 4 mg Polyethylene Glycol (Polyethylene Glycol 3350 17 Gm Powd.Pack) 17 gm PO BID [place] Last Admin: 12/03/21 09:26 Dose: Not Given Quetiapine Fumarate (Quetiapine Fumarate 50 Mg Tablet) 50 mg PO Q4H PRN PRN Reason: AH Last Admin: 11/22/21 21:47 Dose: 50 mg Quetiapine Fumarate (Quetiapine Fumarate 25 Mg Tablet) 25 mg PO BEDTIME PRN PRN Reason: sleep, anxiety Trazodone HCl (Trazodone Hcl 50 Mg Tablet) 50 mg PO BEDTIME PRN PRN Reason: Insomnia Last Admin: 12/02/21 22:21 Dose: 50 mg Allergies Allergies Allergy/AdvReac Type Severity Reaction Status Date / Time risperidone Allergy Severe Angioedema Verified 11/09/21 15:22 Assessment & Plan Assessment & Plan (1) Bipolar II disorder: Status: Acute Code(s): F31.81 - Bipolar II disorder (2) Opioid use disorder: Status: Acute Code(s): F11.90 - Opioid use, unspecified, uncomplicated Assessment and Plan: increase methadone to 50mg QD 11/27 Plan 11/26 continue current medications, he asks for lower dose of seroquel 25mg po qhs. 11/27 increase fluvos to 75mg po qhs. 11/28 continue current plan- held fluvox due to excessive sedation 11/29- continue current plan 11/30 continue current plan 12/01 pt requests seroquel to be PRN, methadone to decrease to 45 mg, doxycyline, omeprazole. 12/02/2021: No changes to current regimen. Hopeful for discharge on Saturday. Will need assistance changing methadone clinic given location of sober living 12/13: no med changes, reports positive benefit on med regimen I spent minutes with the patient and/or on the patient floor today, greater than?50% of which was spent counseling/coordinating care. Patient educated on: medication risk/benefits Reason for contiued inpatient stay Substantial Risk for: med/psych decompensation
[2021-12-03] MEDS: Magnesium Hydrox/Alum Hydrox 30 ML ORAL.SUSP PO (17:55)
[2021-12-03] MEDS: polyethylene glycoL 3350 17 GM POWD.PACK PO (22:06)
[2021-12-03 22:12] VITALS: BP 127/62; PULSE 91; RESP 18; TEMP 36.9; O2SAT 95
[2021-12-03] MEDS: traZODone HCL 50 MG TABLET PO (23:23)
[2021-12-04] MEDS: Omeprazole 20 MG CAPSULE.DR PO (06:50)
[2021-12-04] MEDS: Albuterol Sulfate 90 MCG 8 GM INHALER 2 PUFF INHALE (06:51)
[2021-12-04] MEDS: hydrOXYzine HCL 50 MG TABLET PO (07:00)
[2021-12-04 08:10] VITALS: BP 116/62; PULSE 73; RESP 20; TEMP 36.9; O2SAT 100
[2021-12-04] MEDS: methADONE HCl 20 MG/2 ML ORAL.CONC 45 MG PO (08:47)
[2021-12-04] MEDS: Gabapentin 300 MG CAPSULE PO (08:48)
[2021-12-04] MEDS: Ondansetron ODT 4 MG TAB.RAPDIS TRANSLINGU (08:49)
--- NOTE | 2021-12-04 10:34 | PM.PSYDC ---
DS: Providers Provider Date of Service: 12/04/21 Date of admission: 11/10/21 14:25 Primary care physician: Unknown Physician Consults: 11/10/21 20:32 Addiction Medicine Routine Consulting Provider: Sandra Quezada Reason for consultation: wants to switch to Suboxone DS: Diagnosis Discharge Diagnosis (1) Bipolar II disorder: Status: Acute (2) Opioid use disorder: Status: Acute (3) Cocaine use disorder: Status: Acute (4) Methamphetamine abuse in remission: Status: Acute DS: Medications Discharge Medications Home Medications: Home Medications Medication Instructions Recorded Confirmed gabapentin 300 mg capsule 1 cap PO TID 11/21/21 11/21/21 Previous Rx's Medication Instructions Recorded testosterone cypionate 200 mg/mL 200 mg IM QMONTH #1 mL 11/28/21 intramuscular oil (Depo-Testosterone) albuterol sulfate 90 mcg/actuation 2 puff inhalation Q4H PRN 12/04/21 aerosol inhaler (Ventolin HFA) SOB/wheezing #6.7 grams baclofen 10 mg tablet 10 mg PO TID PRN muscle aches #14 12/04/21 tabs clonidine HCl 0.1 mg tablet 0.1 mg PO TID PRN agit/anx #14 tabs 12/04/21 hydroxyzine HCl 50 mg tablet 50 mg PO TID PRN 12/04/21 Anxiety/Restlessness #60 tabs methadone 10 mg/mL oral 45 mg (4.5 mL) PO DAILY #0 mL 12/04/21 concentrate (Methadose) omeprazole 20 mg capsule,delayed 20 mg PO DAILY@0630 #30 caps 12/04/21 release polyethylene glycol 3350 17 gram 17 g PO BID PRN constipation #14 ea 12/04/21 oral powder packet trazodone 50 mg tablet 50 mg PO BEDTIME PRN Insomnia #30 12/04/21 tabs Mental Status Exam Mental Status Exam Narrative: Appearance: casually groomed, fair hygiene in NAD Behavior: cooperative psychomotor: no agitation or retardation noted Speech: clear, normal rate/rhythm/volume, spontaneous Thought process: linear Thought content: no signs of psychosis, wanting help Mood: better Affect: brighter, non labile SI:none HI:none VH/AH:none Delusions:none Insight/judgment:fair x 2. Memory/cog: alert, oriented x 3. grossly intact to conversational testing. DS: Summary Hospital Course Hospital Course: Mr. Constantino is a 31 year-old male with hx of opioid use disorder, MDD with psychosis who was recently discharged from on 11/17/2021 after evaluation and treatment of depression, SI in context of ongoing substance use. In the ED, his utox was positive for fentanyl, opioids and cocaine. On the unit, pt reports after being discharge from , he went to [facility] appointment to continue switch from methadone to suboxone. He reports right after he received SSI money and relapsed. He reports buying heroin, fentanyl and cocaine. He endorses feeling tired, depressed, hopeless. He reports hearing voices- this is constant according to pt who describes hearing female and male voices. He denies CAH, states is like a running commentary. He reports he is used to the voices at this point. He currently denies suicidal ideation but reports he feels hopeless about his recovery. He states he is interested in going to [facility] this time. Past Psychiatric History: -Pt does not currently have any therapist or psychiatrist. ? -Reports multiple inpatient admissions. Pt reports admissions at [facility], [facility], and [facility].? -Typically presents to crisis with depression, paranoia and AH's. -Past meds: [place] spaced out with all antipsychotics. Has been on Olanzapine, Seroquel caused increased appetite, Geodon, Vraylar), Lamictal (breathing issues, worsening asthma), [place] (ineffective), Trileptal, Luvox for skin-picking and OCD (helpful), Prazosin (heart palpitations and hypotension at 2mg), Gabapentin (helpful), Vyvanse (agitated), Modafinil (effective for sleep issues), Risperidone (tongue swelled) Medical Evaluation Reviewed: Yes HOSPITAL COURSE On the unit, pt denied suicidal ideation. He reports auditory hallucinations, mostly mumbles. He reported he would continue OP substance use treatment. He was maintained on medications prescribed in community. There were no incidences of disruptive behaviors nor need for restraints. Status at Discharge Cognitive/behavioral status at discharge: Pt with bright, non labile affect. No SI/HI. No overt signs of psychosis. Future oriented in that he is looking forward to continue recovery and psychiatric treatment. No aggression towards self or others. Narcan given on discharge. Functional status at discharge: independent ambulation Overall status at discharge: patient is progressing back to baseline Time Spent with Patient Time attestation: Total time spent providing and/or coordinating discharge services: Time spent: Greater than 30 minutes Discharge Plan Discharge Anticipated Discharge Date/Time: 12/04/21 08:29 Patient Disposition: Home Health Service Discharge Diagnosis: Bipolar Disorder type 2 Opioid Use Disorder Cocaine USe Disorder Referrals: Chad Saldivar [Other] - 1 Week (Please call for appointment. Clinic closed on day of discharge.) Therapy/Psychiatry [Other] (Voicemail left for intake department requesting therapy and psychiatry appointments. Left your contact information and they should follow up by phone. Call within 2-3 days if you do not hear back) Methadone maintenance [Other] (You can try guest dosing at [facility] tomorrow morning, bring a copy of your last dose letter and ask if they can pull up your ID from [facility]'s system. If you are unable to dose there, come to [facility] ED ([address] [place] [address]) to get an emergency dose. You will need to contact [facility] tomorrow when they are open to request a permanent transfer to the [facility]) Discharge Medications: Discontinued methadone [Methadose] 10 mg/mL Concentrate 30 mg PO DAILY Qty: 0 0RF testosterone cypionate 200 mg/mL Oil 200 mg IM Q4W buprenorphine-naloxone [Suboxone] 4-1 mg film 1 film sublingual BID Qty: 16 0RF No Action ferrous sulfate 325 mg (65 mg iron) tablet 1 tab PO 3XW methadone 10 mg/mL Concentrate 62 mg PO DAILY Discharge Orders: Discharge Order (Routine); Ordered 12/04/21 Ordered By: Yulia Wakefield Activity on Discharge: As tolerated Stand Alone Forms: Patient Portal Discharge page, Community Support Care Plan Goals: 1. Maintain mood No SI/HI Harm reduction- narcan given on discharge Health Concerns: Follow up with PCP Plan of Treatment: 1. Take medications as prescribed 2. Go to nearest ED in event of emergency Assessment: Pt with bright, non labile affect. No SI/HI. No Signs of aggression towards self or others. Harm reduction- narcan given on discharge. Patient Instructions: Depression (DC) Discharge Date/Time: 12/04/21 12:36
[2021-12-04] MEDS: Naloxone HCl Nasal TAKE HOME 4 MG SPRAY NOSTRILALT (12:52)
--- NOTE | 2021-12-04 13:25 | PC.NURSE ---
Patient alert, oriented x3, anxious for discharge, denies SI,HI, denies AH/VH- reports he is looking forward to leaving, states that he has a job he will be starting, and that he feels good about the future at this time. Patient verbalized understanding of discharge plans, patient stated he had one question about a prescription- provider notified, patient states that he will follow up if he has any other concerns about the prescription, but did not want to delay discharge.
== END 2021-12-04 12:36 | disposition home health service (06) | DRG 885 ==
LOC: HO.ED 11-21 01:38 → HO.PADLT16 11-22 12:01
PROVIDERS: Clinical Nurse Specialist Psychiatric/Mental Health, Adult; Nurse Practitioner Family; Physician Assistant; Admitting Provider Psychiatry & Neurology Psychiatry; Emergency Provider Internal Medicine; Visit Provider Social Worker
DX: F31.81 Bipolar II disorder (principal); R45.851 Suicidal ideations; F11.20 Opioid dependence, uncomplicated; F14.10 Cocaine abuse, uncomplicated; F84.0 Autistic disorder; Z20.822 Contact with and (suspected) exposure to COVID-19; Z59.02 Unsheltered homelessness; Z88.8 Allergy status to other drugs, medicaments and biological substances; Z79.899 Other long term (current) drug therapy
CPT/HCPCS: 36415; 71250; 80053; 80307; 81003; 82077; 82550; 85025; 86704; 86706; 86709; 86803; 87340; 87635; 93005; 99285; Q0163

== ENCOUNTER 2021-12-05 06:38 | Emergency (ER) | payer OTHER, SELFPAY ==
[2021-12-05 06:48] VITALS: BP 125/72; PULSE 94; RESP 18; TEMP 37.2; O2SAT 98; BMI 31.1
--- NOTE | 2021-12-05 07:12 | ED.GENADULT ---
HPI - General Adult General Chief complaint: General Medical Stated complaint: Med Refill Time Seen by Provider: 12/05/21 06:51 Source: patient and old records reviewed Mode of arrival: ambulatory Limitations: no limitations History of Present Illness HPI narrative: plans to go to clinic in [place] but is established in [place] it is too far away complaint: methadone dosing Onset (ago): day(s) (this AM) Severity: mild Relieving factors: none Exacerbating factors: none Associated symptoms: denies other symptoms Treatments prior to arrival: none Related Data Home Medications Medication Instructions Recorded Confirmed gabapentin 300 mg capsule 1 cap PO TID 11/21/21 11/21/21 Previous Rx's Medication Instructions Recorded testosterone cypionate 200 mg/mL 200 mg IM QMONTH #1 mL 11/28/21 intramuscular oil (Depo-Testosterone) albuterol sulfate 90 mcg/actuation 2 puff inhalation Q4H PRN 12/04/21 aerosol inhaler (Ventolin HFA) SOB/wheezing #6.7 grams baclofen 10 mg tablet 10 mg PO TID PRN muscle aches #14 12/04/21 tabs clonidine HCl 0.1 mg tablet 0.1 mg PO TID PRN agit/anx #14 tabs 12/04/21 hydroxyzine HCl 50 mg tablet 50 mg PO TID PRN 12/04/21 Anxiety/Restlessness #60 tabs methadone 10 mg/mL oral 45 mg (4.5 mL) PO DAILY #0 mL 12/04/21 concentrate (Methadose) omeprazole 20 mg capsule,delayed 20 mg PO DAILY@0630 #30 caps 12/04/21 release polyethylene glycol 3350 17 gram 17 g PO BID PRN constipation #14 ea 12/04/21 oral powder packet trazodone 50 mg tablet 50 mg PO BEDTIME PRN Insomnia #30 12/04/21 tabs Allergies Allergy/AdvReac Type Severity Reaction Status Date / Time risperidone Allergy Severe Angioedema Verified 11/09/21 15:22 Review of Systems Review of Systems: Constitutional : No Fever, No Chills, Cardiovascular : No Chest Pain, No SOB Respiratory : No Dyspnea Gastrointestinal : No abdominal pain Musculoskeletal : No Joint Swelling Skin : No rash, no skin laceration Neuro : No Weakness, No Numbness Psych : No SI/HI PMFSH Past Medical History Attestation statement: The following information was validated with the patient. Medical History Active substance abuse Cellulitis Social History Social History Household Members: None and Other Household Members Other:: Homeless Housing: Other Housing Other:: Homeless Do you presently have visiting nurse or other home services: No Patient Tobacco Use Status: Never used Tobacco Substance Use Type: Crack/Cocaine, Heroin and Opiates Advance Directives: No service: No Sexual orientation: Straight/Heterosexual Physical Exam ED Vital Signs: Vital Signs - 24 hr 12/05/21 06:48 Temperature 99.0 F Pulse Rate 94 Respiratory Rate 18 Blood Pressure 125/72 Pulse Oximetry 98 Oxygen Delivery Method Room Air BMI result Body Mass Index 31.1 Appearance: Alert. Oriented X3. No acute distress. Eyes: Pupils equal, round and reactive to light. ENT: Pharynx normal. Neck: Normal inspection. Neck supple. CVS: Normal heart rate and rhythm. Pulses normal. Respiratory: No respiratory distress. Abdomen: Soft and nontender. Skin: Skin warm and dry. Extremities: No lower extremity edema. Neuro: Oriented X 3. No motor deficit. No sensory deficit. Medical Decision Making MDM Narrative Medical decision making narrative: 31 yo male here with c/o cocaine abuse, bipolar disorder, opiate abuse disorder, here with c/o requesting his methadone dose of 45 mg - last dose in our hospital yesterday confirmed via records, he has no complaints. He plans to try to get into clinic at [place]. Discharge Plan Discharge Clinical Impression: Opioid use disorder Patient Disposition: Home, Self-Care Instructions: Opioid Use Disorder (ED) Additional Instructions: return to ED for any worsening symptoms or concerns Prescriptions: No Action gabapentin 300 mg capsule 1 cap PO TID testosterone cypionate [Depo-Testosterone] 200 mg/mL oil 200 mg IM QMONTH Qty: 1 0RF clonidine HCl 0.1 mg Tablet 0.1 mg PO TID PRN (Reason: agit/anx) Qty: 14 0RF Protocol: Hold for SBP< HOLD for SBP < : 90 trazodone 50 mg Tablet 50 mg PO BEDTIME PRN (Reason: Insomnia) Qty: 30 0RF polyethylene glycol 3350 17 gram Powder In Packet 17 g PO BID PRN (Reason: constipation) Qty: 14 0RF hydroxyzine HCl 50 mg Tablet 50 mg PO TID PRN (Reason: Anxiety/Restlessness) Qty: 60 0RF baclofen 10 mg Tablet 10 mg PO TID PRN (Reason: muscle aches) Qty: 14 0RF omeprazole 20 mg Capsule,Delayed Release(Dr/Ec) 20 mg PO DAILY@0630 Qty: 30 0RF methadone [Methadose] 10 mg/mL Concentrate 45 mg PO DAILY Qty: 0 0RF Rx Instructions: Partial Fill upon patient request. albuterol sulfate [Ventolin HFA] 90 mcg/actuation Hfa Aerosol Inhaler 2 puff inhalation Q4H PRN (Reason: SOB/wheezing) Qty: 6.7 0RF
[2021-12-05] MEDS: methADONE HCl 20 MG/2 ML ORAL.CONC 45 MG PO (07:47)
== END 2021-12-05 07:54 | disposition home or self-care (01) ==
PROVIDERS: Emergency Provider Emergency Medicine
DX: F11.19 Opioid abuse with unspecified opioid-induced disorder (principal); F14.10 Cocaine abuse, uncomplicated; Z76.0 Encounter for issue of repeat prescription; Z79.899 Other long term (current) drug therapy
CPT/HCPCS: 99282; 99283

== ENCOUNTER 2022-03-29 21:27 | Emergency (ER) | payer OTHER, SELFPAY ==
[2022-03-29 21:46] VITALS: BP 151/88; PULSE 110; RESP 18; TEMP 37.2; O2SAT 97; BMI 30.7
--- NOTE | 2022-03-29 21:48 | ECG_ITS ---
Test Reason : drug used Blood Pressure : / mmHG Vent. Rate : 093 BPM Atrial Rate : 093 BPM P-R Int : 140 ms QRS Dur : 094 ms QT Int : 364 ms P-R-T Axes : 068 017 042 degrees QTc Int : 452 ms Normal sinus rhythm RSR' or QR pattern in V1 suggests right ventricular conduction delay Otherwise normal ECG When compared with ECG of 29-NOV-2021 19:03, Vent. rate has increased BY 32 BPM Referred By: Generic ED Physician Electronically Signed By:VINOD FORDE MD
[2022-03-29 22:00] VITALS: BP 127/70; PULSE 90; RESP 12; TEMP 36.8; O2SAT 98
--- NOTE | 2022-03-29 22:34 | ED.PSYCH ---
HPI - Psych General Chief Complaint: Psychiatric Symptoms Stated Complaint: Mental Health Eval Time Seen by Provider: 03/29/22 21:53 Source: patient Mode of arrival: ambulatory Limitations: no limitations History of Present Illness HPI Narrative: This is a 31-year-old male history of methamphetamine abuse, cocaine use disorder, opiate use disorder, bipolar presenting to the emergency department thinking he is in a schizophrenic crisis. Patient reports he has been in a manic episode for the last 4-5 days. Patient reports he has missed attending the methadone clinic for the last 3 days. He reports both auditory and visual hallucinations. Patient states he last experienced a similar episode 3 months ago. Patient reports he last used meth and cocaine last night. Patient reports he does not see a psychiatrist and does not have a PCP. Patient denies SI/ HI. Patient denies fever, chills, nausea, vomiting or weakness. Denies medical complaints Related Data Home Medications Medication Instructions Recorded Confirmed ferrous sulfate 325 mg (65 mg 1 tab PO 3XW 03/30/22 03/30/22 iron) tablet Allergies Allergy/AdvReac Type Severity Reaction Status Date / Time risperidone Allergy Severe Angioedema Verified 11/09/21 15:22 Review of Systems Review of Systems: Constitutional : No Weight loss, No Fever, No Chills, No Fatigue, No Malaise ENT/Mouth : No sore throat, No Rhinorrhea Eyes: No Eye Pain, No Swelling, No Redness Cardiovascular : No Chest Pain, No SOB, No Dyspnea on Exertion, No Orthopnea, No Edema, No Palpitations Respiratory : No Cough, No Sputum, No Wheezing Gastrointestinal : No Nausea, No Vomiting, No Diarrhea, No Constipation, No abdominal Pain, No Hematochezia, No Melena Genitourinary : No Dysuria, No Urinary Frequency, No Hematuria, Musculoskeletal : No joint pain, No Myalgias, No Joint Swelling Skin : No Skin Lesions, No rash Neuro : No Weakness, No Numbness, No Dizziness, No Headache Psych : + Anxiety/Panic, No Depression, No SI, No HI All other systems reviewed and are negative Yes all other systems are reviewed and are negative REPLACED BY [facility] Past Medical History Attestation statement: The following information was validated with the patient. Source: old records reviewed and nursing notes reviewed Medical History Active substance abuse Cellulitis Social History Social History Household Members: None and Other Household Members Other:: Homeless Housing: Other Housing Other:: Homeless Do you presently have visiting nurse or other home services: No Patient Tobacco Use Status: Never used Tobacco Substance Use Type: Crack/Cocaine, Heroin and Opiates Advance Directives: No Advance Directives Information Provided: No service: No Sexual orientation: Straight/Heterosexual Physical Exam Vital Signs: Vital Signs: Last Vital Signs Temp 98.5 F 03/29/22 23:54 Pulse 91 03/29/22 23:54 Resp 16 03/29/22 23:54 BP 130/75 03/29/22 23:54 Pulse Ox 98 03/29/22 23:54 O2 Del Method 03/29/22 23:54 BMI result Body Mass Index 30.7 VSS Appearance: Alert.? Oriented X3.? No acute distress.? Head: Normocephalic, atraumatic, no step-offs or deformities Eyes: Pupils equal, round and reactive to light.? ENT: Pharynx normal.? Neck: Normal inspection.? Neck supple.? CVS: Normal heart rate and rhythm.? Pulses normal.? Respiratory: No respiratory distress.? Breath sounds normal.? Abdomen: Soft and nontender.? Skin: Skin warm and dry.? Normal skin color.? Normal skin turgor.? Extremities: No lower extremity edema.? No calf ttp. 5/5 strength to bilateral upper and lower extremities Back: No midline tenderness, no C-spine tenderness, full range of motion, no CVA tenderness bilaterally Neuro: Oriented X 3.? No motor deficit.? No sensory deficit. CN 2-12 intact Course Reevaluation(s) Reevaluation #1: CBC appears to be around patient's baseline. Chemistry with potassium of 3.2, 20 medical equivalents of p.o. potassium have been ordered at this time and a repeat BMP will be ordered. Ethanol negative. COVID negative. Urine, urine toxicology and repeat BMP pending. At this time patient will be placed into physician observation to allow more time to be evaluated by the behavioral health team. At time observation was started patient common cooperative no acute distress will continue to monitor Time: 00:19 MDM - Psych MDM Narrative Medical decision making narrative: 2229 31-year-old male presents stating he is in a manic crisis. Denies medical complaints at this Physical examination benign Plan at this time is medical clearance and evaluation by the behavioral health team Medical Records Attestation: I reviewed the patient's medical records. Lab Data Attestation: I reviewed the patient's lab results. Result diagrams: 03/29/22 23:43 03/29/22 23:43 Labs: Lab Results 03/29/22 03/29/22 03/29/22 Range/Units 23:43 23:43 23:43 WBC 7.7 (4.8-10.8) X10*3/uL RBC 4.18 L (4.60-5.80) X10*6/uL Hgb 12.3 L (14.0-18.0) g/dl Hct 35.4 L (42.0-52.0) % MCV 84.7 (80.0-98.0) fL MCH 29.4 (27.0-33.0) pg MCHC 34.7 (31.0-36.0) g/dl RDW 13.1 (11.0-16.0) % Plt Count 224 (160-400) X10*3/uL MPV 10.0 (9.4-12.4) fL Immature Gran % (Auto) 0.3 (0.0-0.4) % Neut % (Auto) 64.0 (45-73) % Lymph % (Auto) 25.6 (20-40) % Swift % (Auto) 8.4 (2-11) % Eos % (Auto) 1.4 (0-4) % Baso % (Auto) 0.3 (0-2) % Lymph # (Auto) 2.0 (1.2-4.9) X10*3/uL Swift # (Auto) 0.6 (0.1-1.2) X10*3/uL Eos # (Auto) 0.1 (0.0-0.4) X10*3/uL Baso # (Auto) 0.0 (0.0-0.2) X10*3/uL Abs Immat Gran (auto) 0.02 (0.00-0.03) X10*3/uL Absolute Neuts (auto) 4.9 (2.0-8.3) x10*3/uL Absolute Nucleated RBC 0.000 (0.0-0.012) X10*3/uL Nucleated RBC % (auto) 0.0 (0.0-0.2) /100WBC Sodium 140 (135-145) mmol/L Potassium 3.2 L D (3.3-5.1) mmol/L Chloride 103 (96-108) mmol/L Carbon Dioxide 24 (22-29) mmol/L Anion Gap 16 (12-20) BUN 9 (9-16) mg/dL Creatinine 0.89 (0.5-1.4) mg/dL Estim Creat Clear Calc 119.8 Estimated GFR > 60 Random Glucose 209 H D (60-115) mg/dL Calcium 9.4 (8.4-10.2) mg/dL Total Bilirubin 0.5 (0.0-1.0) mg/dL Direct Bilirubin 0.2 (0.0-0.5) mg/dL AST 26 D (5-37) U/L ALT 15 (0-40) U/L Alkaline Phosphatase 73 (39-117) U/L Total Protein 6.9 (6.5-8.0) g/dL Albumin 4.1 (3.5-5.0) g/dL Lipase 12 (8-78) U/L Ethyl Alcohol < 10 mg/dL COVID-19 (DORITA) Negative (Negative) COVID-19 Clin Com See Note Critical Care Time Critical Care Time Critical Care Time: No Discharge Plan Discharge Clinical Impression: Methamphetamine abuse in remission, Cocaine use disorder, Chronic schizophrenia Patient Disposition: Still a Patient Prescriptions: No Action ferrous sulfate 325 mg (65 mg iron) tablet 1 tab PO 3XW
[2022-03-29 23:48] LABS: MANUAL DIFF FLAG NO
[2022-03-29 23:50] LABS: Basophils Percent Auto 0.3 % (0-2); Eosinophils Absolute Auto 0.1 X10*3/uL (0.0-0.4); Eosinophils Percent Auto 1.4 % (0-4); Hematocrit 35.4 % (42.0-52.0); Hemoglobin 12.3 g/dl (14.0-18.0); Imm Gran Abs Auto 0.02 X10*3/uL (0.00-0.03); Imm Gran Pct Auto 0.3 % (0.0-0.4); Lymphocytes Percent Auto 25.6 % (20-40); Mean Corpuscular HGB Conc 34.7 g/dl (31.0-36.0); Mean Corpuscular Hemoglobin 29.4 pg (27.0-33.0); Mean Corpuscular Volume 84.7 fL (80.0-98.0); Monocytes Absolute Auto 0.6 X10*3/uL (0.1-1.2); Monocytes Percent Auto 8.4 % (2-11); Neutrophils Absolute Auto 4.9 x10*3/uL (2.0-8.3); Platelet Count 224 X10*3/uL (160-400); Red Blood Count 4.18 X10*6/uL (4.60-5.80); Red Cell Distribution Width 13.1 % (11.0-16.0); White Blood Count 7.7 X10*3/uL (4.8-10.8)
[2022-03-29 23:54] VITALS: BP 130/75; PULSE 91; RESP 16; TEMP 36.9; O2SAT 98
[2022-03-30 00:03] LABS: COVID-19 Test Negative (Negative)
[2022-03-30 00:13] LABS: Alanine Aminotransferase 15 U/L (0-40); Albumin Level 4.1 g/dL (3.5-5.0); Alkaline Phosphatase 73 U/L (39-117); Anion Gap 16 (12-20); Aspartate Amino Transferase 26 U/L (5-37); Bilirubin Direct 0.2 mg/dL (0.0-0.5); Bilirubin Total 0.5 mg/dL (0.0-1.0); Blood Urea Nitrogen 9 mg/dL (9-16); Calcium 9.4 mg/dL (8.4-10.2); Carbon Dioxide 24 mmol/L (22-29); Chloride 103 mmol/L (96-108); Creatinine Clr Calc Pharmacy 119.8; Estimated Glomerular Filt Rate > 60; Ethanol < 10 mg/dL; Glucose Random 209 mg/dL (60-115); Lipase 12 U/L (8-78); Potassium 3.2 mmol/L (3.3-5.1); Sodium 140 mmol/L (135-145); Total Protein 6.9 g/dL (6.5-8.0)
[2022-03-30] MEDS: Potassium Chloride ER 20 MEQ TAB.ER.PRT PO (00:32)
[2022-03-30 03:09] LABS: Anion Gap 14 (12-20); Blood Urea Nitrogen 9 mg/dL (9-16); Calcium 9.4 mg/dL (8.4-10.2); Carbon Dioxide 27 mmol/L (22-29); Chloride 104 mmol/L (96-108); Creatinine Clr Calc Pharmacy 144.1; Estimated Glomerular Filt Rate > 60; Glucose Random 98 mg/dL (60-115); Potassium 3.4 mmol/L (3.3-5.1); Sodium 142 mmol/L (135-145)
--- NOTE | 2022-03-30 04:02 | PC.NURSE ---
[facility] smart sheet referral competed.
[2022-03-30 06:21] VITALS: BP 103/59; PULSE 68; RESP 16; TEMP 36.1; O2SAT 100
[2022-03-30] MEDS: Ondansetron ODT 4 MG TAB.RAPDIS TRANSLINGU (06:27)
--- NOTE | 2022-03-30 07:19 | PHA.MEDREC ---
Pharmacy Consult ? Medication Reconciliation Pharmacy has reviewed the medication reconciliation completed by Ronna. Winnie Diaz, JeannineD
[2022-03-30 08:15] VITALS: BP 114/62; PULSE 73; RESP 12; TEMP 36.8; O2SAT 97
[2022-03-30 08:46] LABS: Appearance Urine Clear; Color Urine Dark Yellow; Glucose Urine UA Negative (Negative); Leukocyte Esterase Urine Negative (Negative); Nitrite Urine Negative (Negative); PH 5.5 (5.0-9.0); Specific Gravity - Urine >= 1.030 (1.005-1.025); Urine Blood Negative (Negative); Urine Ketones Trace mg/dL (Negative); Urine Protein Trace mg/dL (Neg-Trace)
[2022-03-30 09:02] LABS: Amphetamine Screen Urine POSITIVE (Not Detect); Barbiturates, Urine Not Detected (Not Detect); Benzodiazepines Screen Urine Not Detected (Not Detect); Cannabinoid Screen Urine Not Detected (Not Detect); Cocaine Screen Urine POSITIVE (Not Detect); Fentanyl, urine POSITIVE (Not Detect); Opiate Screen Urine POSITIVE (Not Detect); Phencyclidine Screen Urine Not Detected (Not Detect)
[2022-03-30 12:00] VITALS: BP 124/79; PULSE 75; RESP 16; TEMP 36.9; O2SAT 98
--- NOTE | 2022-03-30 12:20 | PC.NURSE ---
BHN at bedside talking to patient . patient aware of plan of care .
--- NOTE | 2022-03-30 12:59 | MHC.CARE ---
Pt is a 31 year old male who presented to [facility] ED via EMS reporting he is experiencing a schizophrenic crisis. Pt reported he missed his methadone appointment 3 days ago and since then he has been experiencing manic behaviors. Pt reports he is unable to sleep, eat, and hallucinations. Pt stated he is homeless. Pt reported he does not have a PCP or a Mental Health Therapist. Pt stated he is not currently taking medication except for inhaler, clonidine, methadone, and testosterone. Pt reported he wants to change his methadone treatment to subaxone. Care Team asked Recovery Team to meet with pt. Care Team will reassess pt after pt meets with the recovery team.
--- NOTE | 2022-03-30 13:33 | HE.PHANOTE ---
methadone verification Pharmacy has received the methadone verification from [facility]. Patient last received methadone 62 mg @ 03/26/2022 from [facility]. Confirmed with Amadou at the clinic. Winnie Diaz, JeannineD
--- NOTE | 2022-03-30 13:37 | MHC.RECOVSUP ---
Addendum entered by [facility] 03/30/22 16:01: Appointment made for [facility], 04/02 at 115. Patient aware. Requesting discharge. Original Note: Recovery Support note: Patient is a 31 year old Ivorian speaking male referred to this financial underwriter by the CARE Team to discuss withdrawal management. Patient reports he last received 62mg of methadone several days ago from [facility] in [facility]. CHRYSTAL completed and sent to facility. Ashley RN reports patient last dosed on 03/26 and received 62mg. Patient reports he last used opiates 2 days ago. Patient is interested in transitioning to Suboxone but at this time he is requesting methadone. Discussed with Jennie GILL who recommended 40mg due to the period of time that has elapsed since his last dose. Discussed with patient's ED provider. Verification form completed, sent to pharmacy and placed in chart.
[2022-03-30] MEDS: methADONE HCl 20 MG/2 ML ORAL.CONC 40 MG PO (14:28)
--- NOTE | 2022-03-30 14:43 | MHC.CARE ---
CARE Team met with Pt who presented to [facility] ED for manic symptoms and substance use. Today, Pt denies current SI/HI/VH/AH. Pt is requesting recovery resources, Pt expressed interest in cross tapering from methadone to suboxone. Pt stated he has been residing in the [facility] for the past two months and does not have current methadone clinic in [facility]. Plan for Pt to be referred to recovery team for resources and support.
== END 2022-03-30 15:49 | disposition home or self-care (01) ==
PROVIDERS: Physician Assistant; Emergency Provider Internal Medicine
DX: F20.9 Schizophrenia, unspecified (principal); F11.20 Opioid dependence, uncomplicated; F14.10 Cocaine abuse, uncomplicated; F31.81 Bipolar II disorder; Z20.822 Contact with and (suspected) exposure to COVID-19
CPT/HCPCS: 36415; 80048; 80053; 80307; 81003; 82077; 82248; 83690; 85025; 87635; 93005; 99285

== ENCOUNTER 2022-08-18 08:27 | Emergency (ER) | payer MEDICARE, MEDICAID, SELFPAY ==
--- NOTE | 2022-08-18 08:38 | PC.NURSE ---
pt has been in the bathroom for the past 8mins.
[2022-08-18 08:41] VITALS: BP 130/65; PULSE 112; RESP 18; TEMP 36.1; O2SAT 99; BMI 28.3
[2022-08-18] MEDS: cloNIDine HCL 0.1 MG TABLET PO (09:25)
[2022-08-18] MEDS: LORazepam 1 MG TABLET 2 MG PO (09:26)
[2022-08-18 09:42] VITALS: BP 134/68; PULSE 120; RESP 18; TEMP 36.6; O2SAT 99
--- NOTE | 2022-08-18 10:37 | ED_ITS ---
HPI - Anxiety General Chief Complaint: Anxiety Stated Complaint: anxiety Time Seen by Provider: 08/18/22 09:03 Source: patient Mode of arrival: ambulatory Limitations: no limitations History of Present Illness HPI narrative: Patient is a 32 year male presents to the Emergency Department reporting severe anxiety. Patient expresses that the feels as though he is withdrawing, he has not taken methadone in the past few days as he was previously receiving it in [place], [place] but moved back to [place]. States he was previously prescribed 70 mg. He is unable to tell me exactly when his last dose was. He does state that he has been using IV heroin, used approximately 6-7 bundles yesterday, last using at approximately 0300. He also states that he feels as though he is withdrawing from stimulants notably meth and cocaine, though he is unable to tell me when he last used either of these. He denies suicidal or homicidal ideations. When asked if he is interested in detox he states ?I do not know?. He is having significant difficulty sitting still, yelling out at times, pulling as clothing, expressing feelings of severe anxiety. Related Data Home Medications Medication Instructions Recorded Confirmed ferrous sulfate 325 mg (65 mg 1 tab PO 3XW 03/30/22 03/30/22 iron) tablet methadone 10 mg/mL oral concentrate 62 mg PO DAILY 03/30/22 03/30/22 Allergies Allergy/AdvReac Type Severity Reaction Status Date / Time risperidone Allergy Severe Angioedema Verified 11/09/21 15:22 Review of Systems Review of Systems: Constitutional : No Fever, No Chills ENT/Mouth : No Ear Pain, No Nasal Congestion, No sore throat Eyes: No Eye Pain, No Swelling, No Redness Cardiovascular : No Chest Pain, No SOB Respiratory : No Cough, No Sputum, No Dyspnea Gastrointestinal : No Nausea, No Vomiting, No Diarrhea, No Hematochezia, No Melena Genitourinary : No Dysuria, No Urinary Frequency, No Hematuria Musculoskeletal : No Myalgias Skin : No Skin Lesions, No rash Neuro : No Weakness, No Numbness, No Paresthesias, No Dizziness, No Headache Psych : positive Anxiety, no Depression, no SI/HI, no hallucinations Heme/Lymph: No Lymphadenopathy Endocrine : No Polyuria, No Polydipsia Yes all other systems are reviewed and are negative PMFSH Past Medical History Attestation statement: The following information was validated with the patient. Source: old records reviewed Medical History Active substance abuse Cellulitis Social History Social History Household Members: None and Other Household Members Other:: Homeless Housing: Other Housing Other:: Homeless Do you presently have visiting nurse or other home services: No Alcohol intake: current Alcohol intake frequency: a few times a month Patient Tobacco Use Status: Never used Tobacco Smoked in Last 30 Days: Yes Substance Use Type: Crack/Cocaine and Methamphetamine Substance Use Frequency: Chronic Longstanding Last Used Substance: Days (ago) Any prior treatment program specific to substance use: No Advance Directives: No Advance Directives Information Provided: No service: No Sexual orientation: Straight/Heterosexual Physical Exam Vital Signs: Vital Signs: Last Vital Signs Temp 98 F 08/18/22 09:42 Pulse 64 08/18/22 14:07 Resp 16 08/18/22 14:07 BP 116/65 08/18/22 14:07 Pulse Ox 98 08/18/22 14:07 O2 Del Method 08/18/22 14:07 BMI result Body Mass Index 28.3 Appearance: Alert.?Oriented to person, place and time. Acute anxiety and agitation Eyes: Pupils equal, round and reactive to light.? EOMI. ENT: Pharynx normal.?? Neck: Normal inspection.? Neck supple.?? CVS: Heart sounds normal. Normal heart rate and rhythm.? Pulses normal.?? Respiratory: No respiratory distress.? Lung sounds clear to auscultation bilat erally?? Abdomen: Soft and non-tender. Normoactive bowel sounds. ?? Skin: Skin warm and dry.? Normal skin color.? Extremities: No lower extremity edema.? Neuro: Moves all extremities spontaneously. Sensation intact bilaterally. CN II- XII intact. No focal neuro deficits. Ambulates with normal steady gait. Course Reevaluation(s) Reevaluation #1: Patient is much more calm at this time, he is right black sitting on stretcher. He expresses interest in assistance with detox at this time. Time: 11:11 Reevaluation #2: Patient was evaluated by care team, due to his insurance they are unable to facilitate placement to detox facility. He was provided with a list of local detox facilities that he may contact to try and arrange for a bed. Additionally we discussed outpatient follow-up with a primary care provider should he continue to experience symptoms of anxiety. He has remained, and cooperative will in the emergency department. At this time feel the patient is stable for discharge. Time: 14:48 Medications Administered Discontinued Medications Generic Name Dose Route Start Last Admin Trade Name Sia PRN Reason Stop Dose Admin Clonidine HCl 0.1 mg 08/18/22 09:18 08/18/22 09:25 Clonidine Hcl 0.1 Mg Tablet PO 08/18/22 09:19 0.1 mg ONCE ONE Administration Protocol Lorazepam 2 mg 08/18/22 09:18 08/18/22 09:26 Lorazepam 1 Mg Tablet PO 08/18/22 09:19 2 mg ONCE ONE Administration Medical Decision Making Medical Decision Making [facility] Narrative: Patient is a 32-year-old male with past medical history of polysubstance use disorder, bipolar disorder presenting to emergency department for evaluation of anxiety reportedly in the setting of withdrawal. At the time of my examination he is alert and oriented, speaking clear full sentences, in no apparent respiratory distress. He does have obvious anxiety, is tearful tearful, with agitation but is redirectable tachycardic, afebrile without tachypnea or hypoxia, I suspect this tachycardia secondary to his anxiety. Differential Diagnosis Differential Diagnoses: The differential diagnosis associated with the presentation includes (Anxiety, delirium, polysubstance use disorder, withdrawal, bipolar disorder) Lab Data Labs: Lab Results 08/18/22 08/18/22 Range/Units 11:22 11:56 Urine Opiates Screen POSITIVE H (Not Detect) Urine Fentanyl Screen POSITIVE H (Not Detect) Ur Barbiturates Screen Not Detected (Not Detect) Ur Phencyclidine Scrn Not Detected (Not Detect) Ur Amphetamines Screen Not Detected (Not Detect) U Benzodiazepines Scrn Not Detected (Not Detect) Urine Cocaine Screen POSITIVE H (Not Detect) U Marijuana (THC) Screen Not Detected (Not Detect) COVID-19 (DORITA) Negative (Negative) COVID-19 Clin Com See Note Discharge Plan Discharge Clinical Impression: Acute anxiety, Polysubstance use disorder Patient Disposition: Home, Self-Care Instructions: Anxiety (ED) Additional Instructions: You have been provided with contact information for local detox services. You will need to contact them to determine any bed availability based on your insurance coverage. It is recommended that you refrain from drug usage as symptoms of withdrawal can provoke similar symptoms of anxiety Please follow-up with the primary care doctor with any persisting concerns/anxiety You may return back to emergency department with any new or worsening symptoms or concerns. Prescriptions: No Action ferrous sulfate 325 mg (65 mg iron) tablet 1 tab PO 3XW methadone 10 mg/mL Concentrate 62 mg PO DAILY Referrals: Physician,None [Primary Care Provider] -
[2022-08-18 11:49] LABS: COVID-19 Test Negative (Negative); IDNOW Serial# 16C4AD1C
--- NOTE | 2022-08-18 12:10 | PC.NURSE ---
WITH RECOVERY NOW SEEKING DETOX
[2022-08-18 12:13] VITALS: BP 99/60; PULSE 98; RESP 16; O2SAT 98
[2022-08-18 13:05] LABS: Amphetamine Screen Urine Not Detected (Not Detect); Barbiturates, Urine Not Detected (Not Detect); Benzodiazepines Screen Urine Not Detected (Not Detect); Cannabinoid Screen Urine Not Detected (Not Detect); Cocaine Screen Urine POSITIVE (Not Detect); Fentanyl, urine POSITIVE (Not Detect); Opiate Screen Urine POSITIVE (Not Detect); Phencyclidine Screen Urine Not Detected (Not Detect)
--- NOTE | 2022-08-18 13:10 | MHC.RECOVRN ---
Briefly met with pt in [facility]. Pt sleeping, awakes to touch. Pt unable to engage in meaningful conversation due to somnolence. Pt does however report desire for ATS. Referrals sent.
[2022-08-18 14:07] VITALS: BP 116/65; PULSE 64; RESP 16; O2SAT 98
--- NOTE | 2022-08-18 14:47 | PC.NURSE ---
AT 1115 CALLED METHADONE CLINIC IN [facility] [phone] LEFT MS NO CALL BACK TRIED TO CALL AGAIN AND NO ANSWER.
--- NOTE | 2022-08-18 14:48 | MHC.RECOVRN ---
Bedsearch complete. Only available bed is at [facility]. Referral declined due to patients insurance/universal part C. Discussed with pt, encouraged pt to call insurance company to find out which facilities take universal part C. Pt agreeable to follow up in community. Pt provided with list of facilities and contact information. Denies questions or concerns at this time. RN notified.
== END 2022-08-18 15:10 | disposition home or self-care (01) ==
PROVIDERS: Nurse Practitioner Family; Emergency Provider Emergency Medicine
DX: F41.9 Anxiety disorder, unspecified (principal); F19.10 Other psychoactive substance abuse, uncomplicated; R00.0 Tachycardia, unspecified; Z20.822 Contact with and (suspected) exposure to COVID-19; F11.20 Opioid dependence, uncomplicated
CPT/HCPCS: 80307; 87635; 99284

== ENCOUNTER 2022-10-21 10:19 | Emergency (ER) | payer MEDICARE, MEDICAID, SELFPAY ==
[2022-10-21 10:20] VITALS: BP 103/61; PULSE 80; RESP 18; TEMP 36.6; O2SAT 99; BMI 26.6
--- NOTE | 2022-10-21 11:22 | ED.PSYCH ---
HPI - Psych General Chief Complaint: Medical Clearance Stated Complaint: detox Time Seen by Provider: 10/21/22 11:21 Source: patient Mode of arrival: ambulatory Limitations: no limitations History of Present Illness HPI Narrative: 32 yo male with history of bipolar II disorder, cocaine use and polysubstance abuse presents to the ER looking for detox. Patient states they last used cocaine and and opiates yesterday around 4-5pm. He recently got out [facility], spent 5 days there. His last dose of methadone was there, 35 mg 3 days ago. He got out and has been homeless and using bundles of cocaine and heroin. This morning he vomited. He has an upset stomach and diarrhea. He has a runny nose and goosebumps. He is looking for detox and does not want to use IV drugs anymore. MD complaint: substance abuse Onset (ago): day(s) (1) Duration: changing over time History of same: Yes Relieving factors: medication and therapy Exacerbating factors: drug use Context: recent drug abuse and significant life stressor Associated psychiatric symptoms: none Associated symptoms: nausea and vomiting Treatments prior to arrival: none Related Data Home Medications Medication Instructions Recorded Confirmed ferrous sulfate 325 mg (65 mg 1 tab PO 3XW 03/30/22 03/30/22 iron) tablet methadone 10 mg/mL oral concentrate 62 mg PO DAILY 03/30/22 03/30/22 Allergies Allergy/AdvReac Type Severity Reaction Status Date / Time risperidone Allergy Severe Angioedema Verified 10/21/22 10:20 Review of Systems Review of Systems: Yes all other systems are reviewed and are negative [facility] Past Medical History Medical History Active substance abuse Cellulitis Social History Social History Household Members: None and Other Household Members Other:: Homeless Housing: Other Housing Other:: Homeless Do you presently have visiting nurse or other home services: No Alcohol intake: current Alcohol intake frequency: a few times a month Patient Tobacco Use Status: Never used Tobacco Substance Use Type: Crack/Cocaine and Methamphetamine Advance Directives: No Advance Directives Information Provided: Yes service: No Sexual orientation: Straight/Heterosexual Physical Exam Vital Signs: Vital Signs: Last Vital Signs Temp 98 F 10/21/22 10:20 Pulse 80 10/21/22 10:20 Resp 18 10/21/22 10:20 BP 103/61 10/21/22 10:20 Pulse Ox 99 10/21/22 10:20 O2 Del Method Room Air 10/21/22 10:20 BMI result Body Mass Index 26.6 Appearance: Alert. Oriented X3. No acute distress. Poorly kempt Head: normocephalic, atraumatic. Eyes: Pupils equal, round and reactive to light. ENT: Pharynx normal. No tonsillar swelling or exudate. Neck: Normal inspection. Neck supple. CVS: Normal heart rate and rhythm. Pulses normal. Respiratory: No respiratory distress. Breath sounds normal. Abdomen: Soft and nontender. +BS x4 Skin: Skin warm and dry. Normal skin color. Normal skin turgor. No rashes. Extremities: No lower extremity edema. 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 No motor deficit. No sensory deficit. CN II-XII intact. Normal speech and cognition. Course Reevaluation(s) Reevaluation #1: case d/w recovery team, Em. Referrals to be made. will give 35 mg methadone now given his symptoms Time: 12:27 Medications Administered Discontinued Medications Generic Name Dose Route Start Last Admin Trade Name Sia PRN Reason Stop Dose Admin Methadone HCl 35 mg 10/21/22 12:05 10/21/22 13:04 Methadone Hcl 20 Mg/2 Ml Oral.Conc PO 10/21/22 12:06 35 mg ONCE ONE Administration Potassium Chloride 40 meq 10/21/22 14:02 10/21/22 14:37 Potassium Chloride Er 20 Meq Tab.Er.Prt PO 10/21/22 14:03 40 meq ONCE ONE Administration Medical Decision Making Medical Decision Making MDM Narrative: 32-year-old male with history of polysubstance abuse, recently went to detox and Teresa Arellano presents to the ER for detox. He is symptomatic with withdrawal symptoms including nausea, vomiting, diarrhea, runny nose, goosebumps. He last had methadone 3 days ago. Last dose letter verified. Recovery team met with the patient and he has been accepted to [facility]. His labs showed mild hypokalemia, this is repleted orally. He is eating a full lunch tray. He is otherwise medically stable. He is stable for discharge to detox. Differential Diagnosis Differential Diagnoses: The differential diagnosis associated with the presentation includes Opiate withdrawal, polysubstance abuse, alcohol withdrawal, depression, homelessness, substance induced mood disorder Consult Healthcare Provider Management of the patient was discussed with: Truck Trailer Final Inspector Kate from [facility] Lab Attestation statement: I reviewed the patient's lab results. 10/21/22 13:13 10/21/22 13:13 Labs: Lab Results 10/21/22 10/21/22 10/21/22 Range/Units 13:13 13:13 13:14 WBC 8.2 (4.8-10.8) X10*3/uL RBC 4.14 L (4.60-5.80) X10*6/uL Hgb 11.9 L (14.0-18.0) g/dl Hct 35.7 L (42.0-52.0) % MCV 86.2 (80.0-98.0) fL MCH 28.7 (27.0-33.0) pg MCHC 33.3 (31.0-36.0) g/dl RDW 12.5 (11.0-16.0) % Plt Count 343 D (160-400) X10*3/uL MPV 9.8 (9.4-12.4) fL Immature Gran % (Auto) 0.2 (0.0-0.4) % Neut % (Auto) 64.7 (45-73) % Lymph % (Auto) 24.7 (20-40) % Hill % (Auto) 8.8 (2-11) % Eos % (Auto) 1.2 (0-4) % Baso % (Auto) 0.4 (0-2) % Lymph # (Auto) 2.0 (1.2-4.9) X10*3/uL Hill # (Auto) 0.7 (0.1-1.2) X10*3/uL Eos # (Auto) 0.1 (0.0-0.4) X10*3/uL Baso # (Auto) 0.0 (0.0-0.2) X10*3/uL Abs Immat Gran (auto) 0.02 (0.00-0.03) X10*3/uL Absolute Neuts (auto) 5.3 (2.0-8.3) x10*3/uL Absolute Nucleated RBC 0.000 (0.0-0.012) X10*3/uL Nucleated RBC % (auto) 0.0 (0.0-0.2) /100WBC Sodium 140 (135-145) mmol/L Potassium 3.2 L (3.3-5.1) mmol/L Chloride 105 (96-108) mmol/L Carbon Dioxide 25 (22-29) mmol/L Anion Gap 13 (12-20) BUN 10 (9-16) mg/dL Creatinine 0.69 (0.5-1.4) mg/dL Estim Creat Clear Calc 133.6 Estimated GFR > 60 Random Glucose 128 H (60-115) mg/dL Calcium 8.9 (8.4-10.2) mg/dL Magnesium 2.2 (1.6-2.6) mg/dL Total Bilirubin 0.4 (0.0-1.0) mg/dL Direct Bilirubin 0.2 (0.0-0.5) mg/dL AST 23 (5-37) U/L ALT 20 (0-40) U/L Alkaline Phosphatase 83 (39-117) U/L Total Protein 6.6 (6.5-8.0) g/dL Albumin 3.3 L (3.5-5.0) g/dL Ethyl Alcohol < 10 mg/dL COVID-19 ([facility]ORITA) Negative (Negative) COVID-19 Clin Com See Note External Record Review External record reviewed: Outpatient record, Prior outpatient labs and Prior outpatient radiology Chronic Conditions Patient?s care impacted by: Other (polysubstance abuse) Social Determinants Patient?s care significantly limited by Social Determinants of Health including: Inadequate housing, Alcoholism and drug addiction in family, Problems related to primary support group, Unemployment and Other Social Determinant of Health Critical Care Time Critical Care Time Critical Care Time: No Discharge Plan Discharge Clinical Impression: Polysubstance abuse Patient Disposition: Xfer Inpatient Rehab Fac Transfer Details: [facility] Instructions: Polysubstance Abuse (ED) Additional Instructions: You were given 35 mg of methadone today 10/21/22. Present directly to [facility] for detox Do not use IV drugs, they can kill you Prescriptions: No Action ferrous sulfate 325 mg (65 mg iron) tablet 1 tab PO 3XW methadone 10 mg/mL Concentrate 62 mg PO DAILY
--- NOTE | 2022-10-21 13:00 | MHC.RECOVRN ---
Addendum entered by Kate Warren RN 10/21/22 14:58: Patient completed phone intake [facility], 4pm Admission time. T/W to coodinate lEoy. Original Note: This specifications writer met w/ patient, patient requesting detox. Patient reports recently at [facility], presented with last dose letter. Patient interested in MTD dose today, spoke w/ Provider. MTD dose ordered. Patient reports for past 1.5 months, daily use heroin IV 2 bundles, reports 1 gram-8 ball of ALVARO daily. Patient reports priot to 1.5 months ago, stable on 65mg MTD. Patients tx hx includes detox, CSS, TSS level of care. Patient reports goal is to go to detox and maintain recovery. Patient reports last use at 5pm. Currently s/s of withdrawal include stomach upset, goose flesh, runny nose. Detox bedsearch process started.
[2022-10-21] MEDS: methADONE HCl 20 MG/2 ML ORAL.CONC 35 MG PO (13:04)
[2022-10-21 13:22] LABS: MANUAL DIFF FLAG NO
[2022-10-21 13:33] LABS: Basophils Percent Auto 0.4 % (0-2); Eosinophils Absolute Auto 0.1 X10*3/uL (0.0-0.4); Eosinophils Percent Auto 1.2 % (0-4); Hematocrit 35.7 % (42.0-52.0); Hemoglobin 11.9 g/dl (14.0-18.0); Imm Gran Abs Auto 0.02 X10*3/uL (0.00-0.03); Imm Gran Pct Auto 0.2 % (0.0-0.4); Lymphocytes Percent Auto 24.7 % (20-40); Mean Corpuscular HGB Conc 33.3 g/dl (31.0-36.0); Mean Corpuscular Hemoglobin 28.7 pg (27.0-33.0); Mean Corpuscular Volume 86.2 fL (80.0-98.0); Mean Platelet Volume 9.8 fL (9.4-12.4); Monocytes Absolute Auto 0.7 X10*3/uL (0.1-1.2); Monocytes Percent Auto 8.8 % (2-11); Neutrophils Absolute Auto 5.3 x10*3/uL (2.0-8.3); Neutrophils Percent Auto 64.7 % (45-73); Platelet Count 343 X10*3/uL (160-400); Red Blood Count 4.14 X10*6/uL (4.60-5.80); Red Cell Distribution Width 12.5 % (11.0-16.0); White Blood Count 8.2 X10*3/uL (4.8-10.8)
[2022-10-21 13:42] LABS: COVID-19 Test Negative (Negative); IDNOW Serial# 08D9AD1C
[2022-10-21 13:57] LABS: Alanine Aminotransferase 20 U/L (0-40); Albumin Level 3.3 g/dL (3.5-5.0); Alkaline Phosphatase 83 U/L (39-117); Anion Gap 13 (12-20); Aspartate Amino Transferase 23 U/L (5-37); Bilirubin Direct 0.2 mg/dL (0.0-0.5); Bilirubin Total 0.4 mg/dL (0.0-1.0); Blood Urea Nitrogen 10 mg/dL (9-16); Calcium 8.9 mg/dL (8.4-10.2); Carbon Dioxide 25 mmol/L (22-29); Chloride 105 mmol/L (96-108); Creatinine Clr Calc Pharmacy 133.6; Estimated Glomerular Filt Rate > 60; Ethanol < 10 mg/dL; Glucose Random 128 mg/dL (60-115); Magnesium 2.2 mg/dL (1.6-2.6); Potassium 3.2 mmol/L (3.3-5.1); Sodium 140 mmol/L (135-145); Total Protein 6.6 g/dL (6.5-8.0)
[2022-10-21] MEDS: Potassium Chloride ER 20 MEQ TAB.ER.PRT 40 MEQ PO (14:37)
--- NOTE | 2022-10-21 15:29 | PC.NURSE ---
pt seen by Agriculturist -EM. pt did phone intake with [facility], accepted. pt will transport to [facility] via lyft arranged by EM. pt aware of plan.
[2022-10-21 15:38] VITALS: PULSE 73; O2SAT 97
[2022-10-21 15:39] VITALS: BP 99/53; PULSE 73
--- NOTE | 2022-10-21 15:40 | PC.NURSE ---
pt cleared for discharge, both discharge instructions and last methadone dose letter given to pt. pt escorted to [facility] by EM. pt given lunch prior to departing. denies pain, vss
== END 2022-10-21 15:44 ==
PROVIDERS: Physician Assistant; Emergency Provider Emergency Medicine
DX: F14.19 Cocaine abuse with unspecified cocaine-induced disorder (principal); F31.9 Bipolar disorder, unspecified; F11.19 Opioid abuse with unspecified opioid-induced disorder; Z20.822 Contact with and (suspected) exposure to COVID-19; Z20.828 Contact with and (suspected) exposure to other viral communicable diseases; Z79.899 Other long term (current) drug therapy
CPT/HCPCS: 80048; 80076; 80307; 83735; 85025; 87635; 99283

== ENCOUNTER 2022-10-31 10:00 | Emergency (ER) | payer MEDICARE, MEDICAID, SELFPAY ==
[2022-10-31 10:16] VITALS: BP 140/83; PULSE 75; RESP 18; TEMP 36.3; O2SAT 97; BMI 25.8
--- NOTE | 2022-10-31 10:41 | ED_ITS ---
HPI - General Adult General Chief complaint: General Medical Stated complaint: methadone Time Seen by Provider: 10/31/22 10:41 Source: patient Limitations: no limitations History of Present Illness HPI narrative: Patient presents to the ER requesting methadone dosing. Patient was discharged 2 days prior from [facility] detox worries receiving 50 mg of methadone daily. Patient went to [facility] in clinic today but could not register on secondary to lack of ID. Patient has longstanding history of cocaine abuse opiate use disorder methamphetamines a history of bipolar disorder. Patient states he has not used any other street drugs in the past 30 hours and feels like he is in withdrawal at this time. Symptoms mild to moderate patient feeling shaky and unwell. Slight nausea no vomiting Related Data Home Medications Medication Instructions Recorded Confirmed ferrous sulfate 325 mg (65 mg 1 tab PO 3XW 03/30/22 03/30/22 iron) tablet methadone 10 mg/mL oral concentrate 62 mg PO DAILY 03/30/22 03/30/22 Allergies Allergy/AdvReac Type Severity Reaction Status Date / Time risperidone Allergy Severe Angioedema Verified 10/31/22 10:21 Review of Systems Review of Systems: General: Feeling shaky Ophthalmology: No vision changes, no discharge ENT: No sore throat, no ear pain Cardiovascular: No chest pain, no peripheral edema, no shortness of breath Respiratory: No dyspnea, no sputum production, no cough Muscle skeletal: No malaise, no back pain, no neck pain, no extremity pain GI: No abdominal pain: Positive nausea no vomiting Psychiatric: No depression, no suicidal ideation, no homicidal ideation Skin: No rash Hematology: No bleeding, no bruising PMFSH Past Medical History Medical History Active substance abuse Cellulitis Social History Social History Household Members: None and Other Household Members Other:: Homeless Housing: Other Housing Other:: Homeless Do you presently have visiting nurse or other home services: No Alcohol intake: current Alcohol intake frequency: a few times a month Patient Tobacco Use Status: Never used Tobacco Substance Use Type: Crack/Cocaine and Methamphetamine Advance Directives: No Advance Directives Information Provided: No service: No Sexual orientation: Straight/Heterosexual Physical Exam ED Vital Signs: Vital Signs - 24 hr 10/31/22 10:16 Temperature 97.3 F Pulse Rate 75 Respiratory Rate 18 Blood Pressure 140/83 H Pulse Oximetry 97 Oxygen Delivery Method Room Air BMI result Body Mass Index 25.8 General appearance: Patient is awake slightly anxious feeling well Skin: Warm, dry, no rash Eyes: PERRL, EOMI, no icterus ENT: Oropharynx normal, uvula midline Neck: Soft supple full range of motion Pulmonary: Breath sounds clear to auscultation bilaterally, no accessory muscle use Cardiovascular: Regular rate and rhythm, no murmurs and rubs Abdomen: Soft nontender, no rebound or guarding, positive bowel sounds Extremities: No deformity, nontender, no peripheral edema noted Neuro: Alert oriented x3, no focal deficit Psych: Normal affect Course Course Course Narrative: Opiate use disorder Opiate withdrawal Methadone dosing 32-year-old male with longstanding history of opiate use disorder recently discharged from local detox were restarted on methadone 50 mg a day attempted to go to [facility] in clinic today but secondary to lack of ID was not able to register on to receive his methadone. Patient was requesting a dose at this time as he feels like he is in withdrawal. Will attempt to verify last dose at [facility] with plans to dose methadone today with follow-up in clinic tomorrow Dose verified on 10/28/2022 50 mg methadone p.o. at [facility] will dose at this time. Patient mild withdrawal secondary to COW scale COWS Score for Opiate Withdrawal from [facility] on 10/31/2022 All calculations should be rechecked by clinician prior to use RESULT SUMMARY: 12 points Mild withdrawal INPUTS: Resting Pulse Rate (BPM) ?> 0 = <=0 Sweating ?> 2 = Flushed or observable moistness on face Restlessness observation during assessment ?> 3 = Frequent shifting or extraneous movements of legs/arms Pupil size ?> 0 = Pupils pinned or normal size for room light Bone or joint aches ?> 1 = Mild diffuse discomfort Runny nose or tearing ?> 1 = Nasal stuffiness or unusually moist eyes GI Upset ?> 2 = Nausea or loose stool Tremor observation of outstretched hands ?> 1 = Tremor can be felt, but not observed Yawning observation during assessment ?> 1 = Yawning once or twice during assessment Anxiety or irritability ?> 1 = Patient reports increasing irritability or anxiousness Gooseflesh skin ?> 0 = Skin is smooth Discharge Plan Discharge Clinical Impression: Opioid use disorder Patient Disposition: Home, Self-Care Instructions: Opioid Use Disorder (ED), Opioid Withdrawal (ED) Additional Instructions: Close follow-up [facility] methadone clinic tomorrow Return if symptoms worsen Prescriptions: No Action ferrous sulfate 325 mg (65 mg iron) tablet 1 tab PO 3XW methadone 10 mg/mL Concentrate 62 mg PO DAILY
--- NOTE | 2022-10-31 10:54 | HE.PHANOTE ---
RE METHADONE SPOKE TO CIELO RM, [facility] LAST DOSE WAS 50MG ON 10/28 FOR HER DOMINIQUE
[2022-10-31] MEDS: methADONE HCl 20 MG/2 ML ORAL.CONC 50 MG PO (11:04)
== END 2022-10-31 11:11 | disposition home or self-care (01) ==
PROVIDERS: Emergency Provider Student in an Organized Health Care Education/Training Program
DX: F11.10 Opioid abuse, uncomplicated (principal); F14.10 Cocaine abuse, uncomplicated; Z71.51 Drug abuse counseling and surveillance of drug abuser
CPT/HCPCS: 99282; 99283

== ENCOUNTER 2022-12-01 17:50 | Emergency (ER) | payer MEDICARE, MEDICAID, SELFPAY ==
--- NOTE | ~2022-12-01 | XR_ITS ---
EXAMINATION: XR CHEST CLINICAL INFORMATION: Shortness of breath. COMPARISON: CT chest 11/30/2021. TECHNIQUE: Frontal view of the chest was obtained. FINDINGS: No significant abnormality is noted involving the heart, lungs, mediastinum, bony thorax or soft tissues. XR/XR chest 1V IMPRESSION: Unremarkable examination.
[2022-12-01 17:54] VITALS: BP 102/71; PULSE 84; RESP 16; TEMP 36.7; O2SAT 98; BMI 23.9
--- NOTE | 2022-12-01 17:55 | ED.GENADULT ---
HPI - General Adult General Chief complaint: General Medical Stated complaint: fever/ body pain Related Data Home Medications Medication Instructions Recorded Confirmed ferrous sulfate 325 mg (65 mg 1 tab PO 3XW 03/30/22 03/30/22 iron) tablet methadone 10 mg/mL oral concentrate 62 mg PO DAILY 03/30/22 03/30/22 Allergies Allergy/AdvReac Type Severity Reaction Status Date / Time risperidone Allergy Severe Angioedema Verified 10/31/22 10:21 PMFSH Past Medical History Medical History Active substance abuse Cellulitis Social History Social History Household Members: None and Other Household Members Other:: Homeless Housing: Other Housing Other:: Homeless Do you presently have visiting nurse or other home services: No Alcohol intake: current Alcohol intake frequency: a few times a month Patient Tobacco Use Status: Never used Tobacco Substance Use Type: Crack/Cocaine and Methamphetamine service: No Sexual orientation: Straight/Heterosexual Course Course Course Narrative: This is an RME: Additional HPI, ROS, PE not included below will be deferred to primary provider. Patient is a 32 year old male presenting with one week of fatigue, malaise, shortness of breath, fevers, chills, sore throat. He had a sudden onset seizure about 1 week ago. Patient has a history of opiate substance use. Denies current drug use, alcohol. PE- benign Plan labs, imaging, urine Discharge Plan Discharge Prescriptions: No Action ferrous sulfate 325 mg (65 mg iron) tablet 1 tab PO 3XW methadone 10 mg/mL Concentrate 62 mg PO DAILY
[2022-12-01 18:00] VITALS: BP 111/67; PULSE 80; RESP 16; TEMP 36.8; O2SAT 96
[2022-12-01 18:32] LABS: Basophils Percent Auto 0.8 % (0-2); Eosinophils Percent Auto 0.3 % (0-4); Hematocrit 41.8 % (42.0-52.0); Hemoglobin 13.9 g/dl (14.0-18.0); Imm Gran Abs Auto 0.01 X10*3/uL (0.00-0.03); Imm Gran Pct Auto 0.3 % (0.0-0.4); Lymphocytes Absolute Auto 1.6 X10*3/uL (1.2-4.9); Lymphocytes Percent Auto 43.8 % (20-40); MANUAL DIFF FLAG SCAN; Mean Corpuscular HGB Conc 33.3 g/dl (31.0-36.0); Mean Corpuscular Hemoglobin 28.5 pg (27.0-33.0); Mean Corpuscular Volume 85.8 fL (80.0-98.0); Mean Platelet Volume 9.4 fL (9.4-12.4); Monocytes Absolute Auto 0.4 X10*3/uL (0.1-1.2); Monocytes Percent Auto 9.8 % (2-11); Neutrophils Absolute Auto 1.7 x10*3/uL (2.0-8.3); Platelet Count 270 X10*3/uL (160-400); Red Blood Count 4.87 X10*6/uL (4.60-5.80); Red Cell Distribution Width 13.5 % (11.0-16.0); SCAN SMEAR FLAG 1; White Blood Count 3.7 X10*3/uL (4.8-10.8)
[2022-12-01 18:45] LABS: Alanine Aminotransferase 12 U/L (0-40); Albumin Level 4.2 g/dL (3.5-5.0); Alkaline Phosphatase 74 U/L (39-117); Anion Gap 15 (12-20); Aspartate Amino Transferase 19 U/L (5-37); Bilirubin Total 0.3 mg/dL (0.0-1.0); Blood Urea Nitrogen 13 mg/dL (9-16); Calcium 10.3 mg/dL (8.4-10.2); Carbon Dioxide 27 mmol/L (22-29); Chloride 101 mmol/L (96-108); Creatinine Clr Calc Pharmacy 121.3; Estimated Glomerular Filt Rate > 60; Glucose Random 92 mg/dL (60-115); Magnesium 2.2 mg/dL (1.6-2.6); Potassium 4.3 mmol/L (3.3-5.1); Sodium 139 mmol/L (135-145); Total Protein 8.6 g/dL (6.5-8.0)
[2022-12-01 18:48] LABS: COVID-19 Test Negative (Negative); IDNOW Serial# 08D9AD1C; IDNOW Serial# BCCEAD1C; Influenza A Negative (Negative); Influenza B2 Negative (Negative)
[2022-12-01 18:55] LABS: SLIDE REVIEW VERIFIED
--- NOTE | 2022-12-01 19:10 | PC.NURSE ---
obtained strep swab verified name/ with pt label affixed onto specimen container and sent to lab via tube system by this nurse
[2022-12-01 19:18] LABS: IDNOW Serial# 08D9AD1C; Strep A Nucleic Acid Positive (Negative)
--- NOTE | 2022-12-27 06:49 | ED.GENADULT ---
HPI - General Adult General Chief complaint: General Medical Stated complaint: fever/ body pain Time Seen by Provider: 12/01/22 18:50 Source: patient Mode of arrival: ambulatory Limitations: no limitations History of Present Illness HPI narrative: Patient is a 32 year old assigned male at with a history of cocaine use presenting to the emergency department today with a sore throat. Patient states that over the last week he has had a sore throat. Patient denies any dizziness, lightheadedness, abdominal pain, nausea, vomiting, fever, chills, blurry vision, double vision, loss of vision, chest pain, difficulty breathing, shortness of breath, back pain, night sweats, pain with urination, increased urinary frequency, increased urinary urgency, blood in his urine or stool, syncope or a near syncopal episode, recent trauma or falls, bowel incontinence, bladder incontinence, bowel retention, bladder retention, or any other complaints at this time. Onset (ago): week(s) (1) Radiation: non-radiation Severity: mild Quality: aching and dull Pain Consistency: constant Relieving factors: none Exacerbating factors: none Treatments prior to arrival: none Related Data Home Medications Medication Instructions Recorded Confirmed ferrous sulfate 325 mg (65 mg 1 tab PO 3XW 03/30/22 12/21/22 iron) tablet methadone 10 mg/mL oral concentrate 66 mg PO DAILY 03/30/22 12/21/22 Previous Rx's Medication Instructions Recorded albuterol sulfate 90 mcg/actuation 1 inh inhalation QID PRN shortness 12/01/22 aerosol inhaler of breath or wheezing #8.5 grams ondansetron 4 mg disintegrating 4 mg PO Q8H 3 days #9 tabs 12/01/22 tablet penicillin V potassium 500 mg 500 mg PO BID 10 days #20 tabs 12/27/22 tablet Allergies Allergy/AdvReac Type Severity Reaction Status Date / Time risperidone Allergy Severe Angioedema Verified 12/08/22 18:13 Review of Systems Constitutional: Constitutional: Reports no additional constitutional complaints, Denies chills, Denies fever(s) and Denies night sweats Eyes: Eyes: Reports no additional eye complaints, Denies blurry vision, Denies change in vision, Denies diplopia, Denies eye discharge, Denies loss of vision and Denies eye pain ENT: Denies dizziness and Reports sore throat Cardiovascular: Cardiovascular: Reports no additional cardiovascular complaints, Denies chest pain, Denies lightheadedness, Denies Loss of Consciousness and Denies dyspnea Respiratory: Respiratory: Reports no additional respiratory complaints and Denies dyspnea Gastrointestinal: Gastrointestinal: Reports no additional gastrointestinal complaints, Denies abdominal pain, Denies melena, Denies hematochezia, Denies change in bowel habits and Denies change in stool character Genitourinary: Genitourinary: Reports no additional male genitourinary complaints, Denies hematuria, Denies oliguria, Denies difficulty urinating, Denies dysuria, Denies urinary frequency, Denies urinary hesitancy, Denies urinary incontinence and Denies urinary urgency Musculoskeletal: Musculoskeletal: Reports no additional musculoskeletal complaints, Denies numbness and Denies tingling Neurologic: Denies dizziness, Denies loss of vision, Denies numbness and Denies tingling Psychiatric: Psychiatric: Reports no additional psychiatric complaints Endocrine: Endocrine: Reports no additional endocrine complaints Hematologic/Lymphatic: Hematologic/Lymphatic: Reports no additional hematologic/lymphatic complaints Allergic/Immunologic: Allergic/Immunologic: Reports no additional allergic/immunologic complaints [facility] Past Medical History Attestation statement: The following information was validated with the patient. Source: old records reviewed and nursing notes reviewed Medical History Active substance abuse Cellulitis Social History Social History Household Members: None Household Members Other:: Homeless Housing: Homeless Housing Other:: Homeless Do you presently have visiting nurse or other home services: No Alcohol intake: current Alcohol intake frequency: a few times a month Patient Tobacco Use Status: Never used Tobacco Smoked in Last 30 Days: No e-Cigarette/Vaping Use: Never Used Patient Given Instructions on How to Stop Smoking: No Second Hand Smoke Exposure: No Use of substances other than those prescribed or required for medical reasons: Yes Substance Use Type: Crack/Cocaine and Heroin Substance Use Frequency: Daily Last Used Substance: Days (ago) Currently Displaying Signs/Symptoms of Drug Intoxication Withdrawal: No Any prior treatment program specific to substance use: Yes ([facility] clinic) Have you been hit, kicked, punched, or otherwise hurt by someone within the past year? If so, by whom?: No Do you feel safe in your current relationship?: No Current Relationship Is there a partner from a previous relationship who is making you feel unsafe now?: No Are you made to feel afraid or neglected: No Advance Directives: No Advance Directives Information Provided: No Do you have thoughts of harming others: None Do you have a plan to hurt others: No Plan Recently lost weight without trying: Yes How much weight loss: 34pounds or more Eating poorly because of decreased appetite: No Nutrition screen score: 6 Nutrition Risks: No Nutritional Risk Poor oral hygiene: No service: No Sexual orientation: Straight/Heterosexual Physical Exam ED Vital Signs: BMI result Body Mass Index 23.9 Const General: cooperative, no acute distress, alert and awake Nutritional Appearance: well nourished Orientation/consciousness: patient oriented x3 Limitations: no limitations HENMT Head: Yes normal to inspection and Yes atraumatic Ears: hearing grossly normal bilaterally and external ears normal General nose exam: Normal external nose present, no nasal discharge noted and no epistaxis Face and sinus: Yes normal facial exam, No abrasion and No laceration Mouth: Normal oral and palatal mucosa present, no drooling and no muffled voice Throat: Yes posterior oropharynx abnormal (erythema) Eyes General: appearance normal, both eyes and all related structures Periorbital: periorbital findings normal Eyelids: Yes eyelids normal Conjunctivae: conjunctivae normal Pupils: Equal, round and reactive pupils present EOM: EOMs intact bilaterally Neck Neck: Yes normal visual inspection, Yes full ROM and Yes no lymphadenopathy Chest Chest palpation & inspection: normal inspection of the chest Resp Effort & Inspection: normal respiratory effort and able to speak in complete sentences GI Inspection: Yes normal to inspection Neuro General: patient oriented x3 and moves all extremities Cranial nerves: Yes Equal, round and reactive pupils present Cognition (Neuro): normal cognition Motor exam (neuro): 5/5 motor strength present throughout Sensory Exam: Normal double simultaneous stimulation for sensation Coordination: [id number] test normal Extrem General: Yes normal to inspection, Yes full ROM and Yes capillary refill normal Psych Appearance: grossly normal Mental Status: mental status grossly normal Affect: normal affect Attitude: cooperative Thought process: Normal thought process present Thought content: Normal thought content present Insight: Good insight present (Psych) Medical Decision Making Medical Decision Making MDM Narrative: Patient is a 32 year old assigned male at with a history of cocaine abuse presenting to the emergency department today with a sore throat. Patient's physical exam showed erythema of the posterior oropharynx. Patient's strep test was positive. I explained my physical exam findings as well as all test results to the patient. I answered all questions asked by the patient. I stressed the importance of the patient taking his medication as prescribed. I stressed the importance of the patient following up with his primary care provider. I stressed the importance of the patient returning to the emergency department immediately if his symptoms were to worsen or if he were to develop any dizziness, shortness of breath, difficulty breathing, chest pain, blurry vision, loss of vision, nausea, vomiting, abdominal pain, fever, chills, back pain, or any other complaints. Patient verbalized agreement and understanding with this treatment plan and discharge. Differential Diagnosis Differential Diagnoses: The differential diagnosis associated with the presentation includes Strep pharyngitis COVID-19 Influenza Viral illness Lab Data MDM Lab Attestation statement: I reviewed the patient's lab results. Patient's labs grossly normal with the exception of the positive strep test. 12/01/22 18:21 12/01/22 18:21 Labs: Lab Results 12/01/22 12/01/22 12/01/22 Range/Units 18:21 18:21 18:21 WBC 3.7 L (4.8-10.8) X10*3/uL RBC 4.87 (4.60-5.80) X10*6/uL Hgb 13.9 L (14.0-18.0) g/dl Hct 41.8 L (42.0-52.0) % MCV 85.8 (80.0-98.0) fL MCH 28.5 (27.0-33.0) pg MCHC 33.3 (31.0-36.0) g/dl RDW 13.5 (11.0-16.0) % Plt Count 270 (160-400) X10*3/uL MPV 9.4 (9.4-12.4) fL Immature Gran % (Auto) 0.3 (0.0-0.4) % Neut % (Auto) 45.0 (45-73) % Lymph % (Auto) 43.8 H (20-40) % [place] % (Auto) 9.8 (2-11) % Eos % (Auto) 0.3 (0-4) % Baso % (Auto) 0.8 (0-2) % Lymph # (Auto) 1.6 (1.2-4.9) X10*3/uL [place] # (Auto) 0.4 (0.1-1.2) X10*3/uL Eos # (Auto) 0.0 (0.0-0.4) X10*3/uL Baso # (Auto) 0.0 (0.0-0.2) X10*3/uL Abs Immat Gran (auto) 0.01 (0.00-0.03) X10*3/uL Absolute Neuts (auto) 1.7 L (2.0-8.3) x10*3/uL Absolute Nucleated RBC 0.000 (0.0-0.012) X10*3/uL Nucleated RBC % (auto) 0.0 (0.0-0.2) /100WBC Smear Tech's Comments VERIFIED Sodium 139 (135-145) mmol/L Potassium 4.3 D (3.3-5.1) mmol/L Chloride 101 (96-108) mmol/L Carbon Dioxide 27 (22-29) mmol/L Anion Gap 15 (12-20) BUN 13 (9-16) mg/dL Creatinine 0.76 (0.5-1.4) mg/dL Estim Creat Clear Calc 121.3 Estimated GFR > 60 Random Glucose 92 (60-115) mg/dL Lactic Acid 1.0 (0.5-2.0) mmol/L Calcium 10.3 H D (8.4-10.2) mg/dL Magnesium 2.2 (1.6-2.6) mg/dL Total Bilirubin 0.3 (0.0-1.0) mg/dL AST 19 (5-37) U/L ALT 12 (0-40) U/L Alkaline Phosphatase 74 (39-117) U/L Total Creatine Kinase 33 L (38-174) U/L Total Protein 8.6 H (6.5-8.0) g/dL Albumin 4.2 (3.5-5.0) g/dL COVID-19 (DORITA) (Negative) COVID-19 Clin Com Influenza Type A (LEONEL) (Negative) Influenza Type B (LEONEL) (Negative) Influenza A & B Note S. pyogenes GrpA LEONEL (Negative) 12/01/22 12/01/22 12/01/22 Range/Units 18:21 18:21 19:10 WBC (4.8-10.8) X10*3/uL RBC (4.60-5.80) X10*6/uL Hgb (14.0-18.0) g/dl Hct (42.0-52.0) % MCV (80.0-98.0) fL MCH (27.0-33.0) pg MCHC (31.0-36.0) g/dl RDW (11.0-16.0) % Plt Count (160-400) X10*3/uL MPV (9.4-12.4) fL Immature Gran % (Auto) (0.0-0.4) % Neut % (Auto) (45-73) % Lymph % (Auto) (20-40) % [place] % (Auto) (2-11) % Eos % (Auto) (0-4) % Baso % (Auto) (0-2) % Lymph # (Auto) (1.2-4.9) X10*3/uL [place] # (Auto) (0.1-1.2) X10*3/uL Eos # (Auto) (0.0-0.4) X10*3/uL Baso # (Auto) (0.0-0.2) X10*3/uL Abs Immat Gran (auto) (0.00-0.03) X10*3/uL Absolute Neuts (auto) (2.0-8.3) x10*3/uL Absolute Nucleated RBC (0.0-0.012) X10*3/uL Nucleated RBC % (auto) (0.0-0.2) /100WBC Smear Tech's Comments Sodium (135-145) mmol/L Potassium (3.3-5.1) mmol/L Chloride (96-108) mmol/L Carbon Dioxide (22-29) mmol/L Anion Gap (12-20) BUN (9-16) mg/dL Creatinine (0.5-1.4) mg/dL Estim Creat Clear Calc Estimated GFR Random Glucose (60-115) mg/dL Lactic Acid (0.5-2.0) mmol/L Calcium (8.4-10.2) mg/dL Magnesium (1.6-2.6) mg/dL Total Bilirubin (0.0-1.0) mg/dL AST (5-37) U/L ALT (0-40) U/L Alkaline Phosphatase (39-117) U/L Total Creatine Kinase (38-174) U/L Total Protein (6.5-8.0) g/dL Albumin (3.5-5.0) g/dL COVID-19 (DORITA) Negative (Negative) COVID-19 Clin Com See Note Influenza Type A (LEONEL) Negative (Negative) Influenza Type B (LEONEL) Negative (Negative) Influenza A & B Note See Note S. pyogenes GrpA LEONEL Positive A (Negative) Independent Interpretation I performed an independent interpretation of an: Plain X-Ray Interpretation: My interpretation is in agreement with the radiologist's impression of this imaging study. EXAMINATION: XR CHEST CLINICAL INFORMATION: Shortness of breath. COMPARISON: CT chest 11/30/2021. TECHNIQUE: Frontal view of the chest was obtained. FINDINGS: No significant abnormality is noted involving the heart, lungs, mediastinum, bony thorax or soft tissues. XR/XR chest 1V IMPRESSION: Unremarkable examination. Dictated By: Ashia Barrow Signed By: Electronically signed by Josef 12/01/221951 Radiology Impression Discussion of test interpretation with radiology: I have reviewed the radiologist's reading. Prescription Management I considered prescription management with: Antibiotic (patient was prescribed an antibiotic) Discharge Plan Discharge Clinical Impression: Strep pharyngitis Patient Disposition: Home, Self-Care Instructions: Pharyngitis (ED) Additional Instructions: Follow up with your primary care provider. Return to the emergency department immediately if your symptoms worsen or if you develop any dizziness, shortness of breath, difficulty breathing, chest pain, blurry vision, loss of vision, nausea, vomiting, abdominal pain, fever, chills, back pain, or any other complaints. Prescriptions: New ondansetron 4 mg tablet,disintegrating 4 mg PO Q8H 3 Days Qty: 9 0RF albuterol sulfate 90 mcg/actuation HFA aerosol inhaler 1 inh inhalation QID PRN (Reason: shortness of breath or wheezing) Qty: 8.5 0RF Patient Comments: patient said he was not taking it penicillin V potassium 500 mg tablet 500 mg PO BID 10 Days Qty: 20 0RF No Action ferrous sulfate 325 mg (65 mg iron) tablet 1 tab PO 3XW methadone 10 mg/mL Concentrate 66 mg PO DAILY Referrals: [facility] [Provider Group] (Call to establish and follow up with a primary care provider. If you already have a primary care provider, please follow up with them.) [facility] [Provider Group] (Call to establish and follow up with a primary care provider. If you already have a primary care provider, please follow up with them.) [facility] [Provider Group] (Call to establish and follow up with a primary care provider. If you already have a primary care provider, please follow up with them.) Stand Alone Forms: Work/School Release Interventions: ED Discharge Assessment Last Done: 12/01/22 19:44 Discharge Date/Time: 12/01/22 19:45 Print Language: Italian
== END 2022-12-01 19:45 | disposition home or self-care (01) ==
PROVIDERS: Physician Assistant; Physician Assistant Medical; Emergency Provider Emergency Medicine
DX: J02.0 Streptococcal pharyngitis (principal); R50.9 Fever, unspecified; Z20.822 Contact with and (suspected) exposure to COVID-19
CPT/HCPCS: 36415; 71045; 80053; 82550; 83605; 83735; 85025; 87040; 87502; 87635; 87651; 99283

== ENCOUNTER 2022-12-08 18:10 | Emergency (ER) | payer MEDICARE, MEDICAID, SELFPAY ==
--- NOTE | ~2022-12-08 | CT_ITS ---
EXAMINATION: CT SOFT TISSUE NECK WITHOUT CONTRAST CLINICAL INFORMATION: Left-sided mass COMPARISON: None available. TECHNIQUE: Helical imaging was performed in the axial plane with generation of coronal and sagittal reformatted images. This CT examination was performed using dose optimization techniques as appropriate, variously including the following: *Automated exposure control *Adjustment of mA and/or kV according to patient size (this includes techniques or standardized protocols for targeted exams where dose is matched to indication/reason for exam; i.e. extremities or head) *Use of iterative reconstruction technique DLP: 408 mGy-cm FINDINGS: There are numerous bilateral abnormal neck lymph nodes left greater than the right. The largest left submandibular lymph node measures 1 cm and right submandibular lymph node measures 2 cm in length. Also visualized are numerous bilateral posterior neck lymph nodes as well. Visualized bilateral parotid and submandibular glands are symmetrical and normal. The nasal cavity and nasopharyngeal airway and oropharyngeal airway is widely patent. The pharynx is symmetric and normal. No pharyngeal mass or abscess suspected. The oral cavity, the floor of the posterior tongue appears unremarkable however limited due to lack of IV contrast. The maxillofacial bones and the soft tissues are normal. Bilateral mandibular condyles are symmetric and normal. The mandible is unremarkable. There are small bilateral periapical lucencies along the lower and upper teeth without buckle or alveolar soft tissue swelling. Dental amalgam artifact limits anterior oral cavity evaluation. The thyroid lobes are symmetrical and normal. There is prominent anterior mediastinal soft tissue density likely residual thymus. The airways widely patent the lung apices are clear. CT/CT soft tissue neck wo IV con IMPRESSION: Bilateral abnormal neck lymphadenopathy.. The lymph nodes are more prominent and numerous on the left. Also visualized is bilateral neck lymphadenopathy as well. Differential diagnoses includes inflammatory or infectious etiology. There is no tonsillar hypertrophy, abscess or mass. However the exam is limited due to lack of IV contrast.
[2022-12-08 18:14] VITALS: BP 112/62; PULSE 75; RESP 16; TEMP 36.1; O2SAT 96; BMI 23.7
[2022-12-08 18:37] LABS: MANUAL DIFF FLAG NO
[2022-12-08 18:39] LABS: Basophils Percent Auto 0.5 % (0-2); Eosinophils Absolute Auto 0.1 X10*3/uL (0.0-0.4); Eosinophils Percent Auto 0.8 % (0-4); Hematocrit 35.6 % (42.0-52.0); Hemoglobin 11.6 g/dl (14.0-18.0); Imm Gran Abs Auto 0.02 X10*3/uL (0.00-0.03); Imm Gran Pct Auto 0.3 % (0.0-0.4); Lymphocytes Percent Auto 32.5 % (20-40); Mean Corpuscular HGB Conc 32.6 g/dl (31.0-36.0); Mean Corpuscular Hemoglobin 28.2 pg (27.0-33.0); Mean Corpuscular Volume 86.4 fL (80.0-98.0); Mean Platelet Volume 9.6 fL (9.4-12.4); Monocytes Absolute Auto 0.3 X10*3/uL (0.1-1.2); Monocytes Percent Auto 5.2 % (2-11); Neutrophils Absolute Auto 3.6 x10*3/uL (2.0-8.3); Neutrophils Percent Auto 60.7 % (45-73); Platelet Count 342 X10*3/uL (160-400); Red Blood Count 4.12 X10*6/uL (4.60-5.80); Red Cell Distribution Width 13.5 % (11.0-16.0)
[2022-12-08 18:52] LABS: Anion Gap 12 (12-20); Blood Urea Nitrogen 8 mg/dL (9-16); C Reactive Protein 0.82 mg/dL (< or = 0.50); Calcium 9.6 mg/dL (8.4-10.2); Carbon Dioxide 25 mmol/L (22-29); Chloride 107 mmol/L (96-108); Creatinine Clr Calc Pharmacy 119.8; Estimated Glomerular Filt Rate > 60; Glucose Random 92 mg/dL (60-115); Potassium 3.8 mmol/L (3.3-5.1); Sodium 140 mmol/L (135-145)
[2022-12-08 19:01] LABS: COVID-19 Test Negative (Negative); IDNOW Serial# 55D5AD1C
[2022-12-08 19:23] LABS: Erythrocyte Sedimentation Rate 19 MM/HR (0-15)
--- NOTE | 2022-12-08 21:34 | ED_ITS ---
HPI - Skin/Abscess/Foreign Bdy General Chief complaint: Skin/Abscess/Foreign Body Stated complaint: Abscess on left side of neck/ missed dose of med Time Seen by Provider: 12/08/22 21:21 Source: patient and RN notes reviewed Mode of arrival: ambulatory Limitations: no limitations History of Present Illness HPI narrative: This is a 32-year-old male with a past medical history of polysubstance abuse, asthma, and bipolar disorder, presenting to the emergency department with complaints of left neck abscess and wanting to seek detox for cocaine and opioids. Patient reports that he noticed a red area on the left side of his neck which has been increasing in size and he attempted to drain this area. Patient admits that he does inject drugs into his neck occasionally, but states that he has never injected in the left side of his neck.. He admits to having some chills, no fevers. No chest pain, shortness of breath, nausea, vomiting, or diarrhea. He is currently on penicillin for strep throat which he has been taking - sore throat has improved. No other complaints or concerns at this time. MD complaint: abscess/boil Tetanus up to date: yes Location: neck Severity: moderate Quality: aching Pain Consistency: constant Relieving factors: none Exacerbating factors: none Context: none Associated symptoms: chills Treatments prior to arrival: attempted to drain pus at home Related Data Home Medications Medication Instructions Recorded Confirmed ferrous sulfate 325 mg (65 mg 1 tab PO 3XW 03/30/22 03/30/22 iron) tablet methadone 10 mg/mL oral concentrate 62 mg PO DAILY 03/30/22 03/30/22 Previous Rx's Medication Instructions Recorded albuterol sulfate 90 mcg/actuation 1 inh inhalation QID PRN shortness 12/01/22 aerosol inhaler of breath or wheezing #8.5 grams ondansetron 4 mg disintegrating 4 mg PO Q8H 3 days #9 tabs 12/01/22 tablet penicillin V potassium 500 mg 500 mg PO BID 10 days #20 tabs 12/01/22 tablet cephalexin 500 mg capsule 500 mg PO QID 5 days #20 caps 12/09/22 doxycycline hyclate 100 mg tablet 100 mg PO BID 7 days #14 tabs 12/09/22 Allergies Allergy/AdvReac Type Severity Reaction Status Date / Time risperidone Allergy Severe Angioedema Verified 06/24/23 18:13 Review of Systems Review of Systems: Constitutional: No Weight loss, No Fever, No Chills, No Night Sweats, No F atigue, No Malaise ENT/Mouth: No Hearing loss, No Ear Pain, No Nasal Congestion, No Sinus Pain, No Hoarseness, No sore throat, No Rhinorrhea, No Swallowing Difficulty Eyes: No Eye Pain, No Swelling, No Redness, No Foreign Body, No Discharge, No Vision Changes Cardiovascular: No Chest Pain, No SOB, No Dyspnea on Exertion, No Orthopnea, No Edema, No Palpitations Respiratory: No Cough, No Sputum, No Wheezing, No Smoke Exposure, No Dyspnea Gastrointestinal: No Nausea, No Vomiting, No Diarrhea, No Constipation, No Abdominal pain, No Hematochezia, No Melena Genitourinary: No irregular bleeding, No Dysuria, No Urinary Frequency, No Hematuria, No Urinary Incontinence/retention, No Urgency, No Flank Pain, No Urinary Flow Changes, No Hesitancy Musculoskeletal: No joint pain, No Myalgias, No Joint Swelling Skin: + Skin Lesions, No rash Neuro: No Weakness, No Numbness, No Paresthesias, No Loss of Consciousness, No Dizziness, No Headache Psych: No Anxiety/Panic, No Depression, No SI/HI/AH/VH, No Social Issues, Heme/Lymph: No Bruising, No Bleeding,No Lymphadenopathy Endocrine: No Polyuria, No Polydipsia, No Temperature Intolerance Yes all other systems are reviewed and are negative Constitutional: Constitutional: Reports as per [facility] Past Medical History Medical History Active substance abuse Cellulitis Social History Social History Household Members: None and Other Household Members Other:: Homeless Housing: Other Housing Other:: Homeless Do you presently have visiting nurse or other home services: No Alcohol intake: current Alcohol intake frequency: a few times a month Patient Tobacco Use Status: Never used Tobacco Substance Use Type: Crack/Cocaine and Methamphetamine Advance Directives: No Advance Directives Information Provided: No service: No Sexual orientation: Straight/Heterosexual Physical Exam Vital Signs: Vital Signs: Last Vital Signs Temp 97.8 F 12/08/22 21:49 Pulse 74 12/08/22 21:49 Resp 18 12/08/22 21:49 BP 118/64 12/08/22 21:49 Pulse Ox 98 12/08/22 21:49 O2 Del Method Room Air 12/08/22 21:49 BMI result Body Mass Index 23.7 Const: General: cooperative, comfortable and no acute distress Orientation/consciousness: patient oriented x3 Limitations: no limitations HEENT: Head: Yes normal to inspection, Yes normocephalic and Yes atraumatic Ears: hearing grossly normal bilaterally General nose exam: Normal external nose present Face and sinus: Yes normal facial exam Mouth: Normal oral and palatal mucosa present, oropharynx normal and moist mucous membranes Throat: Yes posterior oropharynx normal Eyes: General: appearance normal, both eyes and all related structures Eyelids: Yes eyelids normal Conjunctivae: conjunctivae normal Sclerae: sclerae normal Pupils: Equal, round and reactive pupils present EOM: EOMs intact bilaterally Neck: Neck: Yes full ROM and Yes no lymphadenopathy Lymphatic: no lymphadenopathy noted Chest: Chest palpation & inspection: normal inspection of the chest Resp: Effort & Inspection: normal respiratory effort and able to speak in complete sentences Auscultation: clear to auscultation bilaterally, no crackles, no rales, no rhonchi and no wheezes Cardio: Rate: regular rate Rhythm: regular rhythm Heart sounds: S1 normal heart sound present and S2 normal heart sound present GI: Inspection: Yes normal to inspection Skin: Other: Left lateral neck, with 2cm circular indurated area with central purulence and drainage noted. No fluctuance noted. No surrounding erythema or edema noted. General skin exam: no rashes or lesions noted Trauma: no lacerations or abrasions Neuro: General: patient oriented x3 and moves all extremities Cranial nerves: Yes Equal, round and reactive pupils present Extrem: General: Yes normal to inspection Right upper extremity: normal to inspection Left upper extremity: normal to inspection Right lower extremity: normal to inspection Left lower extremity: normal to inspection Course Reevaluation(s) Reevaluation #1: Pt seen and evaluated by attending Dr. Gonzalez, who performed bedside ultrasound. Ultrasound revealing abscess is superficial. Patient will be discharged with MRSA coverage and treated for abscess with Keflex and doxycycline. Advised to complete the full course. Patient also given detox resources. Patient requesting methadone dosing as he missed his dose this morning. They were unable to verify his dose, patient advised to follow up with methadone clinic in the morning. Patient understands and agrees with plan. Patient stable for discharge. Time: 00:08 Medications Administered Discontinued Medications Generic Name Dose Route Start Last Admin Trade Name Sia PRN Reason Stop Dose Admin Cephalexin HCl 500 mg 12/09/22 01:22 12/09/22 02:01 Cephalexin 500 Mg Capsule PO 12/09/22 01:23 500 mg ONCE ONE Administration Doxycycline Monohydrate 100 mg 12/09/22 01:22 12/09/22 02:01 Doxycycline Monohydrate 100 Mg Capsule PO 12/09/22 01:23 100 mg ONCE ONE Administration Medical Decision Making Medical Decision Making [facility] Narrative: This is a [id number]-male, with a history of polysubstance abuse, bipolar disorder and asthma, presenting to the emergency department for evaluation left neck abscess x3 days and seeking detox. Vital signs stable, patient is afebrile. Left neck with 3 cm open, indurated abscess noted to the L side of the neck. No surrounding erythema or edema. No C-spine tenderness elicited on examination, no surrounding lymphadenopathy. Abscess seems to be superficial. Patient is currently on penicillin for strep pharyngitis diagnosed on December 01, 2022. Discussed case with attending physician, obtained soft tissue neck CT revealing no obvious fluid collection some scant lymphadenopathy. Vital signs stable Differential Diagnosis Differential Diagnoses: The differential diagnosis associated with the presentation includes Abscess, cellulitis, necrosis, polysubstance abuse Lab Data [facility] Lab Attestation statement: I reviewed the patient's lab results. No leukocytosis, ESR elevated at 19. 12/08/22 18:28 12/08/22 18:28 Labs: Lab Results 12/08/22 12/08/22 12/08/22 Range/Units 18:28 18:28 18:28 WBC 6.0 (4.8-10.8) X10*3/uL RBC 4.12 L (4.60-5.80) X10*6/uL Hgb 11.6 L (14.0-18.0) g/dl Hct 35.6 L (42.0-52.0) % MCV 86.4 (80.0-98.0) fL MCH 28.2 (27.0-33.0) pg MCHC 32.6 (31.0-36.0) g/dl RDW 13.5 (11.0-16.0) % Plt Count 342 D (160-400) X10*3/uL MPV 9.6 (9.4-12.4) fL Immature Gran % (Auto) 0.3 (0.0-0.4) % Neut % (Auto) 60.7 (45-73) % Lymph % (Auto) 32.5 (20-40) % Meigs % (Auto) 5.2 (2-11) % Eos % (Auto) 0.8 (0-4) % Baso % (Auto) 0.5 (0-2) % Lymph # (Auto) 2.0 (1.2-4.9) X10*3/uL Meigs # (Auto) 0.3 (0.1-1.2) X10*3/uL Eos # (Auto) 0.1 (0.0-0.4) X10*3/uL Baso # (Auto) 0.0 (0.0-0.2) X10*3/uL Abs Immat Gran (auto) 0.02 (0.00-0.03) X10*3/uL Absolute Neuts (auto) 3.6 (2.0-8.3) x10*3/uL Absolute Nucleated RBC 0.000 (0.0-0.012) X10*3/uL Nucleated RBC % (auto) 0.0 (0.0-0.2) /100WBC ESR (0-15) MM/HR Sodium 140 (135-145) mmol/L Potassium 3.8 (3.3-5.1) mmol/L Chloride 107 (96-108) mmol/L Carbon Dioxide 25 (22-29) mmol/L Anion Gap 12 (12-20) BUN 8 L (9-16) mg/dL Creatinine 0.77 (0.5-1.4) mg/dL Estim Creat Clear Calc 119.8 Estimated GFR > 60 Random Glucose 92 (60-115) mg/dL Calcium 9.6 D (8.4-10.2) mg/dL C-Reactive Protein 0.82 H (< or = 0.50) mg/dL Urine Opiates Screen (Not Detect) Urine Fentanyl Screen (Not Detect) Ur Barbiturates Screen (Not Detect) Ur Phencyclidine Scrn (Not Detect) Ur Amphetamines Screen (Not Detect) U Benzodiazepines Scrn (Not Detect) Urine Cocaine Screen (Not Detect) U Marijuana (THC) Screen (Not Detect) COVID-19 (DORITA) Negative (Negative) COVID-19 Clin Com See Note 12/08/22 12/08/22 Range/Units 18:28 21:39 WBC (4.8-10.8) X10*3/uL RBC (4.60-5.80) X10*6/uL Hgb (14.0-18.0) g/dl Hct (42.0-52.0) % MCV (80.0-98.0) fL MCH (27.0-33.0) pg MCHC (31.0-36.0) g/dl RDW (11.0-16.0) % Plt Count (160-400) X10*3/uL MPV (9.4-12.4) fL Immature Gran % (Auto) (0.0-0.4) % Neut % (Auto) (45-73) % Lymph % (Auto) (20-40) % Meigs % (Auto) (2-11) % Eos % (Auto) (0-4) % Baso % (Auto) (0-2) % Lymph # (Auto) (1.2-4.9) X10*3/uL Meigs # (Auto) (0.1-1.2) X10*3/uL Eos # (Auto) (0.0-0.4) X10*3/uL Baso # (Auto) (0.0-0.2) X10*3/uL Abs Immat Gran (auto) (0.00-0.03) X10*3/uL Absolute Neuts (auto) (2.0-8.3) x10*3/uL Absolute Nucleated RBC (0.0-0.012) X10*3/uL Nucleated RBC % (auto) (0.0-0.2) /100WBC ESR 19 H (0-15) MM/HR Sodium (135-145) mmol/L Potassium (3.3-5.1) mmol/L Chloride (96-108) mmol/L Carbon Dioxide (22-29) mmol/L Anion Gap (12-20) BUN (9-16) mg/dL Creatinine (0.5-1.4) mg/dL Estim Creat Clear Calc Estimated GFR Random Glucose (60-115) mg/dL Calcium (8.4-10.2) mg/dL C-Reactive Protein (< or = 0.50) mg/dL Urine Opiates Screen Not Detected (Not Detect) Urine Fentanyl Screen POSITIVE H (Not Detect) Ur Barbiturates Screen Not Detected (Not Detect) Ur Phencyclidine Scrn Not Detected (Not Detect) Ur Amphetamines Screen Not Detected (Not Detect) U Benzodiazepines Scrn Not Detected (Not Detect) Urine Cocaine Screen POSITIVE H (Not Detect) U Marijuana (THC) Screen Not Detected (Not Detect) COVID-19 (DORITA) (Negative) COVID-19 Clin Com Radiology Impression Discussion of test interpretation with radiology: I have reviewed the radiologist's reading. Radiologist Impression: EXAMINATION: CT SOFT TISSUE NECK WITHOUT CONTRAST CLINICAL INFORMATION: Left-sided mass? COMPARISON: None available.? ? TECHNIQUE: Helical imaging was performed in the axial plane with generation of coronal and sagittal reformatted images. This CT examination was performed using dose optimization techniques as appropriate, variously including the following: *Automated exposure control *Adjustment of mA and/or kV according to patient size (this includes techniques or standardized protocols for targeted exams where dose is matched to indication/reason for exam; i.e. extremities or head) *Use of iterative reconstruction technique DLP: 408 mGy-cm FINDINGS: There are numerous bilateral abnormal neck lymph nodes left greater than the right. The largest left submandibular lymph node measures 1 cm and right submandibular lymph node measures 2 cm in length. Also visualized are numerous bilateral posterior neck lymph nodes as well. Visualized bilateral parotid and submandibular glands are symmetrical and normal. The nasal cavity and nasopharyngeal airway and oropharyngeal airway is widely patent. The pharynx is symmetric and normal. No pharyngeal mass or abscess suspected. The oral cavity, the floor of the posterior tongue appears unremarkable however limited due to lack of IV contrast. The maxillofacial bones and the soft tissues are normal. Bilateral mandibular condyles are symmetric and normal. The mandible is unremarkable. There are small bilateral periapical lucencies along the lower and upper teeth without buckle or alveolar soft tissue swelling. Dental amalgam artifact limits anterior oral cavity evaluation. The thyroid lobes are symmetrical and normal. There is prominent anterior mediastinal soft tissue density likely residual thymus. The airways widely patent the lung apices are clear. CT/CT soft tissue neck wo IV con IMPRESSION: Bilateral abnormal neck lymphadenopathy.. The lymph nodes are more prominent and numerous on the left. Also visualized is bilateral neck lymphadenopathy as well. Differential diagnoses includes inflammatory or infectious etiology. ? There is no tonsillar hypertrophy, abscess or mass. However the exam is limited due to lack of IV contrast. Dictated By: Junior Gomez MD Signed By: <Electronically signed by Junior Gomez MD in OV> 12/08/222333 DD/ 13 TD/TT:? 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 Complete full course even if you are feeeling better. Warm compresses to the area will help. Watch for any signs of infection, fevers, chills, increased redness, swelling. Return with these symptoms or any other concerning symptoms. Drink plenty of fluids and get plenty of rest. Stop using cocaine and opiates as this will kill you. Follow up with your primary care physician. Prescriptions: New doxycycline hyclate 100 mg tablet 100 mg PO BID 7 Days Qty: 14 0RF cephalexin 500 mg capsule 500 mg PO QID 5 Days Qty: 20 0RF No Action ferrous sulfate 325 mg (65 mg iron) tablet 1 tab PO 3XW methadone 10 mg/mL Concentrate 62 mg PO DAILY penicillin V potassium 500 mg tablet 500 mg PO BID 10 Days Qty: 20 0RF ondansetron 4 mg tablet,disintegrating 4 mg PO Q8H 3 Days Qty: 9 0RF albuterol sulfate 90 mcg/actuation HFA aerosol inhaler 1 inh inhalation QID PRN (Reason: shortness of breath or wheezing) Qty: 8.5 0RF Interventions: ED Discharge Assessment Last Done: 12/09/22 02:04 Discharge Date/Time: 12/09/22 02:05
[2022-12-08 21:49] VITALS: BP 118/64; PULSE 74; RESP 18; TEMP 36.6; O2SAT 98
[2022-12-08 21:58] LABS: Amphetamine Screen Urine Not Detected (Not Detect); Barbiturates, Urine Not Detected (Not Detect); Benzodiazepines Screen Urine Not Detected (Not Detect); Cannabinoid Screen Urine Not Detected (Not Detect); Cocaine Screen Urine POSITIVE (Not Detect); Fentanyl, urine POSITIVE (Not Detect); Opiate Screen Urine Not Detected (Not Detect); Phencyclidine Screen Urine Not Detected (Not Detect)
--- NOTE | 2022-12-08 23:13 | PC.NURSE ---
Addendum entered by Kirstin Kirkland RN 12/08/22 23:27: Correction: Pt does not have confirmed abscess but has a mass on the left side of his neck. Original Note: Pt resting in bed at this time, requesting crackers and a sandwich. Pt A&Ox4, GCS 15. Pt reports minimal pain in his neck, where there is an abscess. Pt reports he missed his methadone dose today, states his dose is 70 mg. He goes to the [facility] clinic on [facility] in [place].
[2022-12-09] MEDS: Doxycycline Monohydrate 100 MG CAPSULE PO (02:01)
[2022-12-09] MEDS: cephALEXin 500 MG CAPSULE PO (02:01)
== END 2022-12-09 02:05 | disposition home or self-care (01) ==
PROVIDERS: Emergency Provider Internal Medicine
DX: L02.11 Cutaneous abscess of neck (principal); Z20.822 Contact with and (suspected) exposure to COVID-19; F19.10 Other psychoactive substance abuse, uncomplicated; F11.20 Opioid dependence, uncomplicated; F31.9 Bipolar disorder, unspecified; Z59.00 Homelessness unspecified; Z79.899 Other long term (current) drug therapy
CPT/HCPCS: 36415; 70490; 80048; 80307; 85025; 85652; 86140; 87635; 99284

== ENCOUNTER 2022-12-09 11:12 | Emergency (ER) | payer MEDICARE, MEDICAID, SELFPAY ==
[2022-12-09 11:17] VITALS: BP 114/67; PULSE 54; RESP 16; TEMP 36.3; O2SAT 97; BMI 24.4
--- NOTE | 2022-12-09 11:17 | ED.GENADULT ---
HPI - General Adult General Chief complaint: General Medical Stated complaint: med refill + detox Time Seen by Provider: 12/09/22 12:02 History of Present Illness HPI narrative: patient here today with the complaint that he is seeking detox from opiates and he missed his appointment for methadone and is requesting his daily methadone dose of 70 mg He was seen here yesterday for a skin infection and had antibiotics prescribed but he has not picked them up, he denies any fever chills he denies any worsening of the skin infection on his neck Related Data Home Medications Medication Instructions Recorded Confirmed ferrous sulfate 325 mg (65 mg 1 tab PO 3XW 03/30/22 03/30/22 iron) tablet methadone 10 mg/mL oral concentrate 62 mg PO DAILY 03/30/22 03/30/22 Previous Rx's Medication Instructions Recorded albuterol sulfate 90 mcg/actuation 1 inh inhalation QID PRN shortness 12/01/22 aerosol inhaler of breath or wheezing #8.5 grams ondansetron 4 mg disintegrating 4 mg PO Q8H 3 days #9 tabs 12/01/22 tablet penicillin V potassium 500 mg 500 mg PO BID 10 days #20 tabs 12/01/22 tablet cephalexin 500 mg capsule 500 mg PO QID 5 days #20 caps 12/09/22 doxycycline hyclate 100 mg tablet 100 mg PO BID 7 days #14 tabs 12/09/22 Allergies Allergy/AdvReac Type Severity Reaction Status Date / Time risperidone Allergy Severe Angioedema Verified 12/08/22 18:13 [facility], [facility] Past Medical History Source: nursing notes reviewed Medical History Active substance abuse Cellulitis Social History Social History Household Members: None and Other Household Members Other:: Homeless Housing: Other Housing Other:: Homeless Do you presently have visiting nurse or other home services: No Alcohol intake: current Alcohol intake frequency: a few times a month Patient Tobacco Use Status: Never used Tobacco Substance Use Type: Crack/Cocaine and Methamphetamine Advance Directives: No Advance Directives Information Provided: No service: No Sexual orientation: Straight/Heterosexual Physical Exam ED Vital Signs: Vital Signs - 24 hr 12/09/22 11:17 Temperature 97.4 F Pulse Rate 54 Respiratory Rate 16 Blood Pressure 114/67 Pulse Oximetry 97 Oxygen Delivery Method Room Air BMI result Body Mass Index 24.4 general appearance is no distress comfortable relax cooperative The neck is supple The skin of the neck on the left side has a 2 cm area of redness and induration, no fluctuance no drainage, no other surrounding erythema Chest is clear to auscultation bilateral Extremities range of motion x4 Course Course Course Narrative: This is an RME: Additional HPI, ROS, PE not included below will be deferred to primary provider. Patient is a 32-year-old male presents to the emergency department for methadone dosing. Goes to [facility] clinic at [facility] in [place]. Patient states that typically he does not go to the clinic on Sundays on Saturday he gets a take home dosing. However, he was unable to receive his dosing yesterday from the clinic as he did not have transportation. Reports last methadone dosing 2 days ago, 12/07/2022; 70 mg. He is requesting detox, last used yesterday morning; cocaine and opiates. plan: placed in pending bed availability a plan was made by social Work to place patient in a detox, but he changed his mind did not want ago and says he will walk clear tomorrow He did get 30 mg of methadone here but we could not confirm his claim of 70 mg He was given a dose of his antibiotics for his neck cellulitis and says he will go to the pharmacy and picker/puller his prescription Discharge Plan Discharge Clinical Impression: Opiate dependence Patient Disposition: Home, Self-Care Additional Instructions: we gave a dose of 30 mg of methadone a we culd not confirm the actual daily dose as your clinic is closed You did not want to go to detox today but said you had a plan to go tomorrow so hopefully will go to detox Your antibiotics are waiting at your pharmacy for the skin infection on her neck, so pickup your antibiotics You can return any time if you think the neck infection is getting worse or for any condition or concerns Prescriptions: No Action ferrous sulfate 325 mg (65 mg iron) tablet 1 tab PO 3XW methadone 10 mg/mL Concentrate 62 mg PO DAILY penicillin V potassium 500 mg tablet 500 mg PO BID 10 Days Qty: 20 0RF ondansetron 4 mg tablet,disintegrating 4 mg PO Q8H 3 Days Qty: 9 0RF albuterol sulfate 90 mcg/actuation HFA aerosol inhaler 1 inh inhalation QID PRN (Reason: shortness of breath or wheezing) Qty: 8.5 0RF doxycycline hyclate 100 mg tablet 100 mg PO BID 7 Days Qty: 14 0RF cephalexin 500 mg capsule 500 mg PO QID 5 Days Qty: 20 0RF
--- NOTE | 2022-12-09 12:20 | MHC.RECOVRN ---
Pts referral sent to [facility]. Awaiting notification on bed availability.
--- NOTE | 2022-12-09 12:51 | PC.NURSE ---
ATTEMPTING TO VERIFY MTD DOSE. DIGNED CHRYSTAL SENT TO [phone]
--- NOTE | 2022-12-09 14:17 | MHC.RECOVRN ---
Pt presented to [facility] ED to obtain methadone dose after not receiving it yesterday or today. Per pt report, he last received 70 mg methadone from [facility] on Saturday, 12/07. Pt reports last heroin use yesterday morning, 1 bag. Reports amount has significantly decreased since methadone initiation. Pt currently experiencing withdrawal including body aches and diaphoresis. Per [facility] records, last dose given here was on 10/31, 50 mg. Pts RN as well as t/w have attempted to obtain last dose information unsuccessfully. Discussed with Sandra Quezada APRN, as well as ED provider. Plan to administer 30 mg methadone. Pt interested in [facility], currently completing phone screen with [facility].
--- NOTE | 2022-12-09 14:57 | MHC.RECOVRN ---
Pt declined ATS bed due to not being able to receive full methadone dose today. Pt states I'm going to be sick all night. I'm going to the clinic in the morning and then can walk in to [facility]. Plan to dc after 30 mg methadone administered. Provider and RN aware.
--- NOTE | 2022-12-09 15:04 | ED_ITS ---
HPI - General Adult General Chief complaint: General Medical Stated complaint: med refill + detox Time Seen by Provider: 12/09/22 12:02 History of Present Illness HPI narrative: \ this patient already has a completed charged for this visit this day Related Data Home Medications Medication Instructions Recorded Confirmed ferrous sulfate 325 mg (65 mg 1 tab PO 3XW 03/30/22 03/30/22 iron) tablet methadone 10 mg/mL oral concentrate 62 mg PO DAILY 03/30/22 03/30/22 Previous Rx's Medication Instructions Recorded albuterol sulfate 90 mcg/actuation 1 inh inhalation QID PRN shortness 12/01/22 aerosol inhaler of breath or wheezing #8.5 grams ondansetron 4 mg disintegrating 4 mg PO Q8H 3 days #9 tabs 12/01/22 tablet penicillin V potassium 500 mg 500 mg PO BID 10 days #20 tabs 12/01/22 tablet cephalexin 500 mg capsule 500 mg PO QID 5 days #20 caps 12/09/22 doxycycline hyclate 100 mg tablet 100 mg PO BID 7 days #14 tabs 12/09/22 Allergies Allergy/AdvReac Type Severity Reaction Status Date / Time risperidone Allergy Severe Angioedema Verified 12/08/22 18:13 [facility] Past Medical History Medical History Active substance abuse Cellulitis Social History Social History Household Members: None and Other Household Members Other:: Homeless Housing: Other Housing Other:: Homeless Do you presently have visiting nurse or other home services: No Alcohol intake: current Alcohol intake frequency: a few times a month Patient Tobacco Use Status: Never used Tobacco Substance Use Type: Crack/Cocaine and Methamphetamine Advance Directives: No Advance Directives Information Provided: No service: No Sexual orientation: Straight/Heterosexual Physical Exam ED Vital Signs: Vital Signs - 24 hr 12/09/22 11:17 Temperature 97.4 F Pulse Rate 54 Respiratory Rate 16 Blood Pressure 114/67 Pulse Oximetry 97 Oxygen Delivery Method Room Air BMI result Body Mass Index 24.4 Discharge Plan Discharge Clinical Impression: Opiate dependence Patient Disposition: Home, Self-Care Additional Instructions: we gave a dose of 30 mg of methadone a we culd not confirm the actual daily dose as your clinic is closed You did not want to go to detox today but said you had a plan to go tomorrow so hopefully will go to detox Your antibiotics are waiting at your pharmacy for the skin infection on her neck, so pickup your antibiotics You can return any time if you think the neck infection is getting worse or for any condition or concerns Prescriptions: No Action ferrous sulfate 325 mg (65 mg iron) tablet 1 tab PO 3XW methadone 10 mg/mL Concentrate 62 mg PO DAILY penicillin V potassium 500 mg tablet 500 mg PO BID 10 Days Qty: 20 0RF ondansetron 4 mg tablet,disintegrating 4 mg PO Q8H 3 Days Qty: 9 0RF albuterol sulfate 90 mcg/actuation HFA aerosol inhaler 1 inh inhalation QID PRN (Reason: shortness of breath or wheezing) Qty: 8.5 0RF doxycycline hyclate 100 mg tablet 100 mg PO BID 7 Days Qty: 14 0RF cephalexin 500 mg capsule 500 mg PO QID 5 Days Qty: 20 0RF
[2022-12-09] MEDS: Doxycycline Monohydrate 100 MG CAPSULE PO (15:21)
[2022-12-09] MEDS: methADONE HCl 20 MG/2 ML ORAL.CONC 30 MG PO (15:21)
[2022-12-09] MEDS: cephALEXin 500 MG CAPSULE PO (15:21)
[2022-12-09 15:23] VITALS: BP 106/62; PULSE 78; RESP 16; TEMP 35.8; O2SAT 100
== END 2022-12-09 15:31 | disposition home or self-care (01) ==
PROVIDERS: Emergency Provider Emergency Medicine
DX: F11.20 Opioid dependence, uncomplicated (principal); Z76.0 Encounter for issue of repeat prescription; F14.10 Cocaine abuse, uncomplicated; Z71.51 Drug abuse counseling and surveillance of drug abuser; Z79.899 Other long term (current) drug therapy
CPT/HCPCS: 99283; 99284

== ENCOUNTER 2022-12-20 23:34 | Inpatient (IN) | payer MEDICARE, MEDICAID, SELFPAY ==
[2022-12-21 01:09] VITALS: BP 136/79; PULSE 60; RESP 16; TEMP 36.6; O2SAT 99; BMI 22.7
--- NOTE | 2022-12-21 02:51 | PC.ADMIT ---
Dougie Stockton is a 32yo male, admitted to the unit at 2350 from [facility] on CV for treatment of MDD and substance abuse disorder. He has history of SI, medication non-adherence and multi-substance use disorder[cocaine and heroine] but denied drinking alcohol. He reported hallucinating, paranoia and feeling suicidal on and off. Pt was calm and cooperative but nodding off to sleep during admission process. He stated being homeless and acknowledge being admitted twice on [facility] [place] [facility] [place] last admission was year 2021. His mood is depressed and affect is anxious. He denied HI, but having AVH and SI sometimes. He confess being asthmatic with attack occurring some days ago. He claimed eating well but loss some Wt and having difficulty sleeping at times because [place] [address] Care plan initiated and hospitalist informed for consultation.
--- NOTE | 2022-12-21 08:33 | HE.PHANOTE ---
Re: methadone verification last dose 66 mg given at [facility] on 12/20/22 @1107 verified by Tessie Porter RN
--- NOTE | 2022-12-21 08:34 | PC.NURSE ---
Spoke with Evy JHAVERI at [facility], pt received 66mg Methadone 12/20/22 at 1107, Dr. Perdue aware.
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
[2022-12-21] MEDS: methADONE HCl 20 MG/2 ML ORAL.CONC 66 MG PO (08:58)
[2022-12-21 09:05] VITALS: BP 133/83; PULSE 76; TEMP 36.4; O2SAT 99
--- NOTE | 2022-12-21 12:15 | HO.PM.IMCN ---
History of Present Illness Data of Consult Service Date: 12/21/22 Primary Care Provider: Unknown Physician HPI Reason for consult: Admission H&P Pt is a 32-year-old male with a PMH significant for?asthma, polysubstance abuse, and bipolar disorder who is admitted to M3 psychiatry unit for increasing paranoia, SI, and hallucinations. Medical consult for admission H&P. ?Patient with long history of polysubstance use disorder on methadone, reports that he has been smoking heroin on top of his methadone. Patient received methadone today in-hospital, but reports mild withdrawal symptoms: Diaphoresis, goose bumps, and nausea on and, feeling tired and overall just not feeling very well. Patient otherwise has no acute medical complaints at this time. Review of Systems Review of Systems: Mild withdrawal symptoms: Diaphoresis, chills, nausea on and off Fatigue Denies chest pain/pressure No shortness of breath Denies abdominal pain Change in bowel or bladder habits Yes all other systems are reviewed and are negative [facility] Medical History Active substance abuse Cellulitis Social History Household Members: None Household Members Other:: Homeless Housing: Homeless Housing Other:: Homeless Do you presently have visiting nurse or other home services: No Alcohol intake: current Alcohol intake frequency: a few times a month Patient Tobacco Use Status: Never used Tobacco Smoked in Last 30 Days: No e-Cigarette/Vaping Use: Never Used Patient Given Instructions on How to Stop Smoking: No Second Hand Smoke Exposure: No Use of substances other than those prescribed or required for medical reasons: Yes Substance Use Type: Crack/Cocaine and Heroin Substance Use Frequency: Daily Last Used Substance: Days (ago) Currently Displaying Signs/Symptoms of Drug Intoxication Withdrawal: No Any prior treatment program specific to substance use: Yes (Methadone clinic) Have you been hit, kicked, punched, or otherwise hurt by someone within the past year? If so, by whom?: No Do you feel safe in your current relationship?: No Current Relationship Is there a partner from a previous relationship who is making you feel unsafe now?: No Are you made to feel afraid or neglected: No Advance Directives: No Advance Directives Information Provided: No Do you have thoughts of harming others: None Do you have a plan to hurt others: No Plan Recently lost weight without trying: Yes How much weight loss: 34pounds or more Eating poorly because of decreased appetite: No Nutrition screen score: 6 Nutrition Risks: No Nutritional Risk Poor oral hygiene: No service: No Sexual orientation: Straight/Heterosexual Meds Allergies Allergy/AdvReac Type Severity Reaction Status Date / Time risperidone Allergy Severe Angioedema Verified 12/08/22 18:13 Active Medications: Current Medications Acetaminophen (Acetaminophen 325 Mg Tablet) 650 mg PO Q6H PRN PRN Reason: Headache/Pain Mild Scale (1-3) Al Hydroxide/Mg Hydroxide (Magnesium Hydrox/Alum Hydrox 30 Ml Oral.Susp) 30 ml PO Q6H PRN PRN Reason: Heartburn/Nausea Albuterol Sulfate (Albuterol Sulfate 90 Mcg 8 Gm Inhaler) 1 puff INHALE QID PRN PRN Reason: shortness of breath or wheezing Ferrous Sulfate (Ferrous Sulfate 324 Mg Tablet.Dr) 324 mg PO MoWeFr [facility] Last Admin: 12/21/22 08:51 Dose: Not Given Hydroxyzine HCl (Hydroxyzine Hcl 25 Mg Tablet) 25 mg PO Q6H PRN PRN Reason: Anxiety Magnesium Hydroxide (Milk Of Magnesia 30 Ml Oral.Susp) 30 ml PO DAILY PRN PRN Reason: Constipation Methadone HCl (Methadone Hcl 20 Mg/2 Ml Oral.Conc) 66 mg PO DAILY [facility] Last Admin: 12/21/22 08:58 Dose: 66 mg Nicotine Polacrilex (Nicotine Polacrilex 2 Mg Gum) 4 mg BUCCAL Q2H PRN PRN Reason: nicotine cravings Ondansetron HCl (Ondansetron Odt 4 Mg Tab.Rapdis) 4 mg TRANSLINGU Q8H [facility] Last Admin: 12/21/22 08:58 Dose: 4 mg Trazodone HCl (Trazodone Hcl 50 Mg Tablet) 50 mg PO BEDTIME MRX1 PRN PRN Reason: Insomnia Home Medications Medication Instructions Recorded Confirmed Last Taken Type ferrous sulfate 325 mg (65 mg 1 tab PO 3XW 03/30/22 12/21/22 Unknown History iron) tablet methadone 10 mg/mL oral concentrate 66 mg PO DAILY 03/30/22 12/21/22 12/20/22 11:07 History Physical Exam Vital Signs and Narrative: Vital Signs: Last Vital Signs Temp 97.6 F 12/21/22 09:05 Pulse 76 12/21/22 09:05 Resp 16 12/21/22 01:09 BP 133/83 12/21/22 09:05 Pulse Ox 99 12/21/22 09:05 O2 Del Method Room Air 12/21/22 09:05 BMI result Body Mass Index 22.7 Constitutional: Alert, in no acute distress. Mental Status: Oriented to person, place and time. Eyes: Pupils are equal, round, and reactive to light. Ear, Nose, and Throat: Oropharynx clear, mucous membranes moist. Ears and nose without deformities. Trachea midline. Respiratory: Clear to auscultation bilaterally. No wheezing, rales, or rhonchi. Cardiovascular: S1, S2 regular. No murmurs, rubs, or gallops. Gastrointestinal: Abdomen soft, non-tender, non-distended. Normal bowel sounds. Neurologic: Cranial nerves II-XII are grossly intact bilaterally. No focal neurological deficits. Moves all extremities spontaneously. Skin: No rashes or lesions noted. Musculoskeletal: No cyanosis or clubbing. Extremities: No edema. Psychiatric: Normal mood and affect. Assessment and Plan (1) Routine history and physical examination of adult: Status: Acute Plan Pt is a 32-year-old male with a PMH significant for?asthma, polysubstance abuse, and bipolar disorder who is admitted to M3 psychiatry unit for increasing paranoia, SI, and hallucinations. Medical consult for admission H&P. ?Patient with long history of polysubstance use disorder on methadone, reports that he has been smoking heroin on top of his methadone. Patient received methadone today in-hospital, but reports mild withdrawal symptoms: Diaphoresis, goose bumps, and nausea on and, feeling tired and overall just not feeling very well. Patient otherwise has no acute medical complaints at this time. Mood disorder Plan as per Psychiatry Opioid use disorder Patient reports mild withdrawal symptoms since he has been using on top taking methadone Continue methadone Mild persistent asthma Not in acute exacerbation Continue home inhaler Thank you for allowing us to participate in the care of this patient. Signing off at this time. Please let us know if there are any acute complaints or questions. Time Spent With Patient Time: Total time managing care of this patient today ____ minutes.
[2022-12-21] MEDS: Docusate Sodium 100 MG CAPSULE PO (15:58)
[2022-12-21] MEDS: Gabapentin 100 MG CAPSULE 200 MG PO ×2 (15:58→21:21)
[2022-12-21 21:11] VITALS: BP 131/78; PULSE 61; RESP 18; TEMP 36.7; O2SAT 99
[2022-12-21] MEDS: fluvoxaMINE Maleate 50 MG TABLET PO (21:19)
[2022-12-21] MEDS: QUEtiapine Fumarate 25 MG TABLET PO (21:19)
[2022-12-21] MEDS: cloNIDine HCL 0.1 MG TABLET PO (21:20)
[2022-12-21] MEDS: Dicyclomine HCl 10 MG CAPSULE PO (21:20)
[2022-12-22 06:00] VITALS: BP 97/55; PULSE 46; RESP 18; TEMP 36.8; O2SAT 100
[2022-12-22] MEDS: Gabapentin 100 MG CAPSULE 200 MG PO ×3 (08:35→21:32)
[2022-12-22] MEDS: Docusate Sodium 100 MG CAPSULE PO ×2 (08:35→21:31)
[2022-12-22] MEDS: methADONE HCl 20 MG/2 ML ORAL.CONC 66 MG PO (08:36)
--- NOTE | 2022-12-22 16:34 | HO.PSYCHPN ---
Subjective Subjective Date of Service: 12/22/22 Reason For Visit: PTSD, Major Depressive D/O, recur. severe, Alcohol Interim History: in bed, resting/sleeping. rouses himself minimally, says he is tired. no other concerns. happy with PRNs available to him for withdrawal Sx. isolative. sleeping. withdrawing. slept most of the NOC. Mental Status Exam Mental Status Exam Narrative: Appearance: casually groomed, fair hygiene in NAD Behavior: cooperative psychomotor: no agitation or retardation noted Speech: clear, normal rate/rhythm/volume, spontaneous Thought process: linear Thought content: no signs of psychosis Mood: tired Affect: constricted, normo-intense, non-labile SI:none expressed HI:none expressed VH/AH:none expressed Delusions:none expressed Insight/judgment:fair x 2. Memory/cog: alert, oriented x 3. grossly intact to conversational testing. Diagnostics Vital Signs (24Hr): Vital Signs - 24 hr 12/21/22 21:11 12/22/22 06:00 Temperature 98.0 F 98.2 F Pulse Rate 61 46 L Respiratory Rate 18 18 Blood Pressure 131/78 97/55 L Pulse Oximetry 99 100 Oxygen Delivery Method Room Air Room Air BMI result Body Mass Index 22.7 Medications Medications Current Medications Acetaminophen (Acetaminophen 325 Mg Tablet) 650 mg PO Q6H PRN PRN Reason: Headache/Pain Mild Scale (1-3) Al Hydroxide/Mg Hydroxide (Magnesium Hydrox/Alum Hydrox 30 Ml Oral.Susp) 30 ml PO Q6H PRN PRN Reason: Heartburn/Nausea Albuterol Sulfate (Albuterol Sulfate 90 Mcg 8 Gm Inhaler) 1 puff INHALE QID PRN PRN Reason: shortness of breath or wheezing Clonidine HCl (Clonidine Hcl 0.1 Mg Tablet) 0.1 mg PO TID PRN; Protocol PRN Reason: opioid withdrawal symptoms Last Admin: 12/21/22 21:20 Dose: 0.1 mg Dicyclomine HCl (Dicyclomine Hcl 10 Mg Capsule) 10 mg PO QIDACHS PRN PRN Reason: cramps Last Admin: 12/21/22 21:20 Dose: 10 mg Docusate Sodium (Docusate Sodium 100 Mg Capsule) 100 mg PO BID [place] Last Admin: 12/22/22 08:35 Dose: 100 mg Ferrous Sulfate (Ferrous Sulfate 324 Mg Tablet.Dr) 324 mg PO MoWeFr [facility] Last Admin: 12/21/22 08:51 Dose: Not Given Fluvoxamine Maleate (Fluvoxamine Maleate 50 Mg Tablet) 50 mg PO BEDTIME [facility] Last Admin: 12/21/22 21:19 Dose: 50 mg Gabapentin (Gabapentin 100 Mg Capsule) 200 mg PO TID [facility] Last Admin: 12/22/22 14:32 Dose: 200 mg Hydroxyzine HCl (Hydroxyzine Hcl 25 Mg Tablet) 25 mg PO Q6H PRN PRN Reason: Anxiety Ibuprofen (Ibuprofen 600 Mg Tablet) 600 mg PO Q6H PRN PRN Reason: Pain, Moderate(Pain Scale 4-6) Magnesium Hydroxide (Milk Of Magnesia 30 Ml Oral.Susp) 30 ml PO DAILY PRN PRN Reason: Constipation Methadone HCl (Methadone Hcl 20 Mg/2 Ml Oral.Conc) 66 mg PO DAILY [facility] Last Admin: 12/22/22 08:36 Dose: 66 mg Nicotine Polacrilex (Nicotine Polacrilex 2 Mg Gum) 4 mg BUCCAL Q2H PRN PRN Reason: nicotine cravings Ondansetron HCl (Ondansetron Odt 4 Mg Tab.Rapdis) 4 mg TRANSLINGU Q8H [facility] Last Admin: 12/22/22 14:31 Dose: 4 mg Polyethylene Glycol (Polyethylene Glycol 3350 17 Gm Powd.Pack) 17 gm PO DAILY PRN PRN Reason: Constipation Quetiapine Fumarate (Quetiapine Fumarate 25 Mg Tablet) 25 mg PO BEDTIME PRN PRN Reason: insomnia Last Admin: 12/21/22 21:19 Dose: 25 mg Senna (Sennosides 8.6 Mg Tablet) 17.2 mg PO BEDTIME PRN PRN Reason: constipation Trazodone HCl (Trazodone Hcl 50 Mg Tablet) 50 mg PO BEDTIME MRX1 PRN PRN Reason: Insomnia Allergies Allergies Allergy/AdvReac Type Severity Reaction Status Date / Time risperidone Allergy Severe Angioedema Verified 12/08/22 18:13 Assessment & Plan Assessment & Plan (1) Methamphetamine abuse in remission: Status: Acute Code(s): F15.11 - Other stimulant abuse, in remission (2) Cocaine use disorder: Status: Acute Code(s): F14.10 - Cocaine abuse, uncomplicated (3) Opioid use disorder: Status: Acute Code(s): F11.90 - Opioid use, unspecified, uncomplicated (4) Bipolar II disorder: Status: Acute Code(s): F31.81 - Bipolar II disorder Plan R/O PTSD restart home meds. supportive care for cocaine withdrawal. restabilize on methadone. arrange for aftercare. 12/22: still withdrawing and recuperating; in bed. continue current mgmt. Reason for continued inpatient stay Substantial Risk for: inability to function and rapid decompensation Time Spent With Patient Time: Total time managing care of this patient today ____ minutes.
[2022-12-22] MEDS: Ibuprofen 600 MG TABLET PO ×2 (16:41→21:41)
[2022-12-22 21:10] VITALS: BP 120/68; PULSE 60; RESP 16; TEMP 36.3; O2SAT 98
[2022-12-22] MEDS: fluvoxaMINE Maleate 50 MG TABLET PO (21:31)
[2022-12-22] MEDS: QUEtiapine Fumarate 25 MG TABLET PO (21:31)
[2022-12-22] MEDS: cloNIDine HCL 0.1 MG TABLET PO (21:31)
[2022-12-23 09:20] VITALS: BP 112/74; PULSE 64; RESP 16; TEMP 36.3; O2SAT 97
[2022-12-23] MEDS: Gabapentin 100 MG CAPSULE 200 MG PO ×3 (09:21→21:24)
[2022-12-23] MEDS: Docusate Sodium 100 MG CAPSULE PO ×2 (09:22→21:25)
[2022-12-23] MEDS: methADONE HCl 20 MG/2 ML ORAL.CONC 66 MG PO (09:22)
[2022-12-23] MEDS: Ibuprofen 600 MG TABLET PO ×2 (14:59→21:24)
--- NOTE | 2022-12-23 15:27 | HO.PSYCHPN ---
Subjective Subjective Date of Service: 12/23/22 Reason For Visit: PTSD, Major Depressive D/O, recur. severe, Alcohol Interim History: remains in bed, tired. 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 no other complaints, no requests. anticipating being more awake and active as time passes. per staff, sleepy. isolative. withdrawn. not attending groups. safe. taking meds. aches and pains. Mental Status Exam Mental Status Exam Narrative: Appearance: casually groomed, fair hygiene in NAD Behavior: cooperative psychomotor: no agitation or retardation noted Speech: clear, normal rate/rhythm/volume, spontaneous Thought process: linear Thought content: no signs of psychosis Mood: tired Affect: constricted, normo-intense, non-labile SI:none expressed HI:none expressed VH/AH:none expressed Delusions:none expressed Insight/judgment:fair x 2. Memory/cog: alert, oriented x 3. grossly intact to conversational testing. Diagnostics Vital Signs (24Hr): Vital Signs - 24 hr 12/22/22 21:10 12/23/22 09:20 Temperature 97.4 F 97.4 F Pulse Rate 60 64 Respiratory Rate 16 16 Blood Pressure 120/68 112/74 Pulse Oximetry 98 97 Oxygen Delivery Method Room Air Room Air BMI result Body Mass Index 22.7 Medications Medications Current Medications Acetaminophen (Acetaminophen 325 Mg Tablet) 650 mg PO Q6H PRN PRN Reason: Headache/Pain Mild Scale (1-3) Al Hydroxide/Mg Hydroxide (Magnesium Hydrox/Alum Hydrox 30 Ml Oral.Susp) 30 ml PO Q6H PRN PRN Reason: Heartburn/Nausea Albuterol Sulfate (Albuterol Sulfate 90 Mcg 8 Gm Inhaler) 1 puff INHALE QID PRN PRN Reason: shortness of breath or wheezing Clonidine HCl (Clonidine Hcl 0.1 Mg Tablet) 0.1 mg PO TID PRN; Protocol PRN Reason: opioid withdrawal symptoms Last Admin: 12/22/22 21:31 Dose: 0.1 mg Dicyclomine HCl (Dicyclomine Hcl 10 Mg Capsule) 10 mg PO QIDACHS PRN PRN Reason: cramps Last Admin: 12/21/22 21:20 Dose: 10 mg Docusate Sodium (Docusate Sodium 100 Mg Capsule) 100 mg PO BID [place] Last Admin: 12/23/22 09:22 Dose: 100 mg Ferrous Sulfate (Ferrous Sulfate 324 Mg Tablet.Dr) 324 mg PO MoWeFr [facility] Last Admin: 12/21/22 08:51 Dose: Not Given Fluvoxamine Maleate (Fluvoxamine Maleate 50 Mg Tablet) 50 mg PO BEDTIME [facility] Last Admin: 12/22/22 21:31 Dose: 50 mg Gabapentin (Gabapentin 100 Mg Capsule) 200 mg PO TID [facility] Last Admin: 12/23/22 14:46 Dose: 200 mg Hydroxyzine HCl (Hydroxyzine Hcl 25 Mg Tablet) 25 mg PO Q6H PRN PRN Reason: Anxiety Ibuprofen (Ibuprofen 600 Mg Tablet) 600 mg PO Q6H PRN PRN Reason: Pain, Moderate(Pain Scale 4-6) Last Admin: 12/23/22 14:59 Dose: 600 mg Magnesium Hydroxide (Milk Of Magnesia 30 Ml Oral.Susp) 30 ml PO DAILY PRN PRN Reason: Constipation Methadone HCl (Methadone Hcl 20 Mg/2 Ml Oral.Conc) 66 mg PO DAILY [facility] Last Admin: 12/23/22 09:22 Dose: 66 mg Nicotine Polacrilex (Nicotine Polacrilex 2 Mg Gum) 4 mg BUCCAL Q2H PRN PRN Reason: nicotine cravings Ondansetron HCl (Ondansetron Odt 4 Mg Tab.Rapdis) 4 mg TRANSLINGU Q8H PRN PRN Reason: nausea Polyethylene Glycol (Polyethylene Glycol 3350 17 Gm Powd.Pack) 17 gm PO DAILY PRN PRN Reason: Constipation Quetiapine Fumarate (Quetiapine Fumarate 25 Mg Tablet) 25 mg PO BEDTIME PRN PRN Reason: insomnia Last Admin: 12/22/22 21:31 Dose: 25 mg Senna (Sennosides 8.6 Mg Tablet) 17.2 mg PO BEDTIME PRN PRN Reason: constipation Trazodone HCl (Trazodone Hcl 50 Mg Tablet) 50 mg PO BEDTIME MRX1 PRN PRN Reason: Insomnia Allergies Allergies Allergy/AdvReac Type Severity Reaction Status Date / Time risperidone Allergy Severe Angioedema Verified 12/08/22 18:13 Assessment & Plan Assessment & Plan (1) Methamphetamine abuse in remission: Status: Acute Code(s): F15.11 - Other stimulant abuse, in remission (2) Cocaine use disorder: Status: Acute Code(s): F14.10 - Cocaine abuse, uncomplicated (3) Opioid use disorder: Status: Acute Code(s): F11.90 - Opioid use, unspecified, uncomplicated (4) Bipolar II disorder: Status: Acute Code(s): F31.81 - Bipolar II disorder Plan R/O PTSD restart home meds. supportive care for cocaine withdrawal. restabilize on methadone. arrange for aftercare. 12/22: still withdrawing and recuperating; in bed. continue current mgmt. 12/23: still withdrawing and recuperating; in bed. continue current mgmt. Reason for continued inpatient stay Substantial Risk for: inability to function and rapid decompensation Time Spent With Patient Time: Total time managing care of this patient today ____ minutes.
[2022-12-23 20:30] VITALS: BP 112/60; PULSE 47; RESP 18; TEMP 36.4; O2SAT 98
[2022-12-23] MEDS: QUEtiapine Fumarate 25 MG TABLET PO (21:24)
[2022-12-23] MEDS: fluvoxaMINE Maleate 50 MG TABLET PO (21:25)
[2022-12-24 08:41] VITALS: BP 133/85; PULSE 60; RESP 18; TEMP 35.6; O2SAT 99
[2022-12-24] MEDS: Ondansetron ODT 4 MG TAB.RAPDIS TRANSLINGU ×2 (08:43→18:19)
[2022-12-24] MEDS: Gabapentin 100 MG CAPSULE 200 MG PO ×3 (08:43→21:38)
[2022-12-24] MEDS: cloNIDine HCL 0.1 MG TABLET PO (08:43)
[2022-12-24] MEDS: Docusate Sodium 100 MG CAPSULE PO (08:43)
[2022-12-24] MEDS: Ferrous Sulfate 324 MG TABLET.DR PO (08:43)
[2022-12-24] MEDS: methADONE HCl 20 MG/2 ML ORAL.CONC 66 MG PO (08:45)
--- NOTE | 2022-12-24 15:08 | HO.PSYCHPN ---
Subjective Subjective Date of Service: 12/24/22 Reason For Visit: PTSD, Major Depressive D/O, recur. severe, Alcohol Interim History: in bed, no change in presentation. tired. withdrawal Sx only in interventional radiology rn hours now. per staff, in bed all the time. c/o some withdrawal. dep/anx 5. no SI/HI/AVH. sleeping and eating. Mental Status Exam Mental Status Exam Narrative: Appearance: casually groomed, fair hygiene in NAD Behavior: cooperative psychomotor: no agitation or retardation noted Speech: clear, normal rate/rhythm/volume, spontaneous Thought process: linear Thought content: no signs of psychosis Mood: tired Affect: constricted, normo-intense, non-labile SI:none expressed HI:none expressed VH/AH:none expressed Delusions:none expressed Insight/judgment:fair x 2. Memory/cog: alert, oriented x 3. grossly intact to conversational testing. Diagnostics Vital Signs (24Hr): Vital Signs - 24 hr 12/23/22 20:30 12/24/22 08:41 Temperature 97.6 F 96.1 F L Pulse Rate 47 L 60 Respiratory Rate 18 18 Blood Pressure 112/60 133/85 Pulse Oximetry 98 99 Oxygen Delivery Method Room Air Room Air BMI result Body Mass Index 22.7 Medications Medications Current Medications Acetaminophen (Acetaminophen 325 Mg Tablet) 650 mg PO Q6H PRN PRN Reason: Headache/Pain Mild Scale (1-3) Al Hydroxide/Mg Hydroxide (Magnesium Hydrox/Alum Hydrox 30 Ml Oral.Susp) 30 ml PO Q6H PRN PRN Reason: Heartburn/Nausea Albuterol Sulfate (Albuterol Sulfate 90 Mcg 8 Gm Inhaler) 1 puff INHALE QID PRN PRN Reason: shortness of breath or wheezing Clonidine HCl (Clonidine Hcl 0.1 Mg Tablet) 0.1 mg PO TID PRN; Protocol PRN Reason: opioid withdrawal symptoms Last Admin: 12/24/22 08:43 Dose: 0.1 mg Dicyclomine HCl (Dicyclomine Hcl 10 Mg Capsule) 10 mg PO QIDACHS PRN PRN Reason: cramps Last Admin: 12/21/22 21:20 Dose: 10 mg Docusate Sodium (Docusate Sodium 100 Mg Capsule) 100 mg PO BID [place] Last Admin: 12/24/22 08:43 Dose: 100 mg Ferrous Sulfate (Ferrous Sulfate 324 Mg Tablet.Dr) 324 mg PO MoWeFr [facility] Last Admin: 12/24/22 08:43 Dose: 324 mg Fluvoxamine Maleate (Fluvoxamine Maleate 50 Mg Tablet) 50 mg PO BEDTIME [facility] Last Admin: 12/23/22 21:25 Dose: 50 mg Gabapentin (Gabapentin 100 Mg Capsule) 200 mg PO TID [facility] Last Admin: 12/24/22 14:16 Dose: 200 mg Hydroxyzine HCl (Hydroxyzine Hcl 25 Mg Tablet) 25 mg PO Q6H PRN PRN Reason: Anxiety Ibuprofen (Ibuprofen 600 Mg Tablet) 600 mg PO Q6H PRN PRN Reason: Pain, Moderate(Pain Scale 4-6) Last Admin: 12/23/22 21:24 Dose: 600 mg Magnesium Hydroxide (Milk Of Magnesia 30 Ml Oral.Susp) 30 ml PO DAILY PRN PRN Reason: Constipation Methadone HCl (Methadone Hcl 20 Mg/2 Ml Oral.Conc) 66 mg PO DAILY [facility] Last Admin: 12/24/22 08:45 Dose: 66 mg Nicotine Polacrilex (Nicotine Polacrilex 2 Mg Gum) 4 mg BUCCAL Q2H PRN PRN Reason: nicotine cravings Ondansetron HCl (Ondansetron Odt 4 Mg Tab.Rapdis) 4 mg TRANSLINGU Q8H PRN PRN Reason: nausea Last Admin: 12/24/22 08:43 Dose: 4 mg Polyethylene Glycol (Polyethylene Glycol 3350 17 Gm Powd.Pack) 17 gm PO DAILY PRN PRN Reason: Constipation Quetiapine Fumarate (Quetiapine Fumarate 25 Mg Tablet) 25 mg PO BEDTIME PRN PRN Reason: insomnia Last Admin: 12/23/22 21:24 Dose: 25 mg Senna (Sennosides 8.6 Mg Tablet) 17.2 mg PO BEDTIME PRN PRN Reason: constipation Trazodone HCl (Trazodone Hcl 50 Mg Tablet) 50 mg PO BEDTIME MRX1 PRN PRN Reason: Insomnia Allergies Allergies Allergy/AdvReac Type Severity Reaction Status Date / Time risperidone Allergy Severe Angioedema Verified 12/08/22 18:13 Assessment & Plan Assessment & Plan (1) Methamphetamine abuse in remission: Status: Acute Code(s): F15.11 - Other stimulant abuse, in remission (2) Cocaine use disorder: Status: Acute Code(s): F14.10 - Cocaine abuse, uncomplicated (3) Opioid use disorder: Status: Acute Code(s): F11.90 - Opioid use, unspecified, uncomplicated (4) Bipolar II disorder: Status: Acute Code(s): F31.81 - Bipolar II disorder Plan R/O PTSD restart home meds. supportive care for cocaine withdrawal. restabilize on methadone. arrange for aftercare. 12/22: still withdrawing and recuperating; in bed. continue current mgmt. 12/23: still withdrawing and recuperating; in bed. continue current mgmt. 12/24: still withdrawing and recuperating; in bed. continue current mgmt. in less withdrawal than prior. Reason for continued inpatient stay Substantial Risk for: inability to function and rapid decompensation Time Spent With Patient Time: Total time managing care of this patient today ____ minutes.
[2022-12-24 20:05] VITALS: BP 128/75; PULSE 55; RESP 14; TEMP 36.6; O2SAT 99
[2022-12-24] MEDS: Dicyclomine HCl 10 MG CAPSULE PO (20:15)
[2022-12-24] MEDS: fluvoxaMINE Maleate 50 MG TABLET PO (21:37)
[2022-12-24] MEDS: Ibuprofen 600 MG TABLET PO (21:38)
[2022-12-24] MEDS: QUEtiapine Fumarate 25 MG TABLET PO (21:38)
[2022-12-25 08:26] VITALS: BP 132/76; PULSE 60; RESP 18; TEMP 36.1; O2SAT 97
[2022-12-25] MEDS: Acetaminophen 325 MG TABLET 650 MG PO ×2 (08:28→15:36)
[2022-12-25] MEDS: Ondansetron ODT 4 MG TAB.RAPDIS TRANSLINGU ×2 (08:28→15:36)
[2022-12-25] MEDS: Gabapentin 100 MG CAPSULE 200 MG PO ×3 (08:28→21:48)
[2022-12-25] MEDS: cloNIDine HCL 0.1 MG TABLET PO (08:28)
[2022-12-25] MEDS: methADONE HCl 20 MG/2 ML ORAL.CONC 66 MG PO (08:31)
--- NOTE | 2022-12-25 15:33 | HO.PSYCHPN ---
Subjective Subjective Date of Service: 12/25/22 Reason For Visit: PTSD, Major Depressive D/O, recur. severe, Alcohol Interim History: no change in presentation, lying on his bed facing wall, food tray taking up most of the head of his bed. asking about [facility] services, informed [facility] worker would be coming tomorrow. c/o some w/drawal Sx in a.m. c/o hallucinations, dissociating, and panic attacks as target Sx. states he is hearing AH whenever [he] is awake, of people talking who aren't necessarily there, saying critical stuff or yelling at him. per staff, dep 3 anx 3. in bed. dental pain. body aches, nausea. used clonidine, zofran. bentyl and seroquel overnight. ate overnight. slept restlessly, per his report. Mental Status Exam Mental Status Exam Narrative: Appearance: casually groomed, fair hygiene in NAD Behavior: cooperative psychomotor: no agitation or retardation noted Speech: clear, normal rate/rhythm/volume, spontaneous Thought process: linear Thought content: no signs of psychosis Mood: tired Affect: constricted, normo-intense, non-labile SI:none expressed HI:none expressed VH/AH:none expressed Delusions:none expressed Insight/judgment:fair x 2. Memory/cog: alert, oriented x 3. grossly intact to conversational testing. Diagnostics Vital Signs (24Hr): Vital Signs - 24 hr 12/24/22 20:05 12/25/22 08:26 Temperature 98 F 97.0 F Pulse Rate 55 60 Respiratory Rate 14 18 Blood Pressure 128/75 132/76 Pulse Oximetry 99 97 Oxygen Delivery Method Room Air Room Air BMI result Body Mass Index 22.7 Medications Medications Current Medications Acetaminophen (Acetaminophen 325 Mg Tablet) 650 mg PO Q6H PRN PRN Reason: Headache/Pain Mild Scale (1-3) Last Admin: 12/25/22 08:28 Dose: 650 mg Al Hydroxide/Mg Hydroxide (Magnesium Hydrox/Alum Hydrox 30 Ml Oral.Susp) 30 ml PO Q6H PRN PRN Reason: Heartburn/Nausea Albuterol Sulfate (Albuterol Sulfate 90 Mcg 8 Gm Inhaler) 1 puff INHALE QID PRN PRN Reason: shortness of breath or wheezing Clonidine HCl (Clonidine Hcl 0.1 Mg Tablet) 0.1 mg PO TID PRN; Protocol PRN Reason: opioid withdrawal symptoms Last Admin: 12/25/22 08:28 Dose: 0.1 mg Dicyclomine HCl (Dicyclomine Hcl 10 Mg Capsule) 10 mg PO QIDACHS PRN PRN Reason: cramps Last Admin: 12/24/22 20:15 Dose: 10 mg Docusate Sodium (Docusate Sodium 100 Mg Capsule) 100 mg PO BID [facility] Last Admin: 12/25/22 08:33 Dose: Not Given Ferrous Sulfate (Ferrous Sulfate 324 Mg Tablet.Dr) 324 mg PO MoWeFr [facility] Last Admin: 12/24/22 08:43 Dose: 324 mg Fluvoxamine Maleate (Fluvoxamine Maleate 50 Mg Tablet) 50 mg PO BEDTIME [facility] Last Admin: 12/24/22 21:37 Dose: 50 mg Gabapentin (Gabapentin 100 Mg Capsule) 200 mg PO TID [facility] Last Admin: 12/25/22 08:28 Dose: 200 mg Hydroxyzine HCl (Hydroxyzine Hcl 25 Mg Tablet) 25 mg PO Q6H PRN PRN Reason: Anxiety Ibuprofen (Ibuprofen 600 Mg Tablet) 600 mg PO Q6H PRN PRN Reason: Pain, Moderate(Pain Scale 4-6) Last Admin: 12/24/22 21:38 Dose: 600 mg Magnesium Hydroxide (Milk Of Magnesia 30 Ml Oral.Susp) 30 ml PO DAILY PRN PRN Reason: Constipation Methadone HCl (Methadone Hcl 20 Mg/2 Ml Oral.Conc) 66 mg PO DAILY [facility] Last Admin: 12/25/22 08:31 Dose: 66 mg Nicotine Polacrilex (Nicotine Polacrilex 2 Mg Gum) 4 mg BUCCAL Q2H PRN PRN Reason: nicotine cravings Ondansetron HCl (Ondansetron Odt 4 Mg Tab.Rapdis) 4 mg TRANSLINGU Q8H PRN PRN Reason: nausea Last Admin: 12/25/22 08:28 Dose: 4 mg Polyethylene Glycol (Polyethylene Glycol 3350 17 Gm Powd.Pack) 17 gm PO DAILY PRN PRN Reason: Constipation Quetiapine Fumarate (Quetiapine Fumarate 25 Mg Tablet) 25 mg PO BEDTIME PRN PRN Reason: insomnia Last Admin: 12/24/22 21:38 Dose: 25 mg Senna (Sennosides 8.6 Mg Tablet) 17.2 mg PO BEDTIME PRN PRN Reason: constipation Trazodone HCl (Trazodone Hcl 50 Mg Tablet) 50 mg PO BEDTIME MRX1 PRN PRN Reason: Insomnia Allergies Allergies Allergy/AdvReac Type Severity Reaction Status Date / Time risperidone Allergy Severe Angioedema Verified 12/08/22 18:13 Assessment & Plan Assessment & Plan (1) Methamphetamine abuse in remission: Status: Acute Code(s): F15.11 - Other stimulant abuse, in remission (2) Cocaine use disorder: Status: Acute Code(s): F14.10 - Cocaine abuse, uncomplicated (3) Opioid use disorder: Status: Acute Code(s): F11.90 - Opioid use, unspecified, uncomplicated (4) Bipolar II disorder: Status: Acute Code(s): F31.81 - Bipolar II disorder Plan R/O PTSD restart home meds. supportive care for cocaine withdrawal. restabilize on methadone. arrange for aftercare. 12/22: still withdrawing and recuperating; in bed. continue current mgmt. 12/23: still withdrawing and recuperating; in bed. continue current mgmt. 12/24: still withdrawing and recuperating; in bed. continue current mgmt. in less withdrawal than prior. 12/25: still withdrawing and recuperating; in bed. continue current mgmt. in less withdrawal than prior. [facility] staff coming to visit tomorrow. Reason for continued inpatient stay Substantial Risk for: inability to function and rapid decompensation Time Spent With Patient Time: Total time managing care of this patient today __25__ minutes.
[2022-12-25] MEDS: Dicyclomine HCl 10 MG CAPSULE PO ×2 (15:36→21:49)
[2022-12-25 21:15] VITALS: BP 112/58; PULSE 56; RESP 14; TEMP 36.4; O2SAT 98
[2022-12-25] MEDS: Ibuprofen 600 MG TABLET PO (21:49)
[2022-12-25] MEDS: fluvoxaMINE Maleate 50 MG TABLET PO (21:49)
[2022-12-25] MEDS: QUEtiapine Fumarate 25 MG TABLET PO (21:49)
[2022-12-26 06:00] VITALS: BP 108/70; PULSE 55; RESP 16; TEMP 36.4; O2SAT 98
[2022-12-26] MEDS: cloNIDine HCL 0.1 MG TABLET PO (08:16)
[2022-12-26] MEDS: Docusate Sodium 100 MG CAPSULE PO (08:16)
[2022-12-26] MEDS: Gabapentin 100 MG CAPSULE 200 MG PO ×3 (08:16→21:27)
[2022-12-26] MEDS: methADONE HCl 20 MG/2 ML ORAL.CONC 66 MG PO (08:17)
[2022-12-26] MEDS: Ondansetron ODT 4 MG TAB.RAPDIS TRANSLINGU ×2 (08:17→21:32)
[2022-12-26] MEDS: Dicyclomine HCl 10 MG CAPSULE PO ×2 (08:17→21:32)
[2022-12-26] MEDS: Acetaminophen 325 MG TABLET 650 MG PO (08:17)
--- NOTE | 2022-12-26 15:41 | HO.PSYCHPN ---
Subjective Subjective Date of Service: 12/26/22 Reason For Visit: PTSD, Major Depressive D/O, recur. severe, Alcohol Interim History: more eye contact, a bit more alert and engaging. spoke with [facility] worker today, looking forward to working with [facility] for services and housing. informed of plan for saturday discharge, to which he did not object. per staff, isolative, doesn't feel well. c/o nausea but eating. c/o dental pain. seroquel and bentyl PRN. up x2 for snacks. Mental Status Exam Mental Status Exam Narrative: Appearance: casually groomed, fair hygiene in NAD Behavior: cooperative psychomotor: no agitation or retardation noted Speech: clear, normal rate/rhythm/volume, spontaneous Thought process: linear Thought content: no signs of psychosis Mood: tired Affect: constricted, normo-intense, non-labile SI:none expressed HI:none expressed VH/AH:none expressed Delusions:none expressed Insight/judgment:fair x 2. Memory/cog: alert, oriented x 3. grossly intact to conversational testing. Diagnostics Vital Signs (24Hr): Vital Signs - 24 hr 12/25/22 21:15 12/26/22 06:00 Temperature 97.6 F 97.5 F Pulse Rate 56 55 Respiratory Rate 14 16 Blood Pressure 112/58 L 108/70 Pulse Oximetry 98 98 Oxygen Delivery Method Room Air Room Air BMI result Body Mass Index 22.7 Medications Medications Current Medications Acetaminophen (Acetaminophen 325 Mg Tablet) 650 mg PO Q6H PRN PRN Reason: Headache/Pain Mild Scale (1-3) Last Admin: 12/26/22 08:17 Dose: 650 mg Al Hydroxide/Mg Hydroxide (Magnesium Hydrox/Alum Hydrox 30 Ml Oral.Susp) 30 ml PO Q6H PRN PRN Reason: Heartburn/Nausea Albuterol Sulfate (Albuterol Sulfate 90 Mcg 8 Gm Inhaler) 1 puff INHALE QID PRN PRN Reason: shortness of breath or wheezing Clonidine HCl (Clonidine Hcl 0.1 Mg Tablet) 0.1 mg PO TID PRN; Protocol PRN Reason: opioid withdrawal symptoms Last Admin: 12/26/22 08:16 Dose: 0.1 mg Dicyclomine HCl (Dicyclomine Hcl 10 Mg Capsule) 10 mg PO QIDACHS PRN PRN Reason: cramps Last Admin: 12/26/22 08:17 Dose: 10 mg Docusate Sodium (Docusate Sodium 100 Mg Capsule) 100 mg PO BID [facility] Last Admin: 12/26/22 08:16 Dose: 100 mg Ferrous Sulfate (Ferrous Sulfate 324 Mg Tablet.Dr) 324 mg PO MoWeFr [facility] Last Admin: 12/26/22 08:18 Dose: Not Given Fluvoxamine Maleate (Fluvoxamine Maleate 50 Mg Tablet) 50 mg PO BEDTIME [facility] Last Admin: 12/25/22 21:49 Dose: 50 mg Gabapentin (Gabapentin 100 Mg Capsule) 200 mg PO TID [facility] Last Admin: 12/26/22 14:40 Dose: 200 mg Hydroxyzine HCl (Hydroxyzine Hcl 25 Mg Tablet) 25 mg PO Q6H PRN PRN Reason: Anxiety Ibuprofen (Ibuprofen 600 Mg Tablet) 600 mg PO Q6H PRN PRN Reason: Pain, Moderate(Pain Scale 4-6) Last Admin: 12/25/22 21:49 Dose: 600 mg Magnesium Hydroxide (Milk Of Magnesia 30 Ml Oral.Susp) 30 ml PO DAILY PRN PRN Reason: Constipation Methadone HCl (Methadone Hcl 20 Mg/2 Ml Oral.Conc) 66 mg PO DAILY [facility] Last Admin: 12/26/22 08:17 Dose: 66 mg Nicotine Polacrilex (Nicotine Polacrilex 2 Mg Gum) 4 mg BUCCAL Q2H PRN PRN Reason: nicotine cravings Ondansetron HCl (Ondansetron Odt 4 Mg Tab.Rapdis) 4 mg TRANSLINGU Q8H PRN PRN Reason: nausea Last Admin: 12/26/22 08:17 Dose: 4 mg Polyethylene Glycol (Polyethylene Glycol 3350 17 Gm Powd.Pack) 17 gm PO DAILY PRN PRN Reason: Constipation Quetiapine Fumarate (Quetiapine Fumarate 25 Mg Tablet) 25 mg PO BEDTIME PRN PRN Reason: insomnia Last Admin: 12/25/22 21:49 Dose: 25 mg Senna (Sennosides 8.6 Mg Tablet) 17.2 mg PO BEDTIME PRN PRN Reason: constipation Trazodone HCl (Trazodone Hcl 50 Mg Tablet) 50 mg PO BEDTIME MRX1 PRN PRN Reason: Insomnia Allergies Allergies Allergy/AdvReac Type Severity Reaction Status Date / Time risperidone Allergy Severe Angioedema Verified 12/08/22 18:13 Assessment & Plan Assessment & Plan (1) Methamphetamine abuse in remission: Status: Acute Code(s): F15.11 - Other stimulant abuse, in remission (2) Cocaine use disorder: Status: Acute Code(s): F14.10 - Cocaine abuse, uncomplicated (3) Opioid use disorder: Status: Acute Code(s): F11.90 - Opioid use, unspecified, uncomplicated (4) Bipolar II disorder: Status: Acute Code(s): F31.81 - Bipolar II disorder Plan R/O PTSD restart home meds. supportive care for cocaine withdrawal. restabilize on methadone. arrange for aftercare. 12/22: still withdrawing and recuperating; in bed. continue current mgmt. 12/23: still withdrawing and recuperating; in bed. continue current mgmt. 12/24: still withdrawing and recuperating; in bed. continue current mgmt. in less withdrawal than prior. 12/25: still withdrawing and recuperating; in bed. continue current mgmt. in less withdrawal than prior. [facility] staff coming to visit tomorrow. 12/26: [facility] visit apparently went well. slightly more alert and engaged. planning for saturday discharge. Reason for continued inpatient stay Substantial Risk for: rapid decompensation Time Spent With Patient Time: Total time managing care of this patient today ____ minutes.
[2022-12-26 21:21] VITALS: BP 119/70; PULSE 57; RESP 16; O2SAT 99
[2022-12-26] MEDS: Ibuprofen 600 MG TABLET PO (21:27)
[2022-12-26] MEDS: fluvoxaMINE Maleate 50 MG TABLET PO (21:27)
[2022-12-26] MEDS: QUEtiapine Fumarate 25 MG TABLET PO (21:32)
[2022-12-27 07:00] VITALS: BMI 24.5
[2022-12-27 09:19] VITALS: BP 111/61; PULSE 56; RESP 16; TEMP 36.6; O2SAT 96
[2022-12-27] MEDS: methADONE HCl 20 MG/2 ML ORAL.CONC 66 MG PO (09:23)
[2022-12-27] MEDS: Docusate Sodium 100 MG CAPSULE PO ×2 (09:23→21:58)
[2022-12-27] MEDS: Gabapentin 100 MG CAPSULE 200 MG PO ×3 (09:23→21:58)
[2022-12-27] MEDS: Ondansetron ODT 4 MG TAB.RAPDIS TRANSLINGU (09:27)
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
[2022-12-27] MEDS: Ibuprofen 600 MG TABLET PO (18:28)
[2022-12-27 21:55] VITALS: BP 117/67; PULSE 63; RESP 18; TEMP 36.6; O2SAT 98
[2022-12-27] MEDS: Dicyclomine HCl 10 MG CAPSULE PO (21:58)
[2022-12-27] MEDS: fluvoxaMINE Maleate 50 MG TABLET PO (21:58)
[2022-12-27] MEDS: QUEtiapine Fumarate 25 MG TABLET PO (21:58)
[2022-12-28 08:30] VITALS: BP 125/75; PULSE 65; RESP 18; TEMP 36.7; O2SAT 98
[2022-12-28] MEDS: Ibuprofen 600 MG TABLET PO (09:31)
[2022-12-28] MEDS: Docusate Sodium 100 MG CAPSULE PO (09:32)
[2022-12-28] MEDS: Ferrous Sulfate 324 MG TABLET.DR PO (09:32)
[2022-12-28] MEDS: Gabapentin 100 MG CAPSULE 200 MG PO (09:32)
[2022-12-28] MEDS: methADONE HCl 20 MG/2 ML ORAL.CONC 66 MG PO (09:33)
== END 2022-12-28 10:05 | disposition home or self-care (01) | DRG 885 ==
PROVIDERS: Admitting Provider Psychiatry & Neurology Psychiatry; Visit Provider Psychiatry & Neurology Psychiatry
DX: F31.81 Bipolar II disorder (principal); R45.851 Suicidal ideations; F11.20 Opioid dependence, uncomplicated; J45.30 Mild persistent asthma, uncomplicated; F15.11 Other stimulant abuse, in remission; F14.10 Cocaine abuse, uncomplicated; Z59.02 Unsheltered homelessness; Z79.899 Other long term (current) drug therapy

== ENCOUNTER → 2022-12-20 23:34 | Outpatient (BNV) | payer MEDICARE, MEDICAID, SELFPAY | PROVIDERS: Admitting Provider Psychiatry & Neurology Psychiatry; Visit Provider Psychiatry & Neurology Psychiatry | DX: F15.11 Other stimulant abuse, in remission (principal); F14.10 Cocaine abuse, uncomplicated; F11.90 Opioid use, unspecified, uncomplicated; F31.81 Bipolar II disorder | CPT/HCPCS: 90792; 99231; 99232; 99239 ==

== ENCOUNTER 2023-04-08 22:48 | Inpatient (IN) | payer MEDICARE, MEDICAID, SELFPAY ==
[2023-04-08 23:15] VITALS: BP 114/79; PULSE 73; RESP 20; TEMP 36.7; O2SAT 96; BMI 25.0
--- NOTE | 2023-04-08 23:42 | MHC.EDTECH ---
t/w attempted blood draw unsuccessfully x1. pt refused second attempt at draw at this time. pt requested water and for blood draw later. pt given water and returned to waiting room.
--- NOTE | 2023-04-09 | ECG_ITS ---
Test Reason : MED CLEARANCE Blood Pressure : / mmHG Vent. Rate : 047 BPM Atrial Rate : 047 BPM P-R Int : 138 ms QRS Dur : 098 ms QT Int : 464 ms P-R-T Axes : 063 054 039 degrees QTc Int : 410 ms Sinus bradycardia with sinus arrhythmia Incomplete right bundle branch block Borderline ECG When compared with ECG of 29-MAR-2022 21:56, Vent. rate has decreased BY 46 BPM Referred By: Paulino Zarco Electronically Signed By:VINOD FORDE MD
--- NOTE | 2023-04-09 00:05 | ED.PSYCH ---
HPI - Psych General Chief Complaint: Psychiatric Symptoms Stated Complaint: crisis eval Time Seen by Provider: 04/08/23 23:52 Source: patient Mode of arrival: ambulatory Limitations: no limitations History of Present Illness HPI Narrative: 32 yo male wiht hx of substance abuse and bipolar disorder here with c/o AH/VH and paranoia. He reports SI. He feels his issues stem around his roommates. He is compliant with medications MD complaint: suicidal ideation and hallucinations Onset (ago): week(s) Duration: getting worse History of same: Yes Relieving factors: none Exacerbating factors: none Associated psychiatric symptoms: depression, suicidal ideation, racing thoughts, auditory hallucinations and visual hallucinations Associated symptoms: denies other symptoms Treatments prior to arrival: none Related Data Home Medications Medication Instructions Recorded Confirmed methadone 10 mg/mL oral 75 mg PO DAILY 03/30/22 04/09/23 concentrate (Methadose) baclofen 10 mg tablet 10 mg PO BID PRN Pain 04/08/23 04/08/23 clonidine HCl 0.1 mg tablet 0.1 mg PO BID 04/08/23 04/08/23 fluvoxamine 50 mg tablet 50 mg PO BEDTIME 04/08/23 04/08/23 gabapentin 400 mg capsule 400 mg PO TID 04/08/23 04/08/23 Previous Rx's Medication Instructions Recorded albuterol sulfate 90 mcg/actuation 1 inh inhalation QID PRN shortness 12/27/22 aerosol inhaler of breath or wheezing 30 days #1 inhaler Allergies Allergy/AdvReac Type Severity Reaction Status Date / Time risperidone Allergy Severe Angioedema Verified 12/08/22 18:13 Review of Systems Review of Systems: Constitutional : No Fever, No Chills ENT/Mouth : No Ear Pain, No Nasal Congestion, No sore throat Eyes: No Eye Pain, No Swelling, No Redness Cardiovascular : No Chest Pain, No SOB Respiratory : No Cough, No Sputum, No Dyspnea Gastrointestinal : No Nausea, No Vomiting, No Diarrhea, No Hematochezia, No Melena Genitourinary : No Dysuria, No Urinary Frequency, No Hematuria Musculoskeletal : No Myalgias Skin : No Skin Lesions, No rash Neuro : No Weakness, No Numbness, No Paresthesias, No Dizziness, No Headache Psych : positive Anxiety, positive Depression, positive SI no HI, pos AH/VH Heme/Lymph: No Lymphadenopathy Endocrine : No Polyuria, No Polydipsia All other systems reviewed and are negative [facility] Past Medical History Attestation statement: The following information was validated with the patient. Medical History Routine history and physical examination of adult Active substance abuse Cellulitis Social History Social History Household Members: None Household Members Other:: Homeless Housing: Homeless Housing Other:: Homeless Do you presently have visiting nurse or other home services: No Alcohol intake: current Alcohol intake frequency: a few times a month Patient Tobacco Use Status: Never used Tobacco e-Cigarette/Vaping Use: Never Used Second Hand Smoke Exposure: No Substance Use Type: Crack/Cocaine and Heroin Advance Directives: No Advance Directives Information Provided: No service: No Sexual orientation: Straight/Heterosexual Physical Exam Vital Signs: Vital Signs: Last Vital Signs Temp 98.0 F 04/08/23 23:15 Pulse 73 04/08/23 23:15 Resp 20 04/08/23 23:15 BP 114/79 04/08/23 23:15 Pulse Ox 96 04/08/23 23:15 O2 Del Method Room Air 04/08/23 23:15 BMI result Body Mass Index 25.0 Appearance: Alert. Oriented X3. No acute distress. Eyes: Pupils equal, round and reactive to light. ENT: Pharynx normal. Neck: Normal inspection. Neck supple. CVS: Normal heart rate and rhythm. Pulses normal. Respiratory: No respiratory distress. Breath sounds normal. Abdomen: Soft and nontender. Skin: Skin warm and dry. Normal skin color. Normal skin turgor. Extremities: No lower extremity edema. No calf ttp Neuro: Oriented X 3. No motor deficit. No sensory deficit. CN2-12 intact Course Course Course Narrative: Physician observation started at 1244am. Patient placed in physician observation because the patient needed more time for CARE team to assess the need for psych admission. At the time observation was started the patient's vitals were stable, patient is alert and oriented , Neuro: nonfocal, CV RRR, Lungs clear Medical Decision Making Medical Decision Making MDM Narrative: 32 yo male with hx of substance abuse and bipolar disorder reports he is compliant with medications but notes he is paranoid about his roommates having AH/VH and SI thoughts due to it. At this time will need labs and CARE team consult. Has no medical complaints. Differential Diagnosis Differential Diagnoses: The differential diagnosis associated with the presentation includes mood disorder, SI Admission/Observation Consideration of admission/observation: Escalation of care including admission/observation considered observe until cleared by CARE team Consult Healthcare Provider Management of the patient was discussed with: Behavioral Health Provider Lab Data MDM Lab Attestation statement: I reviewed the patient's lab results. External Record Review External record reviewed: Inpatient record Social Determinants Patient?s care significantly limited by Social Determinants of Health including: Problems related to primary support group Discharge Plan Discharge Clinical Impression: Suicidal ideation Patient Disposition: Still a Patient Prescriptions: No Action methadone [Methadose] 10 mg/mL Concentrate 75 mg PO DAILY albuterol sulfate 90 mcg/actuation HFA aerosol inhaler 1 inh inhalation QID PRN (Reason: shortness of breath or wheezing) 30 Days Qty: 1 0RF clonidine HCl 0.1 mg tablet 0.1 mg PO BID gabapentin 400 mg capsule 400 mg PO TID baclofen 10 mg tablet 10 mg PO BID PRN (Reason: Pain) fluvoxamine 50 mg tablet 50 mg PO BEDTIME
--- NOTE | 2023-04-09 00:16 | MHC.EDTECH ---
pt difficult draw, unable to obtain after [id number]. pt requesting break and to try again later.
--- NOTE | 2023-04-09 00:17 | MHC.EDTECH ---
pt belongings gone through by security, locked in locker #9.
[2023-04-09 00:37] LABS: COVID-19 Test Negative (Negative); IDNOW Serial# 08D9AD1C
[2023-04-09 06:00] VITALS: RESP 14
--- NOTE | 2023-04-09 06:20 | PC.NURSE ---
Patient slept through the night, no distress observed/reported, med rec completed, including methadone verified using take away bottle, med rec approved by provider/MAR active, patient was unable to provide urine sample yet, blood drawl attempted twice but with no success, reattempt in the morning, care consult ordered for SI/pending evaluation, behavior non concerning, will continue to monitor.
--- NOTE | 2023-04-09 06:52 | HE.PHANOTE ---
RE METHADONE PT GETS 75MG OF METHADONE FROM [facility]. PT GETS TAKE HOME BOTTLES. BOTTLE LABEL FAXED TO PHARMACY HAS A TAKE ON 04/09 DATE DOMINIQUE
[2023-04-09] MEDS: methADONE HCl 20 MG/2 ML ORAL.CONC 75 MG PO (08:20)
[2023-04-09] MEDS: Gabapentin 400 MG CAPSULE PO ×2 (08:20→21:48)
[2023-04-09 08:23] VITALS: BP 143/81; PULSE 63; RESP 18; TEMP 36.7; O2SAT 100
[2023-04-09 12:06] LABS: Appearance Urine Clear; Color Urine Yellow; Glucose Urine UA Negative (Negative); Leukocyte Esterase Urine Negative (Negative); Nitrite Urine Negative (Negative); PH 7.5 (5.0-9.0); Urine Blood Negative (Negative); Urine Ketones Negative (Negative); Urine Protein Negative (Neg-Trace)
[2023-04-09 12:06] LABS: Appearance Urine Clear; Color Urine Yellow; Glucose Urine UA Negative (Negative); Leukocyte Esterase Urine Negative (Negative); Nitrite Urine Negative (Negative); Specific Gravity - Urine 1.015 (1.005-1.025); Urine Blood Negative (Negative); Urine Ketones Negative (Negative); Urine Protein Negative (Neg-Trace)
[2023-04-09 12:08] LABS: Amphetamine Screen Urine POSITIVE (Not Detect); Barbiturates, Urine Not Detected (Not Detect); Benzodiazepines Screen Urine POSITIVE (Not Detect); Cannabinoid Screen Urine Not Detected (Not Detect); Cocaine Screen Urine POSITIVE (Not Detect); Fentanyl, urine POSITIVE (Not Detect); Opiate Screen Urine Not Detected (Not Detect); Phencyclidine Screen Urine Not Detected (Not Detect)
[2023-04-09 12:09] LABS: Bacteria Urine None Seen (None Seen); Hyaline Casts Urine 0-2 /LPF (0-2); RBC Urine 0-2 /HPF (0-2); Squamous Epithelial Cell Urine 0-2 /HPF (0-2); WBC Urine 0-5 /HPF (0-5)
[2023-04-09 12:15] LABS: MANUAL DIFF FLAG NO
[2023-04-09 12:16] LABS: Basophils Percent Auto 0.4 % (0-2); Eosinophils Absolute Auto 0.3 X10*3/uL (0.0-0.4); Eosinophils Percent Auto 4.2 % (0-4); Hematocrit 43.4 % (42.0-52.0); Hemoglobin 14.3 g/dl (14.0-18.0); Imm Gran Abs Auto 0.02 X10*3/uL (0.00-0.03); Imm Gran Pct Auto 0.3 % (0.0-0.4); Lymphocytes Absolute Auto 2.3 X10*3/uL (1.2-4.9); Lymphocytes Percent Auto 30.4 % (20-40); Mean Corpuscular HGB Conc 32.9 g/dl (31.0-36.0); Mean Corpuscular Hemoglobin 28.9 pg (27.0-33.0); Mean Corpuscular Volume 87.7 fL (80.0-98.0); Mean Platelet Volume 9.6 fL (9.4-12.4); Monocytes Absolute Auto 0.5 X10*3/uL (0.1-1.2); Monocytes Percent Auto 6.4 % (2-11); Neutrophils Absolute Auto 4.3 x10*3/uL (2.0-8.3); Neutrophils Percent Auto 58.3 % (45-73); Platelet Count 274 X10*3/uL (160-400); Red Blood Count 4.95 X10*6/uL (4.60-5.80); Red Cell Distribution Width 13.2 % (11.0-16.0); White Blood Count 7.4 X10*3/uL (4.8-10.8)
[2023-04-09 12:32] LABS: Alanine Aminotransferase 17 U/L (0-40); Albumin Level 4.1 g/dL (3.5-5.0); Alkaline Phosphatase 68 U/L (39-117); Anion Gap 11 (12-20); Aspartate Amino Transferase 23 U/L (5-37); Bilirubin Total 0.5 mg/dL (0.0-1.0); Blood Urea Nitrogen 7 mg/dL (9-16); Calcium 9.9 mg/dL (8.4-10.2); Carbon Dioxide 30 mmol/L (22-29); Chloride 103 mmol/L (96-108); Creatinine Clr Calc Pharmacy 119.8; Estimated Glomerular Filt Rate > 60; Glucose Random 89 mg/dL (60-115); Potassium 3.6 mmol/L (3.3-5.1); Sodium 140 mmol/L (135-145); Total Protein 7.3 g/dL (6.5-8.0)
[2023-04-09 12:33] LABS: Ethanol < 10 mg/dL
--- NOTE | 2023-04-09 14:03 | PHA.MEDREC ---
Pharmacy Consult ? Medication Reconciliation Pharmacy has reviewed the medication reconciliation completed by Derek. Winnie Diaz, JeannineD
[2023-04-09] MEDS: Ibuprofen 600 MG TABLET PO (18:03)
[2023-04-09 21:35] VITALS: BP 135/80; PULSE 49; RESP 16; TEMP 36.4
[2023-04-09] MEDS: Acetaminophen 325 MG TABLET 650 MG PO (21:49)
--- NOTE | 2023-04-10 00:07 | PC.ADMIT ---
PT is a 32 year old Sudanese speaking male that arrived on this unit at 21:21 from the [facility] and was placed on 15 minute safety checks. Legal status: CV PT self present to the ED for paranoia, SI, AH/VH, and reported periods of dissociation in which he has ended up in the middle of traffic but does not know how he got there. PT reports a diagnosis of schizophrenia of which he is not convinced. VSS upon arrival to this unit. COVID neg, tox + for fentanyl, cocaine, amphetamines and benzos. PT reports being homeless and does attend [facility] clinic in [place] where he is receiving 75mg Methadone PO daily . PT reports that he does not feel stable on his dose and thus continues with illicit use. PT reports a few prior psych admissions, one of them being here at [facility] on M3. PT denies any current SI/HI AH/VH. Legals completed, tx plan and safety tool completed. Continue plan of care.
[2023-04-10 09:00] VITALS: BP 119/67; PULSE 64; RESP 16; TEMP 36.3; O2SAT 99
[2023-04-10] MEDS: cloNIDine HCL 0.1 MG TABLET PO (09:10)
[2023-04-10] MEDS: methADONE HCl 20 MG/2 ML ORAL.CONC 75 MG PO (09:10)
[2023-04-10] MEDS: Gabapentin 400 MG CAPSULE PO ×3 (09:10→21:52)
[2023-04-10 09:42] LABS: Estimated Average Glucose 100 mg/dL; Hemoglobin A1c % 5.1 % (<6.0)
[2023-04-10 09:49] LABS: Alanine Aminotransferase 15 U/L (0-40); Albumin Level 3.6 g/dL (3.5-5.0); Alkaline Phosphatase 62 U/L (39-117); Anion Gap 10 (12-20); Aspartate Amino Transferase 18 U/L (5-37); Bilirubin Total 0.4 mg/dL (0.0-1.0); Blood Urea Nitrogen 9 mg/dL (9-16); Calcium 9.6 mg/dL (8.4-10.2); Carbon Dioxide 24 mmol/L (22-29); Chloride 110 mmol/L (96-108); Cholesterol 127 mg/dL (<200); Creatinine Clr Calc Pharmacy 139.7; Estimated Glomerular Filt Rate > 60; Glucose Fasting 106 mg/dL (60-99); HDL Cholesterol 59 mg/dL (>40); LDL Cholesterol Calculated 53 mg/dL (<100); Potassium 3.5 mmol/L (3.3-5.1); Sodium 140 mmol/L (135-145); Total Protein 6.6 g/dL (6.5-8.0); Triglycerides 77 mg/dL (<150)
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
[2023-04-10 10:04] LABS: Vitamin B12 595 pg/mL (200-900)
[2023-04-10 10:08] LABS: Thyroid Stimulating Hormone 0.32 uIU/mL (0.32-4.0)
[2023-04-10 18:00] VITALS: BP 119/67; PULSE 63; TEMP 36.5
[2023-04-10] MEDS: fluvoxaMINE Maleate 50 MG TABLET PO (21:52)
[2023-04-11] MEDS: Acetaminophen 325 MG TABLET 650 MG PO (01:13)
[2023-04-11] MEDS: cloNIDine HCL 0.1 MG TABLET PO (06:24)
[2023-04-11] MEDS: Gabapentin 400 MG CAPSULE PO ×3 (08:13→20:06)
[2023-04-11] MEDS: methADONE HCl 20 MG/2 ML ORAL.CONC 75 MG PO (08:13)
[2023-04-11 09:14] VITALS: BP 117/59; PULSE 62; RESP 16; TEMP 36.3; O2SAT 98
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
[2023-04-11 19:45] VITALS: BP 113/58; PULSE 65; RESP 16; TEMP 36.2; O2SAT 97
[2023-04-11] MEDS: Docusate Sodium 100 MG CAPSULE PO (20:06)
[2023-04-11] MEDS: fluvoxaMINE Maleate 50 MG TABLET PO (20:07)
[2023-04-11 21:14] VITALS: BP 98/54; PULSE 62; RESP 16; TEMP 36.8; O2SAT 98
[2023-04-12] MEDS: methADONE HCl 20 MG/2 ML ORAL.CONC 75 MG PO (09:04)
[2023-04-12] MEDS: Docusate Sodium 100 MG CAPSULE PO ×2 (09:04→22:05)
[2023-04-12] MEDS: Gabapentin 400 MG CAPSULE PO ×3 (09:04→22:05)
[2023-04-12 09:30] VITALS: BP 132/68; PULSE 56; RESP 16; TEMP 36.8; O2SAT 98
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
[2023-04-12 16:24] VITALS: BP 101/59; PULSE 55; RESP 18; TEMP 36.8; O2SAT 95
[2023-04-12] MEDS: fluvoxaMINE Maleate 50 MG TABLET PO (22:05)
[2023-04-12] MEDS: Acetaminophen 325 MG TABLET 650 MG PO (22:05)
[2023-04-13] MEDS: Acetaminophen 325 MG TABLET 650 MG PO (08:16)
[2023-04-13] MEDS: Docusate Sodium 100 MG CAPSULE PO ×2 (08:16→20:24)
[2023-04-13] MEDS: Gabapentin 400 MG CAPSULE PO ×3 (08:16→20:24)
[2023-04-13] MEDS: methADONE HCl 20 MG/2 ML ORAL.CONC 75 MG PO (08:16)
[2023-04-13] MEDS: Benzocaine 20 % Oral Gel 9 GM TUBE 1 APPL MUCOUS MEM (08:19)
[2023-04-13 08:25] VITALS: BP 143/94; PULSE 71; RESP 18; TEMP 36.7; O2SAT 99
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
[2023-04-13 18:10] VITALS: BP 125/66; PULSE 66; RESP 16; TEMP 36.6; O2SAT 99
[2023-04-13] MEDS: fluvoxaMINE Maleate 50 MG TABLET PO (20:24)
[2023-04-14] MEDS: methADONE HCl 20 MG/2 ML ORAL.CONC 75 MG PO (08:35)
[2023-04-14] MEDS: Docusate Sodium 100 MG CAPSULE PO ×2 (08:35→21:27)
[2023-04-14] MEDS: Gabapentin 400 MG CAPSULE PO ×3 (08:35→21:27)
[2023-04-14 08:37] VITALS: BP 112/67; PULSE 58; RESP 16; TEMP 36.4; O2SAT 98
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
[2023-04-14 18:00] VITALS: BP 122/66; PULSE 69; RESP 18; TEMP 36.8; O2SAT 98
[2023-04-14] MEDS: Benzocaine 20 % Oral Gel 9 GM TUBE 1 APPL MUCOUS MEM (18:56)
[2023-04-14] MEDS: fluvoxaMINE Maleate 50 MG TABLET PO (21:27)
[2023-04-15 08:15] VITALS: BP 123/67; PULSE 58; TEMP 35.7; O2SAT 99
[2023-04-15] MEDS: Gabapentin 400 MG CAPSULE PO (08:33)
[2023-04-15] MEDS: modafiniL 100 MG TABLET PO (08:33)
[2023-04-15] MEDS: Docusate Sodium 100 MG CAPSULE PO (08:33)
[2023-04-15] MEDS: methADONE HCl 20 MG/2 ML ORAL.CONC 75 MG PO (08:34)
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
--- NOTE | 2023-04-15 12:42 | P.DS_ITS ---
DS: Providers Provider Date of Service: 04/15/23 Date of admission: 04/09/23 19:50 Date of discharge: 04/15/23 Primary care physician: Tomas Physician Attending physician on admission: David Diaz Attending physician on discharge: David Diaz DS: Diagnosis Discharge Diagnosis (1) Schizoaffective disorder, bipolar type: Status: Acute (2) Cocaine use disorder: Status: Acute (3) Opioid use disorder: Status: Acute (4) PTSD (post-traumatic stress disorder): Status: Acute DS: Medications Discharge Medications Home Medications: Home Medications Medication Instructions Recorded Confirmed methadone 10 mg/mL oral 75 mg PO DAILY 03/30/22 04/09/23 concentrate (Methadose) fluvoxamine 50 mg tablet 50 mg PO BEDTIME 04/08/23 04/08/23 gabapentin 400 mg capsule 400 mg PO TID 04/08/23 04/08/23 Previous Rx's Medication Instructions Recorded albuterol sulfate 90 mcg/actuation 2 inh inhalation QID PRN shortness 04/15/23 aerosol inhaler of breath or wheezing 30 days #1 inhaler benzocaine 20 % mucosal gel 1 appl mucous membrane QID PRN 04/15/23 (Anbesol (benzocaine) Maximum tooth/gum pain 10 days #9 grams Strength) clonidine HCl 0.1 mg tablet 0.1 mg PO Q4H PRN anxiety 30 days 04/15/23 #60 tabs modafinil 100 mg tablet (Provigil) 100 mg PO DAILY PRN daytime 04/15/23 sleepiness 30 days #30 tabs olanzapine 5 mg tablet 5 mg PO TID PRN problematic AH 30 04/15/23 days #15 tabs Mental Status Exam Mental Status Exam Narrative: Pt is alert and oriented; behavior cooperative and calm, more social and interactive; patient is not in distress; dressed in casual attire, with adequate hygiene; mood is described as all right and affect congruent, a little brighter; eye contact appropriate; Speech is normal rate, volume and prosody and not pressured; no psychomotor retardation; thought process is organized and goal directed; Thought content is on tx, getting stable; otherwise pertinent to relevant topics and without any delusional content, paranoid ideations or grandiosity; no?SI; no HI. Intermittent AH but able to be ignored. Patients insight and judgment fair. Data Data Completed and Pending Completed studies during hospitalization [Text1]: 04/09/23 04/09/23 04/09/23 00:14 08:15 11:54 WBC RBC Hgb Hct MCV MCH MCHC RDW Plt Count MPV Immature Gran % (Auto) Neut % (Auto) Lymph % (Auto) [place] % (Auto) Eos % (Auto) Baso % (Auto) Lymph # (Auto) [place] # (Auto) Eos # (Auto) Baso # (Auto) Abs Immat Gran (auto) Absolute Neuts (auto) Absolute Nucleated RBC Nucleated RBC % (auto) Sodium Potassium Chloride Carbon Dioxide Anion Gap BUN Creatinine Estim Creat Clear Calc Estimated GFR Random Glucose Fasting Glucose Estimat Average Glucose Hemoglobin A1c % Calcium Total Bilirubin AST ALT Alkaline Phosphatase Total Protein Albumin Triglycerides Cholesterol LDL Cholesterol, Calc HDL Cholesterol Vitamin B12 TSH Urine Color Yellow Urine Appearance Clear Urine pH 6.0 Ur Specific [place] 1.015 Urine Protein Negative Urine Glucose (UA) Negative Urine Ketones Negative Urine Blood Negative Urine Nitrite Negative Ur Leukocyte Esterase Negative Urine RBC 0-2 Urine WBC 0-5 Ur Squamous Epith Cells 0-2 Urine Bacteria None Seen Hyaline Casts 0-2 Urine Opiates Screen Not Detected Urine Fentanyl Screen POSITIVE H Ur Barbiturates Screen Not Detected Ur Phencyclidine Scrn Not Detected Ur Amphetamines Screen POSITIVE H U Benzodiazepines Scrn POSITIVE H Urine Cocaine Screen POSITIVE H U Marijuana (THC) Screen Not Detected Ethyl Alcohol COVID-19 ([facility]) Negative COVID-19 Clin Com See Note 04/09/23 04/09/23 04/10/23 11:55 12:10 08:32 WBC 7.4 RBC 4.95 D Hgb 14.3 D Hct 43.4 D MCV 87.7 MCH 28.9 MCHC 32.9 RDW 13.2 Plt Count 274 MPV 9.6 Immature Gran % (Auto) 0.3 Neut % (Auto) 58.3 Lymph % (Auto) 30.4 [place] % (Auto) 6.4 Eos % (Auto) 4.2 H Baso % (Auto) 0.4 Lymph # (Auto) 2.3 [place] # (Auto) 0.5 Eos # (Auto) 0.3 Baso # (Auto) 0.0 Abs Immat Gran (auto) 0.02 Absolute Neuts (auto) 4.3 Absolute Nucleated RBC 0.000 Nucleated RBC % (auto) 0.0 Sodium 140 140 Potassium 3.6 3.5 Chloride 103 110 H Carbon Dioxide 30 H 24 Anion Gap 11 L 10 L BUN 7 L 9 Creatinine 0.77 0.66 Estim Creat Clear Calc 119.8 139.7 Estimated GFR > 60 > 60 Random Glucose 89 Fasting Glucose 106 H Estimat Average Glucose 100 Hemoglobin A1c % 5.1 Calcium 9.9 9.6 Total Bilirubin 0.5 0.4 AST 23 18 ALT 17 15 Alkaline Phosphatase 68 62 Total Protein 7.3 6.6 Albumin 4.1 3.6 Triglycerides 77 Cholesterol 127 LDL Cholesterol, Calc 53 HDL Cholesterol 59 Vitamin B12 595 TSH 0.32 Urine Color Yellow Urine Appearance Clear Urine pH 7.5 Ur Specific [place] 1.010 Urine Protein Negative Urine Glucose (UA) Negative Urine Ketones Negative Urine Blood Negative Urine Nitrite Negative Ur Leukocyte Esterase Negative Urine RBC Urine WBC Ur Squamous Epith Cells Urine Bacteria Hyaline Casts Urine Opiates Screen Urine Fentanyl Screen Ur Barbiturates Screen Ur Phencyclidine Scrn Ur Amphetamines Screen U Benzodiazepines Scrn Urine Cocaine Screen U Marijuana (THC) Screen Ethyl Alcohol < 10 COVID-19 ([facility]) COVID-19 Clin Com DS: Summary Hospital Course Hospital Course: HPI: Patient is a 32-year-old male with history of depression, psychotic symptoms, PTSD, cocaine and opioid dependence, on methadone who self presents for worsening psychotic symptoms, face of substance abuse and lack of sleep. -Patient says he has auditory hallucinations at baseline but when he is overall stable, he is able to ignore them and knows they are just hallucinations. Patient self presented feeling that he will soon stabilize; AH remain but at this point he knows they are hallucinations. Clearly substance abuse is worsening symptoms. -wants to remain on current medication regimen; discussed antipsychotic medication for symptoms however does not want risk of side effects however agrees to add Zyprexa as a p.r.n. that he can take if symptoms periodically worsen -reports some withdrawal from opiates but feels that methadone dose is overall adequate and does not need to be raised -does not want to return to house due to the rampant substance abuse going on there; will stay at his mothers or sisters once he is stabilized Hospital course: Patient remained calm and in good behavioral and impulse control throughout his time in the unit. Depression abated and resolved. No SI which fully resolved. Patient detoxed without incident. He wanted to remain on his current medication regimen of fluvoxamine 50 mg q.h.s., gabapentin 400 mg t.i.d. He was willing to discuss antipsychotic medication and options and did agree to have prazosin added as a p.r.n. which he feels would be help prevent an episode from occurring or if the voices get to bothersome to quiet them down. Otherwise he said he is able to manage AH on his own and has done so for years. Patient mostly stayed in bed and kept himself however was polite and willing to engage on approach. Towards the end of his admission however he got up and showered and was more out and about in the milieu. Patient discussed history of daytime sleepiness and said that it has been going on for most of his life; he said in the past he was diagnosed with mild narcolepsy and used modafinil for several years which he found very helpful and able to keep him working. He patient says he wanted to stay way from stimulant medication because of risk of abuse. Patient had signed a 3 day notice. He maintained that depression resolved, AH present but able to be ignored and that he was feeling much better and looking forward to discharge. Patient remained appropriate with peers and staff. His 3 day notice was coming due. Patient asked for discharge since he talk to his boss and was able to restart work, something he enjoys and feels helps him stay stable. Patient has an outpatient psychiatric prescriber and upcoming appointment this week. He has a supportive sister and mother who will let him stay with them until he finds a place of his own. While patient remains at risk for relapse and decompensation, this is a chronic issue that will not resolve with longer inpatient stay. Patient was not in imminent risk for harm to self or others and his request for discharge honored. Time spent discussing smoking cessation with patient: 3 to 10 minutes Status at Discharge Functional status at discharge: independent ambulation Overall status at discharge: patient is back to baseline Time Spent with Patient Time attestation: Total time managing care of this patient today ____ minutes. Time spent: Less than 30 minutes Discharge Plan Discharge Anticipated Discharge Date/Time: 04/15/23 14:30 Patient Disposition: Home, Self-Care Discharge Diagnosis: schizoaffective disorder, bipolar type Referrals: Psychiatrist: Dr. Cammie Grimes ([facility]) [Other] - 04/18/23 10:00 am (Appointment is in person at the office ) Gissel Nogueira MD [Physician] - 07/29/23 1:45 pm (You need to have your records faxed from your most recent PCP to them at [phone] or they will cancel the appointment. ) Discharge Medications: New olanzapine 5 mg Tablet 5 mg PO TID PRN (Reason: problematic AH) 30 Days Qty: 15 1RF Anbesol (benzocaine) Max Str 20 % Gel 1 appl mucous membrane QID PRN (Reason: tooth/gum pain) 10 Days Qty: 9 0RF Protocol: Apply to: Apply to: gum/tooth modafinil [Provigil] 100 mg Tablet 100 mg PO DAILY PRN (Reason: daytime sleepiness) 30 Days Qty: 30 1RF Continued methadone [Methadose] 10 mg/mL Concentrate 75 mg PO DAILY gabapentin 400 mg capsule 400 mg PO TID fluvoxamine 50 mg tablet 50 mg PO BEDTIME Changed clonidine HCl 0.1 mg tablet 0.1 mg PO Q4H PRN (Reason: anxiety) 30 Days Qty: 60 0RF albuterol sulfate 90 mcg/actuation HFA aerosol inhaler 2 inh inhalation QID PRN (Reason: shortness of breath or wheezing) 30 Days Qty: 1 4RF Discontinued baclofen 10 mg tablet 10 mg PO BID PRN (Reason: Pain) Discharge Orders: Discharge Order (Routine); Ordered 04/15/23 Ordered By: David Diaz Diet: Regular diet Activity on Discharge: As tolerated Stand Alone Forms: Patient Portal Discharge page Care Plan Goals: Maintain mood and safe behaviors Take medications as prescribed Continue to pursue sobriety Practice coping skills Continue with outpatient providers and reach out to them as needed Health Concerns: Mood stability and behaviors Sobriety Plan of Treatment: Follow up with your PCP, psychiatric provider and other outpatient providers regarding above concerns Take medications as prescribed Assessment: Risk assessment at time of discharge:? Patient was interviewed prior to discharge and found to be fully oriented and without any SI or HI. Patient has improved insight and judgment and wants to continue treatment. Patient is not in imminent risk of harm to self or others and has a safety plan that includes presenting to the closest ER or calling 911 if feeling unsafe.? Patient has been observed closely by nursing and unit staff throughout admission; patient has not engaged in any behaviors that suggest dangerousness to self or others and emerson s demonstrated appropriate behaviors and impulse control
[2023-04-15] MEDS: Naloxone HCl Nasal TAKE HOME 4 MG SPRAY 8 MG NOSTRILALT (13:20)
== END 2023-04-15 14:00 | disposition home or self-care (01) | DRG 885 ==
LOC: HO.ED 04-09 00:49 → HO.PM5 04-09 19:55
PROVIDERS: Internal Medicine; Admitting Provider Social Worker; Emergency Provider Emergency Medicine; Visit Provider Psychiatry & Neurology Psychiatry
DX: F25.0 Schizoaffective disorder, bipolar type (principal); R45.851 Suicidal ideations; F11.20 Opioid dependence, uncomplicated; Z59.02 Unsheltered homelessness; F14.10 Cocaine abuse, uncomplicated; F43.10 Post-traumatic stress disorder, unspecified; Z20.822 Contact with and (suspected) exposure to COVID-19; Z79.899 Other long term (current) drug therapy
CPT/HCPCS: 36415; 80053; 80061; 80307; 81001; 81003; 82607; 83036; 84443; 85025; 87635; 93005; 99285; S9485

== ENCOUNTER → 2023-04-09 19:50 | Outpatient (BNV) | payer MEDICARE, MEDICAID, SELFPAY | PROVIDERS: Admitting Provider Social Worker; Emergency Provider Emergency Medicine; Visit Provider Psychiatry & Neurology Psychiatry | DX: F25.0 Schizoaffective disorder, bipolar type (principal); F14.10 Cocaine abuse, uncomplicated; F11.90 Opioid use, unspecified, uncomplicated; F43.11 Post-traumatic stress disorder, acute | CPT/HCPCS: 90792; 99231; 99232; 99238 ==

== ENCOUNTER 2023-06-29 23:45 | Emergency (ER) | payer MEDICARE, MEDICAID, SELFPAY ==
[2023-06-29 23:53] VITALS: BP 129/86; PULSE 98; RESP 19; TEMP 37.1; O2SAT 100; BMI 28.3
[2023-06-30 02:40] VITALS: BP 120/78; PULSE 91; RESP 18; TEMP 37; O2SAT 97
[2023-06-30] MEDS: Ondansetron ODT 4 MG TAB.RAPDIS TRANSLINGU (02:42)
[2023-06-30 06:21] VITALS: BP 104/64; PULSE 82; RESP 16; TEMP 37.7; O2SAT 94
--- NOTE | 2023-06-30 07:27 | ED.GENADULT ---
HPI - General Adult General Chief complaint: Nausea/Vomiting/Diarrhea Stated complaint: food poisoning? n/v Time Seen by Provider: 06/30/23 07:18 History of Present Illness HPI narrative: The patient is a 33-year-old male who says that yesterday afternoon he ate some German food and not long after developed nausea vomiting and diarrhea. He came to the hospital because of these symptoms. He also says that he is interested in getting help for his cocaine and fentanyl abuse. He has a bottle of methadone with him from a local methadone clinic. Related Data Home Medications Medication Instructions Recorded Confirmed methadone 10 mg/mL oral 75 mg PO DAILY 03/30/22 04/09/23 concentrate (Methadose) fluvoxamine 50 mg tablet 50 mg PO BEDTIME 04/08/23 04/08/23 gabapentin 400 mg capsule 400 mg PO TID 04/08/23 04/08/23 Previous Rx's Medication Instructions Recorded albuterol sulfate 90 mcg/actuation 2 inh inhalation QID PRN shortness 04/15/23 aerosol inhaler of breath or wheezing 30 days #1 inhaler benzocaine 20 % mucosal gel 1 appl mucous membrane QID PRN 04/15/23 (Anbesol (benzocaine) Maximum tooth/gum pain 10 days #9 grams Strength) clonidine HCl 0.1 mg tablet 0.1 mg PO Q4H PRN anxiety 30 days 04/15/23 #60 tabs modafinil 100 mg tablet (Provigil) 100 mg PO DAILY PRN daytime 04/15/23 sleepiness 30 days #30 tabs olanzapine 5 mg tablet 5 mg PO TID PRN problematic AH 30 04/15/23 days #15 tabs Allergies Allergy/AdvReac Type Severity Reaction Status Date / Time risperidone Allergy Severe Angioedema Verified 06/29/23 23:52 Review of Systems Review of Systems: Yes all other systems are reviewed and are negative PMFSH Past Medical History Onset Date is defined in the Problem List Problems that require an onset date and time if occurred within 24 hrs of arrival to the ED Aortic Dissection and Rupture; Neurologic impairment; Cardiopulmonary Arrest; Endotracheal Intubation; Insertion or Replacement of Mechanical Circulatory Assist Device Medical History (Updated 06/30/23 @ 13:09 by Ifeanyi Reynolds MD) PTSD (post-traumatic stress disorder) Schizoaffective disorder, bipolar type Routine history and physical examination of adult Active substance abuse Cellulitis Social History Social History Household Members: None Household Members Other:: Homeless Housing: Homeless Housing Other:: Homeless Do you presently have visiting nurse or other home services: No Alcohol intake: never Comment: pablo oquendo Patient Tobacco Use Status: Never used Tobacco Smoked in Last 30 Days: No e-Cigarette/Vaping Use: Never Used Second Hand Smoke Exposure: No Substance Use Type: Crack/Cocaine and Heroin Substance Use Frequency: Chronic Longstanding Last Used Substance: Days (ago) Any prior treatment program specific to substance use: Yes Advance Directives: No Advance Directives Information Provided: No service: No Sexual orientation: Did not discuss Physical Exam ED Vital Signs: Vital Signs - 24 hr 06/29/23 23:53 06/30/23 02:40 06/30/23 06:21 Temperature 98.8 F 98.6 F 99.9 F Pulse Rate 98 91 82 Respiratory Rate 19 18 16 Blood Pressure 129/86 120/78 104/64 Pulse Oximetry 100 97 94 Oxygen Delivery Method Room Air Room Air Room Air 06/30/23 08:10 Temperature Pulse Rate 88 Respiratory Rate 20 Blood Pressure 124/74 Pulse Oximetry 98 Oxygen Delivery Method Room Air BMI result Body Mass Index 28.3 Const Other: The patient was sleeping when I entered the room. He awoke and said that he was still feeling nauseated. He had received ondansetron earlier. He did not seem in overt distress. He looks somewhat chronically ill. HENMT Other: Face was symmetrical. Mucous membranes moist. Eyes Other: Pupils are round equal, conjunctivae are clear, extraocular movements intact Neck Other: Moving his neck easily, no adenopathy Resp Effort & Inspection: normal respiratory effort Auscultation: clear to auscultation bilaterally Cardio Rate: regular rate Rhythm: regular rhythm Heart sounds: S1 normal heart sound present and S2 normal heart sound present GI Other: Abdomen is soft and nontender. Skin Other: Pale and dry Neuro Other: Patient was sleeping but was easily arousable. Extrem Other: No peripheral edema. Medications Administered Discontinued Medications Generic Name Dose Route Start Last Admin Trade Name Freq PRN Reason Stop Dose Admin Methadone HCl 70 mg 06/30/23 07:24 06/30/23 08:04 Methadone Hcl 20 Mg/2 Ml Oral.Conc PO 06/30/23 07:25 70 mg ONCE ONE Administration Ondansetron HCl 4 mg 06/30/23 02:38 06/30/23 02:42 Ondansetron Odt 4 Mg Tab.Ozzy ALVAREZINGU 06/30/23 02:39 4 mg ONCE ONE Administration Prochlorperazine Edisylate 10 mg 06/30/23 07:24 06/30/23 08:04 Prochlorperazine Edisylate 10 Mg/2 Ml Vial IM 06/30/23 07:25 10 mg ONCE ONE Administration Medical Decision Making Medical Decision Making [facility] Narrative: The patient presented saying he had had a lot of vomiting and diarrhea after eating German food yesterday evening. He was not having ongoing vomiting or diarrhea in the emergency department. He was also interested in detox. He has been on methadone. He was given his usual dose of methadone and IM Compazine for a complaint of ongoing nausea. He was seen by the recovery nurse who attempted to find him a detox facility but none were available. When he was told that he would be discharged because there were no detox facilities available he then said that he needed to be seen by crisis and he said that he felt he should be admitted to a psychiatric facility because he does not feel safe. Neither I nor the recovery nurse who saw him felt that the patient had expressed any symptoms indicating a need for a psychiatric evaluation today or for psychiatric hospitalization. It seemed as though his request for psychiatric evaluation was largely for secondary gain of retirement. He was told that he would not be kept in the emergency room for an evaluation by the behavioral health team but would be given a Lyft to [facility] in [place]. Discharge Plan Discharge Clinical Impression: Nausea, vomiting and diarrhea, Opioid use disorder Patient Disposition: Home, Self-Care Additional Instructions: The recovery nurse has put you on a waiting list at the [facility] detox facility. I believe you will be contacted when a bed is available. You can contact the [facility] [employer] [facility] 24 hours a day at [phone] for additional advice. Prescriptions: No Action methadone [Methadose] 10 mg/mL Concentrate 75 mg PO DAILY gabapentin 400 mg capsule 400 mg PO TID fluvoxamine 50 mg tablet 50 mg PO BEDTIME olanzapine 5 mg Tablet 5 mg PO TID PRN (Reason: problematic AH) 30 Days Qty: 15 1RF Anbesol (benzocaine) Max Str 20 % Gel 1 appl mucous membrane QID PRN (Reason: tooth/gum pain) 10 Days Qty: 9 0RF Protocol: Apply to: Apply to: gum/tooth modafinil [Provigil] 100 mg Tablet 100 mg PO DAILY PRN (Reason: daytime sleepiness) 30 Days Qty: 30 1RF clonidine HCl 0.1 mg tablet 0.1 mg PO Q4H PRN (Reason: anxiety) 30 Days Qty: 60 0RF albuterol sulfate 90 mcg/actuation HFA aerosol inhaler 2 inh inhalation QID PRN (Reason: shortness of breath or wheezing) 30 Days Qty: 1 4RF Interventions: ED Discharge Assessment Last Done: 06/30/23 13:35 Discharge Date/Time: 06/30/23 13:36
[2023-06-30] MEDS: Prochlorperazine Edisylate 10 MG/2 ML VIAL IM (08:04)
[2023-06-30] MEDS: methADONE HCl 20 MG/2 ML ORAL.CONC 70 MG PO (08:04)
[2023-06-30 08:10] VITALS: BP 124/74; PULSE 88; RESP 20; O2SAT 98
--- NOTE | 2023-06-30 08:13 | PC.NURSE ---
pt alert and oriented, he reports 4/10 abd pain that he says is tolerable. meds given as documented, pt tolerated po intake. vss.
--- NOTE | 2023-06-30 11:39 | MHC.RECOVRN ---
Recovery Support RN met with patient in ED-3 for Addiction Medicine Consult for fentanyl and cocaine use. Patient sleeping upon RN entering his room, easily awaken with verbal stimuli. Patient reports he is OK, but still nauseous. He reports the nausea is not a result of withdrawal, but d/t food poisoning. He reports he has been smoking cocaine and heroin/fentanyl since he was about 16-17 y/o. He's had multiple inpatient detox stays and had periods of full recovery lasting 1 year. Last recovered ~2 years ago. Patient Reports he smokes 1 bundle daily- last use was yesterday. He denies any s/s of withdrawal. He again states his nausea is d/t food poisoning. He reports I've gone through withdrawal a hundred times, I know what my body does. This ain't it. He reports taking Methadone 75mg PO daily from [facility], gets take home doses. He has an empty Methadone pill bottle at bedside. Dosing continued in ER. Tolerating well. RN referenced the various scabs on his face/head. He reports I dunno. I could've fallen. I don't drink alcohol but sometimes I black out. RN asked if he ever picked at his skin- which he admits to on occasion. Patient verbalizes interest in referral to inpatient ATS- open to going anywhere except [facility]. He reports he is homeless. His mother lives in the [facility] so he would also be interested in a facility out near her. RN offered to provide him with recovery and community program resources- he declined stating I know everything around here. I already have all of that stuff. CC w/CARE Team who offered to assist with bed search. Unfortunately, no inpatient beds available. He is on a waitlist at [facility]. Spoke with ED Provider regarding discharge planning- he's been medically cleared for DC. RN explained to patient that he will need to be discharged and follow up with ATS facilities on provided list to find bed on his own. Patient stated where do you expect me to go? I'm homeless . RN offered list of community resources, including shelters. He reports they are all full. None of them are accepting people. RN contacted [facility] which had availability. CARE team offered to secure Lyft ride. RN returned to patient's room to discuss the plan, however he then stated I have psych issues. I need to see a psych doctor now. I have schizophrenia and I'm not safe. I don't feel safe with you discharging me like this. I need a dual diagnosis bed. CARE team notified. Lyft on hold. ED provider notified- and went back in to evaluate the patient's new reports. Decision was made to move forward with discharge. DC order placed. RN provided him with multiple resources for mental health, recovery support, and shelters. 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 Discussed with Sandra Quezada APRN.
--- NOTE | 2023-06-30 13:37 | PC.NURSE ---
pt cleared for discharge, discharge instructions reviewed with pt. resources for detox facilities given. left via lyft provided by [employer].
--- NOTE | 2023-06-30 16:34 | MHC.CARE ---
RAD Team conducted an ATS bed search for this pt, pt was d/c and received lyft to [facility]
== END 2023-06-30 13:36 | disposition home or self-care (01) ==
PROVIDERS: Emergency Provider Emergency Medicine
DX: R11.2 Nausea with vomiting, unspecified (principal); R19.7 Diarrhea, unspecified; F11.90 Opioid use, unspecified, uncomplicated; Z79.899 Other long term (current) drug therapy
CPT/HCPCS: 96372; 99284; J0737